=== PATIENT | male | born 1935 | race Two or more races ===

== ENCOUNTER 2020-09-12 08:47 | Outpatient (REF) | payer MEDICARE, SELFPAY | END 2020-09-12 08:48 | disposition home or self-care (01) | LOC: HO.RESP 08:47 | PROVIDERS: Visit Provider Internal Medicine | DX: Z13.89 Encounter for screening for other disorder (principal) ==

== ENCOUNTER 2020-09-27 07:53 | Emergency (ER) | payer MEDICARE, SELFPAY ==
[2020-09-27 09:07] VITALS: BP 173/88; PULSE 56; RESP 16; TEMP 36.7; O2SAT 98; BMI 24.5
--- NOTE | 2020-09-27 09:33 | ED_ITS ---
HPI - Extremity Injury (Lower) General Chief Complaint: Extremity Injury, Lower Stated Complaint: toe nail pain Time Seen by Provider: 09/27/20 09:18 Source: patient Mode of arrival: ambulatory History of Present Illness HPI Narrative: 84-year-old male with past medical history of hypertension presenting to ED complaining of left great toenail pain/over growth and partial avulsion x3 days. Reports was putting on pants and toenail nearly came off. Denies direct injury/crush injury or fall. Also reports overgrown toenail to 3rd toe. Denies fever, chills, numbness/tingling MD complaint: foot injury Onset (ago): day(s) Related Data Allergies Allergy/AdvReac Type Severity Reaction Status Date / Time No Known Allergies Allergy Unverified 07/20/20 19:09 [No Known Allergies*] Review of Systems Review of Systems: Constitutional: No Weight loss, No Fever, No Chills Musculoskeletal: No joint pain, No Myalgias, No Joint Swelling Skin: No Skin Lesions, No rash, +toenail issue Neuro: No Weakness, No Numbness, No Paresthesias PMFSH Past Medical History Source: old records reviewed Medical History (Updated 09/27/20 @ 09:32 by ZEHRA Dupont) HTN (hypertension) Social History Social History Advance Directives: No Advance Directives Information Provided: No Physical Exam Vital Signs: Vital Signs: Last Vital Signs Temp 98.0 F 09/27/20 09:07 Pulse 56 09/27/20 09:07 Resp 16 09/27/20 09:07 BP 173/88 H 09/27/20 09:07 Pulse Ox 98 09/27/20 09:07 Body Mass Index 24.5 Const: General: cooperative and healthy appearing Orientation/consciousness: patient oriented x3 Limitations: no limitations HENMT: Head: Yes normal to inspection Ears: hearing grossly normal bilaterally General nose exam: Normal external nose present Face and sinus: Yes normal facial exam Eyes: General: appearance normal, both eyes and all related structures EOM: EOMs intact bilaterally Neck: Neck: Yes normal visual inspection Cardio: Peripheral pulses: dorsalis pedis present Skin: Other: Left great toenail overgrown/partially avulsed, still intact to medial nail bed. No active bleeding, no fluctuance/induration, or active infection Other toenails overgrown Rashes: no rashes Wounds: no wounds Neuro: General: patient oriented x3 Gait exam (Neuro): Normal gait present Extrem: General: Yes normal to inspection MDM - Extremity Injury (Lower) MDM Narrative Medical decision making narrative: No active signs of infection. Toenails still intact. Discussed with patient importance of keeping toenail intact until sees pre owned sales manager as is protecting underlying nail bed. He verbalized understanding and will call pre owned sales manager today Discharge Plan Discharge Clinical Impression: Overgrown toenails Patient Disposition: Home, Self-Care Instructions: Partial Nail Avulsion for Ingrown Nail (DC) Additional Instructions: Call the pre owned sales manager today to see when he can get the earliest appointment. Do not play with her toenail, keep intact as it is protecting the underlying skin. If area begins to look infected, is red, there is pus drainage, bleeding, or you have fever return to the ED. YOU NEED TO SEE THE SENIOR MEDIA PLANNER Llame al pod?logo hoy para ginger cu?ndo puede obtener la troy m?s temprana. No juegues con la u?a del pie, mantenla intacta ya que protege la piel subyacente. Si el ?keven comienza a verse infectada, est? enrojecida, hay drenaje de pus, sangrado o tiene fiebre, regrese al servicio de urgencias. NECESITA GINGER AL ESPECIALISTA EN PIES Referrals: Maverick Staley [Physician] - 1 day Interventions: ED Discharge Assessment Last Done: 09/27/20 09:43 Discharge Date/Time: 09/27/20 09:44
== END 2020-09-27 09:44 | disposition home or self-care (01) ==
PROVIDERS: Emergency Provider Internal Medicine
DX: M79.675 Pain in left toe(s) (principal); I10 Essential (primary) hypertension; Z79.899 Other long term (current) drug therapy
CPT/HCPCS: 99282; 99283

== ENCOUNTER → 2020-10-10 13:08 | Outpatient (BNVA) | payer MEDICARE, SELFPAY | PROVIDERS: Visit Provider Nurse Practitioner | DX: Z13.89 Encounter for screening for other disorder (principal) | CPT/HCPCS: Q3014 ==

== ENCOUNTER 2020-11-14 13:57 | Outpatient (REF) | payer MEDICARE, SELFPAY ==
--- NOTE | 2020-11-15 13:12 | MHC.AU.P13 ---
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 Current Hearing Instrument Information: Previously had Ella SP BTEs, but they have been lost for a while. Additional Information: Mr. Rivas was seen at [facility] on 10/18/2020, at which time testing indicated that he would benefit from binaural amplification. Mr. Rivas previously received hearing aids from our clinic in 2016. He has since lost these hearing aids and is in need of a new pair. His degree of hearing loss impacts his ability to communicate. Binaural amplification is recommended to facilitate improved communication. He would benefit from rechargeable hearing aids due to memory and cognitive concerns. His son-in-law accompanied him today and will be helping him care for the hearing aids. Hearing Instrument Selection: Right Ear: Director Loss Prevention: Phonak Model: Bolero M50-VA Battery Size: Rechargeable Color: P5-Champagne Type of Mold: Theresa shell mold Left Ear: Director Loss Prevention: Phonak Model: Bolero M50-VA Battery Size: Rechargeable Color: P5-Champagne Type of Mold: Theresa shell mold Plan: Plan of Care for Hearing Instrument Fitting: Patient wishes to purchase hearing aids as prescribed Action Taken/Action Needed: Earmold Impressions Taken Comments: Checking with insurance to see if he is eligible for new aids. If not, will submit online PA. Earmolds were ordered today. Diagnosis Code(s): Primary Diagnosis: H90.3 Bilateral Sensorineural Hearing Loss Signature: Provider: Junito Gan, [facility]
== END 2020-11-14 13:58 | disposition home or self-care (01) ==
LOC: HO.HAP 13:57
PROVIDERS: Visit Provider Otolaryngology
DX: Z46.1 Encounter for fitting and adjustment of hearing aid (principal); H90.3 Sensorineural hearing loss, bilateral
CPT/HCPCS: 92591; V5275

== ENCOUNTER → 2020-12-14 08:37 | Outpatient (BNVA) | payer OTHER, SELFPAY | PROVIDERS: PCP Family Medicine; Visit Provider Nurse Practitioner | CPT/HCPCS: Q3014 ==

== ENCOUNTER 2020-12-21 14:45 | Outpatient (REF) | payer MEDICARE, SELFPAY | END 2020-12-21 14:46 | disposition home or self-care (01) | LOC: HO.HAP 14:45 | PROVIDERS: Visit Provider Otolaryngology | DX: Z46.1 Encounter for fitting and adjustment of hearing aid (principal); H90.3 Sensorineural hearing loss, bilateral | CPT/HCPCS: V5011; V5020; V5160; V5261; V5264 ==

== ENCOUNTER 2021-01-05 14:21 | Outpatient (REF) | payer OTHER, SELFPAY | END 2021-01-05 14:22 | disposition home or self-care (01) | LOC: HO.HAP 14:21 | PROVIDERS: Visit Provider Family Medicine | DX: Z13.89 Encounter for screening for other disorder (principal) ==

== ENCOUNTER 2021-01-23 12:57 | Outpatient (REF) | payer OTHER, SELFPAY | END 2021-01-23 12:58 | disposition home or self-care (01) | LOC: HO.HAP 12:57 | PROVIDERS: Visit Provider Family Medicine | DX: Z13.89 Encounter for screening for other disorder (principal) ==

== ENCOUNTER → 2021-02-02 09:15 | Outpatient (BNVA) | payer OTHER, SELFPAY | PROVIDERS: PCP Family Medicine; Visit Provider Nurse Practitioner | DX: R63.4 Abnormal weight loss (principal); K21.9 Gastro-esophageal reflux disease without esophagitis; K59.04 Chronic idiopathic constipation; R30.0 Dysuria; Z79.899 Other long term (current) drug therapy | CPT/HCPCS: Q3014 ==

== ENCOUNTER 2022-02-18 14:02 | Emergency (ER) | payer OTHER, SELFPAY ==
--- NOTE | ~2022-02-18 | XR_ITS ---
EXAMINATION: XR CHEST CLINICAL INFORMATION: Chest pain COMPARISON: None TECHNIQUE: Frontal view of the chest was obtained. FINDINGS: The lungs are well-expanded and clear acute pneumonic process. There is platelike atelectasis left CP angle. Heart size and pulmonary vascularity is normal. No gross bony abnormality seen. XR/XR chest 1V IMPRESSION: Platelike atelectasis left CP angle.
--- NOTE | 2022-02-18 14:09 | ECG_ITS ---
Test Reason : CHEST PAIN Blood Pressure : / mmHG Vent. Rate : 099 BPM Atrial Rate : 000 BPM P-R Int : 000 ms QRS Dur : 082 ms QT Int : 372 ms P-R-T Axes : 000 057 065 degrees QTc Int : 477 ms Atrial fibrillation Abnormal ECG When compared with ECG of 22-MAY-2020 09:50, Atrial fibrillation has replaced Normal sinus rhythm with Premature ventricular complexes T wave inversion no longer evident in Lateral leads Referred By: Generic ED Physician Electronically Signed By:JULIAN GRIFFIN MD
[2022-02-18 14:19] VITALS: BP 130/74; PULSE 83; RESP 18; TEMP 36.4; O2SAT 97; BMI 23.5
[2022-02-18 14:42] VITALS: BP 116/79; PULSE 82; RESP 16; TEMP 36.6; O2SAT 97
--- NOTE | 2022-02-18 15:37 | ED_ITS ---
HPI - Chest Pain General Chief Complaint: Chest Pain Stated Complaint: HBP/chest pain Time Seen by Provider: 02/18/22 15:34 Source: patient, family (Spouse) and field service coordinator Mode of arrival: ambulatory Limitations: no limitations History of Present Illness HPI narrative: 86 years old male came in for evaluation of chest pain and elevated blood pressure. Left-sided chest discomfort radiating to the left arm/shoulder started since yesterday, patient been having nausea and vomiting time 1 yesterday. described it as mild discomfort to the left side of the chest 01/10, intermittent last for 15-30 minutes each episode then disappear, now patient have no chest pain or discomfort, also noted that his blood pressure was elevated 176/76. Patient declined shortness of breath, no fever, no chills. Related Data Home Medications Medication Instructions Recorded Confirmed docusate sodium 100 mg capsule 100 mg PO DAILY 10/10/20 12/14/20 (Colace) methylcellulose (laxative) 500 mg 500 mg PO BID 10/10/20 12/14/20 tablet (Citrucel) aspirin 81 mg tablet,delayed 81 mg PO QAM 02/02/21 release atorvastatin 40 mg tablet 40 mg PO BEDTIME 02/02/21 cetirizine 10 mg tablet 10 mg PO QAM PRN 02/02/21 furosemide 40 mg tablet 40 mg PO QAM 02/02/21 guaifenesin 100 mg/5 mL oral liquid mg PO Q4H PRN 02/02/21 hydralazine 10 mg tablet 10 mg PO 02/02/21 hydralazine 25 mg tablet 25 mg PO 02/02/21 metoprolol succinate 50 mg 50 mg PO QAM 02/02/21 tablet,extended release 24 hr pantoprazole 40 mg tablet,delayed 40 mg PO DAILY 02/02/21 release sennosides 8.6 mg tablet 17.2 mg PO BEDTIME PRN 02/02/21 valsartan 320 1 tab PO QAM 02/02/21 mg-hydrochlorothiazide 25 mg tablet Previous Rx's Medication Instructions Recorded bisacodyl 5 mg tablet,delayed 10 mg PO BEDTIME 30 Days #60 tab 12/14/20 release (Dulcolax (bisacodyl)) nitrofurantoin macrocrystal 100 mg 100 mg PO BID #7 cap 12/14/20 capsule omeprazole 40 mg capsule,delayed 40 mg PO DAILY #90 cap 04/25/21 release Allergies Allergy/AdvReac Type Severity Reaction Status Date / Time No Known Allergies Allergy Verified 02/02/21 09:16 [No Known Allergies*] Review of Systems Review of Systems: All other systems are reviewed and are negative Constitutional: Reports as per HPI and Reports no additional constitutional complaints Eyes: Reports as per HPI and Reports no additional eye complaints Reports system reviewed and no additional complaints, except as documented Cardiovascular: Reports as per HPI and Reports no additional cardiovascular complaints Respiratory: Reports as per HPI and Reports no additional respiratory complaints Gastrointestinal: Reports as per HPI and Reports no additional gastrointestinal complaints Genitourinary: Reports no additional female genitourinary complaints Musculoskeletal: Reports no additional musculoskeletal complaints Skin/Breast: Reports system reviewed and no additional complaints, except as docu Psychiatric: Reports no additional psychiatric complaints Endocrine: Reports no additional endocrine complaints Hematologic/Lymphatic: Reports no additional hematologic/lymphatic complaints Allergic/Immunologic: Reports no additional allergic/immunologic complaints Reports system reviewed and no additional complaints, except as documented and Reports Abnormal speech present [facility] Past Medical History Medical History (Updated 02/18/22 @ 16:02 by Rosa Connell MD) HTN (hypertension) Surgical History Hx of colonoscopy Family History Family History Father Stroke Mother No problems noted. Social History Social History Household Members: Spouse Housing: Apartment Alcohol intake: former Year quit: 2017 Advance Directives: No Advance Directives Information Provided: No Physical Exam Vital Signs: Vital Signs: Last Vital Signs Temp 97.8 F 02/18/22 14:42 Pulse 82 02/18/22 14:42 Resp 16 02/18/22 14:42 BP 116/79 02/18/22 14:42 Pulse Ox 97 02/18/22 14:42 BMI result Body Mass Index 23.5 Course Course Course Narrative: Assessment and plan. 86-year-old came in for chest pain since yesterday, EKG showing atrial fibrillation confirmed that the patient had history of atrial fibrillation old EKGs showed no history of atrial fibrillation. As per patient scheduled for stress test on February 22, case signed out to Dr. Bernal for re- evaluation and dispo accordingly. Discharge Plan Discharge Clinical Impression: Chest pain, Atrial fibrillation Prescriptions: No Action omeprazole 40 mg capsule,delayed release(DR/EC) 40 mg PO DAILY Qty: 90 0RF docusate sodium [Colace] 100 mg capsule 100 mg PO DAILY 0RF Citrucel 500 mg tablet 500 mg PO BID 0RF bisacodyl [Dulcolax (bisacodyl)] 5 mg tablet,delayed release (DR/EC) 10 mg PO BEDTIME 30 Days Qty: 60 3RF nitrofurantoin macrocrystal 100 mg capsule 100 mg PO BID Qty: 7 0RF Rx Instructions: must administer with a meal/food
[2022-02-18 15:59] LABS: MANUAL DIFF FLAG NO
[2022-02-18 16:01] LABS: Basophils Percent Auto 0.5 % (0-2); Eosinophils Absolute Auto 0.2 X10*3/uL (0.0-0.4); Hematocrit 40.5 % (42.0-52.0); Imm Gran Abs Auto 0.04 X10*3/uL (0.00-0.03); Imm Gran Pct Auto 0.5 % (0.0-0.4); Lymphocytes Absolute Auto 1.5 X10*3/uL (1.2-4.9); Lymphocytes Percent Auto 20.1 % (20-40); Mean Corpuscular HGB Conc 34.6 g/dl (31.0-36.0); Mean Corpuscular Hemoglobin 31.3 pg (27.0-33.0); Mean Corpuscular Volume 90.4 fL (80.0-98.0); Mean Platelet Volume 10.9 fL (9.4-12.4); Monocytes Absolute Auto 0.6 X10*3/uL (0.1-1.2); Monocytes Percent Auto 8.3 % (2-11); Neutrophils Absolute Auto 5.2 x10*3/uL (2.0-8.3); Neutrophils Percent Auto 67.6 % (45-73); Platelet Count 158 X10*3/uL (160-400); Red Blood Count 4.48 X10*6/uL (4.60-5.80); Red Cell Distribution Width 13.5 % (11.0-16.0); White Blood Count 7.7 X10*3/uL (4.8-10.8)
[2022-02-18 16:22] LABS: Alanine Aminotransferase 14 U/L (0-40); Albumin Level 3.8 g/dL (3.5-5.0); Alkaline Phosphatase 85 U/L (39-117); Anion Gap 10 (12-20); Aspartate Amino Transferase 19 U/L (5-37); Bilirubin Direct 0.4 mg/dL (0.0-0.5); Bilirubin Total 0.9 mg/dL (0.0-1.0); Blood Urea Nitrogen 15 mg/dL (9-16); Calcium 9.4 mg/dL (8.4-10.2); Carbon Dioxide 34 mmol/L (22-29); Chloride 100 mmol/L (96-108); Creatinine Clr Calc Pharmacy 54.1; Estimated Glomerular Filt Rate 59; Glucose Random 83 mg/dL (60-115); Lipase 21 U/L (8-78); Potassium 3.5 mmol/L (3.3-5.1); Sodium 140 mmol/L (135-145); Total Protein 6.9 g/dL (6.5-8.0)
[2022-02-18 16:25] LABS: B Type Natriuretic Peptide 142 pg/mL (<100); Troponin-I High Sensitivity 5.1 ng/L (<3.5-35.0)
[2022-02-18 17:43] VITALS: BP 134/83; PULSE 75; RESP 16; TEMP 36.9; O2SAT 96
[2022-02-18 18:29] LABS: Troponin-I High Sensitivity 5.5 ng/L (<3.5-35.0)
== END 2022-02-18 19:44 | disposition home or self-care (01) ==
PROVIDERS: Internal Medicine; Emergency Provider Emergency Medicine; PCP Internal Medicine
DX: I48.91 Unspecified atrial fibrillation (principal); R07.89 Other chest pain; R11.2 Nausea with vomiting, unspecified; R06.02 Shortness of breath; Z79.899 Other long term (current) drug therapy; Z79.01 Long term (current) use of anticoagulants
CPT/HCPCS: 36415; 71045; 80048; 80076; 83690; 83880; 84484; 85025; 93005; 99283; 99285

== ENCOUNTER → 2022-02-22 15:33 | Outpatient (BNVA) | payer OTHER, SELFPAY | PROVIDERS: PCP Internal Medicine; Referring Provider Internal Medicine; Visit Provider Nurse Practitioner | DX: K59.04 Chronic idiopathic constipation (principal); K21.9 Gastro-esophageal reflux disease without esophagitis | CPT/HCPCS: 99212 ==

== ENCOUNTER → 2022-04-05 15:04 | Outpatient (BNVA) | payer OTHER, SELFPAY | PROVIDERS: PCP Internal Medicine | DX: R35.0 Frequency of micturition (principal) | CPT/HCPCS: 51798; 99202 ==

== ENCOUNTER → 2022-06-07 14:10 | Outpatient (BNVA) | payer OTHER, SELFPAY | PROVIDERS: PCP Internal Medicine; Visit Provider Urology | DX: R35.0 Frequency of micturition (principal); R30.0 Dysuria | CPT/HCPCS: 51798; 99212 ==

== ENCOUNTER 2022-06-18 20:44 | Observation (INO) | payer OTHER, SELFPAY ==
--- NOTE | 2022-06-18 | ECG_ITS ---
Test Reason : CHEST PAIN Blood Pressure : / mmHG Vent. Rate : 079 BPM Atrial Rate : 000 BPM P-R Int : 000 ms QRS Dur : 088 ms QT Int : 390 ms P-R-T Axes : 000 062 102 degrees QTc Int : 447 ms Atrial fibrillation Nonspecific ST and T wave abnormality Abnormal ECG When compared with ECG of 18-FEB-2022 14:04, Nonspecific T wave abnormality now evident in Inferior leads Nonspecific T wave abnormality now evident in Anterior leads Referred By: Slava Johnson Electronically Signed By:PEGGY SHERMAN
--- NOTE | ~2022-06-18 | XR_ITS ---
EXAMINATION: XR CHEST CLINICAL INFORMATION: Chest pain COMPARISON: 02/18/2022 TECHNIQUE: Frontal view of the chest was obtained. FINDINGS: Cardiac leads overlie the chest. Lung volumes are low. Hazy opacities at both lung bases. No pleural effusion or pneumothorax. The cardiomediastinal silhouette is unchanged, with a tortuous aorta. No acute osseous abnormality. XR/XR chest 1V IMPRESSION: Low lung volumes with bibasilar opacities favoring atelectasis.
[2022-06-18 21:01] VITALS: BP 102/62; BP 103/60; PULSE 100; PULSE 88; RESP 16; TEMP 36.9; O2SAT 96; O2SAT 97; BMI 22.9
--- NOTE | 2022-06-18 21:01 | ED_ITS ---
HPI - General Adult General Chief complaint: Chest Pain Stated complaint: chest pain Time Seen by Provider: 06/18/22 20:59 Source: patient Limitations: no limitations and language barrier (Hospital fashion photographer used) History of Present Illness HPI narrative: This is an 86-year-old male who reports a history of a ?myocardial lesion?, also has known GERD, hypertension, who has had a new discomfort which feels like gas and has left breast area since this afternoon. He describes symptoms as mild now. He did take an aspirin at home. He notes that his blood pressure seemed low at home, says it was ?89 . He denies any shortness of breath, sweats, cough, fever, nausea, vomiting, extremity swelling. He cannot say whether he has had any history of cardiac arrhythmia in the past. He cannot say if he is on any anticoagulants. Related Data Home Medications Medication Instructions Recorded Confirmed methylcellulose (laxative) 500 mg 500 mg PO BID 10/10/20 12/14/20 tablet (Citrucel) aspirin 81 mg tablet,delayed 81 mg PO QAM 02/02/21 release atorvastatin 40 mg tablet 40 mg PO BEDTIME 02/02/21 cetirizine 10 mg tablet 10 mg PO QAM PRN allergies 02/02/21 furosemide 40 mg tablet 40 mg PO QAM 02/02/21 guaifenesin 100 mg/5 mL oral liquid mg PO Q4H PRN 02/02/21 hydralazine 10 mg tablet 10 mg PO 02/02/21 hydralazine 25 mg tablet 25 mg PO 02/02/21 metoprolol succinate 50 mg 50 mg PO QAM 02/02/21 tablet,extended release 24 hr valsartan 320 1 tab PO QAM 02/02/21 mg-hydrochlorothiazide 25 mg tablet clopidogrel 75 mg tablet 75 mg PO BEDTIME 04/05/22 famotidine 20 mg tablet 20 mg PO DAILY 04/05/22 hydralazine 50 mg tablet 50 mg PO 04/05/22 sertraline 25 mg tablet 25 mg PO DAILY 04/05/22 acetaminophen 500 mg tablet 1,000 mg PO Q4-6H PRN 06/07/22 ketotifen fumarate 0.025 % (0.035 0 drp ophthalmic (eye) 06/07/22 %) eye drops mirtazapine 30 mg tablet 30 mg PO BEDTIME 06/07/22 Previous Rx's Medication Instructions Recorded bisacodyl 5 mg tablet,delayed 10 mg PO BEDTIME 30 days #60 tabs 02/22/22 release (Dulcolax (bisacodyl)) docusate sodium 100 mg capsule 100 mg PO .Daily with food #30 caps 02/22/22 (Colace) pantoprazole 40 mg tablet,delayed 40 mg PO DAILY #30 tabs 02/22/22 release tamsulosin 0.4 mg capsule (Flomax) 0.4 mg PO BEDTIME #30 caps 04/05/22 Allergies Allergy/AdvReac Type Severity Reaction Status Date / Time No Known Allergies Allergy Verified 06/07/22 07:38 [No Known Allergies*] Review of Systems Review of Systems: Yes all other systems are reviewed and are negative Constitutional: Constitutional: Reports as per HPI and Denies fever(s) Eyes: Eyes: Reports as per HPI and Reports no additional eye complaints ENT: Reports system reviewed and no additional complaints, except as documented, Reports as per HPI, Denies nasal congestion, Denies nasal discharge and Denies sore throat Cardiovascular: Cardiovascular: Reports as per HPI, Reports chest pain (Left breast area, gaslike) and Denies dyspnea Respiratory: Respiratory: Reports as per HPI, Denies cough and Denies dyspnea Gastrointestinal: Gastrointestinal: Reports as per HPI, Denies abdominal pain, Denies diarrhea and Denies vomiting Genitourinary: Genitourinary: Reports as per HPI, Denies hematuria, Denies dysuria and Denies urinary frequency Musculoskeletal: Musculoskeletal: Reports no additional musculoskeletal complaints and Denies numbness Integumentary/Breasts: Skin/Breast: Reports as per HPI and Denies rash Neurologic: Reports as per HPI, Denies focal weakness and Denies numbness Psychiatric: Psychiatric: Reports no additional psychiatric complaints and Reports as per HPI Endocrine: Endocrine: Reports no additional endocrine complaints and Reports as per HPI Hematologic/Lymphatic: Hematologic/Lymphatic: Reports no additional hematologic/lymphatic complaints, Reports as per HPI and Reports other (No peripheral edema) [facility] Past Medical History Medical History Abscess Burning with urination Gastroesophageal reflux disease with esophagitis HTN (hypertension) Urinary frequency Surgical History History of surgery Hx of colonoscopy Family History Family History Father Stroke Mother No problems noted. Social History Social History Household Members: Spouse Housing: Apartment Alcohol intake: former Year quit: 2017 Advance Directives: No Advance Directives Information Provided: No Physical Exam ED Vital Signs: Vital Signs - 24 hr 06/18/22 21:01 Temperature 98.4 F Pulse Rate 88 Respiratory Rate 16 Blood Pressure 102/62 Pulse Oximetry 96 Oxygen Delivery Method Room Air BMI result Body Mass Index 22.9 Const General: no acute distress Orientation/consciousness: patient oriented x3 HENMT Head: Yes normal to inspection General nose exam: Normal external nose present Mouth: moist mucous membranes Throat: Yes posterior oropharynx normal, Yes tonsils normal and Yes uvula midline Eyes Eyelids: Yes eyelids normal Conjunctivae: conjunctivae normal Pupils: Equal, round and reactive pupils present Neck Neck: Yes supple Resp Effort & Inspection: normal respiratory effort Auscultation: clear to auscultation bilaterally Cardio Rate: regular rate Rhythm: abnormal rhythm irregularly irregular Heart sounds: S1 normal heart sound present, S2 normal heart sound present, no gallops, no murmurs and no rubs GI Inspection: No distended Palpation (GI): Soft to palpation and nontender Auscultation: normal bowel sounds Skin General skin exam: other (Warm and dry) Neuro General: patient oriented x3 and CN's II-XI intact bilaterally Cranial nerves: Yes Equal, round and reactive pupils present Extrem General: Yes no pedal edema Psych Affect: normal affect Attitude: cooperative Medical Decision Making [facility] Narrative Medical decision making narrative: Patient with left-sided chest discomfort with associated belching. Pain seems localized. Patient does have EKG changes compared to prior, with ST depression laterally. Troponins negative. Patient does have hypokalemia with potassium 2.8 and was given potassium p.o. in the ED. his creatinine is also significantly worse at 2.10, with an elevated BUN of 36. Patient reported a low blood pressur e at home, maybe mildly dehydrated. Patient was treated with normal saline IV bolus. Was also given Maalox and lidocaine 1st chest pain, had been given aspirin pre-hospital. Patient is to be admitted to the hospitalist Service, Dr. Johnson accepting Lab Data Lab results reviewed: Yes I reviewed the patient's lab results. Result diagrams: 06/18/22 21:27 06/18/22 21:27 Labs: Lab Results 06/18/22 06/18/22 06/18/22 Range/Units 21:27 21:27 21:27 WBC 8.2 (4.8-10.8) X10*3/uL RBC 4.12 L (4.60-5.80) X10*6/uL Hgb 12.6 L (14.0-18.0) g/dl Hct 36.7 L (42.0-52.0) % MCV 89.1 (80.0-98.0) fL MCH 30.6 (27.0-33.0) pg MCHC 34.3 (31.0-36.0) g/dl RDW 14.6 (11.0-16.0) % Plt Count 166 (160-400) X10*3/uL MPV 11.9 (9.4-12.4) fL Immature Gran % (Auto) 0.5 H (0.0-0.4) % Neut % (Auto) 68.1 (45-73) % Lymph % (Auto) 21.3 (20-40) % Dundy % (Auto) 7.5 (2-11) % Eos % (Auto) 2.1 (0-4) % Baso % (Auto) 0.5 (0-2) % Lymph # (Auto) 1.8 (1.2-4.9) X10*3/uL Dundy # (Auto) 0.6 (0.1-1.2) X10*3/uL Eos # (Auto) 0.2 (0.0-0.4) X10*3/uL Baso # (Auto) 0.0 (0.0-0.2) X10*3/uL Abs Immat Gran (auto) 0.04 H (0.00-0.03) X10*3/uL Absolute Neuts (auto) 5.6 (2.0-8.3) x10*3/uL Absolute Nucleated RBC 0.000 (0.0-0.012) X10*3/uL Nucleated RBC % (auto) 0.0 (0.0-0.2) /100WBC APTT 27.1 (26.0-36.4) SEC Sodium 141 (135-145) mmol/L Potassium 2.8 L (3.3-5.1) mmol/L Chloride 101 (96-108) mmol/L Carbon Dioxide 27 (22-29) mmol/L Anion Gap 16 (12-20) BUN 36 H D (9-16) mg/dL Creatinine 2.10 H (0.5-1.4) mg/dL Estim Creat Clear Calc 32.4 Estimated GFR 30 Random Glucose 144 H D (60-115) mg/dL Calcium 9.1 (8.4-10.2) mg/dL Total Bilirubin 0.7 (0.0-1.0) mg/dL AST 14 (5-37) U/L ALT 8 (0-40) U/L Alkaline Phosphatase 97 (39-117) U/L Troponin I High Sens (<3.5-35.0) ng/L Total Protein 7.2 (6.5-8.0) g/dL Albumin 4.2 (3.5-5.0) g/dL 06/18/22 Range/Units 21:27 WBC (4.8-10.8) X10*3/uL RBC (4.60-5.80) X10*6/uL Hgb (14.0-18.0) g/dl Hct (42.0-52.0) % MCV (80.0-98.0) fL MCH (27.0-33.0) pg MCHC (31.0-36.0) g/dl RDW (11.0-16.0) % Plt Count (160-400) X10*3/uL MPV (9.4-12.4) fL Immature Gran % (Auto) (0.0-0.4) % Neut % (Auto) (45-73) % Lymph % (Auto) (20-40) % Dundy % (Auto) (2-11) % Eos % (Auto) (0-4) % Baso % (Auto) (0-2) % Lymph # (Auto) (1.2-4.9) X10*3/uL Dundy # (Auto) (0.1-1.2) X10*3/uL Eos # (Auto) (0.0-0.4) X10*3/uL Baso # (Auto) (0.0-0.2) X10*3/uL Abs Immat Gran (auto) (0.00-0.03) X10*3/uL Absolute Neuts (auto) (2.0-8.3) x10*3/uL Absolute Nucleated RBC (0.0-0.012) X10*3/uL Nucleated RBC % (auto) (0.0-0.2) /100WBC APTT (26.0-36.4) SEC Sodium (135-145) mmol/L Potassium (3.3-5.1) mmol/L Chloride (96-108) mmol/L Carbon Dioxide (22-29) mmol/L Anion Gap (12-20) BUN (9-16) mg/dL Creatinine (0.5-1.4) mg/dL Estim Creat Clear Calc Estimated GFR Random Glucose (60-115) mg/dL Calcium (8.4-10.2) mg/dL Total Bilirubin (0.0-1.0) mg/dL AST (5-37) U/L ALT (0-40) U/L Alkaline Phosphatase (39-117) U/L Troponin I High Sens 9.6 D (<3.5-35.0) ng/L Total Protein (6.5-8.0) g/dL Albumin (3.5-5.0) g/dL Imaging Data Chest x-ray: Radiologist's impression: IMPRESSION: Low lung volumes with bibasilar opacities favoring atelectasis. ECG Data Attestation: I personally reviewed and interpreted this ECG as follows: Interpretation: Atrial fibrillation with a ventricular response of 79. ST changes especially in lateral leads.. Normal QRS axis. EKG unchanged from 1 dated 02/18/2022 except for the presence of the lateral lead ST changes Discharge Plan Discharge Clinical Impression: Chest pain, Acute hypokalemia, Acute kidney injury Patient Disposition: Admitted as Observation
[2022-06-18 21:35] LABS: Basophils Percent Auto 0.5 % (0-2); Eosinophils Absolute Auto 0.2 X10*3/uL (0.0-0.4); Eosinophils Percent Auto 2.1 % (0-4); Hematocrit 36.7 % (42.0-52.0); Hemoglobin 12.6 g/dl (14.0-18.0); Imm Gran Abs Auto 0.04 X10*3/uL (0.00-0.03); Imm Gran Pct Auto 0.5 % (0.0-0.4); Lymphocytes Absolute Auto 1.8 X10*3/uL (1.2-4.9); Lymphocytes Percent Auto 21.3 % (20-40); MANUAL DIFF FLAG NO; Mean Corpuscular HGB Conc 34.3 g/dl (31.0-36.0); Mean Corpuscular Hemoglobin 30.6 pg (27.0-33.0); Mean Corpuscular Volume 89.1 fL (80.0-98.0); Mean Platelet Volume 11.9 fL (9.4-12.4); Monocytes Absolute Auto 0.6 X10*3/uL (0.1-1.2); Monocytes Percent Auto 7.5 % (2-11); Neutrophils Absolute Auto 5.6 x10*3/uL (2.0-8.3); Neutrophils Percent Auto 68.1 % (45-73); Platelet Count 166 X10*3/uL (160-400); Red Blood Count 4.12 X10*6/uL (4.60-5.80); Red Cell Distribution Width 14.6 % (11.0-16.0); White Blood Count 8.2 X10*3/uL (4.8-10.8)
[2022-06-18 21:45] LABS: Partial Thromboplastin Time 27.1 SEC (26.0-36.4)
[2022-06-18] MEDS: Magnesium Hydrox/Alum Hydrox 30 ML ORAL.SUSP PO (21:46)
[2022-06-18] MEDS: Lidocaine HCl Viscous 2 % 15 ML SOLUTION 10 ML MUCOUS MEM (21:46)
[2022-06-18 21:54] LABS: Alanine Aminotransferase 8 U/L (0-40); Albumin Level 4.2 g/dL (3.5-5.0); Alkaline Phosphatase 97 U/L (39-117); Anion Gap 16 (12-20); Aspartate Amino Transferase 14 U/L (5-37); Bilirubin Total 0.7 mg/dL (0.0-1.0); Blood Urea Nitrogen 36 mg/dL (9-16); Calcium 9.1 mg/dL (8.4-10.2); Carbon Dioxide 27 mmol/L (22-29); Chloride 101 mmol/L (96-108); Creatinine Clr Calc Pharmacy 32.4; Estimated Glomerular Filt Rate 30; Glucose Random 144 mg/dL (60-115); Potassium 2.8 mmol/L (3.3-5.1); Sodium 141 mmol/L (135-145); Total Protein 7.2 g/dL (6.5-8.0)
[2022-06-18 21:57] LABS: Troponin-I High Sensitivity 9.6 ng/L (<3.5-35.0)
[2022-06-18] MEDS: Potassium Bicarbonate/Cit AC 25 MEQ TABLET.EFF PO (22:11)
[2022-06-18] MEDS: 0.9 % Sodium Chloride 500 ML 999 ML IV (22:12)
--- NOTE | 2022-06-18 22:28 | P.HPHOSP_ITS ---
History of Present Illness Date of Service: 06/18/22 Chief Complaint: chest pain 86-year-old male with a past medical history of hypertension, hyperlipidemia, CAD, question CHF, depression, BPH, constipation presented to the hospital today with a chief complaint of chest pain. Patient reports that he developed chest discomfort located in the center of the chest, nonradiating, no associated lightheadedness or dizziness, nausea vomiting or diaphoresis. Resolved at the time of my interview. Mentions that he has been eating and drinking okay. Denies any fever chills cough. Denies any GI symptoms. Review of all other systems is negative except mentioned above ER course: Per ER team patient's chest pain resolved, EKG nonischemic, troponin negative. On labs noted to have low potassium. Given supplementation. Admitted to the hospital for further management. [facility] Medical History Abscess Burning with urination Gastroesophageal reflux disease with esophagitis HTN (hypertension) Urinary frequency Family History Father Stroke Mother No problems noted. Surgical History History of surgery Hx of colonoscopy Social History Household Members: Spouse Housing: Apartment Alcohol intake: former Year quit: 2017 Advance Directives: No Advance Directives Information Provided: No Meds Allergies Allergy/AdvReac Type Severity Reaction Status Date / Time No Known Allergies Allergy Verified 06/07/22 07:38 [No Known Allergies*] Active Medications: Current Medications Acetaminophen (Acetaminophen 325 Mg Tablet) 650 mg PO Q6H PRN PRN Reason: Pain, Mild (Pain Scale 1-3) Heparin Sodium (Porcine) (Heparin Sodium,Porcine 5,000 Unit/Ml Vial) 5,000 unit SUBCUT Q8H ELA Hydromorphone HCl (Hydromorphone Hcl 0.5 Mg/0.5 Ml Syringe) 0.5 mg IVPUSH Q4H PRN; Protocol PRN Reason: Pain, Severe (Pain Scale 7-10) Sodium Chloride (Ns) 500 mls @ 999 mls/hr IV .Q31M ELA Stop: 06/18/22 22:30 Last Admin: 06/18/22 22:12 Dose: 999 mls/hr Melatonin (Melatonin 3 Mg Tablet) 6 mg PO BEDTIME PRN PRN Reason: Insomnia Nitroglycerin (Nitroglycerin 0.4 Mg Tab.Subl) 0.4 mg SUBLINGUAL Q5MX3 PRN PRN Reason: Chest Pain Pharmacy Consult (Consult Rx Perform Med Rec) 1 each MISCELLANE ONCE PRN PRN Reason: Consult order Potassium Chloride (Potassium Chloride Packet 20 Meq Packet) 40 meq PO ONCE ONE Stop: 06/18/22 22:28 Senna (Sennosides 8.6 Mg Tablet) 17.2 mg PO BEDTIME PRN PRN Reason: Constipation Sodium Chloride (0.9 % Sodium Chloride Flush 3 Ml Syringe) 3 ml IVFLUSH [facility] Medications Medication Instructions Recorded Confirmed Last Taken Type acetaminophen 500 mg tablet 2 tab PO Q4-6H PRN Pain 06/19/22 06/19/22 Unknown History aspirin 81 mg tablet,delayed 1 tab PO QAM 06/19/22 06/19/22 06/18/22 History release atorvastatin 40 mg tablet 1 tab PO BEDTIME 06/19/22 06/19/22 06/18/22 History bisacodyl 5 mg tablet,delayed 1 tab PO BID 06/19/22 06/19/22 06/18/22 History release (Laxative (bisacodyl)) cetirizine 10 mg tablet 1 tab PO QAM PRN allergies 06/19/22 06/19/22 Unknown History clopidogrel 75 mg tablet 1 tab PO BEDTIME 06/19/22 06/19/22 06/18/22 History docusate sodium 100 mg capsule 1 cap PO DAILY 06/19/22 06/19/22 06/18/22 History famotidine 20 mg tablet 1 tab PO BEDTIME 06/19/22 06/19/22 06/18/22 History fluticasone propionate 50 2 spray intranasal DAILY 06/19/22 06/19/22 Unknown History mcg/actuation nasal spray,suspension furosemide 40 mg tablet 1 tab PO QAM 06/19/22 06/19/22 06/18/22 History hydralazine 50 mg tablet 1 tab PO BID 06/19/22 06/19/22 06/18/22 History ketotifen fumarate 0.025 % (0.035 1 drp ophthalmic (eye) BID PRN 06/19/22 06/19/22 Unknown History %) eye drops allergies metoprolol succinate 50 mg 1.5 tab PO QAM 06/19/22 06/19/22 06/18/22 History tablet,extended release 24 hr mirtazapine 30 mg tablet 1 tab PO BEDTIME 06/19/22 06/19/22 06/18/22 History pantoprazole 40 mg tablet,delayed 1 tab PO QAM 06/19/22 06/19/22 06/18/22 History release sertraline 25 mg tablet 1 tab PO QAM 06/19/22 06/19/22 06/18/22 History tamsulosin 0.4 mg capsule 1 cap PO DAILY 06/19/22 06/19/22 06/18/22 History valsartan 320 1 tab PO QAM 06/19/22 06/19/22 06/18/22 History mg-hydrochlorothiazide 25 mg tablet Physical Exam Vital Signs and Narrative: Vital Signs: Last Vital Signs Temp 98.4 F 06/18/22 21:01 Pulse 88 06/18/22 21:01 Resp 16 06/18/22 21:01 BP 102/62 06/18/22 21:01 Pulse Ox 96 06/18/22 21:01 O2 Del Method 06/18/22 21:01 BMI result Body Mass Index 22.9 Gen: Appears be in no acute distress HEENT: NCAT, Moist mucosa. Pulmonary: Vesicular breath sounds, fair air entry CVS: Normal S1-S2 Abdomen: BS+, Soft, Nontender Extremities: Warm well perfused Neuro: Alert and awake. Results Labs CBC and Chem 7: 06/18/22 21:27 06/18/22 21:27 Labs: Laboratory Results - last 24 hr 06/18/22 06/18/22 06/18/22 21:27 21:27 21:27 MCV 89.1 MCH 30.6 MCHC 34.3 RDW 14.6 Plt Count 166 MPV 11.9 Immature Gran % (Auto) 0.5 H Neut % (Auto) 68.1 Lymph % (Auto) 21.3 [place] % (Auto) 7.5 Eos % (Auto) 2.1 Baso % (Auto) 0.5 Lymph # (Auto) 1.8 [place] # (Auto) 0.6 Eos # (Auto) 0.2 Baso # (Auto) 0.0 Abs Immat Gran (auto) 0.04 H Absolute Neuts (auto) 5.6 Absolute Nucleated RBC 0.000 Nucleated RBC % (auto) 0.0 APTT 27.1 Anion Gap 16 Estim Creat Clear Calc 32.4 Estimated GFR 30 Random Glucose 144 H D Calcium 9.1 Total Bilirubin 0.7 AST 14 ALT 8 Alkaline Phosphatase 97 Total Protein 7.2 Albumin 4.2 Imaging Radiologist's Impressions: Impressions Chest X-Ray 06/18/22 21:25 IMPRESSION: Low lung volumes with bibasilar opacities favoring atelectasis. Assessment and Plan (1) Chest pain: Status: Acute (2) Acute hypokalemia: Status: Acute Plan 86-year-old male with a past medical history of hypertension, hyperlipidemia, CAD, question CHF, depression, BPH, constipation presented to the hospital today with a chief complaint of chest pain. Chest pain: Resolved. EKG nonischemic. Troponin negative. Monitor on telemetry. Cardiology consult. Hypokalemia: No EKG changes. Patient denies poor oral intake. Likely in setting of diuretic use. Repleted. Will continue to monitor Chronic medical conditions: History of HTN/HLD/CAD: Continue home aspirin, statin, Plavix, metoprolol, valsartan, hydralazine History of ?CHF: Stable. Continue home Lasix. History of depression: Continue home sertraline History of BPH: Continue home Flomax DVT prophylaxis: Subcu heparin Code status: Full code Quality Stroke Does the patient have a stroke diagnosis?: No VTE Prior VTE?: No VTE Risk Level:: Medical - moderate - high VTE Device Contraindication: Treatment Not Indicated VTE Drug Contraindication: N/A - Med Ordered
[2022-06-18] MEDS: Heparin Sodium,Porcine 5,000 UNIT/ML VIAL 5000 UNIT SUBCUT (22:47)
[2022-06-18] MEDS: Potassium Chloride Packet 20 MEQ PACKET 40 MEQ PO (22:47)
[2022-06-18 23:23] LABS: COVID-19 Test Negative (Negative)
[2022-06-18 23:54] LABS: Troponin-I High Sensitivity 11.7 ng/L (<3.5-35.0)
[2022-06-18 23:55] VITALS: BP 105/56; PULSE 68; RESP 18; O2SAT 95
[2022-06-19] VITALS (8 sets, daily range): BP systolic 95–115; BP diastolic 58–72; PULSE 65–80; RESP 15–18; TEMP 36.4–37; O2SAT 94–98
[2022-06-19] MEDS: 0.9 % Sodium Chloride Flush 3 ML SYRINGE IVFLUSH ×3 (01:42→15:45)
[2022-06-19 04:35] LABS: MANUAL DIFF FLAG NO
[2022-06-19 04:36] LABS: Basophils Absolute Auto 0.1 X10*3/uL (0.0-0.2); Basophils Percent Auto 0.7 % (0-2); Eosinophils Absolute Auto 0.2 X10*3/uL (0.0-0.4); Eosinophils Percent Auto 2.8 % (0-4); Hematocrit 32.1 % (42.0-52.0); Hemoglobin 11.4 g/dl (14.0-18.0); Imm Gran Abs Auto 0.03 X10*3/uL (0.00-0.03); Imm Gran Pct Auto 0.4 % (0.0-0.4); Lymphocytes Absolute Auto 1.6 X10*3/uL (1.2-4.9); Lymphocytes Percent Auto 23.3 % (20-40); Mean Corpuscular HGB Conc 35.5 g/dl (31.0-36.0); Mean Corpuscular Hemoglobin 31.7 pg (27.0-33.0); Mean Corpuscular Volume 89.2 fL (80.0-98.0); Monocytes Absolute Auto 0.5 X10*3/uL (0.1-1.2); Monocytes Percent Auto 7.5 % (2-11); Neutrophils Absolute Auto 4.5 x10*3/uL (2.0-8.3); Neutrophils Percent Auto 65.3 % (45-73); Platelet Count 141 X10*3/uL (160-400); Red Cell Distribution Width 14.5 % (11.0-16.0); White Blood Count 6.9 X10*3/uL (4.8-10.8)
[2022-06-19 04:55] LABS: Anion Gap 13 (12-20); Blood Urea Nitrogen 35 mg/dL (9-16); Calcium 8.6 mg/dL (8.4-10.2); Carbon Dioxide 26 mmol/L (22-29); Chloride 104 mmol/L (96-108); Creatinine Clr Calc Pharmacy 37.6; Estimated Glomerular Filt Rate 36; Glucose Random 85 mg/dL (60-115); Potassium 3.3 mmol/L (3.3-5.1); Sodium 140 mmol/L (135-145)
--- NOTE | 2022-06-19 06:07 | PC.NURSE ---
Pt has been calm/cooperative/able to make needs known throughout the shift. [place]ian speaking and hard of hearing, but pleasant. Awaiting admission bed assignment.
[2022-06-19] MEDS: Heparin Sodium,Porcine 5,000 UNIT/ML VIAL 5000 UNIT SUBCUT ×3 (06:17→22:48)
--- NOTE | 2022-06-19 07:26 | PHA.MEDREC ---
Pharmacy Consult ? Medication Reconciliation Pharmacy has completed the medication reconciliation. Reviewed med rec done by nursing (Evelia).
[2022-06-19] MEDS: hydroCHLOROthiazide 25 MG TABLET PO (08:33)
[2022-06-19] MEDS: bisacodyL 5 MG TABLET.DR PO ×2 (08:33→21:18)
[2022-06-19] MEDS: Sertraline HCL 25 MG TABLET PO (08:33)
[2022-06-19] MEDS: Valsartan 320 MG TABLET PO (08:33)
[2022-06-19] MEDS: Tamsulosin HCL 0.4 MG CAPSULE PO (08:33)
[2022-06-19] MEDS: Metoprolol Succinate ER 25 MG TAB.ER.24H 75 MG PO (08:33)
[2022-06-19] MEDS: Aspirin Enteric Coated 81 MG TABLET.DR PO (08:34)
[2022-06-19] MEDS: Docusate Sodium 100 MG CAPSULE PO (08:34)
[2022-06-19] MEDS: hydrALAZINE HCl 50 MG TABLET PO ×2 (08:34→21:18)
[2022-06-19] MEDS: Potassium Chloride Packet 20 MEQ PACKET 40 MEQ PO (09:36)
--- NOTE | 2022-06-19 09:51 | MHC.CM.PN ---
UBALDO addressed with patient and family, yellow copy to patient at bedside, white copy to file in chart. Patient is [place] Speaking and requires and certified alcohol and drug counselor. He is [place] Patient and family report, he lives with his spouse. Is independent at home and community uses cane or walker as needed. Has FOOD PROCESSING SCIENTIST services through [facility]-son and dil provide him care. [facility] sees patient every 6 months to access his needs. Bing diaz'chula x4 (MRNA), PCP: Nasim Mccray, HCP-copy requested, Family will transport. D/C Plan: Home resume FOOD PROCESSING SCIENTIST services
--- NOTE | 2022-06-19 10:46 | P.CONCA_ITS ---
History of Present Illness History of Present Illness Date of Service: 06/19/22 Requesting physician: Willam Medina Chief complaint: Chest pain, PAF Narrative: 86-year-old gentleman presenting for chest discomfort and palpitations. He was noted to be in atrial fibrillation. He has reverted back to sinus rhythm on his own. He is very hard of hearing any even with park interpreter was very difficult to interact with him. He said he had some chest discomfort on the left side of his chest. He could not describe it. He said he has to palpitations. Currently telemetry is showing sinus rhythm. Troponins have been negative. EKG did not show any dynamic changes. [facility] Past Medical History Medical History Abscess Burning with urination Gastroesophageal reflux disease with esophagitis HTN (hypertension) Urinary frequency Family History Family History Father Stroke Mother No problems noted. Surgical History Surgical History History of surgery Hx of colonoscopy Social History Social History Household Members: Spouse Housing: Apartment Alcohol intake: former Year quit: 2017 Advance Directives: No Advance Directives Information Provided: No service: No Current occupational status: disabled Meds Allergies Allergy/AdvReac Type Severity Reaction Status Date / Time No Known Allergies Allergy Verified 06/07/22 07:38 [No Known Allergies*] Active Medications: Current Medications Acetaminophen (Acetaminophen 325 Mg Tablet) 650 mg PO Q6H PRN PRN Reason: Pain, Mild (Pain Scale 1-3) Aspirin (Aspirin Enteric Coated 81 Mg Tablet.) 81 mg PO DAILY [facility] Last Admin: 06/19/22 08:34 Dose: 81 mg Atorvastatin Calcium (Atorvastatin Calcium 40 Mg Tablet) 40 mg PO BEDTIME [facility] Bisacodyl (Bisacodyl 5 Mg Tablet.) 5 mg PO BID [facility] Last Admin: 06/19/22 08:33 Dose: 5 mg Clopidogrel Bisulfate (Clopidogrel Bisulfate 75 Mg Tablet) 75 mg PO BEDTIME [facility] Docusate Sodium (Docusate Sodium 100 Mg Capsule) 100 mg PO DAILY [facility] Last Admin: 06/19/22 08:34 Dose: 100 mg Famotidine (Famotidine 20 Mg Tablet) 20 mg PO BEDTIME [facility] Fluticasone Propionate (Fluticasone Propionate Nasal 16 Gm [place]) 2 spray NOSTRIL-B DAILY [facility] Last Admin: 06/19/22 08:35 Dose: Not Given Heparin Sodium (Porcine) (Heparin Sodium,Porcine 5,000 Unit/Ml Vial) 5,000 unit SUBCUT Q8H [facility] Last Admin: 06/19/22 06:17 Dose: 5,000 unit Hydralazine HCl (Hydralazine Hcl 50 Mg Tablet) 50 mg PO BID [facility]; Protocol Last Admin: 06/19/22 08:34 Dose: 50 mg Hydrochlorothiazide (Hydrochlorothiazide 25 Mg Tablet) 25 mg PO DAILY [facility] Last Admin: 06/19/22 08:33 Dose: 25 mg Hydromorphone HCl (Hydromorphone Hcl 0.5 Mg/0.5 Ml Syringe) 0.5 mg IVPUSH Q4H PRN; Protocol PRN Reason: Pain, Severe (Pain Scale 7-10) Ketotifen Fumarate (Ketotifen Fumarate 0.025% Oph 5 Ml Drpbtl) 1 drop EYE-BOTH BID PRN PRN Reason: allergies Loratadine (Loratadine 10 Mg Tablet) 10 mg PO DAILY PRN PRN Reason: allergies Melatonin (Melatonin 3 Mg Tablet) 6 mg PO BEDTIME PRN PRN Reason: Insomnia Metoprolol Succinate (Metoprolol Succinate Er 25 Mg Tab.Er.24h) 75 mg PO DAILY [facility]; Protocol Last Admin: 06/19/22 08:33 Dose: 75 mg Mirtazapine (Mirtazapine 30 Mg Tablet) 30 mg PO BEDTIME [facility] Nitroglycerin (Nitroglycerin 0.4 Mg Tab.Subl) 0.4 mg SUBLINGUAL Q5MX3 PRN PRN Reason: Chest Pain Omeprazole (Omeprazole 20 Mg Capsule.Dr) 20 mg PO DAILY@0630 [facility] Senna (Sennosides 8.6 Mg Tablet) 17.2 mg PO BEDTIME PRN PRN Reason: Constipation Sertraline HCl (Sertraline Hcl 25 Mg Tablet) 25 mg PO DAILY [facility] Last Admin: 06/19/22 08:33 Dose: 25 mg Sodium Chloride (0.9 % Sodium Chloride Flush 3 Ml Syringe) 3 ml IVFLUSH QSHIFT [facility] Last Admin: 06/19/22 07:38 Dose: 3 ml Tamsulosin HCl (Tamsulosin Hcl 0.4 Mg Capsule) 0.4 mg PO DAILY [facility] Last Admin: 06/19/22 08:33 Dose: 0.4 mg Valsartan (Valsartan 320 Mg Tablet) 320 mg PO DAILY [facility] Last Admin: 06/19/22 08:33 Dose: 320 mg Home Medications Medication Instructions Recorded Confirmed Last Taken Type acetaminophen 500 mg tablet 2 tab PO Q6H PRN Pain 06/19/22 06/19/22 Unknown History aspirin 81 mg tablet,delayed 1 tab PO DAILY 06/19/22 06/19/22 06/18/22 History release atorvastatin 40 mg tablet 1 tab PO BEDTIME 06/19/22 06/19/22 06/18/22 History bisacodyl 5 mg tablet,delayed 1 tab PO BID 06/19/22 06/19/22 06/18/22 History release (Laxative (bisacodyl)) cetirizine 10 mg tablet 1 tab PO DAILY PRN allergies 06/19/22 06/19/22 Unknown History clopidogrel 75 mg tablet 1 tab PO BEDTIME 06/19/22 06/19/22 06/18/22 History docusate sodium 100 mg capsule 1 cap PO DAILY 06/19/22 06/19/22 06/18/22 History famotidine 20 mg tablet 1 tab PO BEDTIME 06/19/22 06/19/22 06/18/22 History fluticasone propionate 50 2 spray intranasal DAILY 06/19/22 06/19/22 Unknown History mcg/actuation nasal spray,suspension furosemide 40 mg tablet 1 tab PO DAILY 06/19/22 06/19/22 06/18/22 History hydralazine 50 mg tablet 1 tab PO BID 06/19/22 06/19/22 06/18/22 History ketotifen fumarate 0.025 % (0.035 1 drp ophthalmic (eye) BID PRN 06/19/22 06/19/22 Unknown History %) eye drops allergies metoprolol succinate 50 mg 1.5 tab PO DAILY 06/19/22 06/19/22 06/18/22 History tablet,extended release 24 hr mirtazapine 30 mg tablet 1 tab PO BEDTIME 06/19/22 06/19/22 06/18/22 History pantoprazole 40 mg tablet,delayed 1 tab PO DAILY@0630 06/19/22 06/19/22 06/18/22 History release sertraline 25 mg tablet 1 tab PO DAILY 06/19/22 06/19/22 06/18/22 History tamsulosin 0.4 mg capsule 1 cap PO DAILY 06/19/22 06/19/22 06/18/22 History valsartan 320 1 tab PO DAILY 06/19/22 06/19/22 06/18/22 History mg-hydrochlorothiazide 25 mg tablet Physical Exam Vital Signs: Vital Signs: Last Vital Signs Temp 98.6 F 06/19/22 07:38 Pulse 66 06/19/22 08:31 Resp 18 06/19/22 07:38 BP 111/61 06/19/22 08:31 Pulse Ox 94 06/19/22 07:38 O2 Del Method 06/19/22 08:31 BMI result Body Mass Index 22.9 GENERAL APPEARANCE: in no acute distress, pleasant. NECK: no carotid bruit, no jugular venous distention. SKIN: no suspicious lesions, warm and dry. HEART: no murmurs, regular rate and rhythm. LUNGS: clear to auscultation bilaterally. ABDOMEN: soft, nontender. EXTREMITIES: no edema. PERIPHERAL PULSES: equal. NEUROLOGIC: No gross deficits, AAO X 3. Very hard of hearing. Objective Labs and Meds Result diagrams: 06/19/22 04:22 06/19/22 04:22 Lab results: Laboratory Results - last 24 hr 06/18/22 06/18/22 06/18/22 21:27 21:27 21:27 WBC 8.2 RBC 4.12 L Hgb 12.6 L Hct 36.7 L MCV 89.1 MCH 30.6 MCHC 34.3 RDW 14.6 Plt Count 166 MPV 11.9 Immature Gran % (Auto) 0.5 H Neut % (Auto) 68.1 Lymph % (Auto) 21.3 [place] % (Auto) 7.5 Eos % (Auto) 2.1 Baso % (Auto) 0.5 Lymph # (Auto) 1.8 [place] # (Auto) 0.6 Eos # (Auto) 0.2 Baso # (Auto) 0.0 Abs Immat Gran (auto) 0.04 H Absolute Neuts (auto) 5.6 Absolute Nucleated RBC 0.000 Nucleated RBC % (auto) 0.0 APTT 27.1 Sodium 141 Potassium 2.8 L Chloride 101 Carbon Dioxide 27 Anion Gap 16 BUN 36 H D Creatinine 2.10 H Estim Creat Clear Calc 32.4 Estimated GFR 30 Random Glucose 144 H D Calcium 9.1 Total Bilirubin 0.7 AST 14 ALT 8 Alkaline Phosphatase 97 Troponin I High Sens Total Protein 7.2 Albumin 4.2 COVID-19 ([facility]) COVID-19 Clin Com 06/18/22 06/18/22 06/18/22 21:27 23:03 23:32 WBC RBC Hgb Hct MCV MCH MCHC RDW Plt Count MPV Immature Gran % (Auto) Neut % (Auto) Lymph % (Auto) [place] % (Auto) Eos % (Auto) Baso % (Auto) Lymph # (Auto) [place] # (Auto) Eos # (Auto) Baso # (Auto) Abs Immat Gran (auto) Absolute Neuts (auto) Absolute Nucleated RBC Nucleated RBC % (auto) APTT Sodium Potassium Chloride Carbon Dioxide Anion Gap BUN Creatinine Estim Creat Clear Calc Estimated GFR Random Glucose Calcium Total Bilirubin AST ALT Alkaline Phosphatase Troponin I High Sens 9.6 D 11.7 Total Protein Albumin COVID-19 ([facility]) Negative COVID-19 Clin Com See Note 06/19/22 06/19/22 04:22 04:22 WBC 6.9 RBC 3.60 L Hgb 11.4 L Hct 32.1 L MCV 89.2 MCH 31.7 MCHC 35.5 RDW 14.5 Plt Count 141 L MPV 12.0 Immature Gran % (Auto) 0.4 Neut % (Auto) 65.3 Lymph % (Auto) 23.3 [place] % (Auto) 7.5 Eos % (Auto) 2.8 Baso % (Auto) 0.7 Lymph # (Auto) 1.6 [place] # (Auto) 0.5 Eos # (Auto) 0.2 Baso # (Auto) 0.1 Abs Immat Gran (auto) 0.03 Absolute Neuts (auto) 4.5 Absolute Nucleated RBC 0.000 Nucleated RBC % (auto) 0.0 APTT Sodium 140 Potassium 3.3 Chloride 104 Carbon Dioxide 26 Anion Gap 13 BUN 35 H Creatinine 1.81 H Estim Creat Clear Calc 37.6 Estimated GFR 36 Random Glucose 85 D Calcium 8.6 Total Bilirubin AST ALT Alkaline Phosphatase Troponin I High Sens Total Protein Albumin COVID-19 ([facility]) COVID-19 Clin Com Imaging Radiologist's impression: Impressions Chest X-Ray 06/18/22 21:25 IMPRESSION: Low lung volumes with bibasilar opacities favoring atelectasis. Assessment and Plan (1) Chest pain: Status: Acute (2) PAF (paroxysmal atrial fibrillation): Status: Acute Plan 86-year-old gentleman presenting for chest discomfort and palpitations. History is very limited due to his hearing issues and despite using park interpreter the history was quite nonproductive. He had some left-sided chest discomfort but his description seemed more like that he had palpitations. He was in atrial fibrillation on admission. He has reverted back to sinus rhythm at this stage. Given risk factors for stroke he will need anticoagulation. He is already on aspirin and Plavix (unclear why he is on DAPT). Triple therapy would put him on a significant risk for bleeding. I think his aspirin should be stopped and he should be started on Eliquis. He has been ruled out. No dynamic EKG changes. Currently do not think he needs any further inpatient workup. We can consider outpatient ischemic evaluation. Thank you for allowing me to participate in the care of your patient. Please feel free to contact me if you have any questions. Procedures Date of Service Date of Service: 06/19/22
--- NOTE | 2022-06-19 15:05 | HO.PM.IMPN ---
Subjective Subjective Date of Service: 06/19/22 Interval History: all information gleaned via color paste mixer no further chest pain since admission Review of Systems denies chest pain Denies shortness of Denies nausea vomiting diarrhea Physical Exam Vital Signs: Vital Signs: Last Vital Signs Temp 97.5 F 06/19/22 10:56 Pulse 65 06/19/22 12:42 Resp 18 06/19/22 12:42 BP 115/72 06/19/22 12:42 Pulse Ox 97 06/19/22 12:42 O2 Del Method 06/19/22 12:42 BMI result Body Mass Index 22.9 Const: Other: no acute distress Resp: Other: clear to auscultation bilaterally no rales Cardio: Other: no S4; positive S1-S2; no S3 murmurs rubs gallops GI: Other: soft nontender nondistended normoactive bowel sounds Extrem: Other: no edema bilaterally Objective Data Active Medications Acetaminophen (Acetaminophen 325 Mg Tablet) 650 mg PO Q6H PRN PRN Reason: Pain, Mild (Pain Scale 1-3) Aspirin (Aspirin Enteric Coated 81 Mg Tablet.) 81 mg PO DAILY [facility] Last Admin: 06/19/22 08:34 Dose: 81 mg Documented By: LEIF Atorvastatin Calcium (Atorvastatin Calcium 40 Mg Tablet) 40 mg PO BEDTIME [facility] Bisacodyl (Bisacodyl 5 Mg Tablet.) 5 mg PO BID [facility] Last Admin: 06/19/22 08:33 Dose: 5 mg Documented By: LEIF Clopidogrel Bisulfate (Clopidogrel Bisulfate 75 Mg Tablet) 75 mg PO BEDTIME [facility] Docusate Sodium (Docusate Sodium 100 Mg Capsule) 100 mg PO DAILY [facility] Last Admin: 06/19/22 08:34 Dose: 100 mg Documented By: LEIF Famotidine (Famotidine 20 Mg Tablet) 20 mg PO BEDTIME [facility] Fluticasone Propionate (Fluticasone Propionate Nasal 16 Gm Aristes) 2 spray NOSTRIL-B DAILY [facility] Last Admin: 06/19/22 08:35 Dose: Not Given Documented By: LEIF Non-Admin Reason: Med Not Available Heparin Sodium (Porcine) (Heparin Sodium,Porcine 5,000 Unit/Ml Vial) 5,000 unit SUBCUT Q8H [facility] Last Admin: 06/19/22 06:17 Dose: 5,000 unit Documented By: HO.ABLIAI Hydralazine HCl (Hydralazine Hcl 50 Mg Tablet) 50 mg PO BID [facility]; Protocol Last Admin: 06/19/22 08:34 Dose: 50 mg Documented By: LEIF Hydrochlorothiazide (Hydrochlorothiazide 25 Mg Tablet) 25 mg PO DAILY [facility] Last Admin: 06/19/22 08:33 Dose: 25 mg Documented By: LEIF Hydromorphone HCl (Hydromorphone Hcl 0.5 Mg/0.5 Ml Syringe) 0.5 mg IVPUSH Q4H PRN; Protocol PRN Reason: Pain, Severe (Pain Scale 7-10) Ketotifen Fumarate (Ketotifen Fumarate 0.025% Oph 5 Ml Drpbtl) 1 drop EYE-BOTH BID PRN PRN Reason: allergies Loratadine (Loratadine 10 Mg Tablet) 10 mg PO DAILY PRN PRN Reason: allergies Melatonin (Melatonin 3 Mg Tablet) 6 mg PO BEDTIME PRN PRN Reason: Insomnia Metoprolol Succinate (Metoprolol Succinate Er 25 Mg Tab.Er.24h) 75 mg PO DAILY [facility]; Protocol Last Admin: 06/19/22 08:33 Dose: 75 mg Documented By: LEIF Mirtazapine (Mirtazapine 30 Mg Tablet) 30 mg PO BEDTIME [facility] Nitroglycerin (Nitroglycerin 0.4 Mg Tab.Subl) 0.4 mg SUBLINGUAL Q5MX3 PRN PRN Reason: Chest Pain Omeprazole (Omeprazole 20 Mg Capsule.Dr) 20 mg PO DAILY@0630 [facility] Senna (Sennosides 8.6 Mg Tablet) 17.2 mg PO BEDTIME PRN PRN Reason: Constipation Sertraline HCl (Sertraline Hcl 25 Mg Tablet) 25 mg PO DAILY [facility] Last Admin: 06/19/22 08:33 Dose: 25 mg Documented By: LEIF Sodium Chloride (0.9 % Sodium Chloride Flush 3 Ml Syringe) 3 ml IVFLUSH QSHIFT [facility] Last Admin: 06/19/22 07:38 Dose: 3 ml Documented By: LEIF Tamsulosin HCl (Tamsulosin Hcl 0.4 Mg Capsule) 0.4 mg PO DAILY [facility] Last Admin: 06/19/22 08:33 Dose: 0.4 mg Documented By: LEIF Valsartan (Valsartan 320 Mg Tablet) 320 mg PO DAILY [facility] Last Admin: 06/19/22 08:33 Dose: 320 mg Documented By: LEIF Labs CBC & Chem 7: 06/19/22 04:22 06/19/22 04:22 Labs: Laboratory Results - last 24 hr 06/18/22 06/18/22 06/18/22 21:27 21:27 21:27 MCV 89.1 MCH 30.6 MCHC 34.3 RDW 14.6 Plt Count 166 MPV 11.9 Immature Gran % (Auto) 0.5 H Neut % (Auto) 68.1 Lymph % (Auto) 21.3 [place] % (Auto) 7.5 Eos % (Auto) 2.1 Baso % (Auto) 0.5 Lymph # (Auto) 1.8 [place] # (Auto) 0.6 Eos # (Auto) 0.2 Baso # (Auto) 0.0 Abs Immat Gran (auto) 0.04 H Absolute Neuts (auto) 5.6 Absolute Nucleated RBC 0.000 Nucleated RBC % (auto) 0.0 APTT 27.1 Anion Gap 16 Estim Creat Clear Calc 32.4 Estimated GFR 30 Random Glucose 144 H D Calcium 9.1 Total Bilirubin 0.7 AST 14 ALT 8 Alkaline Phosphatase 97 Total Protein 7.2 Albumin 4.2 COVID-19 ([facility]) COVID-19 Clin Com 06/18/22 06/19/22 06/19/22 23:03 04:22 04:22 MCV 89.2 MCH 31.7 MCHC 35.5 RDW 14.5 Plt Count 141 L MPV 12.0 Immature Gran % (Auto) 0.4 Neut % (Auto) 65.3 Lymph % (Auto) 23.3 [place] % (Auto) 7.5 Eos % (Auto) 2.8 Baso % (Auto) 0.7 Lymph # (Auto) 1.6 [place] # (Auto) 0.5 Eos # (Auto) 0.2 Baso # (Auto) 0.1 Abs Immat Gran (auto) 0.03 Absolute Neuts (auto) 4.5 Absolute Nucleated RBC 0.000 Nucleated RBC % (auto) 0.0 APTT Anion Gap 13 Estim Creat Clear Calc 37.6 Estimated GFR 36 Random Glucose 85 D Calcium 8.6 Total Bilirubin AST ALT Alkaline Phosphatase Total Protein Albumin COVID-19 ([facility]) Negative COVID-19 Clin Com See Note Assessment and Plan (1) Chest pain: Status: Acute (2) PAF (paroxysmal atrial fibrillation): Status: Acute (3) Acute kidney injury: Status: Acute Plan 86-year-old male with a past medical history of hypertension, hyperlipidemia, CAD, question CHF, depression, BPH, constipation presented to the hospital today with a chief complaint of chest pain. 1.Chest pain( atypical) -EKG nonischemic. Troponin negative. - as per Cardiology will DC aspirin in favor of Eliquis and continue Plavix 2.Hypokalemia - repleted - follow-up labs in a.m. 3. OMAR ( chronic CKD) likely secondary to diuretic use and poor oral intake - hold diuretics - volume repletion overnight -follow renals/divalents in am DVT prophylaxis: Subcu heparin Code status: Full code will require ongoing hospitalization for volume repletion and follow-up of Renal/divalents Quality Stroke Does the patient have a stroke diagnosis?: No VTE Prior VTE?: No VTE Risk Level:: Medical - moderate - high VTE Device Contraindication: Treatment Not Indicated VTE Drug Contraindication: N/A - Med Ordered
--- NOTE | 2022-06-19 19:15 | PC.NURSE ---
Assumed care of patient at this time.
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
[2022-06-19] MEDS: Clopidogrel Bisulfate 75 MG TABLET PO (21:18)
[2022-06-19] MEDS: Atorvastatin Calcium 40 MG TABLET PO (21:18)
[2022-06-19] MEDS: Famotidine 20 MG TABLET PO (21:18)
[2022-06-19] MEDS: Mirtazapine 30 MG TABLET PO (21:45)
[2022-06-20] VITALS: BP 109/56; PULSE 70; RESP 16; TEMP 36.6; O2SAT 98
[2022-06-20 01:50] VITALS: BMI 23.0
[2022-06-20 04:00] VITALS: BP 103/53; PULSE 74; RESP 20; TEMP 36.8; O2SAT 96
[2022-06-20] MEDS: Omeprazole 20 MG CAPSULE.DR PO (06:01)
[2022-06-20] MEDS: Heparin Sodium,Porcine 5,000 UNIT/ML VIAL 5000 UNIT SUBCUT (06:01)
[2022-06-20 06:20] LABS: MANUAL DIFF FLAG NO
[2022-06-20 06:23] LABS: Basophils Absolute Auto 0.1 X10*3/uL (0.0-0.2); Basophils Percent Auto 0.7 % (0-2); Eosinophils Absolute Auto 0.3 X10*3/uL (0.0-0.4); Eosinophils Percent Auto 3.6 % (0-4); Hematocrit 34.7 % (42.0-52.0); Hemoglobin 12.1 g/dl (14.0-18.0); Imm Gran Abs Auto 0.02 X10*3/uL (0.00-0.03); Imm Gran Pct Auto 0.3 % (0.0-0.4); Lymphocytes Absolute Auto 1.8 X10*3/uL (1.2-4.9); Lymphocytes Percent Auto 25.5 % (20-40); Mean Corpuscular HGB Conc 34.9 g/dl (31.0-36.0); Mean Corpuscular Hemoglobin 31.8 pg (27.0-33.0); Mean Corpuscular Volume 91.1 fL (80.0-98.0); Mean Platelet Volume 12.3 fL (9.4-12.4); Monocytes Absolute Auto 0.6 X10*3/uL (0.1-1.2); Monocytes Percent Auto 7.9 % (2-11); Neutrophils Absolute Auto 4.3 x10*3/uL (2.0-8.3); Platelet Count 150 X10*3/uL (160-400); Red Blood Count 3.81 X10*6/uL (4.60-5.80); Red Cell Distribution Width 14.7 % (11.0-16.0); White Blood Count 6.9 X10*3/uL (4.8-10.8)
[2022-06-20 06:47] LABS: Alanine Aminotransferase 9 U/L (0-40); Albumin Level 3.6 g/dL (3.5-5.0); Alkaline Phosphatase 79 U/L (39-117); Anion Gap 13 (12-20); Aspartate Amino Transferase 13 U/L (5-37); Bilirubin Total 0.5 mg/dL (0.0-1.0); Blood Urea Nitrogen 32 mg/dL (9-16); Calcium 8.6 mg/dL (8.4-10.2); Carbon Dioxide 27 mmol/L (22-29); Chloride 107 mmol/L (96-108); Estimated Glomerular Filt Rate 39; Glucose Fasting 93 mg/dL (60-99); Potassium 3.5 mmol/L (3.3-5.1); Sodium 143 mmol/L (135-145); Total Protein 6.2 g/dL (6.5-8.0)
[2022-06-20 08:00] VITALS: BP 116/71; PULSE 94; RESP 20; TEMP 37; O2SAT 94
[2022-06-20] MEDS: hydroCHLOROthiazide 25 MG TABLET PO (10:14)
[2022-06-20] MEDS: Sertraline HCL 25 MG TABLET PO (10:14)
[2022-06-20] MEDS: Docusate Sodium 100 MG CAPSULE PO (10:14)
[2022-06-20] MEDS: Aspirin Enteric Coated 81 MG TABLET.DR PO (10:14)
[2022-06-20] MEDS: 0.9 % Sodium Chloride Flush 3 ML SYRINGE IVFLUSH ×2 (10:14→18:10)
[2022-06-20] MEDS: hydrALAZINE HCl 50 MG TABLET PO (10:15)
[2022-06-20] MEDS: Tamsulosin HCL 0.4 MG CAPSULE PO (10:15)
[2022-06-20] MEDS: Metoprolol Succinate ER 25 MG TAB.ER.24H 75 MG PO (10:15)
[2022-06-20] MEDS: bisacodyL 5 MG TABLET.DR PO (10:15)
[2022-06-20] MEDS: Valsartan 320 MG TABLET PO (10:15)
[2022-06-20 11:27] VITALS: BP 103/58; PULSE 82; RESP 20; TEMP 37.1; O2SAT 95
[2022-06-20] MEDS: Apixaban 2.5 MG TABLET PO (13:47)
--- NOTE | 2022-06-20 15:26 | P.DS_ITS ---
DS: Providers Provider Date of Service: 06/20/22 Date of admission: 06/18/22 22:23 Date of discharge: 06/20/22 Primary care physician: Unknown Physician Consults: 06/18/22 22:27 Consult to Cardiology Routine Consulting Provider: Rohit Osman Reason for consultation: chest pain DS: Diagnosis Discharge Diagnosis (1) Chest pain: Status: Acute (2) PAF (paroxysmal atrial fibrillation): Status: Acute (3) Acute kidney injury: Status: Acute DS: Summary Hospital Course Hospital Course: 86-year-old male with a past medical history of hypertension, hyperlipidemia, CAD, question CHF, depression, BPH, constipation presented to the hospital today with a chief complaint of chest pain.? Patient reports that he developed chest discomfort located in the center of the chest, nonradiating, no associated lightheadedness or dizziness, nausea vomiting or diaphoresis.? Resolved at the time of my interview.? Mentions that he has been eating and drinking okay.? Denies any fever chills cough.? Denies any GI symptoms.? Review of all other systems is negative except mentioned above ER course: Per ER team patient's chest pain resolved, EKG nonischemic, troponin negative.? On labs noted to have low potassium.? Given supplementation. 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 Seen by Cardiology who recommended it DC aspirin continue Plavix and add Eliquis. [place] no other inpatient workup was warranted at this time. Can follow-up as outpatient Time Spent with Patient Time attestation: Total time spent providing and/or coordinating discharge services: Discharge coordination time: Greater than 30 minutes Quality: Safe Use of Opioids Does Pt have an Active Cancer Diagnosis on the Problem List?: No Quality: Stroke Does the patient have a stroke diagnosis?: No Physical Exam Vital Signs: Vital Signs: Last Vital Signs Temp 98.8 F 06/20/22 11:27 Pulse 82 06/20/22 11:27 Resp 20 06/20/22 11:27 BP 103/58 L 06/20/22 11:27 Pulse Ox 95 06/20/22 11:27 O2 Del Method 06/20/22 11:27 BMI result Body Mass Index 23.0 Const: Other: no acute distress Resp: Other: clear to auscultation bilaterally no rales Cardio: Other: no S4; positive S1-S2; no S3 murmurs rubs gallops GI: Other: soft nontender nondistended normoactive bowel sounds Extrem: Other: no edema bilaterally DS: Data Data Completed and Pending Labs on day of discharge: Laboratory Results - last 24 hr 06/20/22 06/20/22 05:54 05:54 WBC 6.9 RBC 3.81 L Hgb 12.1 L Hct 34.7 L MCV 91.1 MCH 31.8 MCHC 34.9 RDW 14.7 Plt Count 150 L MPV 12.3 Immature Gran % (Auto) 0.3 Neut % (Auto) 62.0 Lymph % (Auto) 25.5 [place] % (Auto) 7.9 Eos % (Auto) 3.6 Baso % (Auto) 0.7 Lymph # (Auto) 1.8 [place] # (Auto) 0.6 Eos # (Auto) 0.3 Baso # (Auto) 0.1 Abs Immat Gran (auto) 0.02 Absolute Neuts (auto) 4.3 Absolute Nucleated RBC 0.000 Nucleated RBC % (auto) 0.0 Sodium 143 Potassium 3.5 Chloride 107 Carbon Dioxide 27 Anion Gap 13 BUN 32 H Creatinine 1.67 H Estim Creat Clear Calc 41.0 Estimated GFR 39 Fasting Glucose 93 Calcium 8.6 Total Bilirubin 0.5 AST 13 ALT 9 Alkaline Phosphatase 79 Total Protein 6.2 L Albumin 3.6 Discharge Plan Discharge Patient Disposition: Home, Self-Care Discharge Diagnosis: atypical chest pain Referrals: Physician,Unknown J [Primary Care Provider] - 1 Week Discharge Medications: New Eliquis 2.5 mg Tablet 2.5 mg PO BID Qty: 60 0RF Continued furosemide 40 mg tablet 1 tab PO DAILY atorvastatin 40 mg tablet 1 tab PO BEDTIME cetirizine 10 mg tablet 1 tab PO DAILY PRN (Reason: allergies) metoprolol succinate 50 mg tablet extended release 24 hr 1.5 tab PO DAILY ketotifen fumarate 0.025 % (0.035 %) drops 1 drp ophthalmic (eye) BID PRN (Reason: allergies) clopidogrel 75 mg tablet 1 tab PO BEDTIME aspirin 81 mg tablet,delayed release (DR/EC) 1 tab PO DAILY acetaminophen 500 mg tablet 2 tab PO Q6H PRN (Reason: Pain) famotidine 20 mg tablet 1 tab PO BEDTIME tamsulosin 0.4 mg capsule 1 cap PO DAILY pantoprazole 40 mg tablet,delayed release (DR/EC) 1 tab PO DAILY@0630 mirtazapine 30 mg tablet 1 tab PO BEDTIME docusate sodium 100 mg capsule 1 cap PO DAILY sertraline 25 mg tablet 1 tab PO DAILY bisacodyl [Laxative (bisacodyl)] 5 mg tablet,delayed release (DR/EC) 1 tab PO BID hydralazine 50 mg tablet 1 tab PO BID fluticasone propionate 50 mcg/actuation spray,suspension 2 spray intranasal DAILY valsartan-hydrochlorothiazide 320-25 mg tablet 1 tab PO DAILY Discharge Orders: Discharge Order (Routine); Ordered 06/20/22 Ordered By: Willam Medina Diet: Advance to usual diet Activity on Discharge: As tolerated Stand Alone Forms: Patient Portal Discharge page Care Plan Goals: stop aspirin. Start Eliquis twice daily Health Concerns: resume all pre-hospital medications Plan of Treatment: follow-up with your PCP in 2 weeks Assessment: see discharge summary
[2022-06-20 15:30] VITALS: BP 118/74; PULSE 74; RESP 17; TEMP 36.6; O2SAT 97
== END 2022-06-20 19:40 | disposition home or self-care (01) ==
LOC: HO.ED 21:36 → HO.EDOVER 22:32 → HO.IMC 06-19 22:39
PROVIDERS: Admitting Provider Hospitalist; Emergency Provider Emergency Medicine; PCP Internal Medicine; Visit Provider Hospitalist
DX: R07.89 Other chest pain (principal); I48.0 Paroxysmal atrial fibrillation; N17.9 Acute kidney failure, unspecified; E87.6 Hypokalemia; E86.0 Dehydration; I10 Essential (primary) hypertension; E78.5 Hyperlipidemia, unspecified; K21.9 Gastro-esophageal reflux disease without esophagitis; Z79.82 Long term (current) use of aspirin; Z79.02 Long term (current) use of antithrombotics/antiplatelets; Z79.899 Other long term (current) drug therapy; Z87.891 Personal history of nicotine dependence; Z20.822 Contact with and (suspected) exposure to COVID-19
CPT/HCPCS: 36415; 71045; 80048; 80053; 84484; 85025; 85730; 87635; 93005; 96360; 96372; 99219; 99285

== ENCOUNTER 2022-12-13 10:31 | Inpatient (IN) | payer OTHER, SELFPAY ==
[2022-12-13] VITALS (27 sets, daily range): BP systolic 64–175; BP diastolic 42–101; PULSE 55–99; RESP 13–18; TEMP 32.2–36.9; O2SAT 93–100; BMI 25.8; BMI 26.2
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
--- NOTE | ~2022-12-13 | US_ITS ---
EXAMINATION: US VENOUS ULTRASOUND WITH DOPPLER LOWER EXTREMITY, RIGHT CLINICAL INFORMATION: Right lower extremity pain and swelling. Assess for occult DVT. COMPARISON: None TECHNIQUE: Ultrasound of the deep veins is performed from the hip to the calf with compression sonography and color and pulse Doppler assessment. Spectral analysis with color-flow imaging is performed. FINDINGS: There is normal venous compression and respiratory variation and augmented flow. The visualized common femoral vein, superficial femoral vein, profunda femoral vein, popliteal vein, and the trifurcation region shows no evidence of deep venous thrombosis. No popliteal fossa cyst demonstrated. US/US venous duplex LE RT IMPRESSION: No DVT demonstrated in the right lower extremity.
--- NOTE | ~2022-12-13 | CT_ITS ---
EXAMINATION: CT CHEST WITHOUT CONTRAST CLINICAL INFORMATION: Ventilatory dependency COMPARISON: Previous chest x-rays most recent 12/13/2021 TECHNIQUE: Multidetector volumetric CT imaging of the chest was done. Axial MIP volume rendering provided. Sagittal and coronal reformatted images were obtained. This CT examination was performed using dose optimization techniques as appropriate, variously including the following: *Automated exposure control *Adjustment of mA and/or kV according to patient size (this includes techniques or standardized protocols for targeted exams where dose is matched to indication/reason for exam; i.e. extremities or head) *Use of iterative reconstruction technique DLP: 267 mGy-cm FINDINGS: LUNGS: Bilateral lower lobe atelectasis/consolidation. Small calcified pulmonary nodules in the bilateral lower lobes, right greater than left probably representing calcified granulomas. Endotracheal tube with tip 2.7 cm above the alessandro. MEDIASTINUM: Enlarged pulmonary arteries. The main pulmonary artery measures 4 cm. Dilated ascending thoracic aorta measuring up to 4.7 to 4.8 cm. Upper normal-size aortic arch and descending thoracic aorta. Upper normal heart size. No pericardial effusion. Small calcified left mediastinal lymph nodes. No enlarged hilar or mediastinal lymph nodes. CORONARY ARTERY CALCIFICATION: None visualized on this study. PLEURA: There is no pleural effusion. No pleural mass or thickening. AXILLA: No lymphadenopathy. UPPER ABDOMEN: Nasogastric tube in the stomach. Right renal cyst. Calcification in the spleen OSSEOUS STRUCTURES: Degenerative changes of the spine. CT/CT chest wo IV con IMPRESSION: Bilateral lower lobe atelectasis/consolidation. Enlarged pulmonary arteries questionable for pulmonary artery hypertension.. Dilated ascending thoracic aorta measuring up to 4.7 x 4.8 cm. Evidence of old granulomatous disease. Fleischner guidelines were followed.
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
[2022-12-13 11:29] LABS: Carbon Monoxide POC 3.3 %
[2022-12-13 11:30] LABS: Basophils Absolute Auto 0.1 X10*3/uL (0.0-0.2); Basophils Percent Auto 0.6 % (0-2); Eosinophils Absolute Auto 0.1 X10*3/uL (0.0-0.4); Eosinophils Percent Auto 1.4 % (0-4); Hematocrit 35.2 % (42.0-52.0); Hemoglobin 12.4 g/dl (14.0-18.0); Imm Gran Abs Auto 0.05 X10*3/uL (0.00-0.03); Imm Gran Pct Auto 0.6 % (0.0-0.4); Lymphocytes Absolute Auto 1.2 X10*3/uL (1.2-4.9); Lymphocytes Percent Auto 14.2 % (20-40); MANUAL DIFF FLAG NO; Mean Corpuscular HGB Conc 35.2 g/dl (31.0-36.0); Mean Corpuscular Hemoglobin 31.3 pg (27.0-33.0); Mean Corpuscular Volume 88.9 fL (80.0-98.0); Mean Platelet Volume 11.9 fL (9.4-12.4); Monocytes Absolute Auto 0.6 X10*3/uL (0.1-1.2); Monocytes Percent Auto 7.5 % (2-11); Neutrophils Absolute Auto 6.5 x10*3/uL (2.0-8.3); Neutrophils Percent Auto 75.7 % (45-73); Platelet Count 171 X10*3/uL (160-400); Red Blood Count 3.96 X10*6/uL (4.60-5.80); Red Cell Distribution Width 14.4 % (11.0-16.0); White Blood Count 8.5 X10*3/uL (4.8-10.8)
[2022-12-13 11:32] LABS: Carbon Monoxide Refer to POC result
[2022-12-13 11:47] LABS: Alanine Aminotransferase 10 U/L (0-40); Albumin Level 4.2 g/dL (3.5-5.0); Alkaline Phosphatase 77 U/L (39-117); Anion Gap 16 (12-20); Aspartate Amino Transferase 16 U/L (5-37); Bilirubin Total 1.1 mg/dL (0.0-1.0); Blood Urea Nitrogen 24 mg/dL (9-16); Calcium 9.3 mg/dL (8.4-10.2); Carbon Dioxide 26 mmol/L (22-29); Chloride 102 mmol/L (96-108); Creatinine Clr Calc Pharmacy 33.4; Estimated Glomerular Filt Rate 38; Glucose Random 106 mg/dL (60-115); Potassium 2.8 mmol/L (3.3-5.1); Sodium 141 mmol/L (135-145); Total Protein 6.9 g/dL (6.5-8.0)
[2022-12-13 11:56] LABS: Troponin-I High Sensitivity 7.8 ng/L (<3.5-35.0)
[2022-12-13 11:58] LABS: Lactic Acid 2.4 mmol/L (0.5-2.0)
[2022-12-13] MEDS: propofoL 1,000 MG/100 ML VIAL 25.23 MG IVCONT ×2 (12:04→14:44)
[2022-12-13] MEDS: Etomidate 20 MG/10 ML VIAL IVPUSH (12:06)
[2022-12-13] MEDS: Rocuronium Bromide 50 MG/5 ML VIAL 100 MG IVPUSH (12:07)
[2022-12-13] MEDS: Albuterol Sulfate (0.083%) 2.5 MG/3 ML VIAL.NEB INHALE (12:10)
[2022-12-13] MEDS: Albuterol/Iprat 2.5/0.5MG 3 ML AMPUL.NEB INHALE (12:10)
--- NOTE | 2022-12-13 12:16 | PC.NURSE ---
dR THOMPSON, TANIA BLISTER PACKING MACHINE TENDER, IKE RT AND KATHY RN IN ROOM TO INTUBATE PT. 1146 IL NS HUNG AND INFUSING THOUGH 18 IN LAC BY GRAVITY. PTS VITALS, 113/74, HR 80, 96% 17 RR 1147 20MG ETOMIDATE GIVEN 18 LAC 1148 100 MG ROCURONIUM GIVEN 18G LAC 1149 7.5 ETT ATTEMPTED 1150 VITALS 141/86 HR 109 1157 + COLOR CHANGE, AUCULATION OF PLACEMENT, 25 AT THE LIP VENT SETTINGS rr16, vt510, ATY124% AND 5PEEP PENDING CXR FOR ETT PLACEMENT AND OG TUBE PLACEMENT. PROPOFOL STARTED AT 50MCG/KG/MIN - TITRATED DOWN TO 40 MCG/KG/MIN
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
--- NOTE | 2022-12-13 12:50 | PC.NURSE ---
pt son (Alvaro) ([phone] UPDATED FAMILY ABOUT PT STATUS
[2022-12-13 13:06] LABS: Appearance Urine Clear; Color Urine Yellow; Glucose Urine UA Negative (Negative); Leukocyte Esterase Urine Small (1+) (Negative); Nitrite Urine Negative (Negative); UMIC TRIGGER UACC YES; Urine Blood Negative (Negative); Urine Ketones Negative (Negative); Urine Protein Negative (Neg-Trace)
[2022-12-13 13:11] LABS: Bacteria Urine 4+ (None Seen); Hyaline Casts Urine 0-2 /LPF (0-2); RBC Urine 0-2 /HPF (0-2); Squamous Epithelial Cell Urine 0-2 /HPF (0-2); UACC Culture Trigger YES
[2022-12-13 13:19] LABS: COVID-19 Test Negative (Negative); IDNOW Serial# BCCEAD1C
[2022-12-13 13:23] LABS: Reflex Lactate? Lactic Acid Added
[2022-12-13] MEDS: methylPREDNISolone Sod Succ 40 MG/ML VIAL IVPUSH (13:45)
[2022-12-13] MEDS: Potassium Chloride/H20 10 MEQ/100 ML PIGGYBACK 100 MEQ IV ×6 (13:46→20:11)
--- NOTE | 2022-12-13 13:59 | PHA.MEDREC ---
med rec complete, no issues. spoke to patients daughter Pharmacy Consult ? Medication Reconciliation Pharmacy has completed the medication reconciliation.
[2022-12-13] MEDS: fentaNYL citrate/NS 1,000 MCG/100 ML PLAST..BAG 2.5 MCG IVCONT (14:09)
[2022-12-13 14:13] LABS: ~Lactic Acid-LAB USE ONLY 2.4 mmol/L (0.5-2.0)
[2022-12-13] MEDS: Chlorhexidine Gluc Oral Rinse 15 ML MOUTHWASH BUCCAL ×2 (15:07→20:12)
[2022-12-13] MEDS: Midazolam HCl/PF 2 MG/2 ML VIAL IVPUSH (15:07)
[2022-12-13] MEDS: Lactated Ringers 1,000 ML 999 ML IV (15:43)
[2022-12-13 15:47] LABS: Reflex Lactate? 2 Y
[2022-12-13] MEDS: Phenylephrine HCL 20 MG in 0.9 % Sodium Chloride 250 ML 32.24 MG IVCONT ×2 (15:54→22:58)
[2022-12-13 16:52] LABS: ~Lactic Acid-LAB USE ONLY 3.1 mmol/L (0.5-2.0)
[2022-12-13] MEDS: propofoL 1,000 MG/100 ML VIAL 15.14 MG IVCONT (17:39)
[2022-12-13] MEDS: Apixaban 2.5 MG TABLET PO (20:12)
[2022-12-13] MEDS: fentaNYL citrate/NS 1,000 MCG/100 ML PLAST..BAG 10 MCG IVCONT (21:51)
[2022-12-14] VITALS (34 sets, daily range): BP systolic 100–150; BP diastolic 57–79; PULSE 50–62; RESP 10–16; TEMP 35–37.3; O2SAT 96–99; BMI 26.1
[2022-12-14] MEDS: propofoL 1,000 MG/100 ML VIAL 15.14 MG IVCONT ×4 (00:34→17:51)
[2022-12-14 05:30] LABS: VBG Base Excess 3.6 mmol/L; VBG HCO3 24 mmol/L (22-26); VBG pCO2 27 mmHg; VBG pH 7.55 (7.32-7.43); VBG pO2 65 mmHg
[2022-12-14 05:39] LABS: MANUAL DIFF FLAG NO
[2022-12-14 05:43] LABS: Basophils Percent Auto 0.2 % (0-2); Hematocrit 33.9 % (42.0-52.0); Hemoglobin 11.9 g/dl (14.0-18.0); Imm Gran Abs Auto 0.06 X10*3/uL (0.00-0.03); Imm Gran Pct Auto 0.5 % (0.0-0.4); Lymphocytes Absolute Auto 0.8 X10*3/uL (1.2-4.9); Lymphocytes Percent Auto 6.8 % (20-40); Mean Corpuscular HGB Conc 35.1 g/dl (31.0-36.0); Mean Corpuscular Hemoglobin 30.9 pg (27.0-33.0); Mean Corpuscular Volume 88.1 fL (80.0-98.0); Mean Platelet Volume 12.2 fL (9.4-12.4); Monocytes Absolute Auto 0.7 X10*3/uL (0.1-1.2); Monocytes Percent Auto 5.8 % (2-11); Neutrophils Absolute Auto 10.7 x10*3/uL (2.0-8.3); Neutrophils Percent Auto 86.7 % (45-73); Platelet Count 199 X10*3/uL (160-400); Red Blood Count 3.85 X10*6/uL (4.60-5.80); Red Cell Distribution Width 14.6 % (11.0-16.0); White Blood Count 12.3 X10*3/uL (4.8-10.8)
[2022-12-14] MEDS: Phenylephrine HCL 20 MG in 0.9 % Sodium Chloride 250 ML 32.24 MG IVCONT ×3 (05:53→21:07)
[2022-12-14 06:07] LABS: Albumin Level 3.8 g/dL (3.5-5.0); Anion Gap 17 (12-20); Blood Urea Nitrogen 29 mg/dL (9-16); Calcium 8.9 mg/dL (8.4-10.2); Carbon Dioxide 21 mmol/L (22-29); Chloride 104 mmol/L (96-108); Creatinine Clr Calc Pharmacy 30.2; Estimated Glomerular Filt Rate 34; Glucose Random 133 mg/dL (60-115); Magnesium 1.9 mg/dL (1.6-2.6); Phosphorus 3.4 mg/dL (2.7-4.5); Potassium 3.2 mmol/L (3.3-5.1); Sodium 139 mmol/L (135-145)
[2022-12-14 06:18] LABS: Venous Blood Gas Refer to POC result
[2022-12-14] MEDS: fentaNYL citrate/NS 1,000 MCG/100 ML PLAST..BAG 10 MCG IVCONT ×2 (06:27→16:05)
[2022-12-14] MEDS: Chlorhexidine Gluc Oral Rinse 15 ML MOUTHWASH BUCCAL ×3 (07:44→21:20)
[2022-12-14] MEDS: Apixaban 2.5 MG TABLET PO ×2 (07:44→21:20)
[2022-12-14] MEDS: Potassium Chloride/H20 10 MEQ/100 ML PIGGYBACK 100 MEQ IV ×4 (08:48→12:17)
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
[2022-12-14] MEDS: Ampicillin Sodium/Sulbactam Na 3 GM in 0.9 % Sodium Chloride 100 ML IV ×3 (10:08→21:23)
[2022-12-14] MEDS: methylPREDNISolone Sod Succ 40 MG/ML VIAL IVPUSH (12:14)
[2022-12-15] VITALS (39 sets, daily range): BP systolic 79–165; BP diastolic 52–80; PULSE 50–63; RESP 15–23; TEMP 35–37.3; O2SAT 95–98; BMI 27.2
[2022-12-15] MEDS: propofoL 1,000 MG/100 ML VIAL 15.14 MG IVCONT ×5 (00:12→23:04)
[2022-12-15] MEDS: Ampicillin Sodium/Sulbactam Na 3 GM in 0.9 % Sodium Chloride 100 ML IV (03:59)
[2022-12-15] MEDS: fentaNYL citrate/NS 1,000 MCG/100 ML PLAST..BAG 7.5 MCG IVCONT ×2 (03:59→17:42)
[2022-12-15] MEDS: Phenylephrine HCL 20 MG in 0.9 % Sodium Chloride 250 ML 32.24 MG IVCONT ×3 (04:08→18:22)
[2022-12-15 05:25] LABS: VBG Base Excess 2.5 mmol/L; VBG HCO3 24 mmol/L (22-26); VBG pCO2 29 mmHg; VBG pH 7.53 (7.32-7.43); VBG pO2 83 mmHg
[2022-12-15 05:47] LABS: MANUAL DIFF FLAG NO
[2022-12-15 05:49] LABS: Basophils Percent Auto 0.1 % (0-2); Hematocrit 34.3 % (42.0-52.0); Hemoglobin 11.7 g/dl (14.0-18.0); Imm Gran Abs Auto 0.16 X10*3/uL (0.00-0.03); Imm Gran Pct Auto 1.1 % (0.0-0.4); Lymphocytes Absolute Auto 1.1 X10*3/uL (1.2-4.9); Mean Corpuscular HGB Conc 34.1 g/dl (31.0-36.0); Mean Corpuscular Hemoglobin 31.2 pg (27.0-33.0); Mean Corpuscular Volume 91.5 fL (80.0-98.0); Mean Platelet Volume 12.8 fL (9.4-12.4); Monocytes Absolute Auto 0.8 X10*3/uL (0.1-1.2); Monocytes Percent Auto 5.3 % (2-11); Neutrophils Absolute Auto 13.2 x10*3/uL (2.0-8.3); Neutrophils Percent Auto 86.5 % (45-73); Platelet Count 190 X10*3/uL (160-400); Red Blood Count 3.75 X10*6/uL (4.60-5.80); Red Cell Distribution Width 14.7 % (11.0-16.0); White Blood Count 15.2 X10*3/uL (4.8-10.8)
[2022-12-15 06:18] LABS: Albumin Level 3.6 g/dL (3.5-5.0); Anion Gap 17 (12-20); Blood Urea Nitrogen 30 mg/dL (9-16); Calcium 8.9 mg/dL (8.4-10.2); Carbon Dioxide 22 mmol/L (22-29); Chloride 107 mmol/L (96-108); Creatinine Clr Calc Pharmacy 38.8; Estimated Glomerular Filt Rate 45; Glucose Random 139 mg/dL (60-115); Magnesium 2.1 mg/dL (1.6-2.6); Phosphorus 2.9 mg/dL (2.7-4.5); Potassium 3.5 mmol/L (3.3-5.1); Sodium 142 mmol/L (135-145)
[2022-12-15 06:51] LABS: Venous Blood Gas Refer to POC result
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
[2022-12-15] MEDS: Chlorhexidine Gluc Oral Rinse 15 ML MOUTHWASH BUCCAL ×3 (10:38→21:04)
[2022-12-15] MEDS: cefTRIAXone sodium 1 GM in 0.9 % Sodium Chloride 50 ML IV (10:39)
[2022-12-15] MEDS: methylPREDNISolone Sod Succ 40 MG/ML VIAL IVPUSH (13:08)
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
--- NOTE | 2022-12-15 17:16 | PC.NURSE ---
Pt continues to be sedated and intubated; on AC vent settings at 16/520/5/30%, tolerating and satting in the mid 90s. Pt with new felix red blood secretions in the ETT, suctioned PRN, reduced amount throughout the shift, MD made aware and holding Eliquis per order. Pt continues to be on tele: SB/SR with occasional PACs and frequent PVCs; on Phenylnephrine gtt, unable to wean off at this time. Pt receiving TF at 20cc/hr, tolerating with no residuals. Diaz in place and draining clear yellow urine 30-80cc/hr. Pt bathed and skin care provided PRN. Repositioned every 2 hrs and as needed, prevalon system and wedges utilized. Currently in no acute distress. Safety maintained throughout. Will continue to monitor.
[2022-12-16] VITALS (36 sets, daily range): BP systolic 85–162; BP diastolic 50–77; PULSE 45–64; RESP 12–18; TEMP 35.1–37.1; O2SAT 94–99; BMI 27.3
[2022-12-16] MEDS: fentaNYL citrate/NS 1,000 MCG/100 ML PLAST..BAG 10 MCG IVCONT ×3 (03:08→20:26)
[2022-12-16] MEDS: propofoL 1,000 MG/100 ML VIAL 15.14 MG IVCONT ×3 (03:08→17:15)
[2022-12-16] MEDS: Phenylephrine HCL 20 MG in 0.9 % Sodium Chloride 250 ML 16.12 MG IVCONT (05:18)
[2022-12-16 05:33] LABS: VBG HCO3 25 mmol/L (22-26); VBG pCO2 27 mmHg; VBG pH 7.57 (7.32-7.43); VBG pO2 87 mmHg
[2022-12-16 05:34] LABS: MANUAL DIFF FLAG NO
[2022-12-16 05:36] LABS: Basophils Percent Auto 0.1 % (0-2); Hematocrit 33.5 % (42.0-52.0); Hemoglobin 11.5 g/dl (14.0-18.0); Imm Gran Abs Auto 0.07 X10*3/uL (0.00-0.03); Imm Gran Pct Auto 0.6 % (0.0-0.4); Lymphocytes Absolute Auto 1.4 X10*3/uL (1.2-4.9); Lymphocytes Percent Auto 11.2 % (20-40); Mean Corpuscular HGB Conc 34.3 g/dl (31.0-36.0); Mean Corpuscular Hemoglobin 30.9 pg (27.0-33.0); Mean Corpuscular Volume 90.1 fL (80.0-98.0); Mean Platelet Volume 12.6 fL (9.4-12.4); Monocytes Absolute Auto 0.9 X10*3/uL (0.1-1.2); Neutrophils Absolute Auto 9.9 x10*3/uL (2.0-8.3); Neutrophils Percent Auto 81.1 % (45-73); Platelet Count 172 X10*3/uL (160-400); Red Blood Count 3.72 X10*6/uL (4.60-5.80); Red Cell Distribution Width 14.7 % (11.0-16.0); Venous Blood Gas Refer to POC result; White Blood Count 12.2 X10*3/uL (4.8-10.8)
[2022-12-16 06:04] LABS: Albumin Level 3.3 g/dL (3.5-5.0); Anion Gap 16 (12-20); Blood Urea Nitrogen 30 mg/dL (9-16); Calcium 8.8 mg/dL (8.4-10.2); Carbon Dioxide 21 mmol/L (22-29); Chloride 110 mmol/L (96-108); Creatinine Clr Calc Pharmacy 46.3; Estimated Glomerular Filt Rate 55; Glucose Random 124 mg/dL (60-115); Magnesium 2.2 mg/dL (1.6-2.6); Phosphorus 3.3 mg/dL (2.7-4.5); Potassium 3.5 mmol/L (3.3-5.1); Sodium 143 mmol/L (135-145)
[2022-12-16] MEDS: Albumin Human 25 % 100 ML IV ×2 (07:12→08:32)
[2022-12-16] MEDS: Chlorhexidine Gluc Oral Rinse 15 ML MOUTHWASH BUCCAL ×3 (07:12→20:26)
[2022-12-16] MEDS: Potassium Chloride Packet 20 MEQ PACKET 40 MEQ PO (08:05)
[2022-12-16] MEDS: propofoL 1,000 MG/100 ML VIAL 10.09 MG IVCONT ×2 (09:04→23:08)
[2022-12-16] MEDS: Racepinephrine HCL 0.5 ML VIAL.NEB INHALE (09:40)
--- NOTE | 2022-12-16 09:40 | MHC.CLN ---
PT IS INTUBATED AND SEDATED PT CURRENTLY RECEIVING PROMOTE TRICKLE FEED TOLERATING WELL PER NSG WITH LOW RESIDUALS RECOMMEND PROMOTE AT MAX GOAL RATE 80ML/HR WITH 120ML FREE WATER FLUSHES Q 6 HRS TO PROVIDE 1920KCALS (2186KCALS WITH SEDATION; 25KCALS/KG), 120G PROTEIN (1.3G/KG), 2090ML TOTAL WATER FROM FORMULA AND FLUSHES (23ML/KG) MONITOR TOLERANCE, RESIDUALS AND LYTES SEE ALSO FULL CLINICAL NUTRITION ASSESSMENT
[2022-12-16] MEDS: cefTRIAXone sodium 1 GM in 0.9 % Sodium Chloride 50 ML IV (11:01)
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
[2022-12-16] MEDS: methylPREDNISolone Sod Succ 40 MG/ML VIAL IVPUSH (12:05)
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
[2022-12-17] VITALS (35 sets, daily range): BP systolic 106–162; BP diastolic 54–77; PULSE 44–94; RESP 15–16; TEMP 34.5–37; O2SAT 91–98; BMI 27.2
[2022-12-17] MEDS: propofoL 1,000 MG/100 ML VIAL 15.14 MG IVCONT ×4 (03:19→19:33)
[2022-12-17 05:02] LABS: VBG HCO3 26 mmol/L (22-26); VBG pCO2 27 mmHg; VBG pH 7.58 (7.32-7.43); VBG pO2 61 mmHg
[2022-12-17 05:10] LABS: Venous Blood Gas Refer to POC result
[2022-12-17 05:42] LABS: MANUAL DIFF FLAG NO
[2022-12-17] MEDS: fentaNYL citrate/NS 1,000 MCG/100 ML PLAST..BAG 7.5 MCG IVCONT ×2 (05:45→16:08)
[2022-12-17 05:47] LABS: Basophils Percent Auto 0.1 % (0-2); Hematocrit 32.6 % (42.0-52.0); Hemoglobin 10.9 g/dl (14.0-18.0); Imm Gran Abs Auto 0.07 X10*3/uL (0.00-0.03); Imm Gran Pct Auto 0.8 % (0.0-0.4); Lymphocytes Absolute Auto 1.3 X10*3/uL (1.2-4.9); Lymphocytes Percent Auto 14.4 % (20-40); Mean Corpuscular HGB Conc 33.4 g/dl (31.0-36.0); Mean Corpuscular Hemoglobin 31.1 pg (27.0-33.0); Mean Corpuscular Volume 93.1 fL (80.0-98.0); Mean Platelet Volume 12.6 fL (9.4-12.4); Monocytes Absolute Auto 0.6 X10*3/uL (0.1-1.2); Monocytes Percent Auto 6.5 % (2-11); Neutrophils Percent Auto 78.2 % (45-73); Platelet Count 159 X10*3/uL (160-400); Red Cell Distribution Width 14.7 % (11.0-16.0); White Blood Count 8.9 X10*3/uL (4.8-10.8)
[2022-12-17 06:02] LABS: Albumin Level 3.6 g/dL (3.5-5.0); Anion Gap 15 (12-20); Blood Urea Nitrogen 35 mg/dL (9-16); Carbon Dioxide 21 mmol/L (22-29); Chloride 114 mmol/L (96-108); Creatinine Clr Calc Pharmacy 47.5; Estimated Glomerular Filt Rate 57; Glucose Random 145 mg/dL (60-115); Magnesium 2.3 mg/dL (1.6-2.6); Phosphorus 2.7 mg/dL (2.7-4.5); Potassium 3.8 mmol/L (3.3-5.1); Sodium 146 mmol/L (135-145)
[2022-12-17] MEDS: Dextrose 5 % 500 ML 125 ML IVCONT (06:30)
[2022-12-17] MEDS: Racepinephrine HCL 0.5 ML VIAL.NEB INHALE ×2 (07:55→21:36)
[2022-12-17] MEDS: Chlorhexidine Gluc Oral Rinse 15 ML MOUTHWASH BUCCAL ×3 (08:56→22:12)
[2022-12-17] MEDS: cefTRIAXone sodium 1 GM in 0.9 % Sodium Chloride 50 ML IV (10:37)
--- NOTE | 2022-12-17 12:12 | P.CDIC_ITS ---
CDI Concurrent Query Documentation Clarification: PHYSICIAN'S DOCUMENTATION REQUEST Date of Query: 12/17/22 1212 Patient Name: Alvaro Rivas Admit Date: 12/13/22 Dear Doctor, A review of the medical record indicates additional documentation may be needed. Please review below and update the documentation accordingly. Clinical Indicators: A diagnosis of CHF is documented in provider progress notes but lacks specificity. Is there further specificity that correlates with the findings below: Risk Factors/Clinical Indicators/Treatments Per provider progress notes: - PMH CHF (unspecified) -New diagnosis as of 06/18/22 Per provider progress note on 12/16: Bedside echocardiogram demonstrating normal LV and RV function with no primary valve or pericardial disease. Per RN shift assessments: Patient with bilateral upper extremity edema. Please provide further specificity regarding the most likely type and acuity of CHF you are evaluating, treating, or monitoring. Examples include: Type: * Systolic * Diastolic * Combined Systolic/Diastolic * Other ? please specify * Unable to determine Acuity: * Acute * Chronic * Acute on chronic * Unable to determine Use of terms such as suspected, likely, concern for, or probable (associated with a specific diagnosis that is being evaluated, monitored, or treated as if it exists) are acceptable and can be coded in the inpatient setting, when documented at the time of discharge. Thank you, Rayna Garcia MS, RN, CCRN Extension: [phone] Please use your independent medical judgment in providing your response. THIS QUERY IS PART OF THE PERMANENT MEDICAL RECORD Provider Response: Acute-Chronic Diastolic CHF
[2022-12-17] MEDS: methylPREDNISolone Sod Succ 40 MG/ML VIAL IVPUSH (12:35)
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
[2022-12-18] VITALS (35 sets, daily range): BP systolic 99–145; BP diastolic 49–76; PULSE 45–64; RESP 16–17; TEMP 34.2–37; O2SAT 90–97; BMI 27.6
[2022-12-18] MEDS: propofoL 1,000 MG/100 ML VIAL 15.14 MG IVCONT ×2 (00:46→05:54)
[2022-12-18 04:19] LABS: VBG Base Excess 4.1 mmol/L; VBG HCO3 25 mmol/L (22-26); VBG pCO2 28 mmHg; VBG pH 7.56 (7.32-7.43); VBG pO2 85 mmHg
[2022-12-18 04:23] LABS: MANUAL DIFF FLAG NO
[2022-12-18 04:25] LABS: Basophils Percent Auto 0.1 % (0-2); Eosinophils Percent Auto 0.1 % (0-4); Hematocrit 31.2 % (42.0-52.0); Hemoglobin 10.6 g/dl (14.0-18.0); Imm Gran Abs Auto 0.14 X10*3/uL (0.00-0.03); Imm Gran Pct Auto 1.5 % (0.0-0.4); Lymphocytes Absolute Auto 1.3 X10*3/uL (1.2-4.9); Lymphocytes Percent Auto 13.6 % (20-40); Mean Corpuscular Hemoglobin 30.8 pg (27.0-33.0); Mean Corpuscular Volume 90.7 fL (80.0-98.0); Mean Platelet Volume 11.6 fL (9.4-12.4); Monocytes Absolute Auto 0.6 X10*3/uL (0.1-1.2); Monocytes Percent Auto 5.9 % (2-11); Neutrophils Absolute Auto 7.4 x10*3/uL (2.0-8.3); Neutrophils Percent Auto 78.8 % (45-73); Platelet Count 158 X10*3/uL (160-400); Red Blood Count 3.44 X10*6/uL (4.60-5.80); Red Cell Distribution Width 14.3 % (11.0-16.0); White Blood Count 9.4 X10*3/uL (4.8-10.8)
[2022-12-18 04:41] LABS: Albumin Level 3.3 g/dL (3.5-5.0); Anion Gap 14 (12-20); Blood Urea Nitrogen 31 mg/dL (9-16); Calcium 8.8 mg/dL (8.4-10.2); Carbon Dioxide 23 mmol/L (22-29); Chloride 112 mmol/L (96-108); Creatinine Clr Calc Pharmacy 52.2; Estimated Glomerular Filt Rate > 60; Glucose Random 131 mg/dL (60-115); Magnesium 2.1 mg/dL (1.6-2.6); Phosphorus 3.3 mg/dL (2.7-4.5); Potassium 3.8 mmol/L (3.3-5.1); Sodium 145 mmol/L (135-145)
[2022-12-18] MEDS: fentaNYL citrate/NS 1,000 MCG/100 ML PLAST..BAG 7.5 MCG IVCONT ×2 (04:41→17:17)
[2022-12-18] MEDS: Racepinephrine HCL 0.5 ML VIAL.NEB INHALE ×3 (04:45→23:30)
[2022-12-18 05:19] LABS: Venous Blood Gas Refer to POC result
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
[2022-12-18] MEDS: Chlorhexidine Gluc Oral Rinse 15 ML MOUTHWASH BUCCAL ×3 (07:55→19:25)
[2022-12-18 08:47] LABS: MRSA Nasal PCR NEGATIVE (Negative); SA Nasal PCR POSITIVE (Negative)
--- NOTE | 2022-12-18 09:07 | MHC.CLN ---
F/U PT REMAINS INTUBATED AND SEDATED TOLERATING WELL PER NSG WITH LOW RESIDUALS PT RECEIVING PROMOTE AT MAX GOAL RATE 80ML/HR WITH 240ML FREE WATER FLUSHES Q 4 HRS TO PROVIDE 1920KCALS (2320KCALS WITH SEDATION; 26KCALS/KG), 120G PROTEIN (1.3G/KG), 3050ML TOTAL WATER FROM FORMULA AND FLUSHES (34ML/KG) MONITOR TOLERANCE, RESIDUALS AND LYTES
[2022-12-18] MEDS: propofoL 1,000 MG/100 ML VIAL 20.18 MG IVCONT ×4 (10:41→23:22)
[2022-12-18] MEDS: cefTRIAXone sodium 1 GM in 0.9 % Sodium Chloride 50 ML IV (11:58)
[2022-12-18] MEDS: methylPREDNISolone Sod Succ 40 MG/ML VIAL IVPUSH (11:58)
[2022-12-18 12:19] LABS: Glucose, Whole Blood 132 mg/dL (60-115)
[2022-12-19] VITALS (26 sets, daily range): BP systolic 96–184; BP diastolic 52–95; PULSE 49–106; RESP 9–24; TEMP 34.6–37.2; O2SAT 90–97; BMI 28.2
[2022-12-19] MEDS: propofoL 1,000 MG/100 ML VIAL 15.14 MG IVCONT ×2 (02:04→06:24)
[2022-12-19] MEDS: fentaNYL citrate/NS 1,000 MCG/100 ML PLAST..BAG 7.5 MCG IVCONT ×2 (04:37→06:29)
[2022-12-19 05:19] LABS: MANUAL DIFF FLAG NO
[2022-12-19 05:21] LABS: Basophils Percent Auto 0.2 % (0-2); Eosinophils Absolute Auto 0.1 X10*3/uL (0.0-0.4); Eosinophils Percent Auto 0.4 % (0-4); Hematocrit 31.9 % (42.0-52.0); Hemoglobin 10.9 g/dl (14.0-18.0); Imm Gran Abs Auto 0.29 X10*3/uL (0.00-0.03); Imm Gran Pct Auto 2.4 % (0.0-0.4); Lymphocytes Absolute Auto 1.2 X10*3/uL (1.2-4.9); Mean Corpuscular HGB Conc 34.2 g/dl (31.0-36.0); Mean Corpuscular Hemoglobin 31.7 pg (27.0-33.0); Mean Corpuscular Volume 92.7 fL (80.0-98.0); Mean Platelet Volume 12.2 fL (9.4-12.4); Monocytes Absolute Auto 0.9 X10*3/uL (0.1-1.2); Monocytes Percent Auto 7.5 % (2-11); NRBC Pct Auto 0.2 /100WBC (0.0-0.2); Neutrophils Absolute Auto 9.8 x10*3/uL (2.0-8.3); Neutrophils Percent Auto 79.5 % (45-73); Platelet Count 162 X10*3/uL (160-400); Red Blood Count 3.44 X10*6/uL (4.60-5.80); Red Cell Distribution Width 14.2 % (11.0-16.0); White Blood Count 12.3 X10*3/uL (4.8-10.8)
[2022-12-19] MEDS: Racepinephrine HCL 0.5 ML VIAL.NEB INHALE (05:21)
[2022-12-19 05:44] LABS: B Type Natriuretic Peptide 80 pg/mL (<100)
[2022-12-19 05:47] LABS: Albumin Level 3.3 g/dL (3.5-5.0); Magnesium 2.2 mg/dL (1.6-2.6); Phosphorus 3.8 mg/dL (2.7-4.5)
[2022-12-19 05:52] LABS: Anion Gap 13 (12-20)
[2022-12-19 05:54] LABS: Blood Urea Nitrogen 29 mg/dL (9-16); Calcium 8.6 mg/dL (8.4-10.2); Carbon Dioxide 22 mmol/L (22-29); Chloride 108 mmol/L (96-108); Creatinine Clr Calc Pharmacy 67.2; Estimated Glomerular Filt Rate > 60; Glucose Random 135 mg/dL (60-115); Potassium 3.9 mmol/L (3.3-5.1); Sodium 139 mmol/L (135-145)
[2022-12-19] MEDS: Lactulose 20 GM/30 ML SOLUTION PO (06:20)
[2022-12-19 06:32] LABS: VBG Base Excess 5.5 mmol/L; VBG HCO3 29 mmol/L (22-26); VBG pCO2 41 mmHg; VBG pH 7.46 (7.32-7.43); VBG pO2 50 mmHg
[2022-12-19] MEDS: Chlorhexidine Gluc Oral Rinse 15 ML MOUTHWASH BUCCAL (08:58)
[2022-12-19] MEDS: cefTRIAXone sodium 1 GM in 0.9 % Sodium Chloride 50 ML IV (10:44)
--- NOTE | 2022-12-19 10:54 | MHC.CM.PN ---
Pt continues in ICU on ventilatory support: making small gains per MD. Pt is initially from home w/family support but will likely require a higher intensity of post acute care. Broad SNF referrals placed should he require STR: pt will need a PT eval once extubated and a copy of his HCP. STR not discussed w/family at this time - will defer until clinically stable.
[2022-12-19 10:56] LABS: Venous Blood Gas Refer to POC result
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
[2022-12-19] MEDS: methylPREDNISolone Sod Succ 40 MG/ML VIAL IVPUSH (13:54)
[2022-12-19] MEDS: Clopidogrel Bisulfate 75 MG TABLET PO (15:55)
[2022-12-19] MEDS: Metoprolol Tartrate 25 MG TABLET PO (15:55)
--- NOTE | 2022-12-19 17:24 | PC.NURSE ---
Pt initiated on sedation vacation at 0720 per Md's order; vent settings changed to PS with good effect; pt starting to follow commands and neurologically appropriate; extubated at 1115 and weaned to N/C on 3L and satting appropriately. Pt able to clear throat, no stridors noted, pt coughing with thick white sputum, suctioned PRN. Pt passed the bedside swallow screen, Md aware and on clears diet ordered. Pt's family updated with pt's progression. Pt cook islander speaking, dba developer utilized prn. Pt otherwise in no acute distress. VSS. N/C unstable with pt's ear anatomy, changed to oxymask on 3L, satting appropriately. Plan to downgrade to IMC, pt made aware and family updated, all questions answered. Pt repositioned every 2 hrs and PRN, prevalon system utilized. Safety maintained throughout. Report was given to receiving BEATRIZ Mandujano who will continue with the plan of care. Pt left the unit at approximately 1630.
[2022-12-19] MEDS: Apixaban 2.5 MG TABLET PO (20:13)
--- NOTE | 2022-12-19 23:17 | PC.NURSE ---
blood pressure 184/95, hr 85 reported to MD Dodson, will continue to monitor
[2022-12-19] MEDS: Benzonatate 100 MG CAPSULE 200 MG PO (23:21)
--- NOTE | 2022-12-20 | ECG_ITS ---
Test Reason : cp Blood Pressure : / mmHG Vent. Rate : 114 BPM Atrial Rate : 000 BPM P-R Int : 000 ms QRS Dur : 086 ms QT Int : 320 ms P-R-T Axes : 000 070 103 degrees QTc Int : 441 ms Atrial fibrillation with rapid ventricular response with premature ventricular or aberrantly conducted complexes Nonspecific ST and T wave abnormality Abnormal ECG When compared with ECG of 13-DEC-2022 11:20, Atrial fibrillation has replaced Sinus rhythm Vent. rate has increased BY 51 BPM Referred By: Alton Knight Electronically Signed By:SAMUEL COREY
[2022-12-20 01:00] VITALS: BP 135/84; PULSE 109
[2022-12-20] MEDS: Acetaminophen 325 MG TABLET 650 MG PO ×3 (03:49→23:38)
[2022-12-20 07:40] VITALS: BP 172/88; PULSE 80; RESP 19; TEMP 37.1; O2SAT 96
[2022-12-20] MEDS: Metoprolol Tartrate 25 MG TABLET PO (07:43)
[2022-12-20] MEDS: Apixaban 2.5 MG TABLET PO ×2 (07:43→22:02)
[2022-12-20] MEDS: Clopidogrel Bisulfate 75 MG TABLET PO (07:43)
--- NOTE | 2022-12-20 10:18 | MHC.CM.PN ---
Per ROUNDS discussion, Patient's diet will be advanced and a PT eval is needed and Patient is not yet medically cleared for dc. CM will follow after PT eval for best disposition.
[2022-12-20] MEDS: Benzonatate 100 MG CAPSULE 200 MG PO (10:36)
[2022-12-20] MEDS: cefTRIAXone sodium 1 GM in 0.9 % Sodium Chloride 50 ML IV (10:41)
--- NOTE | 2022-12-20 11:42 | MHC.CLN ---
F/U PT EXTUBATED 12/19 TRANSFERRED TO MEDICAL FLOOR PT IS ON C/L DIET WILL ADD ENSURE CLEAR TID TO INCREASE KCALS FOLLOWING WITH TEAM
[2022-12-20 12:00] VITALS: BP 145/81; PULSE 75; RESP 19; TEMP 36.9; O2SAT 97
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
--- NOTE | 2022-12-20 13:24 | MHC.CM.PN ---
PT is recommending STR; CM will follow.
[2022-12-20 13:29] VITALS: BP 145/81; PULSE 75; O2SAT 97
[2022-12-20 15:54] VITALS: BP 140/80; PULSE 78; RESP 18; TEMP 36.7; O2SAT 97
[2022-12-20 19:32] VITALS: BP 159/92; RESP 18; TEMP 37.2; O2SAT 97
[2022-12-20] MEDS: Metoprolol Tartrate 50 MG TABLET PO (22:02)
[2022-12-21] VITALS (8 sets, daily range): BP systolic 109–170; BP diastolic 62–101; PULSE 50–113; RESP 14–18; TEMP 36.3–37.3; O2SAT 92–97
[2022-12-21] MEDS: OLANZapine 10 MG TABLET PO (00:59)
[2022-12-21] MEDS: Melatonin 3 MG TABLET 6 MG PO (01:00)
[2022-12-21] MEDS: Metoprolol Tartrate 5 MG/5 ML VIAL IVPUSH (04:25)
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
[2022-12-21] MEDS: Metoprolol Tartrate 50 MG TABLET PO ×2 (08:23→19:37)
[2022-12-21] MEDS: Clopidogrel Bisulfate 75 MG TABLET PO (08:23)
[2022-12-21] MEDS: Apixaban 2.5 MG TABLET PO ×2 (08:23→19:37)
[2022-12-21] MEDS: cefTRIAXone sodium 1 GM in 0.9 % Sodium Chloride 50 ML IV (11:00)
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
[2022-12-21] MEDS: Acetaminophen 325 MG TABLET 650 MG PO (16:46)
[2022-12-21] MEDS: Atorvastatin Calcium 40 MG TABLET PO (19:36)
[2022-12-22 03:00] VITALS: PULSE 100; RESP 18; TEMP 36.8; O2SAT 95
[2022-12-22 07:57] VITALS: BP 135/91; PULSE 95; RESP 18; TEMP 36.9; O2SAT 95
[2022-12-22] MEDS: Clopidogrel Bisulfate 75 MG TABLET PO (09:10)
[2022-12-22] MEDS: Apixaban 2.5 MG TABLET PO ×2 (09:10→21:10)
[2022-12-22] MEDS: Metoprolol Tartrate 50 MG TABLET PO ×2 (09:11→21:10)
[2022-12-22] MEDS: cefTRIAXone sodium 1 GM in 0.9 % Sodium Chloride 50 ML IV (11:05)
[2022-12-22 11:27] VITALS: BP 115/83; PULSE 84; RESP 17; TEMP 36.7; O2SAT 97
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
[2022-12-22 16:00] VITALS: BP 127/78; PULSE 76; RESP 18; TEMP 36.4; O2SAT 95
--- NOTE | 2022-12-22 16:19 | PC.NURSE ---
SPINDRAW OPERATOR reported that pt has not had output all day but pt hasn't been eating or drinking. pt was bladder scanned at 15:27, bladder scan showed 853ml. MD notified, MD order to straight cath. upon insertion output of 200ml. pt tolerated ok. bladder scanned after straight cath, 0mls.
[2022-12-22] MEDS: Acetaminophen 325 MG TABLET 650 MG PO (16:25)
[2022-12-22 20:00] VITALS: BP 149/82; PULSE 98; RESP 18; TEMP 36.7; O2SAT 94
[2022-12-22] MEDS: Atorvastatin Calcium 40 MG TABLET PO (21:10)
[2022-12-22] MEDS: Melatonin 3 MG TABLET 6 MG PO (21:10)
[2022-12-23] VITALS: BP 154/80; PULSE 86; TEMP 37.2; O2SAT 94
--- NOTE | 2022-12-23 01:47 | PC.NURSE ---
p; 0015; patient has not voided in last 6 hours, bladder scanned for 437 mls. i; Dr. Dodson notified. Order for straight cath. e; 0045; Patient reported he now has urge to urinate, urinal given to patient, voided 350 mls. PVR 25 mls. Since patient able to void, no need to straight cath.
[2022-12-23 04:00] VITALS: BP 152/98; PULSE 99; RESP 18; TEMP 36.4; O2SAT 94
[2022-12-23 07:13] LABS: Hematocrit 36.9 % (42.0-52.0); Hemoglobin 12.4 g/dl (14.0-18.0); Mean Corpuscular HGB Conc 33.6 g/dl (31.0-36.0); Mean Corpuscular Volume 92.3 fL (80.0-98.0); Mean Platelet Volume 11.9 fL (9.4-12.4); Platelet Count 179 X10*3/uL (160-400); Red Cell Distribution Width 14.6 % (11.0-16.0); White Blood Count 13.5 X10*3/uL (4.8-10.8)
[2022-12-23 07:46] VITALS: BP 150/82; PULSE 98; RESP 18; TEMP 36.7; O2SAT 94
[2022-12-23] MEDS: Clopidogrel Bisulfate 75 MG TABLET PO (08:32)
[2022-12-23] MEDS: Apixaban 2.5 MG TABLET PO ×2 (08:32→20:46)
[2022-12-23] MEDS: Metoprolol Succinate ER 100 MG TAB.ER.24H PO (08:32)
[2022-12-23] MEDS: Acetaminophen 325 MG TABLET 650 MG PO (08:40)
--- NOTE | 2022-12-23 10:29 | ECG_ITS ---
Test Reason : chest pain Blood Pressure : / mmHG Vent. Rate : 098 BPM Atrial Rate : 000 BPM P-R Int : 000 ms QRS Dur : 076 ms QT Int : 378 ms P-R-T Axes : 000 055 044 degrees QTc Int : 482 ms Atrial fibrillation with premature ventricular or aberrantly conducted complexes T wave abnormality, consider anterior ischemia Prolonged QT Abnormal ECG When compared with ECG of 20-DEC-2022 01:43, ST no longer depressed in Inferior leads ST no longer depressed in Anterior leads T wave inversion now evident in Anterior leads Referred By: Alton Knight Electronically Signed By:SAMUEL COREY
[2022-12-23 11:39] VITALS: BP 145/88; PULSE 97; RESP 17; TEMP 36.9; O2SAT 98
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
[2022-12-23 15:09] VITALS: BP 162/101; PULSE 83; RESP 17; TEMP 37.3; O2SAT 94
--- NOTE | 2022-12-23 15:50 | MHC.SL.SWA ---
Speech Pathologist Impression: Oral phase dysphagia Risk of Aspiration Due to: Hx of Recent Extubation Dysphasia Diet Status: No change at this time Liquid Consistency and Strategies for Safe Swallow: Liquid Intake Recommendation: Thin Liquid Intake Strategies: Small Sips No Straws Solid Food Consistency: Dietary Recommendations: Grnd/Mech Altered (NDD2) Additional Modifications to Solid Foods: Pt w/ mild oral phase dysphagia secondary to edentulous state. For ease of mastication, recommend continue with GROUND/MECH ALTERED (NDD2) diet and THIN liquids, pills WHOLE in LIQUID. Notified MD, RN, RD via [employer] Message. NAVIGATION OFFICER to f/u 1x time to ensure tolerance. Oral Medication Intake: Whole with Liquid Please contact the pharmacy regarding appropriate crushable or liquid drug formulations that are available whenever modified delivery is recommended. Compensatory Strategies and Precautions to be Taken for Safe Swallow: Sitting Upright (90 deg) No Straw Small Bites and Sips Alternate Liquids/Solids Rate of Ingestion Change Avoid Specific Foods Supervision While Eating and Drinking for Safe Swallow: Total Supervision (1:1) Foods to Avoid: Hard, difficult to chew solids; sticky textures Swallowing Recommended Treatments: Compens. Strategy Educat. Recommendation for Speech: Inpatient Speech Therapy Comment: 1 f/u Division Engineer Clinican/Clinical Fellow: No Supervisory Statement: I have reviewed and agree with the student/clinical fellow's documentation: N/A Speech Language Pathologist: Shannon Dunn M.A., CCC-NAVIGATION OFFICER
[2022-12-23 19:01] VITALS: BP 131/87; PULSE 96; RESP 17; TEMP 36.8; O2SAT 93
[2022-12-23] MEDS: Famotidine 20 MG TABLET PO (20:46)
[2022-12-23] MEDS: hydrALAZINE HCl 50 MG TABLET PO (20:46)
[2022-12-23] MEDS: Atorvastatin Calcium 40 MG TABLET PO (20:46)
[2022-12-23] MEDS: Melatonin 3 MG TABLET 6 MG PO (20:47)
[2022-12-23] MEDS: oxyCODONE HCl Immed Release 5 MG TABLET 2.5 MG PO (22:12)
[2022-12-24] VITALS (7 sets, daily range): BP systolic 106–142; BP diastolic 57–90; PULSE 78–122; RESP 20; TEMP 36.1–37.1; O2SAT 92–95
--- NOTE | 2022-12-24 01:26 | PC.NURSE ---
Patient with difficulty voiding, at 2030 bladder scan shows 400 mls, patient assisted to sit at edge of bed, urinal provided, patient voided 350 mls dark yellow urine at 2130. PVR of 15 mls. Continue to monitor.
[2022-12-24 08:09] LABS: Glucose, Whole Blood 97 mg/dL (60-115)
[2022-12-24] MEDS: Clopidogrel Bisulfate 75 MG TABLET PO (09:34)
[2022-12-24] MEDS: Apixaban 2.5 MG TABLET PO ×2 (09:34→21:18)
[2022-12-24] MEDS: Acetaminophen 325 MG TABLET 650 MG PO ×2 (09:34→21:18)
[2022-12-24] MEDS: Metoprolol Succinate ER 100 MG TAB.ER.24H PO (09:34)
[2022-12-24] MEDS: hydrALAZINE HCl 50 MG TABLET PO ×2 (09:34→21:18)
[2022-12-24] MEDS: Throat Lozenge, Medicated LOZENGE 1 LOZENGE MUCOUS MEM (09:40)
--- NOTE | 2022-12-24 10:16 | MHC.SL.SWA ---
Speech Pathologist Impression: Risk of Aspiration Due to: Hx of Recent Extubation Dysphasia Diet Status: Pt w/ mild oral phase dysphagia secondary to edentulous state. Recommend pt to select soft, easy to chew food items. Recommend continue on Ground/Mechanical Altered (NDD2) with Thin Liquids. Will D/C Speech at this time, please re-contact if any additional concerns arise during hospital stay. Liquid Consistency and Strategies for Safe Swallow: Liquid Intake Recommendation: Thin Liquid Intake Strategies: Small Sips Solid Food Consistency: Dietary Recommendations: Grnd/Mech Altered (NDD2) Additional Modifications to Solid Foods: Pt w/ mild oral phase dysphagia secondary to edentulous state. For ease of mastication, recommend continue with GROUND/MECH ALTERED (NDD2) diet and THIN liquids, pills WHOLE in LIQUID. Oral Medication Intake: Whole with Liquid Please contact the pharmacy regarding appropriate crushable or liquid drug formulations that are available whenever modified delivery is recommended. Compensatory Strategies and Precautions to be Taken for Safe Swallow: Sitting Upright (90 deg) Liquids from Cup Small Bites and Sips Alternate Liquids/Solids Supervision While Eating and Drinking for Safe Swallow: Intermittent Supervision Foods to Avoid: Hard, difficult to chew solids; sticky textures Swallowing Recommended Treatments: Compens. Strategy Educat. Recommendation for Speech: Inpatient Speech Therapy Comment: Patient seen this a.m. at conclusion of breakfast for toleration of diet. Patient was awake and alert, lying in bed with present in room. Patient reported in Armenian that he was feeling better, and his throat was not hurting. Patient and reported that he had eaten most of his breakfast and drank all of his nutritional shake, all of which was evident on breakfast tray. Patient and reported no difficulty with eating and drinking. was advocating regarding patient's leg pain and difficulty with walking. At conclusion of session, MD came in to room with projection engineer/CLARIFIER OPERATOR, reported to MD Pt/family c/o. Patient is currently on baseline diet (per family members) and is tolerating well with no difficulties. Recommend continue on Ground/Mechanical Altered (NDD2) with Thin Liquids. Will D/C Speech at this time, please re-contact if any additional concerns arise during hospital stay. Frequency/Duration: Date Range for Service Req: Timeline to reassess: Portrait Photographer Clinican/Clinical Fellow: No Supervisory Statement: I have reviewed and agree with the student/clinical fellow's documentation: N/A Speech Language Pathologist: Pat Osorio M.A., CCC-MOTION PICTURE DIRECTOR
--- NOTE | 2022-12-24 11:44 | P.CDIC_ITS ---
CDI Concurrent Query Documentation Clarification: PHYSICIAN'S DOCUMENTATION REQUEST Date of Query: 12/24/22 1144 Patient Name: Alvaro Rivas Admit Date: 12/13/22 Dear Doctor, A review of the medical record indicates additional documentation may be needed. Please review below and update the documentation accordingly. Clinical Indicators: A diagnosis of CHF is documented in provider progress notes but lacks specificity. Is there further specificity that correlates with the findings below: Risk Factors/Clinical Indicators/Treatments Per provider progress notes: - PMH CHF (unspecified) -New diagnosis as of 06/18/22 Per provider progress note on 12/16: Bedside echocardiogram demonstrating normal LV and RV function with no primary valve or pericardial disease. Per RN shift assessments: Patient with bilateral upper extremity edema. Medications: Furosemide 40mg PO daily Please provide further specificity regarding the most likely type and acuity of CHF you are evaluating, treating, or monitoring. Examples include: ? Type: * Systolic * Diastolic * Combined Systolic/Diastolic * Other?? please specify * Unable to determine Acuity: * Acute * Chronic * Acute on chronic * Unable to determine ? Use of terms such as suspected, likely, concern for, or probable (associated with a specific diagnosis that is being evaluated, monitored, or treated as if it exists) are acceptable and can be coded in the inpatient setting, when documented at the time of discharge. Thank you, Rayna Garcia MS, RN, CCRN Extension: [phone] Please use your independent medical judgment in providing your response. THIS QUERY IS PART OF THE PERMANENT MEDICAL RECORD Provider Response: Other Other Diagnosis: see note
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
[2022-12-24] MEDS: Ibuprofen 400 MG TABLET PO (15:01)
[2022-12-24] MEDS: predniSONE 20 MG TABLET PO (16:52)
[2022-12-24] MEDS: Famotidine 20 MG TABLET PO (21:18)
[2022-12-24] MEDS: Atorvastatin Calcium 40 MG TABLET PO (21:18)
[2022-12-25 02:38] VITALS: BP 126/69; PULSE 87; RESP 20; TEMP 36.7; O2SAT 95
[2022-12-25 07:18] VITALS: BP 141/77; PULSE 84; RESP 17; TEMP 36.4; O2SAT 94
[2022-12-25] MEDS: Acetaminophen 325 MG TABLET 650 MG PO ×2 (07:19→14:50)
[2022-12-25] MEDS: Apixaban 2.5 MG TABLET PO (07:19)
[2022-12-25] MEDS: Metoprolol Succinate ER 100 MG TAB.ER.24H PO (07:19)
[2022-12-25] MEDS: Clopidogrel Bisulfate 75 MG TABLET PO (07:19)
[2022-12-25] MEDS: hydrALAZINE HCl 50 MG TABLET PO (07:19)
[2022-12-25] MEDS: Throat Lozenge, Medicated LOZENGE 1 LOZENGE MUCOUS MEM (07:20)
[2022-12-25 07:53] VITALS: BP 141/77; PULSE 84; O2SAT 94
[2022-12-25 11:01] VITALS: BP 112/68; PULSE 97; RESP 17; TEMP 36.7; O2SAT 94
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
--- NOTE | 2022-12-25 14:35 | MHC.CM.PN ---
DP: PT HAS BEEN MEDICALLY CLEARED FOR DC TO STR AT [facility]. AUTH OBTAINED BY CENTER. RN AWARE. MD AWARE. FAMILY AWARE. BLS TRANSPORT BOOKED FOR 5 PM VIA [place].
[2022-12-25 14:54] LABS: COVID-19 Test Negative (Negative); IDNOW Serial# BCCEAD1C
[2022-12-25 15:48] VITALS: BP 101/75; PULSE 71; RESP 20; TEMP 37.3; O2SAT 90
== END 2022-12-25 17:15 | disposition skilled nursing facility (03) | DRG 207 ==
LOC: HO.ED 11:02 → HO.EDOVER 12:16 → HO.ICU 12:37 → HO.IMC 12-19 15:53
PROVIDERS: Internal Medicine Cardiovascular Disease; Nurse Practitioner Family; Admitting Provider Internal Medicine Pulmonary Disease; Emergency Provider Student in an Organized Health Care Education/Training Program; PCP Internal Medicine; Visit Provider Hospitalist
DX: T27.3XXA Burn of respiratory tract, part unspecified, initial encounter (principal); N39.0 Urinary tract infection, site not specified; Z16.11 Resistance to penicillins; J98.11 Atelectasis; T59.811A Toxic effect of smoke, accidental (unintentional), initial encounter; X08.8XXA Exposure to other specified smoke, fire and flames, initial encounter; I25.10 Atherosclerotic heart disease of native coronary artery without angina pectoris; N40.0 Benign prostatic hyperplasia without lower urinary tract symptoms; K21.9 Gastro-esophageal reflux disease without esophagitis; I95.9 Hypotension, unspecified; I48.0 Paroxysmal atrial fibrillation; I11.0 Hypertensive heart disease with heart failure; E78.5 Hyperlipidemia, unspecified; I50.9 Heart failure, unspecified; B96.20 Unspecified Escherichia coli [E. coli] as the cause of diseases classified elsewhere; M70.51 Other bursitis of knee, right knee; K59.09 Other constipation; Z20.822 Contact with and (suspected) exposure to COVID-19; Z87.891 Personal history of nicotine dependence; Z79.01 Long term (current) use of anticoagulants; Z79.02 Long term (current) use of antithrombotics/antiplatelets; Z79.51 Long term (current) use of inhaled steroids; Z79.899 Other long term (current) drug therapy
CPT/HCPCS: 36415; 71045; 71250; 80048; 80053; 81001; 82040; 82375; 82803; 82947; 83605; 83735; 83880; 84100; 84484; 85025; 85027; 87070; 87086; 87088; 87186; 87205; 87635; 87640; 87641; 92507; 92610; 93005; 93971; 94002; 94003; 94640; 94799; 97110; 97116; 97163; 99285; C1758; J0295; J0696; J2250; J2370; J2920; J3010; J3370; P9047

== ENCOUNTER 2023-06-10 14:19 | Outpatient (REF) | payer OTHER, SELFPAY ==
[2023-06-10 17:53] LABS: MANUAL DIFF FLAG NO
[2023-06-10 18:00] LABS: Basophils Absolute Auto 0.1 X10*3/uL (0.0-0.2); Basophils Percent Auto 0.6 % (0-2); Eosinophils Absolute Auto 0.2 X10*3/uL (0.0-0.4); Eosinophils Percent Auto 2.3 % (0-4); Hemoglobin 13.3 g/dl (14.0-18.0); Imm Gran Abs Auto 0.05 X10*3/uL (0.00-0.03); Imm Gran Pct Auto 0.6 % (0.0-0.4); Lymphocytes Absolute Auto 1.8 X10*3/uL (1.2-4.9); Lymphocytes Percent Auto 21.5 % (20-40); Mean Corpuscular HGB Conc 33.3 g/dl (31.0-36.0); Mean Corpuscular Hemoglobin 30.2 pg (27.0-33.0); Mean Corpuscular Volume 90.7 fL (80.0-98.0); Mean Platelet Volume 12.6 fL (9.4-12.4); Monocytes Absolute Auto 0.6 X10*3/uL (0.1-1.2); Monocytes Percent Auto 7.5 % (2-11); Neutrophils Absolute Auto 5.8 x10*3/uL (2.0-8.3); Neutrophils Percent Auto 67.5 % (45-73); Platelet Count 188 X10*3/uL (160-400); Red Blood Count 4.41 X10*6/uL (4.60-5.80); Red Cell Distribution Width 14.7 % (11.0-16.0); White Blood Count 8.5 X10*3/uL (4.8-10.8)
[2023-06-10 18:57] LABS: Prostate Specific Antigen 0.22 ng/mL (<0.05-4.0)
[2023-06-10 19:12] LABS: Alanine Aminotransferase 9 U/L (0-40); Albumin Level 4.5 g/dL (3.5-5.0); Alkaline Phosphatase 79 U/L (39-117); Anion Gap 15 (12-20); Aspartate Amino Transferase 15 U/L (5-37); Bilirubin Total 0.8 mg/dL (0.0-1.0); Blood Urea Nitrogen 29 mg/dL (9-16); Calcium 10.1 mg/dL (8.4-10.2); Carbon Dioxide 29 mmol/L (22-29); Chloride 102 mmol/L (96-108); Cholesterol 98 mg/dL; Estimated Glomerular Filt Rate 38; Glucose Fasting 57 mg/dL (60-99); HDL Cholesterol 28 mg/dL; Iron 100 mcg/dL (45-160); LDL Cholesterol Calculated 56 mg/dl; Percent Iron Saturation 44 % (15-50); Potassium 2.8 mmol/L (3.3-5.1); Sodium 143 mmol/L (135-145); Total Iron Binding Capacity 228 mcg/dL (228-428); Triglycerides 72 mg/dL; Unsaturated Iron Binding 128 ug/dL
== END 2023-06-10 14:20 | disposition home or self-care (01) ==
LOC: HO.CHCLDS 14:19
PROVIDERS: Visit Provider Internal Medicine
DX: Z12.5 Encounter for screening for malignant neoplasm of prostate (principal); I10 Essential (primary) hypertension; D64.9 Anemia, unspecified
CPT/HCPCS: 36415; 80053; 80061; 83540; 84153; 84443; 85025

== ENCOUNTER 2023-07-03 09:02 | Emergency (ER) | payer OTHER, SELFPAY ==
--- NOTE | ~2023-07-03 | XR_ITS ---
EXAMINATION: XR CHEST CLINICAL INFORMATION: Acute chest pain. COMPARISON: 12/16/[address] scan and 12/13/2022 chest radiograph. TECHNIQUE: Frontal view of the chest was obtained. FINDINGS: Support devices: Interval removal of endotracheal and nasogastric tube. Mild bibasilar linear markings are seen, right greater than left. The upper lung benton are clear. The heart and mediastinal structures are unremarkable. XR/XR chest 1V IMPRESSION: Mild bibasilar linear atelectasis versus scarring, right greater than left without significant change. No acute cardiopulmonary process.
--- NOTE | 2023-07-03 09:05 | ECG_ITS ---
Test Reason : chest pressure Blood Pressure : / mmHG Vent. Rate : 104 BPM Atrial Rate : 000 BPM P-R Int : 000 ms QRS Dur : 076 ms QT Int : 370 ms P-R-T Axes : 000 066 077 degrees QTc Int : 486 ms Atrial fibrillation with rapid ventricular response with premature ventricular or aberrantly conducted complexes Abnormal ECG When compared with ECG of 23-DEC-2022 10:51, T wave inversion no longer evident in Anterior leads Referred By: Generic ED Physician Electronically Signed By:PEGGY SHERMAN
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
[2023-07-03 09:16] VITALS: BP 124/79; BP 152/70; PULSE 100; PULSE 80; RESP 18; TEMP 36.8; O2SAT 96; O2SAT 98; BMI 25.5
--- NOTE | 2023-07-03 09:31 | PC.NURSE ---
Arrived via EMS from home. 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 Pt c/o SOB/chest pressure, worsens w/ exertion. at bedside. LCA. Placed on bedisde monitor.
[2023-07-03 09:48] LABS: MANUAL DIFF FLAG NO
[2023-07-03 09:51] LABS: Basophils Percent Auto 0.4 % (0-2); Eosinophils Absolute Auto 0.1 X10*3/uL (0.0-0.4); Eosinophils Percent Auto 1.5 % (0-4); Hematocrit 33.1 % (42.0-52.0); Hemoglobin 11.3 g/dl (14.0-18.0); Imm Gran Abs Auto 0.02 X10*3/uL (0.00-0.03); Imm Gran Pct Auto 0.3 % (0.0-0.4); Lymphocytes Absolute Auto 0.8 X10*3/uL (1.2-4.9); Lymphocytes Percent Auto 10.1 % (20-40); Mean Corpuscular HGB Conc 34.1 g/dl (31.0-36.0); Mean Corpuscular Hemoglobin 30.3 pg (27.0-33.0); Mean Corpuscular Volume 88.7 fL (80.0-98.0); Mean Platelet Volume 11.9 fL (9.4-12.4); Monocytes Absolute Auto 0.5 X10*3/uL (0.1-1.2); Monocytes Percent Auto 6.4 % (2-11); Neutrophils Absolute Auto 6.5 x10*3/uL (2.0-8.3); Neutrophils Percent Auto 81.3 % (45-73); Platelet Count 132 X10*3/uL (160-400); Red Blood Count 3.73 X10*6/uL (4.60-5.80); Red Cell Distribution Width 15.4 % (11.0-16.0); White Blood Count 7.9 X10*3/uL (4.8-10.8)
[2023-07-03 09:54] LABS: Appearance Urine Clear; Color Urine Straw; Glucose Urine UA Negative (Negative); Leukocyte Esterase Urine Negative (Negative); Nitrite Urine Negative (Negative); PH 7.5 (5.0-9.0); Specific Gravity - Urine <= 1.005 (1.005-1.025); Urine Blood Negative (Negative); Urine Ketones Negative (Negative); Urine Protein Negative (Neg-Trace)
[2023-07-03 09:57] LABS: INTERNATIONAL NORM RATIO 1.3 (0.9-1.1); Prothrombin Time 16.2 SEC (11.1-13.3)
[2023-07-03 09:59] LABS: Partial Thromboplastin Time 33.7 SEC (26.0-36.4)
[2023-07-03 10:00] LABS: Anion Gap 10 (12-20); Blood Urea Nitrogen 16 mg/dL (9-16); Calcium 9.6 mg/dL (8.4-10.2); Carbon Dioxide 26 mmol/L (22-29); Chloride 109 mmol/L (96-108); Creatinine Clr Calc Pharmacy 47.2; Estimated Glomerular Filt Rate 59; Glucose Random 99 mg/dL (60-115); Potassium 3.4 mmol/L (3.3-5.1); Sodium 142 mmol/L (135-145)
[2023-07-03 10:09] LABS: Troponin-I High Sensitivity 3.7 ng/L (<3.5-35.0)
[2023-07-03 10:10] LABS: B Type Natriuretic Peptide 975 pg/mL (<100)
[2023-07-03 12:01] LABS: Troponin-I High Sensitivity 5.1 ng/L (<3.5-35.0)
[2023-07-03 12:19] VITALS: BP 127/82; PULSE 60; RESP 16; O2SAT 96
--- NOTE | 2023-07-03 12:45 | ECG_ITS ---
Test Reason : change in rhythm Blood Pressure : / mmHG Vent. Rate : 069 BPM Atrial Rate : 000 BPM P-R Int : 000 ms QRS Dur : 078 ms QT Int : 456 ms P-R-T Axes : 000 081 080 degrees QTc Int : 488 ms Normal sinus rhythm with PAC's Prolonged QT Abnormal ECG When compared with ECG of 03-JUL-2023 09:21, Atrial fibrillation is no longer Present Vent. rate has decreased BY 35 BPM Referred By: Mickey Irizarry Electronically Signed By:PEGGY SHERMAN
--- NOTE | 2023-07-03 14:47 | PC.NURSE ---
Cleared for discharge. Discharge instructions reviewed w/ pt w/ hospital edge beader. Denies pain.
== END 2023-07-03 14:48 | disposition home or self-care (01) ==
PROVIDERS: Emergency Provider Emergency Medicine; PCP Internal Medicine
DX: R07.89 Other chest pain (principal); I48.92 Unspecified atrial flutter; R00.0 Tachycardia, unspecified; R06.02 Shortness of breath; I10 Essential (primary) hypertension; I48.0 Paroxysmal atrial fibrillation; Z87.891 Personal history of nicotine dependence; Z79.899 Other long term (current) drug therapy; Z79.01 Long term (current) use of anticoagulants
CPT/HCPCS: 36415; 71045; 80048; 81003; 83880; 84484; 85025; 85610; 85730; 93005; 99284

== ENCOUNTER 2023-07-08 10:49 | Outpatient (REF) | payer OTHER, SELFPAY ==
[2023-07-08 15:36] LABS: B Type Natriuretic Peptide 62 pg/mL (<100)
[2023-07-08 16:00] LABS: Anion Gap 11 (12-20); Blood Urea Nitrogen 17 mg/dL (9-16); Calcium 9.7 mg/dL (8.4-10.2); Carbon Dioxide 28 mmol/L (22-29); Chloride 105 mmol/L (96-108); Estimated Glomerular Filt Rate 45; Glucose Fasting 86 mg/dL (60-99); Potassium 2.8 mmol/L (3.3-5.1); Sodium 141 mmol/L (135-145)
== END 2023-07-08 10:50 | disposition home or self-care (01) ==
LOC: HO.CHCLDS 10:49
PROVIDERS: Visit Provider Internal Medicine Cardiovascular Disease
DX: R60.0 Localized edema (principal)
CPT/HCPCS: 36415; 80048; 83880

== ENCOUNTER 2024-01-08 09:10 | Outpatient (REF) | payer OTHER, SELFPAY ==
[2024-01-08 15:02] LABS: Alanine Aminotransferase 11 U/L (0-40); Albumin Level 3.9 g/dL (3.5-5.0); Alkaline Phosphatase 115 U/L (39-117); Anion Gap 15 (12-20); Aspartate Amino Transferase 18 U/L (5-37); Bilirubin Total 0.7 mg/dL (0.0-1.0); Blood Urea Nitrogen 17 mg/dL (9-16); Carbon Dioxide 29 mmol/L (22-29); Chloride 100 mmol/L (96-108); Cholesterol 96 mg/dL (<200); Estimated Glomerular Filt Rate 58; Glucose Random 60 mg/dL (60-115); HDL Cholesterol 30 mg/dL (>40); LDL Cholesterol Calculated 52 mg/dL (<100); Potassium 2.6 mmol/L (3.3-5.1); Sodium 141 mmol/L (135-145); Total Protein 6.7 g/dL (6.5-8.0); Triglycerides 72 mg/dL (<150)
== END 2024-01-08 09:11 | disposition home or self-care (01) ==
LOC: HO.CHCLDS 09:10
PROVIDERS: Visit Provider Internal Medicine
DX: I10 Essential (primary) hypertension (principal)
CPT/HCPCS: 36415; 80053; 80061

== ENCOUNTER 2024-01-30 12:39 | Outpatient (REF) | payer OTHER, SELFPAY | END 2024-01-30 12:40 | disposition home or self-care (01) | LOC: HO.CHCLDS 12:39 | PROVIDERS: Visit Provider Internal Medicine | DX: E87.6 Hypokalemia (principal) | CPT/HCPCS: 36415; 84132 ==

== ENCOUNTER 2024-02-25 11:13 | Outpatient (REF) | payer OTHER, SELFPAY ==
[2024-02-25 16:57] LABS: Potassium 2.7 mmol/L (3.3-5.1)
[2024-02-25 17:21] LABS: Anion Gap 9 (12-20); Blood Urea Nitrogen 17 mg/dL (9-16); Calcium 9.3 mg/dL (8.4-10.2); Carbon Dioxide 32 mmol/L (22-29); Chloride 103 mmol/L (96-108); Estimated Glomerular Filt Rate 56; Glucose Random 117 mg/dL (60-115); Potassium 2.7 mmol/L (3.3-5.1); Sodium 141 mmol/L (135-145)
== END 2024-02-25 11:14 | disposition home or self-care (01) ==
LOC: HO.CHCLDS 11:13
PROVIDERS: Referring Provider Internal Medicine Cardiovascular Disease; Visit Provider Emergency Medicine
DX: R60.0 Localized edema (principal)
CPT/HCPCS: 36415; 80048; 84132

== ENCOUNTER 2024-03-05 09:06 | Outpatient (REF) | payer OTHER, SELFPAY ==
--- NOTE | ~2024-03-05 | XR_ITS ---
EXAMINATION: XR CHEST CLINICAL INFORMATION: Cough COMPARISON: Previous chest x-ray June 2023 TECHNIQUE: 2 views of the chest were obtained. FINDINGS: The cardiac silhouette does not appear enlarged. The thoracic aorta is slightly tortuous and ectatic similar to prior exam. Hilar and mediastinal contours are otherwise unremarkable. The lungs are well-inflated. There is linear scarring or subsegmental atelectasis at the lung bases. Small calcified nodule at the right lung base, stable. Lungs are otherwise clear. No pleural effusion or pneumothorax. Bony structures are unremarkable. XR/XR chest 2V IMPRESSION: Scarring or atelectasis at the lung bases.
== END 2024-03-05 09:07 | disposition home or self-care (01) ==
LOC: HO.HHCX 09:06
PROVIDERS: Visit Provider Internal Medicine
DX: Z13.89 Encounter for screening for other disorder (principal)
CPT/HCPCS: 71046

== ENCOUNTER 2024-03-05 09:35 | Outpatient (REF) | payer OTHER, SELFPAY ==
[2024-03-05 12:19] LABS: Potassium 3.4 mmol/L (3.3-5.1)
== END 2024-03-05 09:36 | disposition home or self-care (01) ==
LOC: HO.HHCL 09:35
PROVIDERS: Visit Provider Internal Medicine
DX: E87.6 Hypokalemia (principal)
CPT/HCPCS: 36415; 71046; 84132

== ENCOUNTER 2024-03-10 15:39 | Outpatient (REF) | payer OTHER, SELFPAY ==
[2024-03-10 18:39] LABS: Influenza A PCR NEGATIVE (Negative); Influenza B PCR NEGATIVE (Negative); Resp Syncy Virus RNA Qual PCR NEGATIVE (Negative); SARS COV2 PCR INHOUSE NEGATIVE (Negative)
== END 2024-03-10 15:40 | disposition home or self-care (01) ==
LOC: HO.CHCLNP 15:39
PROVIDERS: Visit Provider Internal Medicine
DX: R05.2 Subacute cough (principal)
CPT/HCPCS: 0241U

== ENCOUNTER 2024-03-19 08:18 | Inpatient (IN) | payer OTHER, SELFPAY ==
[2024-03-19] VITALS (10 sets, daily range): BP systolic 122–170; BP diastolic 67–138; PULSE 57–126; RESP 13–62; TEMP 35–36.7; O2SAT 90–96; BMI 23.1
--- NOTE | 2024-03-19 | ECG_ITS ---
Test Reason : chest pain Blood Pressure : / mmHG Vent. Rate : 105 BPM Atrial Rate : 208 BPM P-R Int : 000 ms QRS Dur : 082 ms QT Int : 360 ms P-R-T Axes : 000 084 073 degrees QTc Int : 475 ms Atrial flutter with variable A-V block Abnormal ECG When compared with ECG of 19-MAR-2024 08:51, Atrial flutter has replaced Sinus rhythm Vent. rate has increased BY 46 BPM QRS duration has decreased ST now depressed in Lateral leads T wave amplitude has increased in Anterior leads Referred By: Salma Dela Cruz Electronically Signed By:JULIAN GRIFFIN MD
--- NOTE | ~2024-03-19 | XR_ITS ---
EXAMINATION: XR CHEST CLINICAL INFORMATION: Chest pain COMPARISON: Chest x-ray March 05, 2024 TECHNIQUE: Frontal portable view of the chest was obtained. 10:43 PM FINDINGS: Moderate pulmonary vascular congestion with increased lung markings likely due to interstitial edema. No focal consolidation. No significant pleural effusion. Cardiac and mediastinal contours are normal. XR/XR chest 1V IMPRESSION: Moderate pulmonary vascular congestion.
--- NOTE | ~2024-03-19 | CT_ITS ---
EXAMINATION: CT HEAD WITHOUT CONTRAST CLINICAL INFORMATION: Dizziness and weakness, on our questions COMPARISON: Prior CT of 01/03/2020 TECHNIQUE: Contiguous axial imaging was performed from the skull base to vertex without intravenous administration of contrast. This CT examination was performed using dose optimization techniques as appropriate, variously including the following: *Automated exposure control *Adjustment of mA and/or kV according to patient size (this includes techniques or standardized protocols for targeted exams where dose is matched to indication/reason for exam; i.e. extremities or head) *Use of iterative reconstruction technique DLP: 761.50 mGy-cm FINDINGS: CT examination of the brain shows age-related involutional changes with prominence of the ventricles and sulci. Periventricular white matter hypodensities are evident, likely on the basis of chronic microvascular ischemic disease. Old left cerebellar infarct is again evident. No acute hemorrhage, mass effect or shift is evident. In the posterior fossa, the brainstem, cerebellum and fourth ventricle are unremarkable. The orbits and bony calvarium are intact. Both globes are aphakic. Considerable mucosal thickening is evident within the left maxillary sinus. Otherwise, the visualized paranasal sinuses and mastoid air cells are well pneumatized and clear. CT/CT head/brain wo IV con IMPRESSION: 1. Age-related involutional changes and microvascular disease. 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 2. No acute hemorrhage, mass effect, shift or acute intracranial pathology. 3. Left maxillary sinusitis.
--- NOTE | ~2024-03-19 | CT_ITS ---
EXAMINATION: CT ABDOMEN AND PELVIS WITH CONTRAST CLINICAL INFORMATION: Abdominal pain and vomiting. COMPARISON: None available. TECHNIQUE: Multidetector volumetric images were obtained from the superior aspect of the liver through the pubic symphysis following administration 85 mL of Omnipaque 350 intravenous contrast. Sagittal and coronal reformatted images were obtained on the technologist's workstation. Oral contrast: No This CT examination was performed using dose optimization techniques as appropriate, variously including the following: *Automated exposure control *Adjustment of mA and/or kV according to patient size (this includes techniques or standardized protocols for targeted exams where dose is matched to indication/reason for exam; i.e. extremities or head) *Use of iterative reconstruction technique DLP: 798.45 mGy-cm FINDINGS: LUNG BASES: Limited lower thoracic images show bibasilar atelectasis. Peribronchial thickening, mild cylindrical bronchiectasis and cardiomegaly, including biventricular dilatation. There is delayed opacification of the liver and hepatic veins, suggesting elevated right heart pressures. LIVER, GALLBLADDER, AND BILIARY TREE: The liver is normal in size, shape, and attenuation. No focal hepatic lesion or biliary ductal dilatation is present. The gallbladder is unremarkable with no evidence of radiopaque gallstones, gallbladder wall thickening, or obvious pericholecystic inflammatory changes. PANCREAS: Unremarkable. SPLEEN: Unremarkable. ADRENAL GLANDS: Unremarkable. KIDNEYS AND URETERS: There are multiple bilateral low density renal lesions. Some are too small to characterize. Others reflect cysts. No specific imaging follow-up is recommended. BLADDER: Considerably distended. GASTROINTESTINAL TRACT: Although incompletely distended, the stomach appears circumferentially thickened within the body and along the greater curvature, with the wall measuring up to 26 mm. The small and large bowel are unremarkable. The appendix is unremarkable. ABDOMINAL WALL: No significant hernia is appreciated. LYMPH NODES: Normal. VASCULAR: Unremarkable. PELVIC VISCERA: Unremarkable. OSSEOUS STRUCTURES: Age-related degenerative changes throughout the lumbar spine. Bone marrow appears heterogeneous throughout the lumbar vertebrae. CT/CT abdomen pelvis w IV con IMPRESSION: 1. Cardiomegaly and bibasilar atelectasis and bronchiectasis. 2. Biventricular enlargement with delayed opacification of the liver and hepatic veins indicative of right heart insufficiency. 3. Circumferential thickened gastric body and greater curvature. Although perhaps due to in underdistention, given the patient's symptoms, gastric neoplasm or gastritis should be considered. 4. Distended urinary bladder. 5. Inhomogeneous appearance the lumbar and lower thoracic vertebrae. Although perhaps on the basis of osteoporosis, other marrow infiltrative processes would be difficult to exclude. Suggest correlation with medical history. Fleischner guidelines were followed.
--- NOTE | 2024-03-19 08:29 | ECG_ITS ---
Test Reason : AMS Blood Pressure : / mmHG Vent. Rate : 059 BPM Atrial Rate : 059 BPM P-R Int : 220 ms QRS Dur : 110 ms QT Int : 512 ms P-R-T Axes : 085 081 078 degrees QTc Int : 506 ms Sinus bradycardia with marked sinus arrhythmia with 1st degree A-V block Prolonged QT Abnormal ECG When compared with ECG of 03-JUL-2023 12:47, Previous ECG has undetermined rhythm, needs review QRS duration has increased Referred By: Tuyet Weaver Electronically Signed By:JULIAN GRIFFIN MD
--- NOTE | 2024-03-19 08:39 | ED.DIZZY ---
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 EMS states they also could not get a history. MD elicited complaint: dizziness Onset (ago): unknown Timing: unsure Severity: moderate History of similar symptoms: No Exacerbating factors: movement/ambulation Relieving factors: remaining still Associated symptoms: nausea and vomiting Related Data Home Medications ?Medication ?Instructions ?Recorded ?Confirmed acetaminophen 500 mg tablet 2 tab PO Q6H PRN Pain 06/19/22 12/13/22 atorvastatin 40 mg tablet 1 tab PO BEDTIME 06/19/22 12/13/22 bisacodyl 5 mg tablet,delayed 1 tab PO BID PRN Constipation 06/19/22 12/13/22 release (Laxative (bisacodyl)) cetirizine 10 mg tablet 1 tab PO DAILY PRN allergies 06/19/22 12/13/22 clopidogrel 75 mg tablet 1 tab PO BEDTIME 06/19/22 12/13/22 docusate sodium 100 mg capsule 1 cap PO DAILY PRN Constipation 06/19/22 12/13/22 famotidine 20 mg tablet 1 tab PO BEDTIME 06/19/22 12/13/22 fluticasone propionate 50 2 spray intranasal DAILY PRN 06/19/22 12/13/22 mcg/actuation nasal allergies spray,suspension hydralazine 50 mg tablet 1 tab PO BID 06/19/22 12/13/22 ketotifen fumarate 0.025 % (0.035 1 drp ophthalmic (eye) BID PRN 06/19/22 12/13/22 %) eye drops allergies pantoprazole 40 mg tablet,delayed 1 tab PO DAILY@0630 06/19/22 12/13/22 release metoprolol succinate 100 mg 100 mg PO DAILY 12/13/22 12/13/22 tablet,extended release 24 hr Previous Rx's ?Medication ?Instructions ?Recorded apixaban 2.5 mg tablet (Eliquis) 2.5 mg PO BID #60 tabs 06/20/22 acetaminophen 500 mg tablet 500 mg PO TID #20 tabs 12/25/22 (Tylenol Extra Strength) melatonin 3 mg tablet 6 mg (2 x 3 mg) PO BEDTIME PRN 12/25/22 Insomnia #10 tabs prednisone 10 mg tablet 10 mg PO DAILY #4 tabs 12/25/22 Allergies Allergy/AdvReac Type Severity Reaction Status Date / Time No Known Allergies Allergy Verified 03/19/24 08:33 [No Known Allergies*] Review of Systems Review of Systems: Constitutional : No Fever, No Chills, No Fatigue ENT/Mouth : No sore throat, No Rhinorrhea Eyes: No Eye Pain, No Swelling, No Redness Cardiovascular : No Chest Pain, No SOB, No Dyspnea on Exertion Respiratory : No Cough, No Sputum Gastrointestinal : pos Nausea, pos Vomiting, No Diarrhea, No abdominal Pain Genitourinary : No Dysuria, No Urinary Frequency, No Hematuria, Musculoskeletal : No joint pain, No Myalgias, No Joint Swelling Skin : No Skin Lesions, No rash Neuro : No Weakness, No Numbness, No Dizziness, no Headache Psych : No Anxiety/Panic, No Depression All other systems reviewed and are negative [facility] Past Medical History Attestation statement: The following information was validated with the patient. Source: old records reviewed Medical History CAD (coronary artery disease) PAF (paroxysmal atrial fibrillation) Gastroesophageal reflux disease with esophagitis Burning with urination Abscess Urinary frequency Colon cancer screening Weight loss, abnormal GERD (gastroesophageal reflux disease) Chronic idiopathic constipation HTN (hypertension) Surgical History History of surgery Hx of colonoscopy Family History Family History Father Stroke Mother No problems noted. Social History Social History Household Members: Significant Other and Family Housing: Apartment Do you presently have visiting nurse or other home services: No Alcohol intake: never Patient Tobacco Use Status: Former Tobacco user Quit Date: 2017 Tobacco use type: Cigarette Smoked in Last 30 Days: No Second Hand Smoke Exposure: No Use of substances other than those prescribed or required for medical reasons: No Advance Directives: Yes Advance Directives Information Provided: No Advance Directives on File: No Do you have a plan to hurt others: No Plan service: No Current occupational status: disabled Physical Exam Vital Signs: Vital Signs: Last Vital Signs Temp 95 F L 03/19/24 08:27 Pulse 63 03/19/24 11:37 Resp 15 03/19/24 11:37 BP 122/67 03/19/24 11:37 Pulse Ox 94 03/19/24 11:37 O2 Del Method Room Air 03/19/24 11:37 BMI result Body Mass Index 23.1 Appearance: Alert. Oriented X person and place No acute distress. Eyes: Pupils equal, round and reactive to light. ENT: Pharynx normal. Neck: Normal inspection. Neck supple. CVS: Normal heart rate and rhythm. Pulses normal. Respiratory: No respiratory distress. Breath sounds normal. Abdomen: Soft and nontender. Skin: Skin warm and dry. Normal skin color. Normal skin turgor. Extremities: No lower extremity edema. No calf ttp Neuro: Oriented X 2. No motor deficit. No sensory deficit. dizziness with any movement Course Course Course Narrative: here notes he went to bed at 9pm then woke her up at 430 and c/o dizziness and nausea he did not tell her much else other then repeated nausea and dizziness. last known well 9pm. Reevaluation(s) Reevaluation #1: lactic acidosis likely due to dehydration and vomiting not infection or severe sepsis 1109am cannot tolerate oral K at this time IV is still infusing Medications Administered Generic Name Dose Route Start Last Admin Trade Name Freq PRN Reason Stop Dose Admin Potassium Chloride 10 meq in 100 mls @ 100 mls/hr 03/19/24 10:45 03/19/24 11:34 Potassium Chloride/H20 IV 03/19/24 14:44 100 mls/hr Q1H ELA Administration Discontinued Medications Generic Name Dose Route Start Last Admin Trade Name Freq PRN Reason Stop Dose Admin Magnesium Sulfate 2 gm in 50 mls @ 25 mls/hr 03/19/24 08:57 03/19/24 09:13 Magnesium Sulfate/H2o IV 03/19/24 10:56 25 mls/hr ONCE ONE Administration Sodium Chloride 500 mls @ 500 mls/hr 03/19/24 10:34 03/19/24 11:33 Ns IV 03/19/24 11:33 500 mls/hr .Q1H ONE Administration Iohexol 100 ml 03/19/24 11:46 03/19/24 11:47 Iohexol 350 Mg/Ml 100 Ml Infus..Btl IV 03/19/24 11:47 85 ml ONCE ONE Administration Lorazepam 0.5 mg 03/19/24 10:14 03/19/24 11:33 Lorazepam 2 Mg/Ml Vial IVPUSH 03/19/24 10:15 0.5 mg STAT STA Administration Ondansetron HCl 4 mg 03/19/24 08:29 03/19/24 09:13 Ondansetron Hcl 4 Mg/2 Ml Vial IVPUSH 03/19/24 08:30 4 mg ONCE ONE Administration Medical Decision Making Medical Decision Making [facility] Narrative: 88 yo male with PMH of CHF, AFib on Eliquis, CAD, hypertension, BPH, GERD here with n/v and dizziness of unknown time he is a terrible historian at this time he is moving all extremities but will not really answer questions I am ordering labs, nausea medications, EKG, CT head for ICH, abdomen pelvis for acute pathology. Wide differential given he cannot provide a good historian. Differential Diagnosis Differential Diagnoses: The differential diagnosis associated with the presentation includes dehydration, dizziness, BPPV, viral syndrome, Admission/Observation Consideration of admission/observation: Escalation of care including admission/observation considered symptomatic, hypokalemia needs further workup and MRI Consult Healthcare Provider Management of the patient was discussed with: Hospitalist (will admit) Lab Data [facility] Lab Attestation statement: I reviewed the patient's lab results. 03/19/24 10:38 03/19/24 09:43 Labs: Lab Results 03/19/24 03/19/24 Range/Units 09:43 10:38 WBC 8.1 (4.8-10.8) X10*3/uL RBC 4.27 L (4.60-5.80) X10*6/uL Hgb 12.8 L (14.0-18.0) g/dl Hct 38.4 L (42.0-52.0) % MCV 89.9 (80.0-98.0) fL MCH 30.0 (27.0-33.0) pg MCHC 33.3 (31.0-36.0) g/dl RDW 15.5 (11.0-16.0) % Plt Count 138 L (160-400) X10*3/uL MPV 11.7 (9.4-12.4) fL Immature Gran % (Auto) 0.2 (0.0-0.4) % Neut % (Auto) 86.8 H (45-73) % Lymph % (Auto) 6.8 L (20-40) % Stokes % (Auto) 5.6 (2-11) % Eos % (Auto) 0.4 (0-4) % Baso % (Auto) 0.2 (0-2) % Lymph # (Auto) 0.6 L (1.2-4.9) X10*3/uL Stokes # (Auto) 0.5 (0.1-1.2) X10*3/uL Eos # (Auto) 0.0 (0.0-0.4) X10*3/uL Baso # (Auto) 0.0 (0.0-0.2) X10*3/uL Abs Immat Gran (auto) 0.02 (0.00-0.03) X10*3/uL Absolute Neuts (auto) 7.0 (2.0-8.3) x10*3/uL Absolute Nucleated RBC 0.000 (0.0-0.012) X10*3/uL Nucleated RBC % (auto) 0.0 (0.0-0.2) /100WBC Sodium 141 (135-145) mmol/L Potassium 2.6 L* D (3.3-5.1) mmol/L Chloride 104 (96-108) mmol/L Carbon Dioxide 25 (22-29) mmol/L Anion Gap 15 (12-20) BUN 13 (9-16) mg/dL Creatinine 1.23 (0.5-1.4) mg/dL Estim Creat Clear Calc 49.7 Estimated GFR 56 Random Glucose 188 H (60-115) mg/dL Lactic Acid 2.4 H* (0.5-2.0) mmol/L Calcium 8.5 D (8.4-10.2) mg/dL Magnesium 1.8 (1.6-2.6) mg/dL Total Bilirubin 0.5 (0.0-1.0) mg/dL Direct Bilirubin 0.3 (0.0-0.5) mg/dL AST 16 (5-37) U/L ALT 15 (0-40) U/L Alkaline Phosphatase 108 (39-117) U/L Troponin I High Sens 4.3 (<3.5-35.0) ng/L B-Natriuretic Peptide 146 H (<100) pg/mL Total Protein 6.3 L (6.5-8.0) g/dL Albumin 3.8 (3.5-5.0) g/dL Lipase 22 (8-78) U/L Influenza Type A (PCR) NEGATIVE (Negative) Influenza Type B (PCR) NEGATIVE (Negative) RSV RNA Qual (PCR) NEGATIVE (Negative) SARS-CoV-2 RNA (RT-PCR) NEGATIVE (Negative) Independent Interpretation I performed an independent interpretation of an: EKG and CT Scan Interpretation: Rate:59 Rhythm: sinus bradycardia 1st degree AVB [place]: normal Normal P waves. 1st degree AVB Normal QRS complex. ST T wave : no [place], flat t waves I and aVL qTC: 506 prior studies: no acute ischemia The study has been interpreted contemporaneously by me. . Radiology Impression Discussion of test interpretation with radiology: I have reviewed the radiologist's reading. Independent Historian Clinical information obtained from an independent historian. History obtained from or confirmed by: EMS External Record Review External record reviewed: Inpatient record Critical Care Time Critical Care Time Critical Care Time: Yes Total Critical Care Time: 45 Attestation: repeat nausea medications, IV K repletion, admission I attest to this time spent taking care of the patient Discharge Plan Discharge Clinical Impression: Acute hypokalemia, Dizziness, Acidosis, lactic Nausea & vomiting Qualifiers: Vomiting type: unspecified Qualified Code(s): R11.2 - Nausea with vomiting, unspecified Patient Disposition: Admitted As Inpatient Print Language: [place]
[2024-03-19] MEDS: Magnesium Sulfate/H2O 2 GM/50 ML PIGGYBACK IV (09:13)
[2024-03-19] MEDS: ondansetron HCL 4 MG/2 ML VIAL IVPUSH (09:13)
[2024-03-19 10:29] LABS: B Type Natriuretic Peptide 146 pg/mL (<100)
[2024-03-19 10:33] LABS: Influenza A PCR NEGATIVE (Negative); Influenza B PCR NEGATIVE (Negative); Lactic Acid 2.4 mmol/L (0.5-2.0); Resp Syncy Virus RNA Qual PCR NEGATIVE (Negative); SARS COV2 PCR INHOUSE NEGATIVE (Negative); Troponin-I High Sensitivity 4.3 ng/L (<3.5-35.0)
[2024-03-19 10:34] LABS: Alanine Aminotransferase 15 U/L (0-40); Albumin Level 3.8 g/dL (3.5-5.0); Alkaline Phosphatase 108 U/L (39-117); Anion Gap 15 (12-20); Aspartate Amino Transferase 16 U/L (5-37); Bilirubin Direct 0.3 mg/dL (0.0-0.5); Bilirubin Total 0.5 mg/dL (0.0-1.0); Blood Urea Nitrogen 13 mg/dL (9-16); Calcium 8.5 mg/dL (8.4-10.2); Carbon Dioxide 25 mmol/L (22-29); Chloride 104 mmol/L (96-108); Creatinine Clr Calc Pharmacy 49.7; Estimated Glomerular Filt Rate 56; Glucose Random 188 mg/dL (60-115); Lipase 22 U/L (8-78); Magnesium 1.8 mg/dL (1.6-2.6); Potassium 2.6 mmol/L (3.3-5.1); Sodium 141 mmol/L (135-145); Total Protein 6.3 g/dL (6.5-8.0)
[2024-03-19 10:42] LABS: MANUAL DIFF FLAG NO
[2024-03-19 10:55] LABS: Basophils Percent Auto 0.2 % (0-2); Eosinophils Percent Auto 0.4 % (0-4); Hematocrit 38.4 % (42.0-52.0); Hemoglobin 12.8 g/dl (14.0-18.0); Imm Gran Abs Auto 0.02 X10*3/uL (0.00-0.03); Imm Gran Pct Auto 0.2 % (0.0-0.4); Lymphocytes Absolute Auto 0.6 X10*3/uL (1.2-4.9); Lymphocytes Percent Auto 6.8 % (20-40); Mean Corpuscular HGB Conc 33.3 g/dl (31.0-36.0); Mean Corpuscular Volume 89.9 fL (80.0-98.0); Mean Platelet Volume 11.7 fL (9.4-12.4); Monocytes Absolute Auto 0.5 X10*3/uL (0.1-1.2); Monocytes Percent Auto 5.6 % (2-11); Neutrophils Percent Auto 86.8 % (45-73); Platelet Count 138 X10*3/uL (160-400); Red Blood Count 4.27 X10*6/uL (4.60-5.80); Red Cell Distribution Width 15.5 % (11.0-16.0); White Blood Count 8.1 X10*3/uL (4.8-10.8)
[2024-03-19] MEDS: LORazepam 2 MG/ML VIAL 0.5 MG IVPUSH (11:33)
[2024-03-19] MEDS: 0.9 % Sodium Chloride 500 ML IV (11:33)
[2024-03-19] MEDS: Potassium Chloride/H20 10 MEQ/100 ML PIGGYBACK 100 MEQ IV ×3 (11:34→14:02)
[2024-03-19] MEDS: iohexoL 350 MG/ML 100 ML INFUS..BTL IV (11:47)
[2024-03-19 11:55] LABS: Reflex Lactate? Lactic Acid Added
--- NOTE | 2024-03-19 12:55 | PM.IMHP ---
History of Present Illness Date of Service: 03/19/24 <ZEHRA Hennessy - Last Filed: 03/19/24 17:06> Attending physician on admission: Audie Grant <ZEHRA Hennessy - Last Filed: 03/19/24 17:06> Chief Complaint: Dizziness, N/V <ZEHRA Hennessy - Last Filed: 03/19/24 17:06> Pt is an 88-year-old Citizen Of The [place]-speaking male with a PMH significant for?paroxysmal AFib on Eliquis, CAD, HTN, diastolic HF, BPH, and GERD who presents to the ED for evaluation of lightheadedness/dizziness nausea, vomiting since earlier this morning. [employer] services utilized. Patient reports he woke up this morning at 03:30 sweating profusely. Stood up to go the bathroom and felt lightheaded and dizzy, and then began experiencing nausea with vomiting. Patient's took blood pressure which was 162/90. In the ambulance patient apparently had additional episodes of vomiting, but non witnessed while in the ED. patient denies any abdominal pain or diarrhea. No recent travel or antibiotic use. Has had sick contacts with granddaughter at home with similar symptoms of nausea, vomiting, diarrhea. Patient denies having experienced similar episodes in the past. Chronic cough and shortness of breath around baseline. Reports has not been eating or drinking much the past few months, and has had unintended weight loss. History of heavy smoking though quit 30+ years ago. Denies chest pain/pressure, palpitations. In the ED pt's vital signs stable largely WNL. Labs were significant for potassium 2.6, lactic acid 2.4, and BNP 146. No leukocytosis. Stable H&H. Renal and hepatic function baseline. CT?of head found no acute hemorrhage, mass effect, shift, or acute intracranial pathology. 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 CT of abdomen and pelvis showed circumferential thickening of gastric body and greater curvature concerning for possible gastric neoplasm or gastritis. Also showed inhomogeneous appearance of lumbar and lower thoracic vertebrae, possibly osteoporosis or other marrow infiltrative process; cardiomegaly and bibasilar atelectasis and bronchiectasis; and biventricular enlargement with delayed opacification of the liver and hepatic veins, indicative of right heart insufficiency. EKG demonstrated sinus bradycardia with sinus arrhythmia and first-degree AV block and prolonged QTc of 506. Pt was treated with ondansetron, magnesium sulfate, lorazepam, IVF, Protonix, and potassium 40 meq IV. Pt will be admitted to the hospital for treatment further evaluation of hypokalemia in the setting of intractable nausea and vomiting. <ZEHRA Hennessy - Last Filed: 03/19/24 17:06> Review of Systems Review of Systems: Nausea, vomiting Lightheadedness, dizziness Diaphoresis Anorexia, recent unintended weight loss Chronic shortness of breath and cough at baseline Denies chest pain/pressure, palpitations No abdominal pain or diarrhea Denies LLE <ZEHRA Hennessy - Last Filed: 03/19/24 17:06> [facility] Medical History: Medical History CAD (coronary artery disease) PAF (paroxysmal atrial fibrillation) Gastroesophageal reflux disease with esophagitis Burning with urination Abscess Urinary frequency Colon cancer screening Weight loss, abnormal GERD (gastroesophageal reflux disease) Chronic idiopathic constipation HTN (hypertension) <ZEHRA Hennessy - Last Filed: 03/19/24 17:06> Family History: Family History Father Stroke Mother No problems noted. <ZEHRA Hennessy - Last Filed: 03/19/24 17:06> Surgical History: Surgical History History of surgery Hx of colonoscopy <ZEHRA Hennessy - Last Filed: 03/19/24 17:06> Social History: Social History Household Members: Significant Other and Family Housing: Apartment Do you presently have visiting nurse or other home services: No Alcohol intake: never Patient Tobacco Use Status: Former Tobacco user Quit Date: 2017 Tobacco use type: Cigarette Smoked in Last 30 Days: No Second Hand Smoke Exposure: No Use of substances other than those prescribed or required for medical reasons: No Advance Directives: Yes Advance Directives Information Provided: No Advance Directives on File: No Do you have a plan to hurt others: No Plan Nutrition Risks: No Nutritional Risk service: No Current occupational status: disabled <ZEHRA Hennessy - Last Filed: 03/19/24 17:06> Meds Allergies/Adverse reactions: Allergies Allergy/AdvReac Type Severity Reaction Status Date / Time No Known Allergies Allergy Verified 03/19/24 08:33 [No Known Allergies*] <ZEHRA Hennessy - Last Filed: 03/19/24 17:06> Active Medications: Current Medications Potassium Chloride (Potassium Chloride/H20) 10 meq in 100 mls @ 100 mls/hr IV Q1H ELA Stop: 03/19/24 14:44 Last Admin: 03/19/24 12:44 Dose: 100 mls/hr <ZEHRA Hennessy - Last Filed: 03/19/24 17:06> Home medications: Home Medications ?Medication ?Instructions ?Recorded ?Confirmed ?Last Taken ?Type atorvastatin 40 mg tablet 1 tab PO BEDTIME 06/19/22 03/19/24 06/18/22 History cetirizine 10 mg tablet 1 tab PO QAM PRN allergies 06/19/22 03/19/24 Unknown History clopidogrel 75 mg tablet 1 tab PO BEDTIME 06/19/22 03/19/24 06/18/22 History docusate sodium 100 mg capsule 1 cap PO DAILY PRN Constipation 06/19/22 03/19/24 06/18/22 History famotidine 20 mg tablet 1 tab PO BEDTIME 06/19/22 03/19/24 06/18/22 History hydralazine 50 mg tablet 1 tab PO BID 06/19/22 03/19/24 12/13/22 History pantoprazole 40 mg tablet,delayed 1 tab PO DAILY@0630 06/19/22 03/19/24 12/13/22 History release metoprolol succinate 100 mg 100 mg PO QAM 12/13/22 03/19/24 Unknown History tablet,extended release 24 hr furosemide 20 mg tablet 20 mg PO QAM 03/19/24 03/19/24 Unknown History guaifenesin 100 mg/5 mL oral 200 mg PO Q4H PRN cough 03/19/24 03/19/24 Unknown History liquid (Alberta-Tussin) ibuprofen 600 mg tablet 600 mg PO Q8H PRN mild pain 03/19/24 03/19/24 Unknown History melatonin 3 mg tablet 6 mg PO BEDTIME PRN Sleep 03/19/24 03/19/24 Unknown History mirtazapine 30 mg tablet 30 mg PO BEDTIME 03/19/24 03/19/24 Unknown History potassium chloride 20 mEq oral 20 meq PO DAILY 03/19/24 03/19/24 Unknown History packet (Klor-Con) valsartan 320 mg tablet 320 mg PO DAILY 03/19/24 03/19/24 Unknown History <ZEHRA Hennessy - Last Filed: 03/19/24 17:06> Physical Exam Vital Signs and Narrative: Vital Signs: Last Vital Signs Temp 95 F L 03/19/24 08:27 Pulse 64 03/19/24 12:43 Resp 13 03/19/24 12:43 BP 145/91 H 03/19/24 12:43 Pulse Ox 96 03/19/24 12:43 O2 Del Method Room Air 03/19/24 12:43 BMI result Body Mass Index 23.1 <ZEHRA Hennessy - Last Filed: 03/19/24 17:06> Constitutional: Alert, in no acute distress. Mental Status: Oriented to person, place, and time. Eyes: Pupils are equal, round, and reactive to light. Ear, Nose, and Throat: Oropharynx clear, mucous membranes moist. Ears and nose without deformities. Trachea midline. Respiratory: Clear to auscultation bilaterally. No wheezing, rales, or rhonchi. Cardiovascular: S1, S2 regular. No murmurs, rubs, or gallops. Gastrointestinal: Abdomen soft, non-tender, non-distended. Normal bowel sounds. Neurologic: Cranial nerves II-XII are grossly intact bilaterally. No focal neurological deficits. Moves all extremities spontaneously. Skin: Warm, dry. Extremities: No edema. Psychiatric: Normal mood and affect. <ZEHRA Hennessy - Last Filed: 03/19/24 17:06> Results Labs CBC and Chem 7: 03/19/24 10:38 03/19/24 09:43 <ZEHRA Hennessy - Last Filed: 03/19/24 17:06> Labs: Laboratory Results - last 24 hr 03/19/24 03/19/24 09:43 10:38 MCV 89.9 MCH 30.0 MCHC 33.3 RDW 15.5 Plt Count 138 L MPV 11.7 Immature Gran % (Auto) 0.2 Neut % (Auto) 86.8 H Lymph % (Auto) 6.8 L [place] % (Auto) 5.6 Eos % (Auto) 0.4 Baso % (Auto) 0.2 Lymph # (Auto) 0.6 L [place] # (Auto) 0.5 Eos # (Auto) 0.0 Baso # (Auto) 0.0 Abs Immat Gran (auto) 0.02 Absolute Neuts (auto) 7.0 Absolute Nucleated RBC 0.000 Nucleated RBC % (auto) 0.0 Anion Gap 15 Estim Creat Clear Calc 49.7 Estimated GFR 56 Random Glucose 188 H Lactic Acid 2.4 H* Calcium 8.5 D Magnesium 1.8 Total Bilirubin 0.5 Direct Bilirubin 0.3 AST 16 ALT 15 Alkaline Phosphatase 108 Troponin I High Sens 4.3 B-Natriuretic Peptide 146 H Total Protein 6.3 L Albumin 3.8 Lipase 22 Influenza Type A (PCR) NEGATIVE Influenza Type B (PCR) NEGATIVE RSV RNA Qual (PCR) NEGATIVE SARS-CoV-2 RNA (RT-PCR) NEGATIVE <ZEHRA Hennessy - Last Filed: 03/19/24 17:06> Imaging Radiologist's Impressions: Impressions Abdomen/Pelvis CT 03/19/24 11:44 IMPRESSION: 1. Cardiomegaly and bibasilar atelectasis and bronchiectasis. 2. Biventricular enlargement with delayed opacification of the liver and hepatic veins indicative of right heart insufficiency. 3. Circumferential thickened gastric body and greater curvature. Although perhaps due to in underdistention, given the patient's symptoms, gastric neoplasm or gastritis should be considered. 4. Distended urinary bladder. 5. Inhomogeneous appearance the lumbar and lower thoracic vertebrae. Although perhaps on the basis of osteoporosis, other marrow infiltrative processes would be difficult to exclude. Suggest correlation with medical history. Fleischner guidelines were followed. Head CT 03/19/24 11:44 IMPRESSION: 1. Age-related involutional changes and microvascular disease. 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 2. No acute hemorrhage, mass effect, shift or acute intracranial pathology. 3. Left maxillary sinusitis. <ZEHRA Hennessy Last Filed: 03/19/24 17:06> Assessment and Plan (1) Acute hypokalemia: Status: Acute <ZEHRA Hennessy Last Filed: 03/19/24 17:06> Pt is an 88-year-old Citizen Of [place]-speaking male with a PMH significant for?paroxysmal AFib on Eliquis, CAD, HTN, diastolic HF, BPH, and GERD who presents to the ED for evaluation of lightheadedness/dizziness nausea, vomiting since earlier this morning. Pt will be admitted to the hospital for treatment and further evaluation of hypokalemia in the setting of intractable nausea and vomiting. 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 Continue home potassium chloride Follow BNP Monitor on telemetry Lactic acidosis, resolved Initial lactic acid 2.4 with repeat 1.9 after IVF Secondary to dehydration, not sepsis Prolonged QTc EKG showing QTC of 506 Likely secondary to hypokalemia Treat as above Repeat EKG in the morning Paroxysmal AFib Continue metoprolol, Eliquis CAD/HLD Continue Plavix, statin HFpEF Not in acute exacerbation Continue home furosemide GERD Continue PPI Full Code Attending:? DVT Prophylaxis: Lovenox Pt will require a hospitalization of at least two nights for treatment of?acute hypokalemia in the setting of intractable nausea and vomiting. Given that patient is unable to tolerate p.o. and given severity electrolyte abnormalities, patient will require hospitalization for administration of IV fluids, IV antiemetics, electrolyte supplementation, and close monitoring of labs. <ZEHRA Hennessy - Last Filed: 03/19/24 17:06> Pt is an 88-year-old Citizen [place]-speaking male with a PMH significant for?paroxysmal AFib on Eliquis, CAD, HTN, diastolic HF, BPH, and GERD who presents to the ED for evaluation of lightheadedness/dizziness nausea, vomiting since earlier this morning. Pt will be admitted to the hospital for treatment and further evaluation of hypokalemia in the setting of intractable nausea and vomiting. Intractable nausea and vomiting unclear etiology Patient with dizziness, diaphoresis, N/V since this morning Denies abdominal pain CT showing circumferential thickened gastric body and greater curvature, concerning for possible gastric neoplasm vs gastritis ct head -ch changes. 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 Continue home potassium chloride Follow bmp Monitor on telemetry acute Lactic acidosis, resolved with ivf. Secondary to dehydration, not sepsis Prolonged QTc EKG showing QTC of 506 Likely secondary to hypokalemia Treat as above Repeat EKG in the morning Paroxysmal AFib Continue metoprolol, Eliquis CAD/HLD Continue Plavix, statin HFpEF Not in acute exacerbation Continue home furosemide GERD Continue PPI Full Code Attending:? DVT Prophylaxis: Lovenox Pt will require a hospitalization of at least two nights for treatment of?acute hypokalemia in the setting of intractable nausea and vomiting. Given that patient is unable to tolerate p.o. and given severity electrolyte abnormalities, patient will require hospitalization for administration of IV fluids, IV antiemetics, electrolyte supplementation, and close monitoring of labs. <Audie Grant MD - Last Filed: 03/19/24 19:29> Quality Stroke Does the patient have a stroke diagnosis?: No <ZEHRA Hennessy - Last Filed: 03/19/24 17:06> VTE Prior VTE?: No <ZEHRA Hennessy - Last Filed: 03/19/24 17:06> VTE Risk Level:: Medical - moderate - high <ZEHRA Hennessy - Last Filed: 03/19/24 17:06> VTE Device Contraindication: Treatment Not Indicated <ZEHRA Hennessy - Last Filed: 03/19/24 17:06> VTE Drug Contraindication: N/A - Med Ordered <ZEHRA Hennessy - Last Filed: 03/19/24 17:06>
[2024-03-19 13:21] LABS: ~Lactic Acid-LAB USE ONLY 1.9 mmol/L (0.5-2.0)
[2024-03-19 13:41] LABS: Appearance Urine Clear; Color Urine Yellow; Glucose Urine UA Negative (Negative); Leukocyte Esterase Urine Negative (Negative); Nitrite Urine Negative (Negative); PH 6.5 (5.0-9.0); Specific Gravity - Urine 1.025 (1.005-1.025); Urine Blood Negative (Negative); Urine Ketones Negative (Negative); Urine Protein Negative (Neg-Trace)
[2024-03-19] MEDS: Pantoprazole Sodium 40 MG/10 ML VIAL IVPUSH (14:02)
--- NOTE | 2024-03-19 14:07 | PC.NURSE ---
this nurse obtained report from kandy, took over care at 1330, pt sleeping/wakes to verbal stimulus, currently denying pain, media monitor intact sinus cj with pvcs on monitor, vss, IV K being infused per order, at bedside, call aceves within reach, will continue to monitor
--- NOTE | 2024-03-19 14:11 | PC.NURSE ---
daughters number Juliette Rivas [phone]
--- NOTE | 2024-03-19 14:17 | PC.NURSE ---
pt now complaining his arm hurts from the IV K, Rubina Yusuf has been notified of this and we are looking into other options at this time, pt was attempting to pull the IV out, this nurse stopped the infusion and let the provider know.
[2024-03-19] MEDS: Potassium Chloride ER 20 MEQ TAB.ER.PRT 40 MEQ PO ×2 (14:40→19:04)
[2024-03-19] MEDS: Lactated Ringers 1,000 ML 70 ML IVCONT (14:40)
--- NOTE | 2024-03-19 14:59 | PHA.MEDREC ---
Pharmacy Consult ? Medication Reconciliation Pharmacy has completed the medication reconciliation. Received med list from [facility]. Patients brought in list as well. Confirmed other medications such as potassium and OTC with daughter and .
--- NOTE | 2024-03-19 15:52 | PM.GICN ---
History of Present Illness Data of Consult Service Date: 03/19/24 Requesting physician: Rubina Yusuf Primary Care Provider: Unknown Physician HPI Reason for consult: Pt with intractable N/V, CT with ?gastric neoplasm vs gastritis 88-year-old [place]-speaking male with paroxysmal AFib on Eliquis, CAD, HTN, diastolic HF, BPH, and GERD seen at [facility] on 03/19/24 for evaluation of lightheadedness/dizziness nausea, vomiting. Patient reports he woke up at 03:30 am today with profuse sweating. He felt lightheaded and dizzy when he stood up to go the bathroom and noted nausea with vomiting. Patient's took blood pressure which was 162/90. Pt was brought to [facility] in an ambulance. He noted additional episodes of vomiting enroute to the ER and none witnessed while in the ED. Patient denied any abdominal pain or diarrhea, chest pain/pressure, palpitations.. No recent travel or antibiotic use. Has had sick contacts with granddaughter at home with similar symptoms of nausea, vomiting, diarrhea. Patient denies having experienced similar episodes in the past. Pt has a chronic cough and shortness of breath around baseline. Reports has not been eating or drinking much the past few months, and has had unintended weight loss. History of heavy smoking though quit 30+ years ago. In the ED pt's vital signs stable largely WNL. Labs showed potassium 2.6, lactic acid 2.4, and BNP 146. No leukocytosis. Stable H&H. Renal and hepatic function baseline. CT?of head found no acute hemorrhage, mass effect, shift, or acute intracranial pathology. 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 . EKG demonstrated sinus bradycardia with sinus arrhythmia and first-degree AV block and prolonged QTc of 506. Pt was treated with ondansetron, magnesium sulfate, lorazepam, IVF, Protonix, and potassium 40 meq IV. and admitted for further evaluation of hypokalemia in the setting of intractable nausea and vomiting. ABD CT SCAN SHOWED: 1. Cardiomegaly and bibasilar atelectasis and bronchiectasis. 2. Biventricular enlargement with delayed opacification of the liver and hepatic veins indicative of right heart insufficiency. 3. Circumferential thickened gastric body and greater curvature. Although perhaps due to in underdistention, given the patient's symptoms, gastric neoplasm or gastritis should be considered. 4. Distended urinary bladder. 5. Inhomogeneous appearance the lumbar and lower thoracic vertebrae. Although perhaps on the basis of osteoporosis, other marrow infiltrative processes would be difficult to exclude. Suggest correlation with medical history. Review of Systems Review of Systems: Nausea, vomiting Lightheadedness, dizziness Diaphoresis Anorexia, recent unintended weight loss Chronic shortness of breath and cough at baseline Denies chest pain/pressure, palpitations No abdominal pain or diarrhea Denies [facility] Past Medical History Medical History CAD (coronary artery disease) PAF (paroxysmal atrial fibrillation) Gastroesophageal reflux disease with esophagitis Burning with urination Abscess Urinary frequency Colon cancer screening Weight loss, abnormal GERD (gastroesophageal reflux disease) Chronic idiopathic constipation HTN (hypertension) Family History Family History Father Stroke Mother No problems noted. Surgical History Surgical History History of surgery Hx of colonoscopy Social History Social History Household Members: Significant Other and Family Housing: Apartment Do you presently have visiting nurse or other home services: No Alcohol intake: never Patient Tobacco Use Status: Former Tobacco user Quit Date: 2017 Tobacco use type: Cigarette Smoked in Last 30 Days: No Second Hand Smoke Exposure: No Use of substances other than those prescribed or required for medical reasons: No Advance Directives: Yes Advance Directives Information Provided: No Advance Directives on File: No Do you have a plan to hurt others: No Plan Nutrition Risks: No Nutritional Risk service: No Current occupational status: disabled Meds Allergies Allergy/AdvReac Type Severity Reaction Status Date / Time No Known Allergies Allergy Verified 03/19/24 08:33 [No Known Allergies*] Active Medications: Current Medications Acetaminophen (Acetaminophen 325 Mg Tablet) 650 mg PO Q6H PRN PRN Reason: Mild pain, fever, or headache Benzonatate (Benzonatate 100 Mg Capsule) 100 mg PO TID PRN PRN Reason: Cough Docusate Sodium (Docusate Sodium 100 Mg Capsule) 100 mg PO DAILY PRN PRN Reason: Constipation Lactated Ringer's (Lr) 1,000 mls @ 70 mls/hr IVCONT .[id number] [facility] Last Admin: 03/19/24 14:40 Dose: 70 mls/hr Melatonin (Melatonin 3 Mg Tablet) 6 mg PO BEDTIME PRN PRN Reason: Insomnia Ondansetron HCl (Ondansetron Hcl 4 Mg/2 Ml Vial) 4 mg IVPUSH Q8H PRN PRN Reason: Nausea and Vomiting Sodium Chloride (0.9 % Sodium Chloride Flush 3 Ml Syringe) 3 ml IVFLUSH QSHIFT [facility] Home Medications ?Medication ?Instructions ?Recorded ?Confirmed ?Last Taken ?Type atorvastatin 40 mg tablet 1 tab PO BEDTIME 06/19/22 03/19/24 06/18/22 History cetirizine 10 mg tablet 1 tab PO QAM PRN allergies 06/19/22 03/19/24 Unknown History clopidogrel 75 mg tablet 1 tab PO BEDTIME 06/19/22 03/19/24 06/18/22 History docusate sodium 100 mg capsule 1 cap PO DAILY PRN Constipation 06/19/22 03/19/24 06/18/22 History famotidine 20 mg tablet 1 tab PO BEDTIME 06/19/22 03/19/24 06/18/22 History hydralazine 50 mg tablet 1 tab PO BID 06/19/22 03/19/24 12/13/22 History pantoprazole 40 mg tablet,delayed 1 tab PO DAILY@0630 06/19/22 03/19/24 12/13/22 History release metoprolol succinate 100 mg 100 mg PO QAM 12/13/22 03/19/24 Unknown History tablet,extended release 24 hr furosemide 20 mg tablet 20 mg PO QAM 03/19/24 03/19/24 Unknown History guaifenesin 100 mg/5 mL oral 200 mg PO Q4H PRN cough 03/19/24 03/19/24 Unknown History liquid (Alberta-Tussin) ibuprofen 600 mg tablet 600 mg PO Q8H PRN mild pain 03/19/24 03/19/24 Unknown History melatonin 3 mg tablet 6 mg PO BEDTIME PRN Sleep 03/19/24 03/19/24 Unknown History mirtazapine 30 mg tablet 30 mg PO BEDTIME 03/19/24 03/19/24 Unknown History potassium chloride 20 mEq oral 20 meq PO DAILY 03/19/24 03/19/24 Unknown History packet (Klor-Con) valsartan 320 mg tablet 320 mg PO DAILY 03/19/24 03/19/24 Unknown History Physical Exam Vital Signs: Vital Signs: Last Vital Signs Temp 96.3 F L 03/19/24 15:12 Pulse 65 03/19/24 15:12 Resp 16 03/19/24 15:12 BP 145/88 H 03/19/24 15:12 Pulse Ox 92 03/19/24 15:12 O2 Del Method Room Air 03/19/24 15:12 BMI result Body Mass Index 23.1 Appearance: Alert. Oriented X person and place No acute distress. Eyes: Pupils equal, round and reactive to light. ENT: Pharynx normal. Neck: Normal inspection. Neck supple. CVS: Normal heart rate and rhythm. Pulses normal. Respiratory: No respiratory distress. Breath sounds normal. Abdomen: Soft and nontender. Skin: Skin warm and dry. Normal skin color. Normal skin turgor. Extremities: No lower extremity edema. No calf ttp Neuro: Oriented X 2. No motor deficit. No sensory deficit. dizziness with any movement Results Labs 03/19/24 10:38 03/19/24 09:43 Labs: Short CBC 03/19/24 Range/Units 10:38 WBC 8.1 (4.8-10.8) X10*3/uL Hgb 12.8 L (14.0-18.0) g/dl Hct 38.4 L (42.0-52.0) % Plt Count 138 L (160-400) X10*3/uL BMP 03/19/24 09:43 Sodium 141 Potassium 2.6 L* D Chloride 104 Carbon Dioxide 25 BUN 13 Creatinine 1.23 Calcium 8.5 D Liver Function 03/19/24 Range/Units 09:43 Total Bilirubin 0.5 (0.0-1.0) mg/dL Direct Bilirubin 0.3 (0.0-0.5) mg/dL AST 16 (5-37) U/L ALT 15 (0-40) U/L Alkaline Phosphatase 108 (39-117) U/L Albumin 3.8 (3.5-5.0) g/dL Urine 03/19/24 Range/Units 13:33 Urine Color Yellow Urine Appearance Clear Urine pH 6.5 (5.0-9.0) Ur Specific [place] 1.025 (1.005-1.025) Urine Protein Negative (Neg-Trace) mg/dL Urine Glucose (UA) Negative (Negative) mg/dL Assessment and Plan (1) Nausea & vomiting: Qualifiers: Vomiting type: unspecified Qualified Code(s): R11.2 - Nausea with vomiting, unspecified Status: Acute (2) Abnormal CT of the abdomen: Status: Acute Plan 88-year-old [place]ian-speaking male with paroxysmal AFib on Eliquis, CAD, HTN, diastolic HF, BPH, and GERD admitted [place] [facility] [place] evaluation of lightheadedness/dizziness nausea, vomiting. Pt was treated with ondansetron, magnesium sulfate, lorazepam, IVF, Protonix, and potassium 40 meq IV. and admitted for further evaluation of hypokalemia in the setting of intractable nausea and vomiting. Abdominal CT scan showed circumferential thickened gastric body and greater curvature.? due to underdistention, versus gastric neoplasm or gastritis RECOMMENDATIONS:. 1. Agree with IVF, IV PPI and antiemetics and hold Eliquis. 2. Pt needs further evaluation with EGD after he has been off Eliquis x [address] Colón to follow pt over the weekend. EGD scheduled on 03/22/[address] Colón Procedures Date of Service Date of Service: 03/19/24
[2024-03-19 20:09] LABS: Anion Gap 14 (12-20); Blood Urea Nitrogen 11 mg/dL (9-16); Calcium 8.7 mg/dL (8.4-10.2); Carbon Dioxide 24 mmol/L (22-29); Chloride 104 mmol/L (96-108); Creatinine Clr Calc Pharmacy 63.1; Estimated Glomerular Filt Rate > 60; Glucose Random 103 mg/dL (60-115); Potassium 4.1 mmol/L (3.3-5.1); Sodium 138 mmol/L (135-145)
[2024-03-19 20:36] LABS: Procalcitonin 0.02 ng/mL
[2024-03-19] MEDS: Clopidogrel Bisulfate 75 MG TABLET PO (21:33)
[2024-03-19] MEDS: Famotidine 20 MG TABLET PO (21:34)
[2024-03-19] MEDS: Atorvastatin Calcium 40 MG TABLET PO (21:34)
[2024-03-19] MEDS: Apixaban 2.5 MG TABLET PO (21:34)
[2024-03-19] MEDS: hydrALAZINE HCl 50 MG TABLET PO (21:34)
--- NOTE | 2024-03-19 22:39 | PC.NURSE ---
Pt reports CP , messaged hospitalist and EKG ordered
[2024-03-19] MEDS: Nitroglycerin 0.4 MG TAB.SUBL SUBLINGUAL ×2 (22:50→23:47)
[2024-03-19] MEDS: Metoprolol Tartrate 5 MG/5 ML VIAL 2.5 MG IVPUSH (23:22)
--- NOTE | 2024-03-19 23:43 | PC.NURSE ---
pt still c/o chest pain, BP elevated. MD aware. 2nd dose of nitro administered
--- NOTE | 2024-03-19 23:52 | PC.NURSE ---
per MD, fluids stopped. CXR indicated pulmonary edema
[2024-03-20] VITALS (13 sets, daily range): BP systolic 113–181; BP diastolic 72–119; PULSE 67–116; RESP 16–20; TEMP 36.2–36.9; O2SAT 90–96
[2024-03-20] MEDS: Furosemide 40 MG/4 ML VIAL IVPUSH ×2 (00:16→09:47)
--- NOTE | 2024-03-20 00:21 | PC.NURSE ---
pt boosted into a sitting position to promote better breathing, reduce cough and assist with urinating in urinal. lasix given.
[2024-03-20] MEDS: 0.9 % Sodium Chloride Flush 3 ML SYRINGE IVFLUSH ×4 (00:26→21:00)
[2024-03-20] MEDS: Nitroglycerin 2 % Oint 1 GM Packet 1 INCH TRANSDERMA (00:27)
[2024-03-20] MEDS: Morphine Sulfate 4 MG/ML CARTRIDGE IVPUSH (00:27)
--- NOTE | 2024-03-20 00:53 | PC.NURSE ---
pt medicated per JAN. pt now resting comfortably with eyes closed, breathing even and unlabored.no longer coughing. MD aware of low O2 and BP decreasing
--- NOTE | 2024-03-20 02:06 | PC.NURSE ---
pt reporting his pain is better. but it demanding water. pt told many times by nurses, ED Techs, paper rewinder and MD that he can not have water at this time.
[2024-03-20] MEDS: dilTIAZem HCL 125 MG in 0.9 % Sodium Chloride 100 ML 10 MG IVCONT (04:20)
--- NOTE | 2024-03-20 04:24 | PC.NURSE ---
diltiazem drip started per . HR 116
--- NOTE | 2024-03-20 04:34 | PM.EVENT ---
Event Note Date of Service: 03/20/24 Event Note: 03/19/2024 - 8:17 PM - Contacted by nursing to notify patient was complaining of chest pain and elevated BP. STAT interventions: -Nitro 0.4 mg SL q5 min X3 (2 doses given). -ECG - rapid atrial flutter --> metoprolol 2.5 mg IV given w/o significant improvement. -Troponin - negative. -CXR - pulmonary edema --> IVFs stopped. Lasix 40 mg IV daily and nitro ointment 1 in. 11:50 PM - I evaluated patient. He was tachycardic and hypertensive (169/138). He was very anxious and asking me to call his family because he was very sick. He told me he has worsening shortness of breath, cough and chest congestion (he told me this is the reason he was brought to the hospital). He denied chest pain but had tightness . Morphine 4 mg IV given to help with chest tightness, pulmonary edema and anxiety. 03/20/2024 12:50 AM - BP dropped to 143/91 and requirng 4L/min supplemental O2. 3:15 AM - I reevaluated patient. He told me he feels great now and was very grateful to the staff. He was very thirsty and gave him some water. 3:45 AM - Patient is sleeping, however, HR is 120 bpm (a-flutter). Diltiazem IV infusion started. 5:09 AM - HR in the 80s. BP 120/79. Diltiazem infusion on hold now. Time Spent With Patient Time: Total time managing care of this patient today ____ minutes.
--- NOTE | 2024-03-20 05:01 | PC.NURSE ---
assist with repositioning pt in bed
--- NOTE | 2024-03-20 05:11 | PC.NURSE ---
HR holding in 80s, BP 120/79. diltiazem on hold per
[2024-03-20] MEDS: Metoprolol Succinate ER 100 MG TAB.ER.24H PO ×2 (06:57→09:48)
[2024-03-20] MEDS: Omeprazole 20 MG CAPSULE.DR PO (06:57)
--- NOTE | 2024-03-20 07:01 | PM.EVENT ---
Event Note Date of Service: 03/20/24 Event Note: Got the consult for ongoing intermittent hypokalemia. Detailed consult to follow .Magnesium OK. No acidosis to suggest renal tubular acidosis. Serum K corrected this AM. Ordered Urine K & serum aldosterone. Needs outpatient follow up with [facility] after hospital D/C. Nikolay Oropeza MD
[2024-03-20 08:02] LABS: B Type Natriuretic Peptide 864 pg/mL (<100)
[2024-03-20 08:11] LABS: Anion Gap 13 (12-20); Blood Urea Nitrogen 12 mg/dL (9-16); Calcium 8.9 mg/dL (8.4-10.2); Carbon Dioxide 29 mmol/L (22-29); Chloride 102 mmol/L (96-108); Creatinine Clr Calc Pharmacy 52.7; Estimated Glomerular Filt Rate 60; Glucose Random 114 mg/dL (60-115); Potassium 3.9 mmol/L (3.3-5.1); Sodium 140 mmol/L (135-145)
[2024-03-20 08:45] LABS: Anion Gap 15 (12-20); Blood Urea Nitrogen 12 mg/dL (9-16); Calcium 9.3 mg/dL (8.4-10.2); Carbon Dioxide 30 mmol/L (22-29); Chloride 100 mmol/L (96-108); Creatinine Clr Calc Pharmacy 51.8; Estimated Glomerular Filt Rate 59; Glucose Random 109 mg/dL (60-115); Potassium 3.6 mmol/L (3.3-5.1); Sodium 141 mmol/L (135-145)
[2024-03-20] MEDS: Pantoprazole Sodium 40 MG/10 ML VIAL IVPUSH ×2 (09:47→17:24)
[2024-03-20] MEDS: Valsartan 320 MG TABLET PO (09:47)
[2024-03-20] MEDS: hydrALAZINE HCl 50 MG TABLET PO ×2 (09:48→21:00)
[2024-03-20] MEDS: Potassium Chloride Packet 20 MEQ PACKET PO (09:48)
--- NOTE | 2024-03-20 10:02 | MHC.CM.PN ---
IMM 03/20. 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 He receives RESPIRATORY CARE TECHNICIAN services from his [id number] 6-7 hours daily and uses a cane. [id number]/RESPIRATORY CARE TECHNICIAN to transport home at discharge. Pts son is HCP, copy requested. PCP: Dr. Nasim Dela Cruz
[2024-03-20] MEDS: Potassium Chloride ER 20 MEQ TAB.ER.PRT PO (12:32)
--- NOTE | 2024-03-20 14:16 | P.PNIM_ITS ---
Subjective Subjective Date of Service: 03/20/24 Interval History: possible chf htn Review of Systems overnight events noted sob seems improved,afluter -hr imrpoving after diltiazem drip. denies chest pain started on clears Physical Exam 2 Vital Signs: Vital Signs: Last Vital Signs Temp 97.1 F 03/20/24 10:57 Pulse 67 03/20/24 10:57 Resp 20 03/20/24 10:57 BP 129/77 03/20/24 10:57 Pulse Ox 95 03/20/24 10:57 O2 Del Method Nasal Cannula 03/20/24 10:57 O2 Flow Rate 3 03/20/24 10:57 BMI result Body Mass Index 23.1 Appearance: Alert.? Oriented X3.? cvs: rrr, [id number] , no murmur res: clear to auscultation ,no rhonchii or wheezing abd: no rebound or guarding ,nt, bs present. ext pulses present , no cyanosis ,Gait well balanced well coordinated. neuro: axo3 , nonfocal. Objective Data Active Medications Acetaminophen (Acetaminophen 325 Mg Tablet) 650 mg PO Q6H PRN PRN Reason: Mild pain, fever, or headache Atorvastatin Calcium (Atorvastatin Calcium 40 Mg Tablet) 40 mg PO BEDTIME [facility] Last Admin: 03/19/24 21:34 Dose: 40 mg Documented By: DYLAN Benzonatate (Benzonatate 100 Mg Capsule) 100 mg PO TID PRN PRN Reason: Cough Clopidogrel Bisulfate (Clopidogrel Bisulfate 75 Mg Tablet) 75 mg PO BEDTIME [facility] Last Admin: 03/19/24 21:33 Dose: 75 mg Documented By: DYLAN Docusate Sodium (Docusate Sodium 100 Mg Capsule) 100 mg PO DAILY PRN PRN Reason: Constipation Famotidine (Famotidine 20 Mg Tablet) 20 mg PO BEDTIME [facility] Last Admin: 03/19/24 21:34 Dose: 20 mg Documented By: DYLAN Furosemide (Furosemide 40 Mg/4 Ml Vial) 40 mg IVPUSH DAILY [facility]; Protocol Last Admin: 03/20/24 09:47 Dose: 40 mg Documented By: KEKE Guaifenesin (Guaifenesin 100 Mg/5 Ml Liquid) 10 ml PO Q4H PRN PRN Reason: cough Hydralazine HCl (Hydralazine Hcl 50 Mg Tablet) 50 mg PO BID [facility]; Protocol Last Admin: 03/20/24 09:48 Dose: 50 mg Documented By: KEKE Loratadine (Loratadine 10 Mg Tablet) 10 mg PO DAILY PRN PRN Reason: allergies Melatonin (Melatonin 3 Mg Tablet) 6 mg PO BEDTIME PRN PRN Reason: Insomnia Metoprolol Succinate (Metoprolol Succinate Er 100 Mg Tab.Er.24h) 100 mg PO DAILY [facility]; Protocol Last Admin: 03/20/24 09:48 Dose: 100 mg Documented By: KEKE Mirtazapine (Mirtazapine 30 Mg Tablet) 30 mg PO BEDTIME [facility] Last Admin: 03/19/24 21:34 Dose: Not Given Documented By: DYLAN Non-Admin Reason: Med Not Available Nitroglycerin (Nitroglycerin 0.4 Mg Tab.Subl) 0.4 mg SUBLINGUAL Q5MX3 PRN PRN Reason: Chest Pain Last Admin: 03/19/24 23:47 Dose: 0.4 mg Documented By: SILVIA Ondansetron HCl (Ondansetron Hcl 4 Mg/2 Ml Vial) 4 mg IVPUSH Q8H PRN PRN Reason: Nausea and Vomiting Pantoprazole Sodium (Pantoprazole Sodium 40 Mg/10 Ml Vial) 40 mg IVPUSH BID@0630,1630 [facility] Last Admin: 03/20/24 09:47 Dose: 40 mg Documented By: KEKE Potassium Chloride (Potassium Chloride Packet 20 Meq Packet) 20 meq PO DAILY [facility] Last Admin: 03/20/24 09:48 Dose: 20 meq Documented By: KEKE Sodium Chloride (0.9 % Sodium Chloride Flush 3 Ml Syringe) 3 ml IVFLUSH QSHIFT [facility] Last Admin: 03/20/24 09:47 Dose: 3 ml Documented By: KEKE Valsartan (Valsartan 320 Mg Tablet) 320 mg PO DAILY [facility]; Protocol Last Admin: 03/20/24 09:47 Dose: 320 mg Documented By: KEKE Labs 03/19/24 10:38 03/20/24 08:11 Labs: Laboratory Results - last 24 hr 03/19/24 03/19/24 03/19/24 09:43 19:45 23:26 Hold Purple Top SEE NOTE Anion Gap 14 Estim Creat Clear Calc 63.1 Estimated GFR > 60 Random Glucose 103 Calcium 8.7 Magnesium Troponin I High Sens 7.0 D B-Natriuretic Peptide Procalcitonin 0.02 03/20/24 03/20/24 06:58 08:11 Hold Purple Top Anion Gap 13 15 Estim Creat Clear Calc 52.7 51.8 Estimated GFR 60 59 Random Glucose 114 109 Calcium 8.9 9.3 Magnesium 2.0 Troponin I High Sens B-Natriuretic Peptide 864 H Procalcitonin Microbiology Microbiology Results: Microbiology 03/19/24 09:43 Blood Culture - Preliminary Blood - Venous No growth after 24 hours. 03/19/24 09:43 Blood Culture - Preliminary Blood - Venous No growth after 24 hours. Assessment and Plan (1) Abnormal CT of the abdomen: Status: Acute (2) Nausea & vomiting: Status: Acute (3) Dizziness: Status: Acute (4) Acute hypokalemia: Status: Acute Assessment and Plan: 88-year-old Icelandic-speaking male with a PMH significant for?paroxysmal AFib on Eliquis, CAD, HTN, diastolic HF, BPH, and GERD who presents to the ED for evaluation of lightheadedness/dizziness nausea, vomiting since earlier this morning. Pt will be admitted to the hospital for treatment and further evaluation of hypokalemia in the setting of intractable nausea and vomiting. overnight possible chf- etiology unclear (echo pending)/afib episode : elevated bnp,mild leg edema received iv lasix ,seems improving Received diltiazem drip heart rate is improved, diltiazem drip stopped Continue metoprolol Intractable nausea and vomiting unclear etiology dizziness, diaphoresis, N/V improving,denies abdominal pain CT showing circumferential thickened gastric body and greater curvature, concerning for possible gastric neoplasm vs gastritis ct head -ch changes. plan:start clear ,off IVF, antiemetics,ppi GI consult for evaluation of CT findings: d/w Gi-hold eliquis ,egd will be on 03/22. 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 seems improved significantly Follow bmp Monitor on telemetry acute Lactic acidosis, resolved with ivf. Secondary to dehydration, not sepsis Prolonged QTc-possible sec to hypokalemia tele showing QT 458 ms on tele improving Paroxysmal AFib Continue metoprolol, Eliquis CAD/HLD Continue Plavix, statin HFpEF Not in acute exacerbation Continue home furosemide GERD Continue PPI Full Code DVT Prophylaxis: scd Pt will require a hospitalization of at least two nights for treatment of?acute hypokalemia in the setting of intractable nausea and vomiting. Given that patient is unable to tolerate p.o. and given severity electrolyte abnormalities, patient will require hospitalization for administration of IV fluids, IV antiemetics, electrolyte supplementation, and close monitoring of labs. Quality Stroke Does the patient have a stroke diagnosis?: No VTE Prior VTE?: No VTE Risk Level:: Medical - moderate - high VTE Device Contraindication: Treatment Not Indicated VTE Drug Contraindication: N/A - Med Ordered
[2024-03-20] MEDS: Acetaminophen 325 MG TABLET 650 MG PO (17:24)
[2024-03-20] MEDS: Mirtazapine 30 MG TABLET PO (21:00)
[2024-03-20] MEDS: Atorvastatin Calcium 40 MG TABLET PO (21:00)
[2024-03-20] MEDS: Famotidine 20 MG TABLET PO (21:00)
[2024-03-21] VITALS (9 sets, daily range): BP systolic 104–137; BP diastolic 62–82; PULSE 62–78; RESP 16–18; TEMP 36–37; O2SAT 92–97
[2024-03-21] MEDS: Pantoprazole Sodium 40 MG/10 ML VIAL IVPUSH ×2 (05:57→16:40)
[2024-03-21 08:29] LABS: Anion Gap 15 (12-20); Blood Urea Nitrogen 18 mg/dL (9-16); Calcium 9.1 mg/dL (8.4-10.2); Carbon Dioxide 30 mmol/L (22-29); Chloride 98 mmol/L (96-108); Creatinine Clr Calc Pharmacy 55.1; Estimated Glomerular Filt Rate > 60; Glucose Random 89 mg/dL (60-115); Sodium 140 mmol/L (135-145)
[2024-03-21 08:51] LABS: Adenovirus PCR Not Detected (Not Detect.); Bordetella parapertussis PCR Not Detected (Not Detect.); Bordetella pertussis PCR Not Detected (Not Detect.); Chlamydia pneumoniae PCR Not Detected (Not Detect.); Coronavirus 229E PCR Not Detected (Not Detect.); Coronavirus HKU1 PCR Not Detected (Not Detect.); Coronavirus NL63 PCR Not Detected (Not Detect.); Coronavirus OC43 PCR Not Detected (Not Detect.); Human metapneumovirus PCR Detected (Not Detect.); Influenza A PCR Not Detected (Not Detect.); Influenza B PCR Not Detected (Not Detect.); Mycoplasma pneumoniae PCR Not Detected (Not Detect.); Parainfluenza 1 PCR Not Detected (Not Detect.); Parainfluenza 2 PCR Not Detected (Not Detect.); Parainfluenza 3 PCR Not Detected (Not Detect.); Parainfluenza 4 PCR Not Detected (Not Detect.); RSV PCR Not Detected (Not Detect.); Rhino/Enterovirus PCR Not Detected (Not Detect.)
[2024-03-21 09:20] LABS: SARS-CoV-2 PCR Not Detected (Not Detect.)
[2024-03-21] MEDS: Valsartan 320 MG TABLET PO (09:51)
[2024-03-21] MEDS: Metoprolol Succinate ER 100 MG TAB.ER.24H PO (09:52)
[2024-03-21] MEDS: hydrALAZINE HCl 50 MG TABLET PO (09:52)
[2024-03-21] MEDS: Acetaminophen 325 MG TABLET 650 MG PO (09:52)
[2024-03-21] MEDS: Furosemide 40 MG/4 ML VIAL IVPUSH (09:53)
[2024-03-21] MEDS: 0.9 % Sodium Chloride Flush 3 ML SYRINGE IVFLUSH ×3 (09:53→20:31)
[2024-03-21] MEDS: Potassium Chloride Packet 20 MEQ PACKET PO (09:54)
[2024-03-21] MEDS: Potassium Chloride ER 20 MEQ TAB.ER.PRT 40 MEQ PO (10:00)
[2024-03-21 11:06] LABS: Potassium Urine Random 52.5 mmol/L
--- NOTE | 2024-03-21 12:04 | HO.PM.IMPN ---
Subjective Subjective Date of Service: 03/21/24 Interval History: acute on ch diastolic chf excerebation electrolytic abnormalities gastric inflamation Review of Systems sob seems improving denies abd pain or anusea,vomiting, no fever Review of Systems: Yes all other systems are reviewed and are negative Physical Exam Vital Signs: Vital Signs: Last Vital Signs Temp 97.3 F 03/21/24 10:49 Pulse 75 03/21/24 10:49 Resp 18 03/21/24 10:49 BP 104/62 03/21/24 10:49 Pulse Ox 95 03/21/24 10:49 O2 Del Method Room Air 03/21/24 10:49 O2 Flow Rate 3 03/21/24 04:00 BMI result Body Mass Index 23.1 Appearance: Alert.? Oriented X3.? cvs: rrr, [id number] , no murmur res: clear to auscultation ,no rhonchii or wheezing abd: no rebound or guarding ,nt, bs present. ext pulses present , no cyanosis ,Gait well balanced well coordinated. neuro: axo3 , nonfocal. Objective Data Active Medications Acetaminophen (Acetaminophen 325 Mg Tablet) 650 mg PO Q6H PRN PRN Reason: Mild pain, fever, or headache Last Admin: 03/21/24 09:52 Dose: 650 mg Documented By: JERRICA Atorvastatin Calcium (Atorvastatin Calcium 40 Mg Tablet) 40 mg PO BEDTIME [facility] Last Admin: 03/20/24 21:00 Dose: 40 mg Documented By: DAVI Benzonatate (Benzonatate 100 Mg Capsule) 100 mg PO TID PRN PRN Reason: Cough Docusate Sodium (Docusate Sodium 100 Mg Capsule) 100 mg PO DAILY PRN PRN Reason: Constipation Famotidine (Famotidine 20 Mg Tablet) 20 mg PO BEDTIME [facility] Last Admin: 03/20/24 21:00 Dose: 20 mg Documented By: DAVI Furosemide (Furosemide 40 Mg/4 Ml Vial) 40 mg IVPUSH DAILY [facility]; Protocol Last Admin: 03/21/24 09:53 Dose: 40 mg Documented By: JERRICA Guaifenesin (Guaifenesin 100 Mg/5 Ml Liquid) 10 ml PO Q4H PRN PRN Reason: cough Hydralazine HCl (Hydralazine Hcl 50 Mg Tablet) 50 mg PO BID [facility]; Protocol Last Admin: 03/21/24 09:52 Dose: 50 mg Documented By: JERRICA Loratadine (Loratadine 10 Mg Tablet) 10 mg PO DAILY PRN PRN Reason: allergies Melatonin (Melatonin 3 Mg Tablet) 6 mg PO BEDTIME PRN PRN Reason: Insomnia Metoprolol Succinate (Metoprolol Succinate Er 100 Mg Tab.Er.24h) 100 mg PO DAILY [facility]; Protocol Last Admin: 03/21/24 09:52 Dose: 100 mg Documented By: JERRICA Mirtazapine (Mirtazapine 30 Mg Tablet) 30 mg PO BEDTIME [facility] Last Admin: 03/20/24 21:00 Dose: 30 mg Documented By: DAVI Nitroglycerin (Nitroglycerin 0.4 Mg Tab.Subl) 0.4 mg SUBLINGUAL Q5MX3 PRN PRN Reason: Chest Pain Last Admin: 03/19/24 23:47 Dose: 0.4 mg Documented By: SILVIA Ondansetron HCl (Ondansetron Hcl 4 Mg/2 Ml Vial) 4 mg IVPUSH Q8H PRN PRN Reason: Nausea and Vomiting Pantoprazole Sodium (Pantoprazole Sodium 40 Mg/10 Ml Vial) 40 mg IVPUSH BID@0630,1630 [facility] Last Admin: 03/21/24 05:57 Dose: 40 mg Documented By: DAVI Potassium Chloride (Potassium Chloride Packet 20 Meq Packet) 20 meq PO DAILY [facility] Last Admin: 03/21/24 09:54 Dose: 20 meq Documented By: JERRICA Sodium Chloride (0.9 % Sodium Chloride Flush 3 Ml Syringe) 3 ml IVFLUSH QSHIFT [facility] Last Admin: 03/21/24 09:53 Dose: 3 ml Documented By: JERRICA Valsartan (Valsartan 320 Mg Tablet) 320 mg PO DAILY [facility]; Protocol Last Admin: 03/21/24 09:51 Dose: 320 mg Documented By: JERRICA Labs 03/19/24 10:38 03/21/24 07:20 Labs: Laboratory Results - last 24 hr 03/20/24 03/21/24 03/21/24 14:06 07:20 10:38 Hold Purple Top SEE NOTE Anion Gap 15 Estim Creat Clear Calc 55.1 Estimated GFR > 60 Random Glucose 89 Calcium 9.1 Ur Random Potassium 52.5 Respiratory Panel Shultz See Note Adenovirus (Rapid PCR) Not Detected B.pert (TEM-PCR) Not Detected B.parapertussis DNA PCR Not Detected C. pneumoniae DNA (PCR) Not Detected Coronavirus OC43 (PCR) Not Detected Coronavirus HKU1 (PCR) Not Detected Coronavirus 229E (PCR) Not Detected Coronavirus NL63 (PCR) Not Detected Human Metapneumovir PCR Detected A Influenza A (RT-PCR) Not Detected Influenza B (RT-PCR) Not Detected M. pneumoniae (PCR) Not Detected Parainfluenza 1 (PCR) Not Detected Parainfluenza 2 (PCR) Not Detected Parainfluenza 3 (PCR) Not Detected Parainfluenza 4 (PCR) Not Detected RSV (PCR) Not Detected Entero/Rhino (PCR) Not Detected SARS-CoV-2 RNA (RT-PCR) Not Detected Microbiology Microbiology Results: Microbiology 03/19/24 09:43 Blood Culture - Preliminary Blood - Venous No growth after 48 hours. 03/19/24 09:43 Blood Culture - Preliminary Blood - Venous No growth after 48 hours. Assessment and Plan (1) Abnormal CT of the abdomen: Status: Acute (2) Nausea & vomiting: Status: Acute (3) Dizziness: Status: Acute (4) Acute hypokalemia: Status: Acute Assessment and Plan: 88-year-old Greek-speaking male with a PMH significant for?paroxysmal AFib on Eliquis, CAD, HTN, diastolic HF, BPH, and GERD who presents to the ED for evaluation of lightheadedness/dizziness nausea, vomiting since earlier this morning. Pt will be admitted to the hospital for treatment and further evaluation of hypokalemia in the setting of intractable nausea and vomiting. overnight possible chf- etiology unclear (echo pending)/afib episode : elevated bnp,mild leg edema received iv lasix ,off diltiazem drip,Continue metoprolol and lasix. Intractable nausea and vomiting unclear etiology dizziness, diaphoresis, N/V improving,denies abdominal pain. CT showing circumferential thickened gastric body and greater curvature, concerning for possible gastric neoplasm vs gastritis. ct head -ch changes. plan: continue clears, npo past midnight for egd in am,antiemetics,ppi GI consult for evaluation of CT findings: d/w Gi-hold eliquis/plavix ,egd will be on 03/22. 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 Follow bmp ,Monitor on telemetry acute Lactic acidosis, resolved with ivf. Secondary to dehydration, not sepsis Prolonged QTc-possible sec to hypokalemia will replete potassium, moniter on tele. Paroxysmal AFib-Continue metoprolol, Eliquis CAD/HLD-Continue Plavix, statin HFpEF-Not in acute exacerbation Continue home furosemide GERD Continue PPI Full Code DVT Prophylaxis: scd ongoing hospitalization need for treatment of?acute hypokalemia in the setting of intractable nausea and vomiting. Given that patient is unable to tolerate p.o. and given severity electrolyte abnormalities, patient will require hospitalization for administration of IV fluids, IV antiemetics, electrolyte supplementation, and close monitoring of labs. Quality Stroke Does the patient have a stroke diagnosis?: No VTE Prior VTE?: No VTE Risk Level:: Medical - moderate - high VTE Device Contraindication: Treatment Not Indicated VTE Drug Contraindication: N/A - Med Ordered
--- NOTE | 2024-03-21 13:00 | MHC.CM.PN ---
Copy of HCP received from son, now on file.
--- NOTE | 2024-03-21 13:49 | MHC.SHP ---
Pre-Procedural Eval Section A - 24 Hr Update-Section A only Date of Service: 03/22/24 The patient is an INPATIENT: Yes The patient has been examined within 24 hours of the surgical procedure. The History & Physical has been completed within 30 days and I have reviewed it.: Yes Section B - Complete if H&P > 30 days Chief Complaint: Hypokalemia Intractable Nausea and Vomiting Allergies: Allergies Allergy/AdvReac Type Severity Reaction Status Date / Time No Known Allergies Allergy Verified 03/19/24 08:33 [No Known Allergies*] Plan I have reviewed the history and physical and performed a pertinent physical examination on my patient. No changes have occurred unless specified. Time Spent With Patient Time: Total time managing care of this patient today ____ minutes.
[2024-03-21] MEDS: Atorvastatin Calcium 40 MG TABLET PO (20:30)
[2024-03-21] MEDS: Mirtazapine 30 MG TABLET PO (20:30)
[2024-03-21] MEDS: Famotidine 20 MG TABLET PO (20:30)
[2024-03-22] VITALS (16 sets, daily range): BP systolic 119–147; BP diastolic 62–92; PULSE 67–93; RESP 16–20; TEMP 36.2–37.1; O2SAT 91–97
[2024-03-22 06:49] LABS: Hematocrit 44.8 % (42.0-52.0); Hemoglobin 15.6 g/dl (14.0-18.0)
--- NOTE | 2024-03-22 07:00 | CA_ITS ---
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 There is moderately increased left ventricular wall thickness. The left ventricular systolic function is low normal. The visually estimated ejection fraction is between 50-55%. - E/E prime ratio is between 8 and 15 consistent with indeterminate filling pressures. - There is borderline right ventricular systolic function. - The left atrium is moderately dilated. - There is mild aortic valve regurgitation. 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 Findings Left Ventricle Normal left ventricular cavity size. There is moderately increased left ventricular wall thickness. The left ventricular systolic function is low normal. The visually estimated ejection fraction is between 50-55%. Abnormal diastolic function is noted. Spectral Doppler is indicative of a pseudonormal filling pattern. E/E prime ratio is between 8 and 15 consistent with indeterminate filling pressures. Right Ventricle Normal right ventricular cavity size. There is borderline right ventricular systolic function. Atria The left atrium is moderately dilated. The right atrium is normal in size. Aortic Valve There is a normal trileaflet aortic valve. There is mild calcification of the aortic valve. There is no aortic valve stenosis. There is mild aortic valve regurgitation. Mitral Valve The mitral valve appears normal. There is trace mitral valve regurgitation. There is no mitral valve stenosis. Pulmonic Valve The pulmonic valve is likely normal. Tricuspid Valve Normal tricuspid valve structure. There is mild tricuspid valve regurgitation. Normal right atrial pressure. There is no evidence of pulmonary hypertension. Great Vessels There is mild dilatation of the ascending aorta measuring 4.30 cm. Venous The inferior vena cava is normal in size and collapses greater than 50% with inspiration. Pericardium/Pleural There is no evidence of pericardial effusion. Prior Study Comparison Changes noted compared to prior study. EF 50-55%, Borderline RV function. Measurements 2D Linear Measurements IVSd: 1.41 0.6-0.9/0.6-1.0 cm LVIDd: 4.15 3.9-5.3/4.2-5.9 cm LVIDd Index: 2.00 2.4-3.2/2.2-3.1 cm/m2 LVIDs: 2.75 2.0-3.6 cm LVPWd: 1.51 0.7-1.1 cm Ao Root: 3.80 2.1-3.5 cm LA Diam: 3.30 2.7-3.8/3.0-4.0 cm LAIDs Index: 1.59 1.5-2.3 cm/m2 LV Mass: 293.20 67-162/88-224 g LV Mass Index: 140.96 43-95/49-115 g/m2 LVOT Diam: 2.00 3.0+(-)1.3 cm 2D Systolic Function EF 4C: 56.30 >55% EF 2C: 51.50 >55% EF BiP: 53.90 >55% Mitral Valve MV Pk E: 0.82 MV PK A: 0.39 MV Decel Time: 150.00 E/A: 2.10 E'Lateral: 8.16 E'Medial: 5.66 E/E' Med: 14.50 E/E' Lat: 10.10 PHT: 44.00 MVA PHT: 5.00 Decel [place]: 5.49 Aortic Valve AoV Pk Denny: 1.25 AoV Mn Denny: 0.88 AoV VTI: 0.22 AoV Pk Grad: 6.00 Aov Mn Grad: 4.00 LIA Cont.VTI: 1.82 LVOT LVOT Pk Denny: 0.74 LVOT Mn Denny: 0.51 LVOT VTI: 0.13 LVOT Pk Grad: 2.00 LVOT Mn Grad: 1.00 LVOT Diam: 2.00 LVOT Area: 3.14 Diastolic Function MV Pk E: 0.82 MV Pk A: 0.39 E/A: 2.10 E'Medial: 5.66 E/E' Med: 14.50 E' Laterial: 8.16 E/E' Lat: 10.10 Right Ventricle TAPSE (mm): 17.00 TVS' Denny: 9.00 Tricuspid Valve TR Pk Denny: 2.26 TR Pk Grad: 20.00 RA Press: 3.00 RVSP: 23.00 Great Vessels Aorta Ao Root-2D: 3.80 2.0-3.7 cm Ao Asc: 4.30 2.1-3.4 cm Pulmonary Valve PV Pk Denny: 0.60 Peak PV Grad: 1.00 Updated in Other Vendor System with Status of Final Rohit Osman MD electronically signed on 03/22/2024 2:54:20 PM with status of Final
[2024-03-22 07:03] LABS: Anion Gap 18 (12-20); Blood Urea Nitrogen 23 mg/dL (9-16); Calcium 9.5 mg/dL (8.4-10.2); Carbon Dioxide 26 mmol/L (22-29); Chloride 101 mmol/L (96-108); Creatinine Clr Calc Pharmacy 47.8; Estimated Glomerular Filt Rate 53; Glucose Random 90 mg/dL (60-115); Potassium 3.3 mmol/L (3.3-5.1); Sodium 142 mmol/L (135-145)
[2024-03-22 07:16] LABS: Anion Gap 16 (12-20); Blood Urea Nitrogen 23 mg/dL (9-16); Calcium 9.5 mg/dL (8.4-10.2); Carbon Dioxide 27 mmol/L (22-29); Chloride 101 mmol/L (96-108); Estimated Glomerular Filt Rate 57; Glucose Random 90 mg/dL (60-115); Potassium 3.2 mmol/L (3.3-5.1); Sodium 141 mmol/L (135-145)
[2024-03-22] MEDS: Albuterol/Iprat 2.5/0.5MG 3 ML AMPUL.NEB INHALE ×3 (07:48→20:28)
[2024-03-22 08:26] LABS: Glucose, Whole Blood 87 mg/dL (60-115)
[2024-03-22] MEDS: 0.9 % Sodium Chloride Flush 3 ML SYRINGE IVFLUSH ×2 (08:26→16:55)
[2024-03-22] MEDS: Pantoprazole Sodium 40 MG/10 ML VIAL IVPUSH (08:26)
[2024-03-22] MEDS: Potassium Chloride Packet 20 MEQ PACKET PO (08:27)
[2024-03-22] MEDS: Furosemide 20 MG TABLET PO (08:27)
[2024-03-22] MEDS: Metoprolol Succinate ER 100 MG TAB.ER.24H PO (08:27)
[2024-03-22] MEDS: Dextrose 5 % and 0.9 % NaCl 1,000 ML 60 ML IVCONT (09:19)
--- NOTE | 2024-03-22 11:06 | MHC.CM.PN ---
Pt is not yet ready for DC. He is having a procedure today. DC plan is home, resume services. CM to follow for DC needs.
--- NOTE | 2024-03-22 12:02 | PM.CNCAR ---
History of Present Illness History of Present Illness Date of Service: 03/22/24 Requesting physician: Audie Grant Chief complaint: Hypokalemia Intractable Nausea and Vomiting Narrative: 88-year-old gentleman who presented with intractable vomiting nausea and hypokalemia. Electrolytes have improved but while getting volume resuscitation he had episode of heart failure. We have been asked to assess his perioperative risk before endoscopy. He had a CT scan of abdomen which is showing circumferential thickened gastric body and greater curvature and concern for gastritis versus cancer has been raised. The patient is extremely hard of hearing and history is quite limited. We used bindery assistant and wrote down the questions which she answered. He is denying chest pain or shortness of breath. His main complaint is that he is bringing up a lot of phlegm and has been coughing. He is positive for human metapneumovirus. He also has low blood pressures after resuming his home medications which could be due to hypovolemia. [facility] Past Medical History Medical History CAD (coronary artery disease) PAF (paroxysmal atrial fibrillation) Gastroesophageal reflux disease with esophagitis Burning with urination Abscess Urinary frequency Colon cancer screening Weight loss, abnormal GERD (gastroesophageal reflux disease) Chronic idiopathic constipation HTN (hypertension) Family History Family History Father Stroke Mother No problems noted. Surgical History Surgical History History of surgery Hx of colonoscopy Social History Social History Household Members: Spouse and Children Housing: House Do you presently have visiting nurse or other home services: No Alcohol intake: never Patient Tobacco Use Status: Former Tobacco user Quit Date: 2017 Tobacco use type: Cigarette Second Hand Smoke Exposure: No Advance Directives Date on File: 03/20/24 service: No Current occupational status: disabled Meds Allergies Allergy/AdvReac Type Severity Reaction Status Date / Time No Known Allergies Allergy Verified 03/19/24 08:33 [No Known Allergies*] Active Medications: Current Medications Acetaminophen (Acetaminophen 325 Mg Tablet) 650 mg PO Q6H PRN PRN Reason: Mild pain, fever, or headache Last Admin: 03/21/24 09:52 Dose: 650 mg Albuterol/Ipratropium (Albuterol/Iprat 2.5/0.5mg 3 Ml Ampul.Neb) 3 ml INHALE RQ4H WHILE AWAKE [facility] Last Admin: 03/22/24 11:10 Dose: 3 ml Atorvastatin Calcium (Atorvastatin Calcium 40 Mg Tablet) 40 mg PO BEDTIME [facility] Last Admin: 03/21/24 20:30 Dose: 40 mg Benzonatate (Benzonatate 100 Mg Capsule) 100 mg PO TID PRN PRN Reason: Cough Docusate Sodium (Docusate Sodium 100 Mg Capsule) 100 mg PO DAILY PRN PRN Reason: Constipation Famotidine (Famotidine 20 Mg Tablet) 20 mg PO BEDTIME [facility] Last Admin: 03/21/24 20:30 Dose: 20 mg Furosemide (Furosemide 20 Mg Tablet) 20 mg PO DAILY [facility]; Protocol Last Admin: 03/22/24 08:27 Dose: 20 mg Guaifenesin (Guaifenesin 100 Mg/5 Ml Liquid) 10 ml PO Q4H PRN PRN Reason: cough Dextrose/Sodium Chloride (D5ns) 1,000 mls @ 60 mls/hr IVCONT .[id number] [facility] Last Admin: 03/22/24 09:19 Dose: 60 mls/hr Doxycycline Hyclate 100 mg/ (Sodium Chloride) 250 mls @ 166.67 mls/hr IV Q12H [facility] Loratadine (Loratadine 10 Mg Tablet) 10 mg PO DAILY PRN PRN Reason: allergies Melatonin (Melatonin 3 Mg Tablet) 6 mg PO BEDTIME PRN PRN Reason: Insomnia Metoprolol Succinate (Metoprolol Succinate Er 100 Mg Tab.Er.24h) 100 mg PO DAILY [facility]; Protocol Last Admin: 03/22/24 08:27 Dose: 100 mg Mirtazapine (Mirtazapine 30 Mg Tablet) 30 mg PO BEDTIME [facility] Last Admin: 03/21/24 20:30 Dose: 30 mg Nitroglycerin (Nitroglycerin 0.4 Mg Tab.Subl) 0.4 mg SUBLINGUAL Q5MX3 PRN PRN Reason: Chest Pain Last Admin: 03/19/24 23:47 Dose: 0.4 mg Ondansetron HCl (Ondansetron Hcl 4 Mg/2 Ml Vial) 4 mg IVPUSH Q8H PRN PRN Reason: Nausea and Vomiting Pantoprazole Sodium (Pantoprazole Sodium 40 Mg/10 Ml Vial) 40 mg IVPUSH BID@0630,1630 [facility] Last Admin: 03/22/24 08:26 Dose: 40 mg Potassium Chloride (Potassium Chloride Packet 20 Meq Packet) 20 meq PO DAILY [facility] Last Admin: 03/22/24 08:27 Dose: 20 meq Sodium Chloride (0.9 % Sodium Chloride Flush 3 Ml Syringe) 3 ml IVFLUSH QSHIFT [facility] Last Admin: 03/22/24 08:26 Dose: 3 ml Valsartan (Valsartan 320 Mg Tablet) 320 mg PO DAILY [facility]; Protocol Last Admin: 03/21/24 09:51 Dose: 320 mg Home Medications ?Medication ?Instructions ?Recorded ?Confirmed ?Last Taken ?Type atorvastatin 40 mg tablet 1 tab PO BEDTIME 06/19/22 03/19/24 06/18/22 History cetirizine 10 mg tablet 1 tab PO QAM PRN allergies 06/19/22 03/19/24 Unknown History clopidogrel 75 mg tablet 1 tab PO BEDTIME 06/19/22 03/19/24 06/18/22 History docusate sodium 100 mg capsule 1 cap PO DAILY PRN Constipation 06/19/22 03/19/24 06/18/22 History famotidine 20 mg tablet 1 tab PO BEDTIME 06/19/22 03/19/24 06/18/22 History hydralazine 50 mg tablet 1 tab PO BID 06/19/22 03/19/24 12/13/22 History pantoprazole 40 mg tablet,delayed 1 tab PO DAILY@0630 06/19/22 03/19/24 12/13/22 History release metoprolol succinate 100 mg 100 mg PO QAM 12/13/22 03/19/24 Unknown History tablet,extended release 24 hr furosemide 20 mg tablet 20 mg PO QAM 03/19/24 03/19/24 Unknown History guaifenesin 100 mg/5 mL oral 200 mg PO Q4H PRN cough 03/19/24 03/19/24 Unknown History liquid (Alberta-Tussin) ibuprofen 600 mg tablet 600 mg PO Q8H PRN mild pain 03/19/24 03/19/24 Unknown History melatonin 3 mg tablet 6 mg PO BEDTIME PRN Sleep 03/19/24 03/19/24 Unknown History mirtazapine 30 mg tablet 30 mg PO BEDTIME 03/19/24 03/19/24 Unknown History potassium chloride 20 mEq oral 20 meq PO DAILY 03/19/24 03/19/24 Unknown History packet (Klor-Con) valsartan 320 mg tablet 320 mg PO DAILY 03/19/24 03/19/24 Unknown History Physical Exam Vital Signs: Vital Signs: Last Vital Signs Temp 98.4 F 03/22/24 07:48 Pulse 75 03/22/24 11:11 Resp 16 03/22/24 11:11 BP 140/73 H 03/22/24 08:27 Pulse Ox 95 03/22/24 07:48 O2 Del Method Room Air 03/22/24 07:48 O2 Flow Rate 3 03/21/24 04:00 BMI result Body Mass Index 23.1 GENERAL APPEARANCE: in no acute distress, very hard of hearing. NECK: no carotid bruit, no jugular venous distention. SKIN: no suspicious lesions, warm and dry. HEART: no murmurs, regular rate and rhythm. LUNGS: clear to auscultation anteriorly. ABDOMEN: soft, nontender. EXTREMITIES: no edema. PERIPHERAL PULSES: equal. NEUROLOGIC: Very hard of hearing. Alert and oriented x3. Objective Labs and Meds 03/22/24 06:31 03/22/24 06:31 Lab results: Laboratory Results - last 24 hr 03/22/24 03/22/24 03/22/24 06:31 06:31 06:31 Hgb 15.6 D Hct 44.8 Sodium 141 142 Potassium 3.2 L 3.3 Chloride 101 Carbon Dioxide Anion Gap BUN Creatinine Estim Creat Clear Calc Estimated GFR POC Glucose Random Glucose Calcium 03/22/24 03/22/24 03/22/24 06:31 06:31 06:31 Hgb Hct Sodium Potassium Chloride 101 Carbon Dioxide 27 26 Anion Gap 16 18 BUN 23 H Creatinine Estim Creat Clear Calc Estimated GFR POC Glucose Random Glucose Calcium 03/22/24 03/22/24 03/22/24 06:31 06:31 06:31 Hgb Hct Sodium Potassium Chloride Carbon Dioxide Anion Gap BUN 23 H Creatinine 1.20 1.28 Estim Creat Clear Calc 51.0 47.8 Estimated GFR 57 POC Glucose Random Glucose Calcium 03/22/24 03/22/24 03/22/24 06:31 06:31 06:31 Hgb Hct Sodium Potassium Chloride Carbon Dioxide Anion Gap BUN Creatinine Estim Creat Clear Calc Estimated GFR 53 POC Glucose Random Glucose 90 90 Calcium 9.5 9.5 03/22/24 08:22 Hgb Hct Sodium Potassium Chloride Carbon Dioxide Anion Gap BUN Creatinine Estim Creat Clear Calc Estimated GFR POC Glucose 87 Random Glucose Calcium Assessment and Plan (1) Preop cardiovascular exam: Status: Acute (2) Abnormal CT of the abdomen: Status: Acute Plan 88 year gentleman who has gastric body and greater curvature thickening with concern for malignancy versus gastritis. He is very hard of hearing and history is quite limited. He is denying any symptoms currently other than cough and phlegm which is due to human metapneumovirus. Blood pressure is stable currently. Would continue metoprolol only for now. In the perioperative period Beta-corinna discontinuation in patients is detrimental if they are chronically on beta-corinna. Hold rest of the medications for now. He is intermediate risk for perioperative complications. Thank you for allowing me to participate in the care of your patient. Please feel free to contact me if you have any questions. Procedures Date of Service Date of Service: 03/22/24
[2024-03-22 12:03] LABS: Glucose, Whole Blood 90 mg/dL (60-115)
--- NOTE | 2024-03-22 12:13 | P.CONNP_ITS ---
History of Present Illness Reason for Consult Consult date: 03/22/24 Chief Complaint Chief complaint: Hypokalemia Intractable Nausea and Vomiting History of Present Illness Narrative: 88-year-old Maori-speaking male with CKD at baseline among other multiple medical issues presented to ER for evaluation of lightheadedness/dizziness nausea, vomiting. He felt lightheaded and dizzy at home , and then began experiencing nausea with vomiting. Patient's took blood pressure which was 162/90. In the ambulance patient apparently had additional episodes of vomiting, but non witnessed while in the ED. patient denies any abdominal pain or diarrhea. No recent travel or antibiotic use. Has had sick contacts with granddaughter at home with similar symptoms of nausea, vomiting, diarrhea. Patient denies having experienced similar episodes in the past. Chronic cough and shortness of breath around baseline. Reports has not been eating or drinking much the past few months, and has had unintended weight loss. History of heavy smoking though quit 30+ years ago. Denies chest pain/pressure, palpitations.In the ED pt's vital signs stable largely WNL. Labs were significant for potassium 2.6, lactic acid 2.4, and BNP 146. No leukocytosis. Stable H&H. Renal and hepatic function baseline. CT?of head found no acute hemorrhage, mass effect, shift, or acute intracranial pathology. 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 CT of abdomen and pelvis showed circumferential thickening of gastric body and greater curvature concerning for possible gastric neoplasm or gastritis. Pt was admitted to the hospital for treatment further evaluation of hypokalemia in the setting of intractable nausea and vomiting. Nephrology has been consulted to assist in his clinical care during his current hospital stay Review of Systems Review of Systems Yes all other systems are reviewed and are negative [facility] Past Medical History Medical History CAD (coronary artery disease) PAF (paroxysmal atrial fibrillation) Gastroesophageal reflux disease with esophagitis Burning with urination Abscess Urinary frequency Colon cancer screening Weight loss, abnormal GERD (gastroesophageal reflux disease) Chronic idiopathic constipation HTN (hypertension) Family History Family History Father Stroke Mother No problems noted. Surgical History Surgical History History of surgery Hx of colonoscopy Social History Social History Household Members: Spouse and Children Housing: House Do you presently have visiting nurse or other home services: No Alcohol intake: never Patient Tobacco Use Status: Former Tobacco user Quit Date: 2017 Tobacco use type: Cigarette Second Hand Smoke Exposure: No Advance Directives Date on File: 03/20/24 service: No Current occupational status: disabled Meds Allergies Allergy/AdvReac Type Severity Reaction Status Date / Time No Known Allergies Allergy Verified 03/19/24 08:33 [No Known Allergies*] Active Medications: Current Medications Acetaminophen (Acetaminophen 325 Mg Tablet) 650 mg PO Q6H PRN PRN Reason: Mild pain, fever, or headache Last Admin: 03/21/24 09:52 Dose: 650 mg Albuterol/Ipratropium (Albuterol/Iprat 2.5/0.5mg 3 Ml Ampul.Neb) 3 ml INHALE RQ4H WHILE AWAKE [facility] Last Admin: 03/22/24 11:10 Dose: 3 ml Atorvastatin Calcium (Atorvastatin Calcium 40 Mg Tablet) 40 mg PO BEDTIME [facility] Last Admin: 03/21/24 20:30 Dose: 40 mg Benzonatate (Benzonatate 100 Mg Capsule) 100 mg PO TID PRN PRN Reason: Cough Docusate Sodium (Docusate Sodium 100 Mg Capsule) 100 mg PO DAILY PRN PRN Reason: Constipation Famotidine (Famotidine 20 Mg Tablet) 20 mg PO BEDTIME [facility] Last Admin: 03/21/24 20:30 Dose: 20 mg Furosemide (Furosemide 20 Mg Tablet) 20 mg PO DAILY [facility]; Protocol Last Admin: 03/22/24 08:27 Dose: 20 mg Guaifenesin (Guaifenesin 100 Mg/5 Ml Liquid) 10 ml PO Q4H PRN PRN Reason: cough Dextrose/Sodium Chloride (D5ns) 1,000 mls @ 60 mls/hr IVCONT .[id number] [facility] Last Admin: 03/22/24 09:19 Dose: 60 mls/hr Doxycycline Hyclate 100 mg/ (Sodium Chloride) 250 mls @ 166.67 mls/hr IV Q12H [facility] Loratadine (Loratadine 10 Mg Tablet) 10 mg PO DAILY PRN PRN Reason: allergies Melatonin (Melatonin 3 Mg Tablet) 6 mg PO BEDTIME PRN PRN Reason: Insomnia Metoprolol Succinate (Metoprolol Succinate Er 100 Mg Tab.Er.24h) 100 mg PO DAILY [facility]; Protocol Last Admin: 03/22/24 08:27 Dose: 100 mg Mirtazapine (Mirtazapine 30 Mg Tablet) 30 mg PO BEDTIME [facility] Last Admin: 03/21/24 20:30 Dose: 30 mg Nitroglycerin (Nitroglycerin 0.4 Mg Tab.Subl) 0.4 mg SUBLINGUAL Q5MX3 PRN PRN Reason: Chest Pain Last Admin: 03/19/24 23:47 Dose: 0.4 mg Ondansetron HCl (Ondansetron Hcl 4 Mg/2 Ml Vial) 4 mg IVPUSH Q8H PRN PRN Reason: Nausea and Vomiting Pantoprazole Sodium (Pantoprazole Sodium 40 Mg/10 Ml Vial) 40 mg IVPUSH BID@0630,1630 [facility] Last Admin: 03/22/24 08:26 Dose: 40 mg Potassium Chloride (Potassium Chloride Packet 20 Meq Packet) 20 meq PO DAILY [facility] Last Admin: 03/22/24 08:27 Dose: 20 meq Sodium Chloride (0.9 % Sodium Chloride Flush 3 Ml Syringe) 3 ml IVFLUSH QSHIFT [facility] Last Admin: 03/22/24 08:26 Dose: 3 ml Valsartan (Valsartan 320 Mg Tablet) 320 mg PO DAILY [facility]; Protocol Last Admin: 03/21/24 09:51 Dose: 320 mg Home Medications ?Medication ?Instructions ?Recorded ?Confirmed ?Last Taken ?Type atorvastatin 40 mg tablet 1 tab PO BEDTIME 06/19/22 03/19/24 06/18/22 History cetirizine 10 mg tablet 1 tab PO QAM PRN allergies 06/19/22 03/19/24 Unknown History clopidogrel 75 mg tablet 1 tab PO BEDTIME 06/19/22 03/19/24 06/18/22 History docusate sodium 100 mg capsule 1 cap PO DAILY PRN Constipation 06/19/22 03/19/24 06/18/22 History famotidine 20 mg tablet 1 tab PO BEDTIME 06/19/22 03/19/24 06/18/22 History hydralazine 50 mg tablet 1 tab PO BID 06/19/22 03/19/24 12/13/22 History pantoprazole 40 mg tablet,delayed 1 tab PO DAILY@0630 06/19/22 03/19/24 12/13/22 History release metoprolol succinate 100 mg 100 mg PO QAM 12/13/22 03/19/24 Unknown History tablet,extended release 24 hr furosemide 20 mg tablet 20 mg PO QAM 03/19/24 03/19/24 Unknown History guaifenesin 100 mg/5 mL oral 200 mg PO Q4H PRN cough 03/19/24 03/19/24 Unknown History liquid (Alberta-Tussin) ibuprofen 600 mg tablet 600 mg PO Q8H PRN mild pain 03/19/24 03/19/24 Unknown History melatonin 3 mg tablet 6 mg PO BEDTIME PRN Sleep 03/19/24 03/19/24 Unknown History mirtazapine 30 mg tablet 30 mg PO BEDTIME 03/19/24 03/19/24 Unknown History potassium chloride 20 mEq oral 20 meq PO DAILY 03/19/24 03/19/24 Unknown History packet (Klor-Con) valsartan 320 mg tablet 320 mg PO DAILY 03/19/24 03/19/24 Unknown History Physical Exam Vital Signs: Last Vital Signs Temp 98.0 F 03/22/24 12:03 Pulse 74 03/22/24 12:09 Resp 18 03/22/24 12:03 BP 136/87 03/22/24 12:09 Pulse Ox 97 03/22/24 12:09 O2 Del Method Room Air 03/22/24 12:09 O2 Flow Rate 3 03/21/24 04:00 BMI result Body Mass Index 23.1 Const General: no acute distress Eyes EOM: EOMs intact bilaterally Neck Neck: Yes supple Resp Auscultation: diminished lung sounds Cardio Jugular venous distension: no JVD GI Palpation (GI): Soft to palpation General: Yes no CVA tenderness Back/Spine/Pelvis Back: no CVA tenderness Neuro General: moves all extremities Results Lab Results 03/22/24 06:31 03/22/24 06:31 Lab results: Chemistry 03/19/24 03/20/24 03/20/24 19:45 06:58 08:11 Sodium 138 140 141 Potassium 4.1 D 3.9 3.6 Carbon Dioxide 24 29 30 H BUN 11 12 12 Creatinine 0.97 1.16 1.18 Calcium 8.7 8.9 9.3 03/21/24 03/22/24 03/22/24 07:20 06:31 06:31 Sodium 140 141 142 Potassium 3.0 L 3.2 L Carbon Dioxide 30 H BUN 18 H Creatinine 1.11 Calcium 9.1 03/22/24 03/22/24 03/22/24 06:31 06:31 06:31 Sodium Potassium 3.3 Carbon Dioxide 27 26 BUN 23 H 23 H Creatinine 1.20 Calcium 03/22/24 03/22/24 06:31 06:31 Sodium Potassium Carbon Dioxide BUN Creatinine 1.28 Calcium 9.5 9.5 Hematology 03/22/24 06:31 Hgb 15.6 D Urinalysis 03/19/24 13:33 Urine Color Yellow Urine Appearance Clear Urine pH 6.5 Ur Specific [place] 1.025 Urine Protein Negative Urine Glucose (UA) Negative Urine Ketones Negative Urine Blood Negative Urine Nitrite Negative Ur Leukocyte Esterase Negative Assessment and Plan (1) Acute hypokalemia: Status: Acute (2) CKD stage 3a, GFR 45-59 ml/min: Status: Acute Plan Renal functions close to baseline Hypokalemia due to GI issues- improving Due EGD; No ACEI/ARB/NSAID's C/W rest of current management for now Needs follow up with [facility] after D/C Procedures Date of Service Date of Service: 03/22/24
[2024-03-22] MEDS: Doxycycline Hyclate 100 MG in 0.9 % Sodium Chloride 250 ML 166.67 MG IV (12:14)
--- NOTE | 2024-03-22 14:22 | HO.ANESPROP2 ---
HPI - Anesthesia Eval Consult details Narrative: for EGD [facility] Active Problems Active Problems: All Active Problems CKD stage 3a, GFR 45-59 ml/min (Acute) Preop cardiovascular exam (Acute) Abnormal CT of the abdomen (Acute) Acidosis, lactic (Acute) Nausea & vomiting (Acute) Dizziness (Acute) Acute hypokalemia (Acute) Past Medical History Medical History CAD (coronary artery disease) PAF (paroxysmal atrial fibrillation) Gastroesophageal reflux disease with esophagitis Burning with urination Abscess Urinary frequency Colon cancer screening Weight loss, abnormal GERD (gastroesophageal reflux disease) Chronic idiopathic constipation HTN (hypertension) Family History Family History Father Stroke Mother No problems noted. Family history of problems with anesthesia: No Surgical History Surgical History History of surgery Hx of colonoscopy History of Problems with Anesthesia: No Social History Social History Household Members: Spouse and Children Housing: House Do you presently have visiting nurse or other home services: No Alcohol intake: never Patient Tobacco Use Status: Former Tobacco user Quit Date: 2017 Tobacco use type: Cigarette Second Hand Smoke Exposure: No Advance Directives Date on File: 03/20/24 service: No Current occupational status: disabled Meds Allergies Allergy/AdvReac Type Severity Reaction Status Date / Time No Known Allergies Allergy Verified 03/19/24 08:33 [No Known Allergies*] Active Medications: Current Medications Acetaminophen (Acetaminophen 325 Mg Tablet) 650 mg PO Q6H PRN PRN Reason: Mild pain, fever, or headache Last Admin: 03/21/24 09:52 Dose: 650 mg Albuterol/Ipratropium (Albuterol/Iprat 2.5/0.5mg 3 Ml Ampul.Neb) 3 ml INHALE RQ4H WHILE AWAKE ELA Last Admin: 03/22/24 11:10 Dose: 3 ml Atorvastatin Calcium (Atorvastatin Calcium 40 Mg Tablet) 40 mg PO BEDTIME ELA Last Admin: 03/21/24 20:30 Dose: 40 mg Benzonatate (Benzonatate 100 Mg Capsule) 100 mg PO TID PRN PRN Reason: Cough Docusate Sodium (Docusate Sodium 100 Mg Capsule) 100 mg PO DAILY PRN PRN Reason: Constipation Famotidine (Famotidine 20 Mg Tablet) 20 mg PO BEDTIME [facility] Last Admin: 03/21/24 20:30 Dose: 20 mg Furosemide (Furosemide 20 Mg Tablet) 20 mg PO DAILY [facility]; Protocol Last Admin: 03/22/24 08:27 Dose: 20 mg Guaifenesin (Guaifenesin 100 Mg/5 Ml Liquid) 10 ml PO Q4H PRN PRN Reason: cough Dextrose/Sodium Chloride (D5ns) 1,000 mls @ 60 mls/hr IVCONT .[id number] [facility] Last Infusion: 03/22/24 11:30 Dose: 0 mls/hr Doxycycline Hyclate 100 mg/ (Sodium Chloride) 250 mls @ 166.67 mls/hr IV Q12H [facility] Last Infusion: 03/22/24 13:44 Dose: Infused Loratadine (Loratadine 10 Mg Tablet) 10 mg PO DAILY PRN PRN Reason: allergies Melatonin (Melatonin 3 Mg Tablet) 6 mg PO BEDTIME PRN PRN Reason: Insomnia Metoprolol Succinate (Metoprolol Succinate Er 100 Mg Tab.Er.24h) 100 mg PO DAILY [facility]; Protocol Last Admin: 03/22/24 08:27 Dose: 100 mg Mirtazapine (Mirtazapine 30 Mg Tablet) 30 mg PO BEDTIME [facility] Last Admin: 03/21/24 20:30 Dose: 30 mg Nitroglycerin (Nitroglycerin 0.4 Mg Tab.Subl) 0.4 mg SUBLINGUAL Q5MX3 PRN PRN Reason: Chest Pain Last Admin: 03/19/24 23:47 Dose: 0.4 mg Ondansetron HCl (Ondansetron Hcl 4 Mg/2 Ml Vial) 4 mg IVPUSH Q8H PRN PRN Reason: Nausea and Vomiting Pantoprazole Sodium (Pantoprazole Sodium 40 Mg/10 Ml Vial) 40 mg IVPUSH BID@0630,1630 [facility] Last Admin: 03/22/24 08:26 Dose: 40 mg Potassium Chloride (Potassium Chloride Packet 20 Meq Packet) 20 meq PO DAILY [facility] Last Admin: 03/22/24 08:27 Dose: 20 meq Sodium Chloride (0.9 % Sodium Chloride Flush 3 Ml Syringe) 3 ml IVFLUSH QSHIFT [facility] Last Admin: 03/22/24 08:26 Dose: 3 ml Valsartan (Valsartan 320 Mg Tablet) 320 mg PO DAILY [facility]; Protocol Last Admin: 03/21/24 09:51 Dose: 320 mg Home Medications ?Medication ?Instructions ?Recorded ?Confirmed ?Last Taken ?Type atorvastatin 40 mg tablet 1 tab PO BEDTIME 06/19/22 03/19/24 06/18/22 History cetirizine 10 mg tablet 1 tab PO QAM PRN allergies 06/19/22 03/19/24 Unknown History clopidogrel 75 mg tablet 1 tab PO BEDTIME 06/19/22 03/19/24 06/18/22 History docusate sodium 100 mg capsule 1 cap PO DAILY PRN Constipation 06/19/22 03/19/24 06/18/22 History famotidine 20 mg tablet 1 tab PO BEDTIME 06/19/22 03/19/24 06/18/22 History hydralazine 50 mg tablet 1 tab PO BID 06/19/22 03/19/24 12/13/22 History pantoprazole 40 mg tablet,delayed 1 tab PO DAILY@0630 06/19/22 03/19/24 12/13/22 History release metoprolol succinate 100 mg 100 mg PO QAM 12/13/22 03/19/24 Unknown History tablet,extended release 24 hr furosemide 20 mg tablet 20 mg PO QAM 03/19/24 03/19/24 Unknown History guaifenesin 100 mg/5 mL oral 200 mg PO Q4H PRN cough 03/19/24 03/19/24 Unknown History liquid ([place]-Tussin) ibuprofen 600 mg tablet 600 mg PO Q8H PRN mild pain 03/19/24 03/19/24 Unknown History melatonin 3 mg tablet 6 mg PO BEDTIME PRN Sleep 03/19/24 03/19/24 Unknown History mirtazapine 30 mg tablet 30 mg PO BEDTIME 03/19/24 03/19/24 Unknown History potassium chloride 20 mEq oral 20 meq PO DAILY 03/19/24 03/19/24 Unknown History packet (Klor-Con) valsartan 320 mg tablet 320 mg PO DAILY 03/19/24 03/19/24 Unknown History Exam Height,Weight and Vital Signs: Height 6 ft 2 in Weight 81.647 kg Last Vital Signs Temp 98.0 F 03/22/24 12:03 Pulse 74 05/20/24 12:09 Resp 18 03/22/24 12:03 BP 136/87 03/22/24 12:09 Pulse Ox 97 03/22/24 12:09 O2 Del Method Room Air 03/22/24 12:09 O2 Flow Rate 3 03/21/24 04:00 Pertinent Lab Results Pertinent Lab Results: Laboratory Tests 03/19/24 03/19/24 03/19/24 09:43 10:38 13:05 WBC 8.1 RBC 4.27 L Hgb 12.8 L Hct 38.4 L MCV 89.9 MCH 30.0 MCHC 33.3 RDW 15.5 Plt Count 138 L MPV 11.7 Immature Gran % (Auto) 0.2 Neut % (Auto) 86.8 H Lymph % (Auto) 6.8 L [place] % (Auto) 5.6 Eos % (Auto) 0.4 Baso % (Auto) 0.2 Lymph # (Auto) 0.6 L [place] # (Auto) 0.5 Eos # (Auto) 0.0 Baso # (Auto) 0.0 Abs Immat Gran (auto) 0.02 Absolute Neuts (auto) 7.0 Absolute Nucleated RBC 0.000 Nucleated RBC % (auto) 0.0 Hold Purple Top Sodium 141 Potassium 2.6 L* D Chloride 104 Carbon Dioxide 25 Anion Gap 15 BUN 13 Creatinine 1.23 Estim Creat Clear Calc 49.7 Estimated GFR 56 POC Glucose Random Glucose 188 H Lactic Acid 2.4 H* Lactic Acid F/U @ 2Hr 1.9 Calcium 8.5 D Magnesium 1.8 Total Bilirubin 0.5 Direct Bilirubin 0.3 AST 16 ALT 15 Alkaline Phosphatase 108 Troponin I High Sens 4.3 B-Natriuretic Peptide 146 H Total Protein 6.3 L Albumin 3.8 Lipase 22 Procalcitonin 0.02 Urine Color Urine Appearance Urine pH Ur Specific [place] Urine Protein Urine Glucose (UA) Urine Ketones Urine Blood Urine Nitrite Ur Leukocyte Esterase Ur Random Potassium Respiratory Panel [place] Adenovirus (Rapid PCR) B.pert (TEM-PCR) B.parapertussis DNA PCR C. pneumoniae DNA (PCR) Coronavirus OC43 (PCR) Coronavirus HKU1 (PCR) Coronavirus 229E (PCR) Coronavirus NL63 (PCR) Human Metapneumovir PCR Influenza A (RT-PCR) Influenza Type A (PCR) NEGATIVE Influenza B (RT-PCR) Influenza Type B (PCR) NEGATIVE M. pneumoniae (PCR) Parainfluenza 1 (PCR) Parainfluenza 2 (PCR) Parainfluenza 3 (PCR) Parainfluenza 4 (PCR) RSV (PCR) RSV RNA Qual (PCR) NEGATIVE Entero/Rhino (PCR) SARS-CoV-2 RNA (RT-PCR) NEGATIVE 03/19/24 03/19/24 03/19/24 13:33 19:45 23:26 WBC RBC Hgb Hct MCV MCH MCHC RDW Plt Count MPV Immature Gran % (Auto) Neut % (Auto) Lymph % (Auto) [place] % (Auto) Eos % (Auto) Baso % (Auto) Lymph # (Auto) [place] # (Auto) Eos # (Auto) Baso # (Auto) Abs Immat Gran (auto) Absolute Neuts (auto) Absolute Nucleated RBC Nucleated RBC % (auto) Hold Purple Top SEE NOTE Sodium 138 Potassium 4.1 D Chloride 104 Carbon Dioxide 24 Anion Gap 14 BUN 11 Creatinine 0.97 Estim Creat Clear Calc 63.1 Estimated GFR > 60 POC Glucose Random Glucose 103 Lactic Acid Lactic Acid F/U @ 2Hr Calcium 8.7 Magnesium Total Bilirubin Direct Bilirubin AST ALT Alkaline Phosphatase Troponin I High Sens 7.0 D B-Natriuretic Peptide Total Protein Albumin Lipase Procalcitonin Urine Color Yellow Urine Appearance Clear Urine pH 6.5 Ur Specific [place] 1.025 Urine Protein Negative Urine Glucose (UA) Negative Urine Ketones Negative Urine Blood Negative Urine Nitrite Negative Ur Leukocyte Esterase Negative Ur Random Potassium Respiratory Panel [place] Adenovirus (Rapid PCR) B.pert (TEM-PCR) B.parapertussis DNA PCR C. pneumoniae DNA (PCR) Coronavirus OC43 (PCR) Coronavirus HKU1 (PCR) Coronavirus 229E (PCR) Coronavirus NL63 (PCR) Human Metapneumovir PCR Influenza A (RT-PCR) Influenza Type A (PCR) Influenza B (RT-PCR) Influenza Type B (PCR) M. pneumoniae (PCR) Parainfluenza 1 (PCR) Parainfluenza 2 (PCR) Parainfluenza 3 (PCR) Parainfluenza 4 (PCR) RSV (PCR) RSV RNA Qual (PCR) Entero/Rhino (PCR) SARS-CoV-2 RNA (RT-PCR) 03/20/24 03/20/24 03/20/24 06:58 08:11 14:06 WBC RBC Hgb Hct MCV MCH MCHC RDW Plt Count MPV Immature Gran % (Auto) Neut % (Auto) Lymph % (Auto) [place] % (Auto) Eos % (Auto) Baso % (Auto) Lymph # (Auto) [place] # (Auto) Eos # (Auto) Baso # (Auto) Abs Immat Gran (auto) Absolute Neuts (auto) Absolute Nucleated RBC Nucleated RBC % (auto) Hold Purple Top Sodium 140 141 Potassium 3.9 3.6 Chloride 102 100 Carbon Dioxide 29 30 H Anion Gap 13 15 BUN 12 12 Creatinine 1.16 1.18 Estim Creat Clear Calc 52.7 51.8 Estimated GFR 60 59 POC Glucose Random Glucose 114 109 Lactic Acid Lactic Acid F/U @ 2Hr Calcium 8.9 9.3 Magnesium 2.0 Total Bilirubin Direct Bilirubin AST ALT Alkaline Phosphatase Troponin I High Sens B-Natriuretic Peptide 864 H Total Protein Albumin Lipase Procalcitonin Urine Color Urine Appearance Urine pH Ur Specific [place] Urine Protein Urine Glucose (UA) Urine Ketones Urine Blood Urine Nitrite Ur Leukocyte Esterase Ur Random Potassium Respiratory Panel [place] See Note Adenovirus (Rapid PCR) Not Detected B.pert (TEM-PCR) Not Detected B.parapertussis DNA PCR Not Detected C. pneumoniae DNA (PCR) Not Detected Coronavirus OC43 (PCR) Not Detected Coronavirus HKU1 (PCR) Not Detected Coronavirus 229E (PCR) Not Detected Coronavirus NL63 (PCR) Not Detected Human Metapneumovir PCR Detected A Influenza A (RT-PCR) Not Detected Influenza Type A (PCR) Influenza B (RT-PCR) Not Detected Influenza Type B (PCR) M. pneumoniae (PCR) Not Detected Parainfluenza 1 (PCR) Not Detected Parainfluenza 2 (PCR) Not Detected Parainfluenza 3 (PCR) Not Detected Parainfluenza 4 (PCR) Not Detected RSV (PCR) Not Detected RSV RNA Qual (PCR) Entero/Rhino (PCR) Not Detected SARS-CoV-2 RNA (RT-PCR) Not Detected 03/21/24 03/21/24 03/22/24 07:20 10:38 06:31 WBC RBC Hgb 15.6 D Hct 44.8 MCV MCH MCHC RDW Plt Count MPV Immature Gran % (Auto) Neut % (Auto) Lymph % (Auto) [place] % (Auto) Eos % (Auto) Baso % (Auto) Lymph # (Auto) [place] # (Auto) Eos # (Auto) Baso # (Auto) Abs Immat Gran (auto) Absolute Neuts (auto) Absolute Nucleated RBC Nucleated RBC % (auto) Hold Purple Top SEE NOTE Sodium 140 141 Potassium 3.0 L Chloride 98 Carbon Dioxide 30 H Anion Gap 15 BUN 18 H Creatinine 1.11 Estim Creat Clear Calc 55.1 Estimated GFR > 60 POC Glucose Random Glucose 89 Lactic Acid Lactic Acid F/U @ 2Hr Calcium 9.1 Magnesium Total Bilirubin Direct Bilirubin AST ALT Alkaline Phosphatase Troponin I High Sens B-Natriuretic Peptide Total Protein Albumin Lipase Procalcitonin Urine Color Urine Appearance Urine pH Ur Specific [place] Urine Protein Urine Glucose (UA) Urine Ketones Urine Blood Urine Nitrite Ur Leukocyte Esterase Ur Random Potassium 52.5 Respiratory Panel [place] Adenovirus (Rapid PCR) B.pert (TEM-PCR) B.parapertussis DNA PCR C. pneumoniae DNA (PCR) Coronavirus OC43 (PCR) Coronavirus HKU1 (PCR) Coronavirus 229E (PCR) Coronavirus NL63 (PCR) Human Metapneumovir PCR Influenza A (RT-PCR) Influenza Type A (PCR) Influenza B (RT-PCR) Influenza Type B (PCR) M. pneumoniae (PCR) Parainfluenza 1 (PCR) Parainfluenza 2 (PCR) Parainfluenza 3 (PCR) Parainfluenza 4 (PCR) RSV (PCR) RSV RNA Qual (PCR) Entero/Rhino (PCR) SARS-CoV-2 RNA (RT-PCR) 03/22/24 03/22/24 03/22/24 06:31 06:31 06:31 WBC RBC Hgb Hct MCV MCH MCHC RDW Plt Count MPV Immature Gran % (Auto) Neut % (Auto) Lymph % (Auto) [place] % (Auto) Eos % (Auto) Baso % (Auto) Lymph # (Auto) [place] # (Auto) Eos # (Auto) Baso # (Auto) Abs Immat Gran (auto) Absolute Neuts (auto) Absolute Nucleated RBC Nucleated RBC % (auto) Hold Purple Top Sodium 142 Potassium 3.2 L 3.3 Chloride 101 101 Carbon Dioxide 27 Anion Gap BUN Creatinine Estim Creat Clear Calc Estimated GFR POC Glucose Random Glucose Lactic Acid Lactic Acid F/U @ 2Hr Calcium Magnesium Total Bilirubin Direct Bilirubin AST ALT Alkaline Phosphatase Troponin I High Sens B-Natriuretic Peptide Total Protein Albumin Lipase Procalcitonin Urine Color Urine Appearance Urine pH Ur Specific [place] Urine Protein Urine Glucose (UA) Urine Ketones Urine Blood Urine Nitrite Ur Leukocyte Esterase Ur Random Potassium Respiratory Panel [place] Adenovirus (Rapid PCR) B.pert (TEM-PCR) B.parapertussis DNA PCR C. pneumoniae DNA (PCR) Coronavirus OC43 (PCR) Coronavirus HKU1 (PCR) Coronavirus 229E (PCR) Coronavirus NL63 (PCR) Human Metapneumovir PCR Influenza A (RT-PCR) Influenza Type A (PCR) Influenza B (RT-PCR) Influenza Type B (PCR) M. pneumoniae (PCR) Parainfluenza 1 (PCR) Parainfluenza 2 (PCR) Parainfluenza 3 (PCR) Parainfluenza 4 (PCR) RSV (PCR) RSV RNA Qual (PCR) Entero/Rhino (PCR) SARS-CoV-2 RNA (RT-PCR) 03/22/24 03/22/24 03/22/24 06:31 06:31 06:31 WBC RBC Hgb Hct MCV MCH MCHC RDW Plt Count MPV Immature Gran % (Auto) Neut % (Auto) Lymph % (Auto) [place] % (Auto) Eos % (Auto) Baso % (Auto) Lymph # (Auto) [place] # (Auto) Eos # (Auto) Baso # (Auto) Abs Immat Gran (auto) Absolute Neuts (auto) Absolute Nucleated RBC Nucleated RBC % (auto) Hold Purple Top Sodium Potassium Chloride Carbon Dioxide 26 Anion Gap 16 18 BUN 23 H 23 H Creatinine 1.20 Estim Creat Clear Calc Estimated GFR POC Glucose Random Glucose Lactic Acid Lactic Acid F/U @ 2Hr Calcium Magnesium Total Bilirubin Direct Bilirubin AST ALT Alkaline Phosphatase Troponin I High Sens B-Natriuretic Peptide Total Protein Albumin Lipase Procalcitonin Urine Color Urine Appearance Urine pH Ur Specific [place] Urine Protein Urine Glucose (UA) Urine Ketones Urine Blood Urine Nitrite Ur Leukocyte Esterase Ur Random Potassium Respiratory Panel [place] Adenovirus (Rapid PCR) B.pert (TEM-PCR) B.parapertussis DNA PCR C. pneumoniae DNA (PCR) Coronavirus OC43 (PCR) Coronavirus HKU1 (PCR) Coronavirus 229E (PCR) Coronavirus NL63 (PCR) Human Metapneumovir PCR Influenza A (RT-PCR) Influenza Type A (PCR) Influenza B (RT-PCR) Influenza Type B (PCR) M. pneumoniae (PCR) Parainfluenza 1 (PCR) Parainfluenza 2 (PCR) Parainfluenza 3 (PCR) Parainfluenza 4 (PCR) RSV (PCR) RSV RNA Qual (PCR) Entero/Rhino (PCR) SARS-CoV-2 RNA (RT-PCR) 03/22/24 03/22/24 03/22/24 06:31 06:31 06:31 WBC RBC Hgb Hct MCV MCH MCHC RDW Plt Count MPV Immature Gran % (Auto) Neut % (Auto) Lymph % (Auto) [place] % (Auto) Eos % (Auto) Baso % (Auto) Lymph # (Auto) [place] # (Auto) Eos # (Auto) Baso # (Auto) Abs Immat Gran (auto) Absolute Neuts (auto) Absolute Nucleated RBC Nucleated RBC % (auto) Hold Purple Top Sodium Potassium Chloride Carbon Dioxide Anion Gap BUN Creatinine 1.28 Estim Creat Clear Calc 51.0 47.8 Estimated GFR 57 53 POC Glucose Random Glucose 90 Lactic Acid Lactic Acid F/U @ 2Hr Calcium Magnesium Total Bilirubin Direct Bilirubin AST ALT Alkaline Phosphatase Troponin I High Sens B-Natriuretic Peptide Total Protein Albumin Lipase Procalcitonin Urine Color Urine Appearance Urine pH Ur Specific [place] Urine Protein Urine Glucose (UA) Urine Ketones Urine Blood Urine Nitrite Ur Leukocyte Esterase Ur Random Potassium Respiratory Panel [place] Adenovirus (Rapid PCR) B.pert (TEM-PCR) B.parapertussis DNA PCR C. pneumoniae DNA (PCR) Coronavirus OC43 (PCR) Coronavirus HKU1 (PCR) Coronavirus 229E (PCR) Coronavirus NL63 (PCR) Human Metapneumovir PCR Influenza A (RT-PCR) Influenza Type A (PCR) Influenza B (RT-PCR) Influenza Type B (PCR) M. pneumoniae (PCR) Parainfluenza 1 (PCR) Parainfluenza 2 (PCR) Parainfluenza 3 (PCR) Parainfluenza 4 (PCR) RSV (PCR) RSV RNA Qual (PCR) Entero/Rhino (PCR) SARS-CoV-2 RNA (RT-PCR) 03/22/24 03/22/24 03/22/24 06:31 06:31 08:22 WBC RBC Hgb Hct MCV MCH MCHC RDW Plt Count MPV Immature Gran % (Auto) Neut % (Auto) Lymph % (Auto) [place] % (Auto) Eos % (Auto) Baso % (Auto) Lymph # (Auto) [place] # (Auto) Eos # (Auto) Baso # (Auto) Abs Immat Gran (auto) Absolute Neuts (auto) Absolute Nucleated RBC Nucleated RBC % (auto) Hold Purple Top Sodium Potassium Chloride Carbon Dioxide Anion Gap BUN Creatinine Estim Creat Clear Calc Estimated GFR POC Glucose 87 Random Glucose 90 Lactic Acid Lactic Acid F/U @ 2Hr Calcium 9.5 9.5 Magnesium Total Bilirubin Direct Bilirubin AST ALT Alkaline Phosphatase Troponin I High Sens B-Natriuretic Peptide Total Protein Albumin Lipase Procalcitonin Urine Color Urine Appearance Urine pH Ur Specific [place] Urine Protein Urine Glucose (UA) Urine Ketones Urine Blood Urine Nitrite Ur Leukocyte Esterase Ur Random Potassium Respiratory Panel [place] Adenovirus (Rapid PCR) B.pert (TEM-PCR) B.parapertussis DNA PCR C. pneumoniae DNA (PCR) Coronavirus OC43 (PCR) Coronavirus HKU1 (PCR) Coronavirus 229E (PCR) Coronavirus NL63 (PCR) Human Metapneumovir PCR Influenza A (RT-PCR) Influenza Type A (PCR) Influenza B (RT-PCR) Influenza Type B (PCR) M. pneumoniae (PCR) Parainfluenza 1 (PCR) Parainfluenza 2 (PCR) Parainfluenza 3 (PCR) Parainfluenza 4 (PCR) RSV (PCR) RSV RNA Qual (PCR) Entero/Rhino (PCR) SARS-CoV-2 RNA (RT-PCR) 03/22/24 11:54 WBC RBC Hgb Hct MCV MCH MCHC RDW Plt Count MPV Immature Gran % (Auto) Neut % (Auto) Lymph % (Auto) [place] % (Auto) Eos % (Auto) Baso % (Auto) Lymph # (Auto) [place] # (Auto) Eos # (Auto) Baso # (Auto) Abs Immat Gran (auto) Absolute Neuts (auto) Absolute Nucleated RBC Nucleated RBC % (auto) Hold Purple Top Sodium Potassium Chloride Carbon Dioxide Anion Gap BUN Creatinine Estim Creat Clear Calc Estimated GFR POC Glucose 90 Random Glucose Lactic Acid Lactic Acid F/U @ 2Hr Calcium Magnesium Total Bilirubin Direct Bilirubin AST ALT Alkaline Phosphatase Troponin I High Sens B-Natriuretic Peptide Total Protein Albumin Lipase Procalcitonin Urine Color Urine Appearance Urine pH Ur Specific [place] Urine Protein Urine Glucose (UA) Urine Ketones Urine Blood Urine Nitrite Ur Leukocyte Esterase Ur Random Potassium Respiratory Panel [place] Adenovirus (Rapid PCR) B.pert (TEM-PCR) B.parapertussis DNA PCR C. pneumoniae DNA (PCR) Coronavirus OC43 (PCR) Coronavirus HKU1 (PCR) Coronavirus 229E (PCR) Coronavirus NL63 (PCR) Human Metapneumovir PCR Influenza A (RT-PCR) Influenza Type A (PCR) Influenza B (RT-PCR) Influenza Type B (PCR) M. pneumoniae (PCR) Parainfluenza 1 (PCR) Parainfluenza 2 (PCR) Parainfluenza 3 (PCR) Parainfluenza 4 (PCR) RSV (PCR) RSV RNA Qual (PCR) Entero/Rhino (PCR) SARS-CoV-2 RNA (RT-PCR) Airway Mallampati Class: II TM Dist: >3cm Neck ROM: Full Denture: Upper and Lower Heart: ok. see above. cleared by Dr. Osman. Lungs: ok. SpO2 95% on room air. Assessment and Plan Assessment Anesthesia Assessment: Anesthesia Plan Discussed and Chart Reviewed Final Anesthetic Review Family History of Problems with Anesthesia: No History of Problems with Anesthesia: No NPO: Yes ASA Class: IV Final Preanesthetic Review: No Changes in Pt Med Stat, Meds/Allgs Chart Reviewed, Consent Obtained/Reviewed and Anes Risks/Benef Reviewed Patient Risk: High Procedure Risk: Intermediate Anesthetic Plan Anesthetic Plan: Agree w/ Assess. and Plan and TIVA Disposition: Standard PACU
--- NOTE | 2024-03-22 14:59 | HO.PM.IMPN ---
Subjective Subjective Date of Service: 03/22/24 Interval History: acute on ch diastolic chf excerebation Review of Systems dizziness improving denies any nausea or vomiting Review of Systems: Yes all other systems are reviewed and are negative Physical Exam Vital Signs: Vital Signs: Last Vital Signs Temp 98.0 F 03/22/24 12:03 Pulse 74 03/22/24 12:09 Resp 18 03/22/24 12:03 BP 136/87 03/22/24 12:09 Pulse Ox 97 03/22/24 12:09 O2 Del Method Room Air 03/22/24 12:09 O2 Flow Rate 3 03/21/24 04:00 BMI result Body Mass Index 23.1 Appearance: Alert.? Oriented X3.? cvs: rrr, [id number] . res: clear to auscultation ,no rhonchii or wheezing abd: no rebound or guarding ,nt, bs present. ext pulses present , no cyanosis . neuro: axo3 , nonfocal. Objective Data Active Medications Acetaminophen (Acetaminophen 325 Mg Tablet) 650 mg PO Q6H PRN PRN Reason: Mild pain, fever, or headache Last Admin: 03/21/24 09:52 Dose: 650 mg Documented By: JERRICA Albuterol/Ipratropium (Albuterol/Iprat 2.5/0.5mg 3 Ml Ampul.Neb) 3 ml INHALE RQ4H WHILE AWAKE [facility] Last Admin: 03/22/24 11:10 Dose: 3 ml Documented By: ADAMS Atorvastatin Calcium (Atorvastatin Calcium 40 Mg Tablet) 40 mg PO BEDTIME [facility] Last Admin: 03/21/24 20:30 Dose: 40 mg Documented By: ZULEMA Benzonatate (Benzonatate 100 Mg Capsule) 100 mg PO TID PRN PRN Reason: Cough Docusate Sodium (Docusate Sodium 100 Mg Capsule) 100 mg PO DAILY PRN PRN Reason: Constipation Famotidine (Famotidine 20 Mg Tablet) 20 mg PO BEDTIME [facility] Last Admin: 03/21/24 20:30 Dose: 20 mg Documented By: ZULEMA Furosemide (Furosemide 20 Mg Tablet) 20 mg PO DAILY [facility]; Protocol Last Admin: 03/22/24 08:27 Dose: 20 mg Documented By: KYA Guaifenesin (Guaifenesin 100 Mg/5 Ml Liquid) 10 ml PO Q4H PRN PRN Reason: cough Dextrose/Sodium Chloride (D5ns) 1,000 mls @ 60 mls/hr IVCONT .[id number] [facility] Last Infusion: 03/22/24 11:30 Dose: 0 mls/hr Documented By: KYA Doxycycline Hyclate 100 mg/ (Sodium Chloride) 250 mls @ 166.67 mls/hr IV Q12H [facility] Last Infusion: 03/22/24 13:44 Dose: Infused Documented By: KYA Loratadine (Loratadine 10 Mg Tablet) 10 mg PO DAILY PRN PRN Reason: allergies Melatonin (Melatonin 3 Mg Tablet) 6 mg PO BEDTIME PRN PRN Reason: Insomnia Metoprolol Succinate (Metoprolol Succinate Er 100 Mg Tab.Er.24h) 100 mg PO DAILY [facility]; Protocol Last Admin: 03/22/24 08:27 Dose: 100 mg Documented By: KYA Mirtazapine (Mirtazapine 30 Mg Tablet) 30 mg PO BEDTIME [facility] Last Admin: 03/21/24 20:30 Dose: 30 mg Documented By: ZULEMA Nitroglycerin (Nitroglycerin 0.4 Mg Tab.Subl) 0.4 mg SUBLINGUAL Q5MX3 PRN PRN Reason: Chest Pain Last Admin: 03/19/24 23:47 Dose: 0.4 mg Documented By: SILVIA Ondansetron HCl (Ondansetron Hcl 4 Mg/2 Ml Vial) 4 mg IVPUSH Q8H PRN PRN Reason: Nausea and Vomiting Pantoprazole Sodium (Pantoprazole Sodium 40 Mg/10 Ml Vial) 40 mg IVPUSH BID@0630,1630 [facility] Last Admin: 03/22/24 08:26 Dose: 40 mg Documented By: KYA Potassium Chloride (Potassium Chloride Packet 20 Meq Packet) 20 meq PO DAILY [facility] Last Admin: 03/22/24 08:27 Dose: 20 meq Documented By: KYA Sodium Chloride (0.9 % Sodium Chloride Flush 3 Ml Syringe) 3 ml IVFLUSH QSHIFT [facility] Last Admin: 03/22/24 08:26 Dose: 3 ml Documented By: KYA Valsartan (Valsartan 320 Mg Tablet) 320 mg PO DAILY [facility]; Protocol Last Admin: 03/21/24 09:51 Dose: 320 mg Documented By: JERRICA Labs 03/22/24 06:31 03/22/24 06:31 Labs: Laboratory Results - last 24 hr 03/22/24 03/22/24 03/22/24 06:31 06:31 06:31 Anion Gap 16 18 Estim Creat Clear Calc 51.0 47.8 Estimated GFR 57 POC Glucose Random Glucose Calcium 03/22/24 03/22/24 03/22/24 06:31 06:31 06:31 Anion Gap Estim Creat Clear Calc Estimated GFR 53 POC Glucose Random Glucose 90 90 Calcium 9.5 9.5 03/22/24 03/22/24 08:22 11:54 Anion Gap Estim Creat Clear Calc Estimated GFR POC Glucose 87 90 Random Glucose Calcium Microbiology Microbiology Results: Microbiology 03/19/24 09:43 Blood Culture - Preliminary Blood - Venous No growth after 48 hours. 03/19/24 09:43 Blood Culture - Preliminary Blood - Venous No growth after 48 hours. Assessment and Plan (1) Abnormal CT of the abdomen: Status: Acute (2) Nausea & vomiting: Status: Acute (3) Dizziness: Status: Acute (4) Acute hypokalemia: Status: Acute Assessment and Plan: 88-year-old [place]ian-speaking male with a PMH significant for?paroxysmal AFib on Eliquis, CAD, HTN, diastolic HF, BPH, and GERD who presents to the ED for evaluation of lightheadedness/dizziness nausea, vomiting since earlier this morning. Pt will be admitted to the hospital for treatment and further evaluation of hypokalemia in the setting of intractable nausea and vomiting. possible chf(HFpEF exceerbation) /afib episode : elevated bnp,mild leg edema received iv lasix ,off diltiazem drip. echo pending Continue metoprolol and lasix. Intractable nausea and vomiting unclear etiology(possible viral vs related to below abd ct). res panel-positive for human metapneumovirus diaphoresis, N/V improved dizziness also improved significantly with holding bp meds . CT showing circumferential thickened gastric body and greater curvature, concerning for possible gastric neoplasm vs gastritis. ct head -ch changes. plan: continue clears, npo past midnight for egd ,antiemetics,ppi,gentle hydration until egd done. GI consult for evaluation of CT findings: d/w Gi-hold eliquis/plavix ,egd will be on today. Acute on chronic hypokalemia improved with repletion. acute Lactic acidosis, resolved with ivf. Secondary to dehydration, not sepsis Prolonged QTc-possible sec to hypokalemia will replete potassium, moniter on tele. Paroxysmal AFib-Continue metoprolol, Eliquis CAD/HLD-Continue Plavix, statin -Not in acute exacerbation Continue home furosemide GERD Continue PPI Full Code DVT Prophylaxis: scd ongoing hospitalization need for treatment of?acute hypokalemia in the setting of intractable nausea and vomiting. unable to tolerate p.o. and given severity electrolyte abnormalities, iv lasix,IV antiemetics, electrolyte supplementation, and close monitoring of labs,also workup for abnormal ct abd . Quality Stroke Does the patient have a stroke diagnosis?: No VTE Prior VTE?: No VTE Risk Level:: Medical - moderate - high VTE Device Contraindication: Treatment Not Indicated VTE Drug Contraindication: N/A - Med Ordered
--- NOTE | 2024-03-22 15:47 | P.BOP_ITS ---
Brief Operative Note Date of Service: 03/22/24 Pre-op diagnosis: Abnormal CT of stomach Post-op diagnosis: other (Mild gastritis. Hiatal hernia) Procedure: EGD Surgeon: Solo Colón MD Anesthesia: MAC Was an Journeyman [employer]ier used for this Procedure?: No Estimated blood loss (mL): 0 Pathology: none sent Condition: stable Disposition: floor (No PACU as he was on Droplet Precautions )
--- NOTE | 2024-03-22 15:48 | PM.EVENT ---
Event Note Date of Service: 03/22/24 Event Note: GI-EGD-Full note dictated Findings: 1. Small hiatal hernia 2. Minimal gastritis. Biopsies not taken as he is going back on blood thinners. 3. No cancer nor ulcer disease. Rec: Advance diet and change back to his po PPI. Restart blood thinners as per the Hospitalist Service. Thanks Time Spent With Patient Time: Total time managing care of this patient today ____ minutes.
--- NOTE | 2024-03-22 16:37 | OP_ITS ---
DATE OF SERVICE: 03/22/2024 SURGEON: Solo Colón MD INDICATIONS: The patient presents for evaluation of previous vomiting and abnormal CT scan of stomach. Full consent has been obtained from him with the assistance of a certified medical assistant, including risks of bleeding and perforation. PREOPERATIVE DIAGNOSIS: POSTOPERATIVE DIAGNOSIS: PROCEDURE PERFORMED: Esophagogastroduodenoscopy. ESTIMATED BLOOD LOSS: COMPLICATIONS: ANESTHESIA: Monitored anesthesia care. ASSISTANTS: SPECIMENS: PREOPERATIVE DIAGNOSES: Vomiting and abnormal CT scan of stomach. POSTOPERATIVE DIAGNOSES: Vomiting, abnormal CT scan of stomach, minimal gastritis, and small hiatal hernia. DESCRIPTION OF PROCEDURE: The patient was placed in the left lateral decubitus position. The Olympus video gastroscope was passed in the posterior oropharynx and upper esophagus under direct vision. The scope was passed slowly into the distal esophagus. The gastroesophageal junction appeared normal at 36 cm. There was no sign of any esophagitis nor any mass. The scope entered the stomach. There was a small hiatal hernia. The scope was advanced to pylorus and the duodenum was cannulated to the descending portion. The duodenum including the bulb appeared normal without mass or ulceration. The scope was withdrawn back to the stomach. The gastric antrum and body had some mild areas of erythema, but no erosions or ulceration. There was good peristalsis. The scope was retroflexed visualizing the proximal stomach carefully, which appeared normal, without any sign of mass or ulceration. Scope was straightened. Biopsies were not obtained as he has to go back on his blood thinners. The scope was withdrawn back to the esophagus. The esophageal mucosa appeared normal. The scope was withdrawn from the patient. He tolerated the procedure well and was returned to the recovery area in stable condition. IMPRESSION: 1. Small hiatal hernia. 2. Minimal gastritis. 3. No evidence of malignancy nor ulcer disease. PLAN: The patient will have his diet advanced. He will be switched from his IV PPI to his p.o. omeprazole. His H2 corinna will be stopped as well. His diet will be advanced and I think he can resume his blood thinners as needed since he did not have any biopsies today. As long as he is tolerating his diet, then I do not think any further workup is needed from a GI standpoint. MD MERCY Tyler/AYE / [phone]
[2024-03-22 16:46] LABS: Glucose, Whole Blood 90 mg/dL (60-115)
[2024-03-22] MEDS: Atorvastatin Calcium 40 MG TABLET PO (21:40)
[2024-03-22] MEDS: Mirtazapine 30 MG TABLET PO (21:40)
[2024-03-22] MEDS: Doxycycline Hyclate 100 MG in 0.9 % Sodium Chloride 250 ML IV (23:23)
[2024-03-23] VITALS (10 sets, daily range): BP systolic 117–160; BP diastolic 72–90; PULSE 63–89; RESP 18–20; TEMP 36.3–36.7; O2SAT 93–100
[2024-03-23] MEDS: 0.9 % Sodium Chloride Flush 3 ML SYRINGE IVFLUSH ×3 (02:13→23:55)
[2024-03-23] MEDS: Omeprazole 20 MG CAPSULE.DR PO (05:55)
[2024-03-23] MEDS: Albuterol/Iprat 2.5/0.5MG 3 ML AMPUL.NEB INHALE ×3 (08:15→19:38)
--- NOTE | 2024-03-23 10:08 | P.PNNP_ITS ---
Subjective Subjective Date of Service: 03/23/24 Interval history: Events noted Physical Exam 2 Vital Signs: Vital Signs: Last Vital Signs Temp 97.4 F 03/23/24 07:31 Pulse 89 03/23/24 08:17 Resp 18 03/23/24 08:17 BP 160/83 H 03/23/24 07:31 Pulse Ox 94 03/23/24 07:31 O2 Del Method Room Air 03/23/24 07:31 O2 Flow Rate 3 03/21/24 04:00 BMI result Body Mass Index 23.1 Const: General: ill appearing Eyes: EOM: EOMs intact bilaterally Neck: Neck: Yes supple Resp: Auscultation: clear to auscultation bilaterally Cardio: Jugular venous distension: no JVD Palpation: no palpable S3 H eart sounds: no rubs GI: Palpation (GI): Soft to palpation Auscultation: normal bowel sounds : General: Yes no CVA tenderness Back/Spine/Pelvis: Back: no CVA tenderness Neuro: General: moves all extremities Motor exam (neuro): no asterixis Objective Data Labs 03/22/24 06:31 03/22/24 06:31 Labs: Laboratory Results - last 24 hr 03/22/24 03/22/24 11:54 16:42 POC Glucose 90 90 Microbiology Microbiology Results: Microbiology 03/19/24 09:43 Blood - Venous Blood Culture - Preliminary No growth after 48 hours. 03/19/24 09:43 Blood - Venous Blood Culture - Preliminary No growth after 48 hours. Procedures Date of Service Date of Service: 03/23/24 Assessment & Plan Assessment and plan (1) Acute hypokalemia: Status: Acute (2) CKD stage 3a, GFR 45-59 ml/min: Status: Acute Plan Renal functions close to baseline Creatinine at 1.28 Hypokalemia due to alkalosis secondary to vomiting and loss of protons. Potassium to improve as alkalosis improves. Needs antiemetics. Replace potassium as needed Watch renal function for now. Given the history of CHF agree with low-dose diuretics. Currently on furosemide 20 mg. Would consider switching to spironolactone C/W rest of current management for now Needs follow up with [facility] after D/C Time Spent With Patient Time: Total time managing care of this patient today ____ minutes. Progress Note: Quality Stroke Does the patient have a stroke diagnosis?: No
[2024-03-23] MEDS: Valsartan 320 MG TABLET PO (10:57)
[2024-03-23] MEDS: Metoprolol Succinate ER 100 MG TAB.ER.24H PO (10:57)
[2024-03-23] MEDS: Furosemide 20 MG TABLET PO (10:58)
[2024-03-23] MEDS: Potassium Chloride Packet 20 MEQ PACKET PO (10:58)
[2024-03-23] MEDS: Doxycycline Hyclate 100 MG in 0.9 % Sodium Chloride 250 ML IV ×2 (11:01→23:55)
--- NOTE | 2024-03-23 13:44 | HO.PM.IMPN ---
Subjective Subjective Date of Service: 03/23/24 Interval History: appetiteimproved, no further vomitting Physical Exam Vital Signs: Vital Signs: Last Vital Signs Temp 98.1 F 03/23/24 11:08 Pulse 75 03/23/24 11:08 Resp 18 03/23/24 11:08 BP 157/88 H 03/23/24 11:08 Pulse Ox 94 03/23/24 11:08 O2 Del Method Room Air 03/23/24 11:08 O2 Flow Rate 3 03/21/24 04:00 BMI result Body Mass Index 23.1 General: AO X 3, no acute distress, hard of hearing Resp: CTA bilateral, no accessory muscles used CVS: S1,S2,RRR GI: soft, non tender, non distended Neuro: motor grossly intact, alert Psych: appropriate affect, appropriate insight Objective Data Active Medications Acetaminophen (Acetaminophen 325 Mg Tablet) 650 mg PO Q6H PRN PRN Reason: Mild pain, fever, or headache Last Admin: 03/21/24 09:52 Dose: 650 mg Documented By: JERRICA Albuterol/Ipratropium (Albuterol/Iprat 2.5/0.5mg 3 Ml Ampul.Neb) 3 ml INHALE RQ4H WHILE AWAKE [facility] Last Admin: 03/23/24 11:45 Dose: Not Given Documented By: NGHIA Non-Admin Reason: Patient Asleep Atorvastatin Calcium (Atorvastatin Calcium 40 Mg Tablet) 40 mg PO BEDTIME [facility] Last Admin: 03/22/24 21:40 Dose: 40 mg Documented By: COLASSusan Benzonatate (Benzonatate 100 Mg Capsule) 100 mg PO TID PRN PRN Reason: Cough Docusate Sodium (Docusate Sodium 100 Mg Capsule) 100 mg PO DAILY PRN PRN Reason: Constipation Furosemide (Furosemide 20 Mg Tablet) 20 mg PO DAILY [facility]; Protocol Last Admin: 03/23/24 10:58 Dose: 20 mg Documented By: LINDA Guaifenesin (Guaifenesin 100 Mg/5 Ml Liquid) 10 ml PO Q4H PRN PRN Reason: cough Doxycycline Hyclate 100 mg/ (Sodium Chloride) 250 mls @ 166.67 mls/hr IV Q12H [facility] Last Infusion: 03/23/24 13:42 Dose: Infused Documented By: LINDA Loratadine (Loratadine 10 Mg Tablet) 10 mg PO DAILY PRN PRN Reason: allergies Melatonin (Melatonin 3 Mg Tablet) 6 mg PO BEDTIME PRN PRN Reason: Insomnia Metoprolol Succinate (Metoprolol Succinate Er 100 Mg Tab.Er.24h) 100 mg PO DAILY [facility]; Protocol Last Admin: 03/23/24 10:57 Dose: 100 mg Documented By: LINDA Mirtazapine (Mirtazapine 30 Mg Tablet) 30 mg PO BEDTIME [facility] Last Admin: 03/22/24 21:40 Dose: 30 mg Documented By: SAM Nitroglycerin (Nitroglycerin 0.4 Mg Tab.Subl) 0.4 mg SUBLINGUAL Q5MX3 PRN PRN Reason: Chest Pain Last Admin: 03/19/24 23:47 Dose: 0.4 mg Documented By: SILVIA Omeprazole (Omeprazole 20 Mg Capsule.Dr) 20 mg PO DAILY@0630 [facility] Last Admin: 03/23/24 05:55 Dose: 20 mg Documented By: SAM Ondansetron HCl (Ondansetron Hcl 4 Mg/2 Ml Vial) 4 mg IVPUSH Q8H PRN PRN Reason: Nausea and Vomiting Potassium Chloride (Potassium Chloride Packet 20 Meq Packet) 20 meq PO DAILY [facility] Last Admin: 03/23/24 10:58 Dose: 20 meq Documented By: LINDA Sodium Chloride (0.9 % Sodium Chloride Flush 3 Ml Syringe) 3 ml IVFLUSH QSHIFT [facility] Last Admin: 03/23/24 11:08 Dose: 3 ml Documented By: LINDA Valsartan (Valsartan 320 Mg Tablet) 320 mg PO DAILY [facility]; Protocol Last Admin: 03/23/24 10:57 Dose: 320 mg Documented By: LINDA Labs 03/22/24 06:31 03/22/24 06:31 Labs: Laboratory Results - last 24 hr 03/22/24 16:42 POC Glucose 90 Assessment and Plan (1) Abnormal CT of the abdomen: Status: Acute (2) Nausea & vomiting: Status: Acute (3) Dizziness: Status: Acute (4) Acute hypokalemia: Status: Acute Assessment and Plan: 88M PMH significant for?paroxysmal AFib on Eliquis, CAD, HTN, diastolic HF, BPH, and GERD who presented to the ED for evaluation of lightheadedness/dizziness nausea, vomiting Pt admitted to the hospital for treatment and further evaluation of hypokalemia in the setting of intractable nausea and vomiting. Intractable nausea and vomiting complicated by acute hypokalemia res panel-positive for human metapneumovirus diaphoresis, N/V improved dizziness also improved significantly with holding hydralazine EGD with mild gastritis only, continue omeprazole p.o. ct head unremarkable Monitor for tolerance of p.o., monitor potassium Paroxysmal AFib Continue metoprolol, Eliquis CAD/HLD- Continue Plavix, statin Acute on chronic diastolic CHF Likely in setting of over hydration, uncontrolled hypertension Now back on p.o. Lasix Full Code DVT Prophylaxis: Eliquis reason for continued hospitalization: Monitoring for tolerance of p.o., electrolytes Quality Stroke Does the patient have a stroke diagnosis?: No VTE Prior VTE?: No VTE Risk Level:: Medical - moderate - high VTE Device Contraindication: Treatment Not Indicated VTE Drug Contraindication: N/A - Med Ordered
--- NOTE | 2024-03-23 14:52 | HO.POSTANES ---
Post Anesthesia Evaluation Post Anesthesia Evaluation Date of Service: 03/22/24 Vital Signs: Vital Signs Temp Pulse Resp BP Pulse Ox O2 Del Method 03/23/24 11:08 98.1 F 75 18 157/88 H 94 Room Air 03/23/24 08:17 89 18 03/23/24 07:31 97.4 F 83 18 160/83 H 94 Room Air 03/23/24 04:00 97.7 F 72 18 137/84 96 Room Air Anesthesia: Monitored Mental Status: Awake Pain Control: Satisfactory Nausea/Vomiting: None Hydration: Adequate Anesthesia-Related Issues: No Anes. Related Issues
--- NOTE | 2024-03-23 15:25 | MHC.CM.PN ---
EMR reviewed and per MD rounds, pt is not medically cleared for discharge due to awaiting PO tolerance.
[2024-03-23] MEDS: Atorvastatin Calcium 40 MG TABLET PO (21:53)
[2024-03-23] MEDS: Apixaban 2.5 MG TABLET PO (21:53)
[2024-03-23] MEDS: Mirtazapine 30 MG TABLET PO (21:53)
[2024-03-24] VITALS (7 sets, daily range): BP systolic 146–152; BP diastolic 82–86; PULSE 75–90; RESP 18–20; TEMP 36.1–36.9; O2SAT 95–96
[2024-03-24 06:36] LABS: Hematocrit 41.2 % (42.0-52.0); Hemoglobin 14.3 g/dl (14.0-18.0); Mean Corpuscular HGB Conc 34.7 g/dl (31.0-36.0); Mean Corpuscular Volume 86.4 fL (80.0-98.0); Mean Platelet Volume 11.7 fL (9.4-12.4); Platelet Count 166 X10*3/uL (160-400); Red Blood Count 4.77 X10*6/uL (4.60-5.80); Red Cell Distribution Width 14.4 % (11.0-16.0); White Blood Count 6.9 X10*3/uL (4.8-10.8)
[2024-03-24] MEDS: Omeprazole 20 MG CAPSULE.DR PO (06:38)
[2024-03-24 06:54] LABS: Alanine Aminotransferase 9 U/L (0-40); Albumin Level 3.5 g/dL (3.5-5.0); Alkaline Phosphatase 83 U/L (39-117); Anion Gap 14 (12-20); Aspartate Amino Transferase 15 U/L (5-37); Bilirubin Direct 0.4 mg/dL (0.0-0.5); Blood Urea Nitrogen 22 mg/dL (9-16); Carbon Dioxide 25 mmol/L (22-29); Chloride 105 mmol/L (96-108); Creatinine Clr Calc Pharmacy 58.8; Estimated Glomerular Filt Rate > 60; Glucose Fasting 97 mg/dL (60-99); Magnesium 1.7 mg/dL (1.6-2.6); Sodium 141 mmol/L (135-145); Total Protein 6.1 g/dL (6.5-8.0)
[2024-03-24] MEDS: Albuterol/Iprat 2.5/0.5MG 3 ML AMPUL.NEB INHALE ×2 (07:59→11:35)
[2024-03-24] MEDS: Magnesium Oxide 400 MG TABLET 800 MG PO (10:34)
[2024-03-24] MEDS: Furosemide 20 MG TABLET PO (10:34)
[2024-03-24] MEDS: Valsartan 320 MG TABLET PO (10:35)
[2024-03-24] MEDS: Potassium Chloride ER 20 MEQ TAB.ER.PRT 40 MEQ PO (10:35)
[2024-03-24] MEDS: Metoprolol Succinate ER 100 MG TAB.ER.24H PO (10:35)
[2024-03-24] MEDS: Apixaban 2.5 MG TABLET PO (10:36)
[2024-03-24] MEDS: Doxycycline Hyclate 100 MG in 0.9 % Sodium Chloride 250 ML 166.67 MG IV (10:36)
[2024-03-24] MEDS: 0.9 % Sodium Chloride Flush 3 ML SYRINGE IVFLUSH (10:36)
[2024-03-24] MEDS: Potassium Chloride Packet 20 MEQ PACKET PO (10:36)
--- NOTE | 2024-03-24 10:36 | PM.DS ---
DS: Providers Provider Date of Service: 03/24/24 Date of admission: 03/19/24 13:59 Primary care physician: Nasim Dela Cruz MD Consults: 03/19/24 13:47 Consult to Gastroenterology Routine Consulting Provider: Solo Colón Reason for consultation: Pt with intractable N/V, CT with ?gastric neoplasm vs gastritis 03/19/24 17:09 Consult to Nephrology Routine Consulting Provider: [facility] [place] [facility] Reason for consultation: Acute on chronic hypokalemia Has provider been notified: Yes 03/22/24 10:58 Consult to Cardiology Routine Consulting Provider: [facility] [place] [facility] Reason for consultation: need cardiac cleance for egd Has provider been notified: No DS: Diagnosis Discharge Diagnosis (1) Abnormal CT of the abdomen: Status: Acute (2) Nausea & vomiting: Status: Acute (3) Dizziness: Status: Acute (4) Acute hypokalemia: Status: Acute DS: Summary Hospital Course Hospital Course: from initial hpi: 88-year-old Georgian-speaking male with a PMH significant for paroxysmal AFib on Eliquis, CAD, HTN, diastolic HF, BPH, and GERD who presents to the ED for evaluation of lightheadedness/dizziness nausea, vomiting since earlier this morning. Sports Statistician services utilized. Patient reports he woke up this morning at 03:30 sweating profusely. Stood up to go the bathroom and felt lightheaded and dizzy, and then began experiencing nausea with vomiting. Patient's took blood pressure which was 162/90. In the ambulance patient apparently had additional episodes of vomiting, but non witnessed while in the ED. patient denies any abdominal pain or diarrhea. No recent travel or antibiotic use. Has had sick contacts with granddaughter at home with similar symptoms of nausea, vomiting, diarrhea. Patient denies having experienced similar episodes in the past. Chronic cough and shortness of breath around baseline. Reports has not been eating or drinking much the past few months, and has had unintended weight loss. History of heavy smoking though quit 30+ years ago. Denies chest pain/pressure, palpitations. In the ED pt's vital signs stable largely WNL. Labs were significant for potassium 2.6, lactic acid 2.4, and BNP 146. No leukocytosis. Stable H&H. Renal and hepatic function baseline. CT of head found no acute hemorrhage, mass effect, shift, or acute intracranial pathology. 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 CT of abdomen and pelvis showed circumferential thickening of gastric body and greater curvature concerning for possible gastric neoplasm or gastritis. Also showed inhomogeneous appearance of lumbar and lower thoracic vertebrae, possibly osteoporosis or other marrow infiltrative process; cardiomegaly and bibasilar atelectasis and bronchiectasis; and biventricular enlargement with delayed opacification of the liver and hepatic veins, indicative of right heart insufficiency. EKG demonstrated sinus bradycardia with sinus arrhythmia and first-degree AV block and prolonged QTc of 506. Pt was treated with ondansetron, magnesium sulfate, lorazepam, IVF, Protonix, and potassium 40 meq IV. Pt will be admitted to the hospital for treatment further evaluation of hypokalemia in the setting of intractable nausea and vomiting hospital course: Patient was admitted for intractable nausea and vomiting complicated by acute hypokalemia and human metapneumovirus. Due to abnormal finding on CT underwent EGD which showed mild gastritis only recommendations were to continue with p.o. omeprazole. Patient's dizziness significantly improved with holding hydralazine. CT head was unremarkable. Potassium was replaced and maintenance potassium was increased to 40 mEq daily. Patient was able to tolerate solid diet. He is feeling better will be discharged home. For paroxysmal atrial fibrillation was continued on metoprolol and Eliquis. Coronary artery disease/hyperlipidemia was continued on Plavix and statin. Course was complicated by acute on chronic diastolic CHF likely due to over hydration and uncontrolled hypertension, after short course of IV diuresis this resolved and he was put back on maintenance p.o. Lasix. Time Attestation Discharge Coordination Time (in mins): 33 Quality: Safe Use of Opioids Does Pt have an Active Cancer Diagnosis on the Problem List?: No Quality: Stroke Does the patient have a stroke diagnosis?: No Physical Exam Vital Signs: Vital Signs: Last Vital Signs Temp 98.4 F 03/24/24 08:00 Pulse 90 03/24/24 08:01 Resp 18 03/24/24 08:01 BP 146/86 H 03/24/24 08:00 Pulse Ox 95 03/24/24 08:00 O2 Del Method Room Air 03/24/24 08:00 O2 Flow Rate 3 03/21/24 04:00 BMI result Body Mass Index 23.1 General: AO X 3, no acute distress, hard of hearing Resp: CTA bilateral, no accessory muscles used CVS: S1,S2,RRR GI: soft, non tender, non distended Neuro: motor grossly intact, alert Psych: appropriate affect, appropriate insight DS: Data Data Completed and Pending Completed studies during hospitalization [Text1]: Procedures Insertion of Endotracheal Airway into Trachea, Via Natural or Artificial Opening (12/13/22) Respiratory Ventilation, Greater than 96 Consecutive Hours (12/13/22) Labs on day of discharge: Laboratory Results - last 24 hr 03/24/24 06:05 WBC 6.9 RBC 4.77 Hgb 14.3 Hct 41.2 L MCV 86.4 MCH 30.0 MCHC 34.7 RDW 14.4 Plt Count 166 MPV 11.7 Absolute Nucleated RBC 0.000 Nucleated RBC % (auto) 0.0 Sodium 141 Potassium 3.0 L Chloride 105 Carbon Dioxide 25 Anion Gap 14 BUN 22 H Creatinine 1.04 Estim Creat Clear Calc 58.8 Estimated GFR > 60 Fasting Glucose 97 Calcium 9.0 Magnesium 1.7 Total Bilirubin 1.0 Direct Bilirubin 0.4 AST 15 ALT 9 Alkaline Phosphatase 83 Total Protein 6.1 L Albumin 3.5 Preliminary micro results at discharge 03/19/24 09:43 Blood Culture - Preliminary Blood - Venous No growth after 48 hours. 03/19/24 09:43 Blood Culture - Preliminary Blood - Venous No growth after 48 hours. Discharge Plan Discharge Anticipated Discharge Date/Time: 03/24/24 10:34 Patient Disposition: Home, Self-Care Discharge Diagnosis: hypokalemia Referrals: Nasim Wilkinson MD [Primary Care Provider] - 1 Week Discharge Medications: New omeprazole 20 mg Capsule,Delayed Release(Dr/Ec) 20 mg PO DAILY@0630 Qty: 90 0RF Continued atorvastatin 40 mg tablet 1 tab PO BEDTIME cetirizine 10 mg tablet 1 tab PO QAM PRN (Reason: allergies) clopidogrel 75 mg tablet 1 tab PO BEDTIME famotidine 20 mg tablet 1 tab PO BEDTIME pantoprazole 40 mg tablet,delayed release (DR/EC) 1 tab PO DAILY@0630 docusate sodium 100 mg capsule 1 cap PO DAILY PRN (Reason: Constipation) Eliquis 2.5 mg Tablet 2.5 mg PO BID Qty: 60 0RF metoprolol succinate 100 mg Tablet Extended Release 24 Hr 100 mg PO QAM guaifenesin [Alberta-Tussin] 100 mg/5 mL liquid 200 mg PO Q4H PRN (Reason: cough) mirtazapine 30 mg tablet 30 mg PO BEDTIME valsartan 320 mg tablet 320 mg PO DAILY ibuprofen 600 mg tablet 600 mg PO Q8H PRN (Reason: mild pain) melatonin 3 mg tablet 6 mg PO BEDTIME PRN (Reason: Sleep) furosemide 20 mg tablet 20 mg PO QAM Changed potassium chloride [Klor-Con] 20 mEq packet 40 meq PO DAILY Qty: 180 0RF Discontinued hydralazine 50 mg tablet 1 tab PO BID Rx Instructions: with food Discharge Orders: Discharge Order (Routine); Ordered 03/24/24 Ordered By: Arnaldo Mares Diet: Advance to usual diet Activity on Discharge: As tolerated Stand Alone Forms: Patient Portal Discharge page Print Language: Georgian Care Plan Goals: recovery Health Concerns: low potassium, gastritis Plan of Treatment: start omeprazole, increase potassium supplement to 40meq daily, stop hydralazine Assessment: see above
--- NOTE | 2024-03-24 11:27 | MHC.CM.PN ---
Second IMM given 03/24, addressed with pts son/HCP Alvaro. Pt is medically cleared for discharge home with resumption of previous [employer] services. Pts [id number] will transport him home.
--- NOTE | 2024-03-24 13:19 | P.PNNP_ITS ---
Subjective Subjective Date of Service: 03/24/24 Interval history: appetite improved, no further vomiting. Wants to go home Physical Exam 2 Vital Signs: Vital Signs: Last Vital Signs Temp 96.9 F 03/24/24 12:00 Pulse 75 03/24/24 12:00 Resp 20 03/24/24 12:00 BP 148/86 H 03/24/24 12:00 Pulse Ox 96 03/24/24 12:00 O2 Del Method Room Air 03/24/24 12:00 O2 Flow Rate 3 03/21/24 04:00 BMI result Body Mass Index 23.1 Const: General: no acute distress Neck: Neck: Yes supple Resp: Auscultation: diminished lung sounds Cardio: Rate: regular rate GI: Palpation (GI): Soft to palpation Neuro: General: moves all extremities Objective Data Labs 03/24/24 06:05 03/24/24 06:05 Labs: Laboratory Results - last 24 hr 03/24/24 06:05 WBC 6.9 RBC 4.77 Hgb 14.3 Hct 41.2 L MCV 86.4 MCH 30.0 MCHC 34.7 RDW 14.4 Plt Count 166 MPV 11.7 Absolute Nucleated RBC 0.000 Nucleated RBC % (auto) 0.0 Sodium 141 Potassium 3.0 L Chloride 105 Carbon Dioxide 25 Anion Gap 14 BUN 22 H Creatinine 1.04 Estim Creat Clear Calc 58.8 Estimated GFR > 60 Fasting Glucose 97 Calcium 9.0 Magnesium 1.7 Total Bilirubin 1.0 Direct Bilirubin 0.4 AST 15 ALT 9 Alkaline Phosphatase 83 Total Protein 6.1 L Albumin 3.5 Microbiology Microbiology Results: Microbiology 03/19/24 09:43 Blood - Venous Blood Culture - Final No growth after 5 days. 03/19/24 09:43 Blood - Venous Blood Culture - Final No growth after 5 days. Procedures Date of Service Date of Service: 03/24/24 Assessment & Plan Assessment and plan (1) CKD stage 3a, GFR 45-59 ml/min: Status: Acute Plan Renal functions close to baseline Hypokalemia due to GI issues- on replacement Had EGD; No ACEI/ARB/NSAID's C/W rest of current management for now Needs follow up with [facility] after D/C Progress Note: Quality Stroke Does the patient have a stroke diagnosis?: No
== END 2024-03-24 13:23 | disposition home or self-care (01) | DRG 640 ==
LOC: HO.ED 12:36 → HO.EDOVER 14:05 → HO.IMC 03-20 05:09
PROVIDERS: Internal Medicine; Internal Medicine Nephrology; Admitting Provider Student in an Organized Health Care Education/Training Program; Emergency Provider Emergency Medicine; PCP Internal Medicine; Visit Provider Internal Medicine
PROC: 0DJ08ZZ Inspection of Upper Intestinal Tract, Via Natural or Artificial Opening Endoscopic (ICD-10-PCS; CPT 43235; principal; 2024-03-22 13:50)
DX: E87.6 Hypokalemia (principal); I50.33 Acute on chronic diastolic (congestive) heart failure; I13.0 Hypertensive heart and chronic kidney disease with heart failure and stage 1 through stage 4 chronic kidney disease, or unspecified chronic kidney disease; I48.92 Unspecified atrial flutter; I25.10 Atherosclerotic heart disease of native coronary artery without angina pectoris; E87.21 Acute metabolic acidosis; N40.0 Benign prostatic hyperplasia without lower urinary tract symptoms; K21.9 Gastro-esophageal reflux disease without esophagitis; B97.81 Human metapneumovirus as the cause of diseases classified elsewhere; K29.70 Gastritis, unspecified, without bleeding; K44.9 Diaphragmatic hernia without obstruction or gangrene; E86.0 Dehydration; E78.5 Hyperlipidemia, unspecified; R94.31 Abnormal electrocardiogram [ECG] [EKG]; I48.0 Paroxysmal atrial fibrillation; N18.31 Chronic kidney disease, stage 3a; Z87.891 Personal history of nicotine dependence; Z79.01 Long term (current) use of anticoagulants; Z79.02 Long term (current) use of antithrombotics/antiplatelets; Z79.899 Other long term (current) drug therapy
CPT/HCPCS: 0241U; 36415; 70450; 71045; 74177; 80048; 80076; 81003; 82088; 82947; 83605; 83690; 83735; 83880; 84133; 84145; 84484; 85014; 85018; 85025; 85027; 87040; 87633; 93005; 93306; 94640; 99285; C9113; J1940; J2060; J2270; J2405; J2704; J3475; J3480; J7120; Q9957; Q9967

== ENCOUNTER → 2024-03-19 08:29 | Outpatient (BNV) | payer OTHER, SELFPAY | PROVIDERS: Admitting Provider Student in an Organized Health Care Education/Training Program; Emergency Provider Emergency Medicine; Visit Provider Internal Medicine Cardiovascular Disease | DX: R41.82 Altered mental status, unspecified (principal); R07.9 Chest pain, unspecified | CPT/HCPCS: 93010 ==

== ENCOUNTER 2024-03-19 13:59 | Outpatient (BNV) | payer OTHER, SELFPAY | END 2024-03-22 07:00 | PROVIDERS: Admitting Provider Student in an Organized Health Care Education/Training Program; Emergency Provider Emergency Medicine; Visit Provider Internal Medicine Cardiovascular Disease | DX: I35.1 Nonrheumatic aortic (valve) insufficiency (principal); I35.8 Other nonrheumatic aortic valve disorders | CPT/HCPCS: 93306 ==

== ENCOUNTER → 2024-03-19 13:59 | Outpatient (BNV) | payer OTHER, SELFPAY | PROVIDERS: Admitting Provider Student in an Organized Health Care Education/Training Program; Emergency Provider Emergency Medicine; Visit Provider Internal Medicine Cardiovascular Disease | DX: Z01.810 Encounter for preprocedural cardiovascular examination (principal); R93.5 Abnormal findings on diagnostic imaging of other abdominal regions, including retroperitoneum | CPT/HCPCS: 99223 ==

== ENCOUNTER → 2024-03-19 13:59 | Outpatient (BNV) | payer OTHER, SELFPAY | PROVIDERS: Admitting Provider Student in an Organized Health Care Education/Training Program; Emergency Provider Emergency Medicine; Visit Provider Internal Medicine Nephrology | DX: N18.31 Chronic kidney disease, stage 3a (principal) | CPT/HCPCS: 99222; 99231; 99232; 99499 ==

== ENCOUNTER → 2024-03-19 13:59 | Outpatient (BNV) | payer OTHER, SELFPAY | PROVIDERS: Admitting Provider Student in an Organized Health Care Education/Training Program; Emergency Provider Emergency Medicine; Visit Provider Internal Medicine Gastroenterology | DX: R11.2 Nausea with vomiting, unspecified (principal); R93.5 Abnormal findings on diagnostic imaging of other abdominal regions, including retroperitoneum | CPT/HCPCS: 99222 ==

== ENCOUNTER → 2024-03-19 13:59 | Outpatient (BNV) | payer OTHER, SELFPAY | PROVIDERS: Admitting Provider Student in an Organized Health Care Education/Training Program; Emergency Provider Emergency Medicine; Visit Provider Student in an Organized Health Care Education/Training Program | DX: R93.5 Abnormal findings on diagnostic imaging of other abdominal regions, including retroperitoneum (principal); R11.2 Nausea with vomiting, unspecified; R42 Dizziness and giddiness; E87.6 Hypokalemia | CPT/HCPCS: 99223; 99232; 99239; 99499 ==

== ENCOUNTER 2024-04-26 13:16 | Outpatient (AMB) | payer OTHER, SELFPAY ==
--- NOTE | 2024-04-26 13:31 | A.OFFVIS_ITS ---
Vital Signs 04/26/24 13:32 Height 6 ft 2 in Weight 171 lb BMI 22.0 BP 130/76 Blood Pressure Location Lt brachial Pulse 74 Pulse Source Pulse Oximeter Pulse Oximetry (%) 96 Oxygen Delivery Method Room Air Intake Visit Reasons: chronic cough Intake Note: pt is here as a new patent, not sleeping well, coughing all night, he states some blood, but says it is from hard coughing. Also, it is mostly dry cough but constantly spitting, gets to a point blood coming out.only on right side Airways Operations Specialist Required: Yes Airways Operations Specialist Name: Cristiana Allergies No Known Allergies [No Known Allergies*] Allergy (Verified 04/26/24 13:53) Medication List - Last Reconciled 04/26/24 by Riaz Stevenson MD apixaban (Eliquis) 2.5 mg PO BID atorvastatin 1 tab PO BEDTIME cetirizine 1 tab PO QAM PRN clopidogrel 1 tab PO BEDTIME docusate sodium 1 cap PO DAILY PRN famotidine 1 tab PO BEDTIME furosemide 20 mg PO QAM guaifenesin (Alberta-Tussin) 200 mg PO Q4H PRN ibuprofen 600 mg PO Q8H PRN melatonin 6 mg PO BEDTIME PRN metoprolol succinate ER 100 mg PO QAM mirtazapine 30 mg PO BEDTIME omeprazole 20 mg PO DAILY@0630 pantoprazole 1 tab PO DAILY@0630 potassium chloride (Klor-Con) 40 mEq PO DAILY valsartan 320 mg PO DAILY Do you need a note to return to daycare/school/sports/work: No HPI HPI chronic cough: Details: 88 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 WHO ALSO SPEAKS BAHRAINI PATIENT INTERVIEWED AND EXAMINED WITH THE HELP OF BOX LOADER. IS MAIN PULMONARY COMPLAINT IS COUGH FOR THE LAST 3 PLUS MONTHS. HE DENIES HAVING HAD ANY ACUTE RESPIRATORY INFECTION AT THE ONSET OF THE COUGH, MAY HAVE HAD SOME VIRAL ILLNESS, BUT HE IS NOT SURE. HE DOES HAVE CHRONIC CONGESTIVE HEART FAILURE BUT THERE WAS NO ACUTE EPISODE OF CONGESTIVE HEART FAILURE BEFORE THE ONSET OF HIS COUGH. THE COUGH IS WORSE AT NIGHT TIME, POSITION DOES NOT MAKE A DIFFERENCE. HE WAKES UP WITH COUGH AND SOMETIME HE COUGH SO HARD THAT THE MUCUS COMES BLOOD- TINGED. HE DENIES ANY WHEEZING. HE IS 88 YEARS OLD AND DOING QUITE WELL.. HE DENIES ANY ON DUE SHORTNESS OF BREATH ON WALKING AROUND. 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 HE QUIT SMOKING 40 YEARS AGO. I REVIEWED THE LIST OF HIS MEDICATIONS AND HE IS NOT ON ANY KRYSTLE INHIBITOR, OR COUGH INDUCING MEDS. HE HAS HISTORY OF CHRONIC GERD AND IS BEING TREATED WITH OMEPRAZOLE 20 MG DAILY HE HAS ALSO USED PANTOPRAZOLE IN THE PAST. [facility] Medical History (Updated 04/26/24 @ 16:48 by Riaz Stevenson MD) Cough CAD (coronary artery disease) PAF (paroxysmal atrial fibrillation) Gastroesophageal reflux disease with esophagitis Burning with urination Abscess Urinary frequency Colon cancer screening Weight loss, abnormal GERD (gastroesophageal reflux disease) Chronic idiopathic constipation HTN (hypertension) Surgical History History of surgery Hx of colonoscopy Family History Father Stroke Mother No problems noted. Social History Household Members: Spouse and Children Housing: House Do you presently have visiting nurse or other home services: No Alcohol intake: never Patient Tobacco Use Status: Former Tobacco user Tobacco use type: Cigarette Second Hand Smoke Exposure: No Advance Directives Date on File: 03/20/24 service: No Current occupational status: disabled Review of Systems Const All systems reviewed & are unremarkable except as noted in HPI and below Eyes Reports no additional complaints ENT Reports nasal congestion (off and on ) Card Denies syncope, Reports irregular heart rhythm, Denies leg edema and Reports dyspnea on exertion (MILD ) Resp Reports as per HPI and Reports dyspnea on exertion (MILD ) GI Reports heartburn (GERD SYMPTOMS CONTROLLED WITH MEDS ) Reports no additional complaints Musc Reports no additional complaints Skin/Breast Reports system reviewed and no additional complaints, except as documented Neuro Reports no additional complaints and Denies syncope Psych Reports no additional complaints Aller/Immun Reports no additional complaints Physical Exam Vital Signs: Last Vital Signs Pulse 74 04/26/24 13:32 BP 130/76 04/26/24 13:32 Pulse Ox 96 04/26/24 13:32 Oxygen Delivery Method Room Air 04/26/24 13:32 BMI result Body Mass Index 22.0 Const General: healthy appearing, comfortable, no acute distress, alert and awake Orientation/consciousness: patient oriented x3 HEENT Head: Yes normal to inspection General nose exam: No nasal polyps present, Normal nasal mucous membranes and turbinates present (MILD HYPERTROPHY OF THE NASAL TURBINATES) and No nasal discharge present Face and sinus: Yes sinuses nontender Mouth: oropharynx normal Throat: Yes posterior oropharynx normal Eyes General: appearance normal, both eyes and all related structures Neck Neck: Yes normal visual inspection, Yes trachea midline and Yes no JVD Thyroid: Thyroid normal Chest Chest palpation & inspection: normal inspection of the chest, normal palpation of entire chest wall and no tenderness Resp Other: PERCUSSION NOTE IS RESONANT, BREATH SOUNDS SLIGHTLY DISTANT WITH PROLONGED EXPIRATORY. NO AUDIBLE WHEEZES RHONCHI OR CREPITATIONS. Cardio Palpation: normal PMI Rate: regular rate Rhythm: regular rhythm Heart sounds: no gallops and no murmurs GI Palpation (GI): Soft to palpation, nontender, No hepatosplenomegaly present and no masses Auscultation: normal bowel sounds Back/Spine/Pelvis Thoracic/Lumbar Spine: thoracic and lumbar spine normal to inspection Skin General skin exam: no rashes or lesions noted Neuro General: patient oriented x3 and no focal motor deficits Cranial nerves: Yes CN's II-XII intact bilaterally Extrem General: Yes normal to inspection, Yes no clubbing, cyanosis or edema and Yes no calf tenderness Psych Appearance: grossly normal and well kempt Speech and movement: Normal speech and movement present Results Reviewed Results Reviewed: CHEST X-RAY ON 03/05/2024 , MILD TO MODERATE VASCULAR CONGESTION IN THE LOWER LOBES, A FEW PATCHES OF ATELECTASIS. Assessment & Plan Assessment & Plan (1) Cough: Comment: HE HAS A LINGERING COUGH FOR THE LAST FEW MONTHS, MOST LIKELY POSTINFECTIOUS COUGH. DOES NOT SEEM TO HAVE ANY WHEEZING INDICATING BRONCHO CONSTRICTION . Code(s): R05.9 - Cough, unspecified Category: Medical Plan: PULMONARY FUNCTION TEST TO RULE OUT COUGH VARIANT ASTHMA. GUAIFENESIN-DM 100-10 2 TSP Q.6 HOURS P.R.N. IS PRESCRIBED, FOR THE TIME BEING. Orders: Orders PFT pulmonary function test Today R05.9 - Cough, unspecified Medications: New dextromethorphan-guaifenesin 10-100 mg/5 mL 10 mL PO Q4-6H 30 days PRN 500 mL 1RF cough Coding Level of Care Code New Pt Level 3 (56335) Diagnoses Cough R05.9
[2024-04-26 13:32] VITALS: BP 130/76; PULSE 74; O2SAT 96; BMI 22.0
== END 2024-04-26 13:53 | disposition home or self-care (01) ==
PROVIDERS: PCP Internal Medicine; Visit Provider Internal Medicine
DX: R05.9 Cough, unspecified (principal)
CPT/HCPCS: 99203

== ENCOUNTER → 2024-04-26 13:16 | Outpatient (BNVA) | payer OTHER, SELFPAY | PROVIDERS: PCP Internal Medicine; Visit Provider Internal Medicine | DX: R05.3 Chronic cough (principal) | CPT/HCPCS: 99202 ==

== ENCOUNTER 2024-05-15 11:59 | Emergency (ER) | payer OTHER, SELFPAY ==
--- NOTE | ~2024-05-15 | XR_ITS ---
EXAMINATION: XR CHEST CLINICAL INFORMATION: Shortness of breath COMPARISON: Prior chest May 15, 2024. CT chest December 2022 TECHNIQUE: Frontal view of the chest was obtained. FINDINGS: No significant abnormality is noted involving the heart, lungs, mediastinum, bony thorax or soft tissues. XR/XR chest 1V IMPRESSION: Unremarkable examination.
[2024-05-15 12:05] VITALS: BP 167/95; BP 168/91; PULSE 59; PULSE 60; RESP 17; TEMP 36.5; O2SAT 95; O2SAT 96; BMI 23.4
[2024-05-15 12:14] VITALS: BP 167/95; PULSE 61; RESP 12; TEMP 36.5; O2SAT 96
--- NOTE | 2024-05-15 14:47 | ED.CHESTPAIN ---
HPI - Chest Pain General Chief Complaint: Chest Pain Stated Complaint: HIGH BP 166/89, CP THIS AM/RESOLVED PER EMS Time Seen by Provider: 05/15/24 13:03 History of Present Illness HPI narrative: Patient is an 88-year-old male with a history of atrial fibrillation history of chronic kidney disease. History of having a possible mass in the stomach. Brought in by ambulance complaining of having question chest pain earlier. Feeling somewhat weak. Upon arrival in the ED patient denies having any pain. Complaining of coughing congestion upper respiratory symptoms there has been ongoing. Has been seen by the work order clerk for the same. He denies any shortness of breath. Denies any diaphoresis. He does have a history of atrial fibrillation is on Eliquis. No vomiting. No leg swelling. Related Data Home Medications ?Medication ?Instructions ?Recorded ?Confirmed atorvastatin 40 mg tablet 1 tab PO BEDTIME 06/19/22 04/26/24 cetirizine 10 mg tablet 1 tab PO QAM PRN allergies 06/19/22 04/26/24 clopidogrel 75 mg tablet 1 tab PO BEDTIME 06/19/22 04/26/24 docusate sodium 100 mg capsule 1 cap PO DAILY PRN Constipation 06/19/22 04/26/24 famotidine 20 mg tablet 1 tab PO BEDTIME 06/19/22 04/26/24 pantoprazole 40 mg tablet,delayed 1 tab PO DAILY@0630 06/19/22 04/26/24 release metoprolol succinate 100 mg 100 mg PO QAM 12/13/22 04/26/24 tablet,extended release 24 hr furosemide 20 mg tablet 20 mg PO QAM 03/19/24 04/26/24 guaifenesin 100 mg/5 mL oral 200 mg PO Q4H PRN cough 03/19/24 04/26/24 liquid (Alberta-Tussin) ibuprofen 600 mg tablet 600 mg PO Q8H PRN mild pain 03/19/24 04/26/24 melatonin 3 mg tablet 6 mg PO BEDTIME PRN Sleep 03/19/24 04/26/24 mirtazapine 30 mg tablet 30 mg PO BEDTIME 03/19/24 04/26/24 valsartan 320 mg tablet 320 mg PO DAILY 03/19/24 04/26/24 Previous Rx's ?Medication ?Instructions ?Recorded apixaban 2.5 mg tablet (Eliquis) 2.5 mg PO BID #60 tabs 06/20/22 omeprazole 20 mg capsule,delayed 20 mg PO DAILY@0630 #90 caps 03/24/24 release potassium chloride 20 mEq oral 40 meq PO DAILY #180 ea 03/24/24 packet (Klor-Con) dextromethorphan-guaifenesin 10 10 ml PO Q4-6H PRN cough 30 days 04/26/24 mg-100 mg/5 mL oral liquid #500 mL Allergies Allergy/AdvReac Type Severity Reaction Status Date / Time No Known Allergies Allergy Verified 05/15/24 12:15 [No Known Allergies*] Review of Systems Review of Systems: Positive cough upper respiratory symptoms ongoing for over a month Yes all other systems are reviewed and are negative [facility] Past Medical History Attestation statement: The following information was validated with the patient. Medical History Cough CAD (coronary artery disease) PAF (paroxysmal atrial fibrillation) Gastroesophageal reflux disease with esophagitis Burning with urination Abscess Urinary frequency Colon cancer screening Weight loss, abnormal GERD (gastroesophageal reflux disease) Chronic idiopathic constipation HTN (hypertension) Surgical History History of surgery Hx of colonoscopy Family History Family History Father Stroke Mother No problems noted. Social History Social History Household Members: Spouse and Children Housing: House Do you presently have visiting nurse or other home services: No Alcohol intake: never Patient Tobacco Use Status: Former Tobacco user Tobacco use type: Cigarette Second Hand Smoke Exposure: No Advance Directives: Yes Advance Directives on File: Yes Advance Directives Date on File: 03/20/24 Do you have a plan to hurt others: No Plan service: No Current occupational status: disabled Physical Exam Vital Signs: Vital Signs: Last Vital Signs Temp 97.7 F 05/15/24 12:14 Pulse 53 05/15/24 15:03 Resp 14 05/15/24 15:03 BP 161/84 H 05/15/24 15:03 Pulse Ox 97 05/15/24 15:03 O2 Del Method Room Air 05/15/24 15:03 BMI result Body Mass Index 23.4 Appearance: Alert. Oriented X3. No acute distress. Eyes: Pupils equal, round and reactive to light. ENT: Pharynx normal. Neck: Normal inspection. Neck supple. No lymph nodes noted. No crepitus CVS: Normal heart rate and rhythm. Pulses normal. Normal S1 and S2 Respiratory: No respiratory distress. Breath sounds normal. No Wheezing. No rales Abdomen: Soft and nontender. No rigidity. No distention. good BS x4 Skin: Skin warm and dry. Normal skin color. Normal skin turgor. Extremities: No lower extremity edema. Neurovascular intact to all extremities. No Lacerations. No Rash Neuro: Oriented X 3. No motor deficit. No sensory deficit. Moving all extermities. No slurred speech Medical Decision Making Medical Decision Making [facility] Narrative: My interpretation patient's chest x-ray was grossly negative there has no evidence for pneumonia no pneumothorax. White count is normal. Patient's hemoglobin is 14.5 there is no evidence for anemia. Patient's electrolytes showed elevated INR consistent with patient being on Eliquis. Patient's chemistry showed a normal troponin. BNP elevated but had history of the same. O2 sat is normal. Patient's blood pressure here in the emergency department 167/95. Will discharge patient home. We have given reassurance close follow-up on an outpatient basis. Given patient is on blood thinner unlikely to have PE. Differential Diagnosis Differential Diagnoses: The differential diagnosis associated with the presentation includes Upper respiratory infection, allergy, pneumonia, pneumothorax, ACS Admission/Observation Consideration of admission/observation: Escalation of care including admission/observation considered Consult Healthcare Provider Management of the patient was discussed with: Primary Care Provider Lab Data [facility] Lab Attestation statement: I reviewed the patient's lab results. 05/15/24 14:59 05/15/24 14:59 Labs: Lab Results 05/15/24 Range/Units 14:59 WBC 6.4 (4.8-10.8) X10*3/uL RBC 4.76 (4.60-5.80) X10*6/uL Hgb 14.5 (14.0-18.0) g/dl Hct 41.6 L (42.0-52.0) % MCV 87.4 (80.0-98.0) fL MCH 30.5 (27.0-33.0) pg MCHC 34.9 (31.0-36.0) g/dl RDW 16.4 H (11.0-16.0) % Plt Count 167 (160-400) X10*3/uL MPV 11.6 (9.4-12.4) fL Immature Gran % (Auto) 0.3 (0.0-0.4) % Neut % (Auto) 71.1 (45-73) % Lymph % (Auto) 18.7 L (20-40) % Jefferson % (Auto) 7.8 (2-11) % Eos % (Auto) 1.6 (0-4) % Baso % (Auto) 0.5 (0-2) % Lymph # (Auto) 1.2 (1.2-4.9) X10*3/uL Jefferson # (Auto) 0.5 (0.1-1.2) X10*3/uL Eos # (Auto) 0.1 (0.0-0.4) X10*3/uL Baso # (Auto) 0.0 (0.0-0.2) X10*3/uL Abs Immat Gran (auto) 0.02 (0.00-0.03) X10*3/uL Absolute Neuts (auto) 4.6 (2.0-8.3) x10*3/uL Absolute Nucleated RBC 0.000 (0.0-0.012) X10*3/uL Nucleated RBC % (auto) 0.0 (0.0-0.2) /100WBC PT 16.3 H (11.1-13.3) SEC INR 1.3 H (0.9-1.1) Sodium 142 (135-145) mmol/L Potassium 3.2 L (3.3-5.1) mmol/L Chloride 106 (96-108) mmol/L Carbon Dioxide 27 (22-29) mmol/L Anion Gap 12 (12-20) BUN 11 (9-16) mg/dL Creatinine 0.99 (0.5-1.4) mg/dL Estim Creat Clear Calc 57.0 Estimated GFR > 60 Random Glucose 94 (60-115) mg/dL Calcium 9.7 D (8.4-10.2) mg/dL Troponin I High Sens 5.9 (<3.5-35.0) ng/L B-Natriuretic Peptide 736 H (<100) pg/mL Independent Interpretation I performed an independent interpretation of an: EKG (Sinus heart rate is 60 MT QRS QTC normal no acute ST segment elevation no changes from prior) and Plain X-Ray (Chest x-ray negative for infiltrate) Radiology Impression Discussion of test interpretation with radiology: I have reviewed the radiologist's reading. Discharge Plan Discharge Clinical Impression: Chest pain Patient Disposition: Home, Self-Care Instructions: Chest Pain (ED) Prescriptions: No Action atorvastatin 40 mg tablet 1 tab PO BEDTIME cetirizine 10 mg tablet 1 tab PO QAM PRN (Reason: allergies) clopidogrel 75 mg tablet 1 tab PO BEDTIME famotidine 20 mg tablet 1 tab PO BEDTIME pantoprazole 40 mg tablet,delayed release (DR/EC) 1 tab PO DAILY@0630 docusate sodium 100 mg capsule 1 cap PO DAILY PRN (Reason: Constipation) Eliquis 2.5 mg Tablet 2.5 mg PO BID Qty: 60 0RF metoprolol succinate 100 mg Tablet Extended Release 24 Hr 100 mg PO QAM guaifenesin [Alberta-Tussin] 100 mg/5 mL liquid 200 mg PO Q4H PRN (Reason: cough) mirtazapine 30 mg tablet 30 mg PO BEDTIME valsartan 320 mg tablet 320 mg PO DAILY ibuprofen 600 mg tablet 600 mg PO Q8H PRN (Reason: mild pain) melatonin 3 mg tablet 6 mg PO BEDTIME PRN (Reason: Sleep) furosemide 20 mg tablet 20 mg PO QAM omeprazole 20 mg Capsule,Delayed Release(Dr/Ec) 20 mg PO DAILY@0630 Qty: 90 0RF potassium chloride [Klor-Con] 20 mEq packet 40 meq PO DAILY Qty: 180 0RF dextromethorphan-guaifenesin 10-100 mg/5 mL liquid 10 ml PO Q4-6H PRN (Reason: cough) 30 Days Qty: 500 1RF Referrals: Physician,Unknown J [Primary Care Provider] - 05/17/24 Print Language: German
[2024-05-15 15:03] VITALS: BP 161/84; PULSE 53; RESP 14; O2SAT 97
[2024-05-15 15:04] LABS: MANUAL DIFF FLAG NO
[2024-05-15 15:08] LABS: Basophils Percent Auto 0.5 % (0-2); Eosinophils Absolute Auto 0.1 X10*3/uL (0.0-0.4); Eosinophils Percent Auto 1.6 % (0-4); Hematocrit 41.6 % (42.0-52.0); Hemoglobin 14.5 g/dl (14.0-18.0); Imm Gran Abs Auto 0.02 X10*3/uL (0.00-0.03); Imm Gran Pct Auto 0.3 % (0.0-0.4); Lymphocytes Absolute Auto 1.2 X10*3/uL (1.2-4.9); Lymphocytes Percent Auto 18.7 % (20-40); Mean Corpuscular HGB Conc 34.9 g/dl (31.0-36.0); Mean Corpuscular Hemoglobin 30.5 pg (27.0-33.0); Mean Corpuscular Volume 87.4 fL (80.0-98.0); Mean Platelet Volume 11.6 fL (9.4-12.4); Monocytes Absolute Auto 0.5 X10*3/uL (0.1-1.2); Monocytes Percent Auto 7.8 % (2-11); Neutrophils Absolute Auto 4.6 x10*3/uL (2.0-8.3); Neutrophils Percent Auto 71.1 % (45-73); Platelet Count 167 X10*3/uL (160-400); Red Blood Count 4.76 X10*6/uL (4.60-5.80); Red Cell Distribution Width 16.4 % (11.0-16.0); White Blood Count 6.4 X10*3/uL (4.8-10.8)
[2024-05-15 15:23] LABS: INTERNATIONAL NORM RATIO 1.3 (0.9-1.1); Prothrombin Time 16.3 SEC (11.1-13.3)
[2024-05-15 15:29] LABS: Anion Gap 12 (12-20); Blood Urea Nitrogen 11 mg/dL (9-16); Calcium 9.7 mg/dL (8.4-10.2); Carbon Dioxide 27 mmol/L (22-29); Chloride 106 mmol/L (96-108); Estimated Glomerular Filt Rate > 60; Glucose Random 94 mg/dL (60-115); Potassium 3.2 mmol/L (3.3-5.1); Sodium 142 mmol/L (135-145)
[2024-05-15 15:37] LABS: B Type Natriuretic Peptide 736 pg/mL (<100); Troponin-I High Sensitivity 5.9 ng/L (<3.5-35.0)
--- NOTE | 2024-05-15 15:50 | ECG_ITS ---
Test Reason : chest pain Blood Pressure : / mmHG Vent. Rate : 058 BPM Atrial Rate : 058 BPM P-R Int : 206 ms QRS Dur : 084 ms QT Int : 468 ms P-R-T Axes : 088 072 077 degrees QTc Int : 459 ms Sinus bradycardia with Premature supraventricular complexes Otherwise normal ECG When compared with ECG of 19-MAR-2024 22:38, Sinus rhythm has replaced Atrial flutter Vent. rate has decreased BY 47 BPM Referred By: Bebe Hayes Electronically Signed By:Rohit Osman
[2024-05-15 16:43] VITALS: BP 161/84; PULSE 53; RESP 14; TEMP 36.7; O2SAT 97
== END 2024-05-15 16:42 | disposition home or self-care (01) ==
PROVIDERS: Emergency Provider Emergency Medicine Emergency Medical Services
DX: R07.9 Chest pain, unspecified (principal); I12.9 Hypertensive chronic kidney disease with stage 1 through stage 4 chronic kidney disease, or unspecified chronic kidney disease; N18.9 Chronic kidney disease, unspecified; I48.0 Paroxysmal atrial fibrillation; R05.9 Cough, unspecified; R06.02 Shortness of breath; Z79.01 Long term (current) use of anticoagulants; Z79.02 Long term (current) use of antithrombotics/antiplatelets; Z79.899 Other long term (current) drug therapy
CPT/HCPCS: 36415; 71045; 80048; 83880; 84484; 85025; 85610; 93005; 99283; 99284

== ENCOUNTER → 2024-05-15 15:50 | Outpatient (BNV) | payer OTHER, SELFPAY | PROVIDERS: Emergency Provider Emergency Medicine Emergency Medical Services; Visit Provider Internal Medicine Cardiovascular Disease | DX: R07.9 Chest pain, unspecified (principal) | CPT/HCPCS: 93010 ==

== ENCOUNTER 2024-06-07 09:37 | Outpatient (AMB) | payer OTHER, SELFPAY ==
[2024-06-07 10:20] VITALS: BP 140/74; PULSE 78; O2SAT 97; BMI 24.9
--- NOTE | 2024-06-07 10:20 | A.OFFVIS_ITS ---
Vital Signs 06/07/24 10:20 Height 5 ft 11 in Weight 178 lb 9.191 oz BMI 24.9 BP 140/74 H Blood Pressure Location Lt brachial Position Sitting Pulse 78 Pulse Source Pulse Oximeter Pulse Oximetry (%) 97 Oxygen Delivery Method Room Air Intake Visit Reasons: Cough Intake Note: pt is heref for follow up ands states had a cough with phlegm, and was tx and now is gone. Walking does get fatigue. Training Executive Required: No Training Executive Services: Training Executive Present Training Executive Name: Aidan Allergies No Known Allergies [No Known Allergies*] Allergy (Verified 06/07/24 10:39) Medication List - Last Reconciled 06/07/24 by Riaz Stevenson MD apixaban (Eliquis) 2.5 mg PO BID atorvastatin 1 tab PO BEDTIME cetirizine 1 tab PO QAM PRN clopidogrel 1 tab PO BEDTIME dextromethorphan-guaifenesin 10-100 mg/5 mL 10 mL PO Q4-6H PRN 30 days docusate sodium 1 cap PO DAILY PRN famotidine 1 tab PO BEDTIME furosemide 20 mg PO QAM guaifenesin (Alberta-Tussin) 200 mg PO Q4H PRN ibuprofen 600 mg PO Q8H PRN melatonin 6 mg PO BEDTIME PRN metoprolol succinate ER 100 mg PO QAM mirtazapine 30 mg PO BEDTIME omeprazole 20 mg PO DAILY@0630 pantoprazole 1 tab PO DAILY@0630 potassium chloride (Klor-Con) 40 mEq PO DAILY valsartan 320 mg PO DAILY Do you need a note to return to daycare/school/sports/work: No HPI HPI Cough: Details: This 88 years old very pleasant, Malay-speaking gentleman comes along with his . Since his last visit 2 months ago his cough has almost resolved. He does use the OTC cough medicine once or twice a day. Denies wheezing or shortness of breath on exertion. He is nonsmoker, having quit about 40 years ago. [facility] Medical History Cough CAD (coronary artery disease) PAF (paroxysmal atrial fibrillation) Gastroesophageal reflux disease with esophagitis Burning with urination Abscess Urinary frequency Colon cancer screening Weight loss, abnormal GERD (gastroesophageal reflux disease) Chronic idiopathic constipation HTN (hypertension) Surgical History History of surgery Hx of colonoscopy Family History Father Stroke Mother No problems noted. Social History Household Members: Spouse and Children Housing: House Do you presently have visiting nurse or other home services: No Alcohol intake: never Patient Tobacco Use Status: Former Tobacco user Tobacco use type: Cigarette Second Hand Smoke Exposure: No Advance Directives Date on File: 03/20/24 service: No Current occupational status: disabled Review of Systems Const All systems reviewed & are unremarkable except as noted in HPI and below Eyes Reports no additional complaints ENT Reports nasal congestion (off and on ) Card Denies syncope, Reports irregular heart rhythm, Denies leg edema and Reports dyspnea on exertion (MILD ) Resp Reports as per HPI and Reports dyspnea on exertion (MILD ) GI Reports heartburn (GERD SYMPTOMS CONTROLLED WITH MEDS ) Reports no additional complaints Musc Reports no additional complaints Skin/Breast Reports system reviewed and no additional complaints, except as documented Neuro Reports no additional complaints and Denies syncope Psych Reports no additional complaints Aller/Immun Reports no additional complaints Physical Exam Vital Signs: Last Vital Signs Pulse 78 06/07/24 10:20 BP 140/74 H 06/07/24 10:20 Pulse Ox 97 06/07/24 10:20 Oxygen Delivery Method Room Air 06/07/24 10:20 BMI result Body Mass Index 24.9 Const General: healthy appearing, comfortable, no acute distress, alert and awake Orientation/consciousness: patient oriented x3 HEENT Head: Yes normal to inspection General nose exam: No nasal polyps present, Normal nasal mucous membranes and turbinates present (MILD HYPERTROPHY OF THE NASAL TURBINATES) and No nasal discharge present Face and sinus: Yes sinuses nontender Mouth: oropharynx normal Throat: Yes posterior oropharynx normal Eyes General: appearance normal, both eyes and all related structures Neck Neck: Yes normal visual inspection, Yes trachea midline and Yes no JVD Thyroid: Thyroid normal Chest Chest palpation & inspection: normal inspection of the chest, normal palpation of entire chest wall and no tenderness Resp Other: PERCUSSION NOTE IS RESONANT, BREATH SOUNDS SLIGHTLY DISTANT WITH PROLONGED EXPIRATORY. NO AUDIBLE WHEEZES RHONCHI OR CREPITATIONS. Cardio Palpation: normal PMI Rate: regular rate Rhythm: regular rhythm Heart sounds: no gallops and no murmurs GI Palpation (GI): Soft to palpation, nontender, No hepatosplenomegaly present and no masses Auscultation: normal bowel sounds Back/Spine/Pelvis Thoracic/Lumbar Spine: thoracic and lumbar spine normal to inspection Skin General skin exam: no rashes or lesions noted Neuro General: patient oriented x3 and no focal motor deficits Cranial nerves: Yes CN's II-XII intact bilaterally Extrem General: Yes normal to inspection, Yes no clubbing, cyanosis or edema and Yes no calf tenderness Psych Appearance: grossly normal and well kempt Speech and movement: Normal speech and movement present Office Procedures Spirometry Testing Spirometry Comments: In office spirometry completed with results given to Dr Stevenson. 05368- Spirometry Results Reviewed Results Reviewed: SPIROMETRY SPIROMETRY WAS PERFORMED IN THE OFFICE. DUE TO POOR UNDERSTANDING THERE WAS SOME AIR LEAK WHILE PERFORMING THE EXPIRATORY EFFORT. FVC= 83% FEV1 68%. FEV1/FVC= 59. FEF 25-75 50% THESE NUMBERS ARE CONSISTENT WITH MILD OBSTRUCTIVE AIRWAY DISORDER, HOWEVER NOTED ABOVE HIS EFFORTS WERE NOT OPTIMAL. Assessment & Plan Assessment & Plan (1) Cough: Comment: HE HAD A LINGERING COUGH FOR A FEW MONTHS, MOST LIKELY POSTINFECTIOUS COUGH. DOES NOT SEEM TO HAVE ANY WHEEZING INDICATING BRONCHO CONSTRICTION . HIS COUGH HAS SUBSIDED GREATLY. ACCORDING TO HIS HE HAS ONLY MILD INTERMITTENT COUGH AND USES GUAIFENESIN- DEXTROMETHORPHAN 10-100 10 ML ONCE OR TWICE A DAY Code(s): R05.9 - Cough, unspecified Category: Medical Plan: ADVISED TO KEEP ON USING OTC COUGH MEDICINE NEEDED. THERE IS NO NEED OF USING ANY BRONCHODILATOR INHALERS. I TOLD THE PATIENT AND HIS THAT THEY CAN COME AND SEE ME NEEDED. . CONTINUE USING GUAIFENESIN-DEXTROMETHORPHAN SYRUP 1-2 TSP 4Q 6 HOURS P.R.N.. Coding Level of Care Code Est Pt Level 3 (66619) Diagnoses Cough R05.9 CPT Codes Spirometry - CPT: 70889- Spirometry ([id number])
== END 2024-06-07 10:51 | disposition home or self-care (01) ==
PROVIDERS: PCP Internal Medicine; Visit Provider Internal Medicine
DX: R05.9 Cough, unspecified (principal)
CPT/HCPCS: 94010; 99213

== ENCOUNTER → 2024-06-07 09:37 | Outpatient (BNVA) | payer OTHER, SELFPAY | PROVIDERS: PCP Internal Medicine; Visit Provider Internal Medicine | DX: R05.9 Cough, unspecified (principal); Z87.891 Personal history of nicotine dependence | CPT/HCPCS: 94010; 99212 ==

== ENCOUNTER 2024-06-13 07:18 | Emergency (ER) | payer OTHER, SELFPAY ==
--- NOTE | ~2024-06-13 | XR_ITS ---
EXAMINATION: XR CHEST CLINICAL INFORMATION: Dyspnea. COMPARISON: 05/15/2024 TECHNIQUE: Frontal view of the chest was obtained. FINDINGS: EKG leads overlie the chest. Lungs are hyperexpanded. Linear pleural parenchymal scarring is present at the right lung base. No focal airspace consolidation. Chronic silhouette is enlarged. There is cephalization of the central pulmonary vasculature consistent mild pulmonary venous congestion. No pulmonary edema. Bones are osteopenic. No acute osseous findings. XR/XR chest 1V IMPRESSION: Mild pulmonary venous congestion. Mild cardiomegaly. No pulmonary edema or focal airspace consolidation.
--- NOTE | ~2024-06-13 | CT_ITS ---
EXAMINATION: CT HEAD WITHOUT CONTRAST CLINICAL INFORMATION: Headache on eliquis COMPARISON: CT head from 03/19/2024 TECHNIQUE: Contiguous axial imaging was performed from the skull base to vertex without intravenous administration of contrast. This CT examination was performed using dose optimization techniques as appropriate, variously including the following: *Automated exposure control *Adjustment of mA and/or kV according to patient size (this includes techniques or standardized protocols for targeted exams where dose is matched to indication/reason for exam; i.e. extremities or head) *Use of iterative reconstruction technique DLP: 761 mGy-cm FINDINGS: There is no evidence of acute intracranial hemorrhage or territorial infarction. Chronic white matter small vessel ischemic changes. Cerebral atrophy with commensurate ventricular changes. No abnormal mass effect or midline shift is seen. Plaza to white matter differentiation is well preserved. No extra-axial fluid collections are identified. There is no abnormal attenuation within the brain parenchyma. The osseous structures and soft tissues are normal. Chronic opacification left maxillary sinus. The mastoid air cells and visualized portions of the paranasal sinuses are well aerated. CT/CT head/brain wo IV con IMPRESSION: 1. No acute intracranial pathology. 2. Chronic white matter small vessel ischemic changes. 3. Chronic opacification left maxillary sinus.
[2024-06-13 07:20] VITALS: BP 183/111; PULSE 94; RESP 24; TEMP 36.6; O2SAT 94; BMI 25.1
--- NOTE | 2024-06-13 07:35 | ECG_ITS ---
Test Reason : DYSPNEA Blood Pressure : / mmHG Vent. Rate : 090 BPM Atrial Rate : 270 BPM P-R Int : 000 ms QRS Dur : 076 ms QT Int : 382 ms P-R-T Axes : 221 069 084 degrees QTc Int : 467 ms Atrial flutter with variable A-V block Abnormal ECG When compared with ECG of 15-MAY-2024 15:54, Atrial flutter has replaced Sinus rhythm Vent. rate has increased BY 32 BPM Referred By: Tuyet Weaver Electronically Signed By:JULIAN GRIFFIN MD
--- NOTE | 2024-06-13 07:37 | ED_ITS ---
HPI - SOB/Dyspnea General Chief Complaint: Dyspnea Stated Complaint: Diff breathing Time Seen by Provider: 06/13/24 07:28 Source: patient, family, old records reviewed and parboiler Mode of arrival: ambulatory Limitations: other (very hard of hearing) History of Present Illness ED Provider: CHIRSTIAN HPI Narrative: 88 yo male with PMH of PAF on eliquis, CAD on plavix, HTN, dCFH, BPH, GERD, hearing loss who woke up at 3am telling his he couldn't breathe. He denies cough/fevers. He has been put on hydroxyzine recently for anxiety. He feels he cannot get air into his lungs. She checked his BP at 3am and it was 180/120 so she gave him all of his AM medications - valsartan, metoprolol. He has a headache as well. He denies trauma, n/v, travel, sick contacts. He does feel congested in his R nostril. He has had pain not weakness in his R arm for 1 week. MD elicited complaint: shortness of breath Pertinent past history: congestive heart failure Onset (ago): hour(s) (3am today) Timing: improved Severity: moderate Exacerbating factors: nothing Relieving factors: nothing Known history of: congestive heart failure Associated symptoms: other (nasal congestion) Treatment prior to arrival: none Related Data Home Medications ?Medication ?Instructions ?Recorded ?Confirmed atorvastatin 40 mg tablet 1 tab PO BEDTIME 06/19/22 06/07/24 cetirizine 10 mg tablet 1 tab PO QAM PRN allergies 06/19/22 06/07/24 clopidogrel 75 mg tablet 1 tab PO BEDTIME 06/19/22 06/07/24 docusate sodium 100 mg capsule 1 cap PO DAILY PRN Constipation 06/19/22 06/07/24 famotidine 20 mg tablet 1 tab PO BEDTIME 06/19/22 06/07/24 pantoprazole 40 mg tablet,delayed 1 tab PO DAILY@0630 06/19/22 06/07/24 release metoprolol succinate 100 mg 100 mg PO QAM 12/13/22 06/07/24 tablet,extended release 24 hr furosemide 20 mg tablet 20 mg PO QAM 03/19/24 06/07/24 guaifenesin 100 mg/5 mL oral 200 mg PO Q4H PRN cough 03/19/24 06/07/24 liquid (Alberta-Tussin) ibuprofen 600 mg tablet 600 mg PO Q8H PRN mild pain 03/19/24 06/07/24 melatonin 3 mg tablet 6 mg PO BEDTIME PRN Sleep 03/19/24 06/07/24 mirtazapine 30 mg tablet 30 mg PO BEDTIME 03/19/24 06/07/24 valsartan 320 mg tablet 320 mg PO DAILY 03/19/24 06/07/24 Previous Rx's ?Medication ?Instructions ?Recorded apixaban 2.5 mg tablet (Eliquis) 2.5 mg PO BID #60 tabs 06/20/22 omeprazole 20 mg capsule,delayed 20 mg PO DAILY@0630 #90 caps 03/24/24 release potassium chloride 20 mEq oral 40 meq PO DAILY #180 ea 03/24/24 packet (Klor-Con) dextromethorphan-guaifenesin 10 10 ml PO Q4-6H PRN cough 30 days 04/26/24 mg-100 mg/5 mL oral liquid #500 mL Allergies Allergy/AdvReac Type Severity Reaction Status Date / Time No Known Allergies Allergy Verified 06/13/24 07:25 [No Known Allergies*] Review of Systems 2 Review of Systems: Constitutional : No Fever, No Chills ENT/Mouth : No sore throat, No Rhinorrhea, No Swallowing Difficulty Eyes: No Eye Pain, No Swelling, No Redness Cardiovascular : No Chest Pain, positive SOB, No Orthopnea, no Edema Respiratory : No Cough, No Sputum, No Wheezing, positive dyspnea Gastrointestinal : No Nausea, No Vomiting, No Diarrhea, No abdominal Pain, No Hematochezia, No Melena Genitourinary : No Dysuria, No Urinary Frequency, No Hematuria Musculoskeletal : pos joint pain, No Myalgias Skin : No Skin Lesions, No rash Neuro : No Weakness, No Numbness, No Dizziness, No Headache Psych : No Anxiety/Panic, No Depression All other systems reviewed and are negative [facility] Past Medical History Attestation statement: The following information was validated with the patient. Source: old records reviewed Medical History Cough CAD (coronary artery disease) PAF (paroxysmal atrial fibrillation) Gastroesophageal reflux disease with esophagitis Burning with urination Abscess Urinary frequency Colon cancer screening Weight loss, abnormal GERD (gastroesophageal reflux disease) Chronic idiopathic constipation HTN (hypertension) Surgical History History of surgery Hx of colonoscopy Family History Family History Father Stroke Mother No problems noted. Social History Social History Household Members: Spouse and Children Housing: House Do you presently have visiting nurse or other home services: No Alcohol intake: never Patient Tobacco Use Status: Former Tobacco user Tobacco use type: Cigarette Smoked in Last 30 Days: No Second Hand Smoke Exposure: No Use of substances other than those prescribed or required for medical reasons: No Advance Directives: Yes Advance Directives on File: Yes Advance Directives Date on File: 03/20/24 Do you have a plan to hurt others: No Plan service: No Current occupational status: disabled Physical Exam 2 Vital Signs: Vital Signs: Last Vital Signs Temp 97.8 F 06/13/24 07:20 Pulse 112 H 06/13/24 10:34 Resp 14 06/13/24 10:34 BP 154/104 H 06/13/24 10:34 Pulse Ox 93 06/13/24 10:34 O2 Del Method Room Air 06/13/24 10:34 BMI result Body Mass Index 25.1 Appearance: Alert. Oriented X3. No acute distress. anxious taking long slow deep breaths calmed down after we asked him to do this several times Eyes: Pupils equal, round and reactive to light. ENT: Pharynx normal. no swelling Neck: Normal inspection. Neck supple. CVS: irregular heart rate and rhythm. Pulses normal. Respiratory: No respiratory distress. Breath sounds normal. Abdomen: Soft and non-tender. Skin: Skin warm and dry. Normal skin color. Extremities: No lower extremity edema. Neuro: Oriented X 3. No motor deficit. No sensory deficit. Course Course Course Narrative: IV hydralazine ordered IV lasix has put out 1500 of urine still BP is high still feels dyspneic Reevaluation(s) Reevaluation #1: ambulation trial around the ED feels much better BNP at baseline has diuresed one time dose of BP medications trop flat at 5 hours ambulated around ED and no issues no hypoxia VS improved stable for DC Medications Administered Discontinued Medications Generic Name Dose Route Start Last Admin Trade Name Vale PRN Reason Stop Dose Admin Furosemide 40 mg 06/13/24 08:27 06/13/24 08:37 Furosemide 40 Mg/4 Ml Vial IVPUSH 06/13/24 08:28 40 mg STAT STA Administration Protocol Hydralazine HCl 10 mg 06/13/24 10:10 06/13/24 10:16 Hydralazine Hcl 20 Mg/Ml Vial IVPUSH 06/13/24 10:11 10 mg ONCE ONE Administration Protocol Medical Decision Making Medical Decision Making [facility] Narrative: 88 yo male with PMH of PAF on eliquis, CAD on plavix, HTN, dCFH, BPH, GERD, hearing loss here with c/o shortness of breath that started at 3am he denies chest pain has mild headache he is neuro intact at this time given complaint EKG ordered, CBC, BNP, troponin x 1 would be 5 hour dianelys, lytes, CXR for pneumonia/effusions, CT head given headache and eliquis use. Will monitor his breathing closely and he has no rales or wheezing on exam with breathing technique he stopped doing his loud gasping breath and is not calmed down was recently placed on hydroxyzine for anxiety. Differential Diagnosis Differential Diagnoses: The differential diagnosis associated with the presentation includes CHF, bronchitis, viral syndrome, pneumonia, afib Admission/Observation Consideration of admission/observation: Escalation of care including admission/observation considered Lab Data [facility] Lab Attestation statement: I reviewed the patient's lab results. BNP at recent trend IV lasix ordered 06/13/24 07:50 06/13/24 07:50 Labs: Lab Results 06/13/24 Range/Units 07:50 WBC 9.2 (4.8-10.8) X10*3/uL RBC 4.76 (4.60-5.80) X10*6/uL Hgb 14.6 (14.0-18.0) g/dl Hct 43.4 (42.0-52.0) % MCV 91.2 (80.0-98.0) fL MCH 30.7 (27.0-33.0) pg MCHC 33.6 (31.0-36.0) g/dl RDW 17.9 H (11.0-16.0) % Plt Count 148 L (160-400) X10*3/uL MPV 10.9 (9.4-12.4) fL Immature Gran % (Auto) 0.3 (0.0-0.4) % Neut % (Auto) 73.7 H (45-73) % Lymph % (Auto) 14.6 L (20-40) % Placer % (Auto) 8.4 (2-11) % Eos % (Auto) 2.6 (0-4) % Baso % (Auto) 0.4 (0-2) % Lymph # (Auto) 1.3 (1.2-4.9) X10*3/uL Placer # (Auto) 0.8 (0.1-1.2) X10*3/uL Eos # (Auto) 0.2 (0.0-0.4) X10*3/uL Baso # (Auto) 0.0 (0.0-0.2) X10*3/uL Abs Immat Gran (auto) 0.03 (0.00-0.03) X10*3/uL Absolute Neuts (auto) 6.8 (2.0-8.3) x10*3/uL Absolute Nucleated RBC 0.000 (0.0-0.012) X10*3/uL Nucleated RBC % (auto) 0.0 (0.0-0.2) /100WBC Sodium 142 (135-145) mmol/L Potassium 3.5 (3.3-5.1) mmol/L Chloride 105 (96-108) mmol/L Carbon Dioxide 29 (22-29) mmol/L Anion Gap 12 (12-20) BUN 16 (9-16) mg/dL Creatinine 1.27 (0.5-1.4) mg/dL Estim Creat Clear Calc 40.3 Estimated GFR 54 Random Glucose 89 (60-115) mg/dL Calcium 9.3 (8.4-10.2) mg/dL Magnesium 2.0 (1.6-2.6) mg/dL Total Bilirubin 1.5 H (0.0-1.0) mg/dL Direct Bilirubin 0.5 (0.0-0.5) mg/dL AST 25 (5-37) U/L ALT 26 (0-40) U/L Alkaline Phosphatase 106 (39-117) U/L Troponin I High Sens 15.1 D (<3.5-35.0) ng/L B-Natriuretic Peptide 715 H (<100) pg/mL Total Protein 7.2 (6.5-8.0) g/dL Albumin 4.3 (3.5-5.0) g/dL Lipase 39 (8-78) U/L Influenza Type A (PCR) NEGATIVE (Negative) Influenza Type B (PCR) NEGATIVE (Negative) RSV RNA Qual (PCR) NEGATIVE (Negative) SARS-CoV-2 RNA (RT-PCR) NEGATIVE (Negative) Independent Interpretation I performed an independent interpretation of an: EKG, Plain X-Ray (no pneumonia/edema) and CT Scan (no ICH) Interpretation: Rate: 90 Rhythm: aflutter [place]: normal Normal QRS complex. ST T wave : no [place], flat t waves aVL qTC: 467 prior studies: no sig change hx of same in past The study has been interpreted contemporaneously by me. . Radiology Impression Discussion of test interpretation with radiology: I have reviewed the radiologist's reading. Independent Historian Clinical information obtained from an independent historian. History obtained from or confirmed by: Spouse External Record Review External record reviewed: Inpatient record and Office record Discharge Plan Discharge Clinical Impression: Breath shortness, Chronic CHF, Chronic hypertension Patient Disposition: Home, Self-Care Instructions: Chronic Hypertension (ED), Heart Failure (ED), Shortness of Breath (ED) Additional Instructions: take all medications as prescribed today return for worsening pain, confusion, trouble breathing, fevers, vomiting, dizziness or any other concerns. Prescriptions: No Action atorvastatin 40 mg tablet 1 tab PO BEDTIME cetirizine 10 mg tablet 1 tab PO QAM PRN (Reason: allergies) clopidogrel 75 mg tablet 1 tab PO BEDTIME famotidine 20 mg tablet 1 tab PO BEDTIME pantoprazole 40 mg tablet,delayed release (DR/EC) 1 tab PO DAILY@0630 docusate sodium 100 mg capsule 1 cap PO DAILY PRN (Reason: Constipation) Eliquis 2.5 mg Tablet 2.5 mg PO BID Qty: 60 0RF metoprolol succinate 100 mg Tablet Extended Release 24 Hr 100 mg PO QAM guaifenesin [Alberta-Tussin] 100 mg/5 mL liquid 200 mg PO Q4H PRN (Reason: cough) mirtazapine 30 mg tablet 30 mg PO BEDTIME valsartan 320 mg tablet 320 mg PO DAILY ibuprofen 600 mg tablet 600 mg PO Q8H PRN (Reason: mild pain) melatonin 3 mg tablet 6 mg PO BEDTIME PRN (Reason: Sleep) furosemide 20 mg tablet 20 mg PO QAM omeprazole 20 mg Capsule,Delayed Release(Dr/Ec) 20 mg PO DAILY@0630 Qty: 90 0RF potassium chloride [Klor-Con] 20 mEq packet 40 meq PO DAILY Qty: 180 0RF dextromethorphan-guaifenesin 10-100 mg/5 mL liquid 10 ml PO Q4-6H PRN (Reason: cough) 30 Days Qty: 500 1RF Print Language: Urdu
[2024-06-13 07:56] LABS: MANUAL DIFF FLAG NO
[2024-06-13 07:57] LABS: Basophils Percent Auto 0.4 % (0-2); Eosinophils Absolute Auto 0.2 X10*3/uL (0.0-0.4); Eosinophils Percent Auto 2.6 % (0-4); Hematocrit 43.4 % (42.0-52.0); Hemoglobin 14.6 g/dl (14.0-18.0); Imm Gran Abs Auto 0.03 X10*3/uL (0.00-0.03); Imm Gran Pct Auto 0.3 % (0.0-0.4); Lymphocytes Absolute Auto 1.3 X10*3/uL (1.2-4.9); Lymphocytes Percent Auto 14.6 % (20-40); Mean Corpuscular HGB Conc 33.6 g/dl (31.0-36.0); Mean Corpuscular Hemoglobin 30.7 pg (27.0-33.0); Mean Corpuscular Volume 91.2 fL (80.0-98.0); Mean Platelet Volume 10.9 fL (9.4-12.4); Monocytes Absolute Auto 0.8 X10*3/uL (0.1-1.2); Monocytes Percent Auto 8.4 % (2-11); Neutrophils Absolute Auto 6.8 x10*3/uL (2.0-8.3); Neutrophils Percent Auto 73.7 % (45-73); Platelet Count 148 X10*3/uL (160-400); Red Blood Count 4.76 X10*6/uL (4.60-5.80); Red Cell Distribution Width 17.9 % (11.0-16.0); White Blood Count 9.2 X10*3/uL (4.8-10.8)
[2024-06-13 08:17] LABS: Alanine Aminotransferase 26 U/L (0-40); Albumin Level 4.3 g/dL (3.5-5.0); Alkaline Phosphatase 106 U/L (39-117); Anion Gap 12 (12-20); Aspartate Amino Transferase 25 U/L (5-37); Bilirubin Direct 0.5 mg/dL (0.0-0.5); Bilirubin Total 1.5 mg/dL (0.0-1.0); Blood Urea Nitrogen 16 mg/dL (9-16); Calcium 9.3 mg/dL (8.4-10.2); Carbon Dioxide 29 mmol/L (22-29); Chloride 105 mmol/L (96-108); Creatinine Clr Calc Pharmacy 40.3; Estimated Glomerular Filt Rate 54; Glucose Random 89 mg/dL (60-115); Lipase 39 U/L (8-78); Potassium 3.5 mmol/L (3.3-5.1); Sodium 142 mmol/L (135-145); Total Protein 7.2 g/dL (6.5-8.0)
[2024-06-13 08:20] LABS: B Type Natriuretic Peptide 715 pg/mL (<100)
[2024-06-13 08:24] LABS: Troponin-I High Sensitivity 15.1 ng/L (<3.5-35.0)
[2024-06-13 08:32] LABS: Influenza A PCR NEGATIVE (Negative); Influenza B PCR NEGATIVE (Negative); Resp Syncy Virus RNA Qual PCR NEGATIVE (Negative); SARS COV2 PCR INHOUSE NEGATIVE (Negative)
[2024-06-13 08:37] VITALS: BP 173/108
[2024-06-13] MEDS: Furosemide 40 MG/4 ML VIAL IVPUSH (08:37)
[2024-06-13 10:00] VITALS: BP 162/106; PULSE 91; RESP 19
[2024-06-13] MEDS: hydrALAZINE HCl 20 MG/ML VIAL 10 MG IVPUSH (10:16)
[2024-06-13 10:34] VITALS: BP 154/104; PULSE 112; RESP 14; O2SAT 93
--- NOTE | 2024-06-13 11:51 | PC.NURSE ---
pt walked well with stanby assist, no trouble breathing while walking. HR increased to 130s. MD notified of this spike in HR. When resting HR returned to 90-100
[2024-06-13 11:58] VITALS: BP 143/96; PULSE 93; RESP 21; TEMP 36.5; O2SAT 94
== END 2024-06-13 11:59 | disposition home or self-care (01) ==
PROVIDERS: Emergency Provider Emergency Medicine; PCP Internal Medicine
DX: R06.02 Shortness of breath (principal); I25.10 Atherosclerotic heart disease of native coronary artery without angina pectoris; I10 Essential (primary) hypertension; R09.81 Nasal congestion; I48.92 Unspecified atrial flutter; R51.9 Headache, unspecified; Z03.818 Encounter for observation for suspected exposure to other biological agents ruled out; Z79.01 Long term (current) use of anticoagulants; Z79.899 Other long term (current) drug therapy; Z87.891 Personal history of nicotine dependence
CPT/HCPCS: 0241U; 36415; 70450; 71045; 80048; 80076; 83690; 83735; 83880; 84484; 85025; 93005; 96374; 96375; 99284; 99285; J0360; J1940

== ENCOUNTER → 2024-06-13 07:35 | Outpatient (BNV) | payer OTHER, SELFPAY | PROVIDERS: Emergency Provider Emergency Medicine; PCP Internal Medicine; Visit Provider Internal Medicine Cardiovascular Disease | DX: R06.00 Dyspnea, unspecified (principal) | CPT/HCPCS: 93010 ==

== ENCOUNTER 2024-08-04 08:38 | Outpatient (REF) | payer OTHER, SELFPAY ==
[2024-08-04 11:12] LABS: Appearance Urine Clear; Color Urine Yellow; Glucose Urine UA Negative (Negative); Leukocyte Esterase Urine Negative (Negative); Nitrite Urine Negative (Negative); PH 5.5 (5.0-9.0); UMIC TRIGGER UACC YES; Urine Blood Negative (Negative); Urine Ketones Negative (Negative); Urine Protein 30 (1+) mg/dL (Neg-Trace)
[2024-08-04 11:41] LABS: Syphilis Screen Reactive (Nonreactive)
[2024-08-04 11:46] LABS: Alanine Aminotransferase 12 U/L (0-40); Albumin Level 4.1 g/dL (3.5-5.0); Alkaline Phosphatase 94 U/L (39-117); Anion Gap 12 (12-20); Aspartate Amino Transferase 23 U/L (5-37); Bilirubin Total 1.1 mg/dL (0.0-1.0); Blood Urea Nitrogen 16 mg/dL (9-16); Calcium 9.6 mg/dL (8.4-10.2); Carbon Dioxide 30 mmol/L (22-29); Chloride 107 mmol/L (96-108); Cholesterol 96 mg/dL (<200); Estimated Glomerular Filt Rate 51; Glucose Random 97 mg/dL (60-115); HDL Cholesterol 35 mg/dL (>40); LDL Cholesterol Calculated 49 mg/dL (<100); Magnesium 2.1 mg/dL (1.6-2.6); Potassium 3.5 mmol/L (3.3-5.1); Sodium 145 mmol/L (135-145); TSH reflex Free T4 1.25 uIU/mL (0.32-4.0); Total Protein 7.1 g/dL (6.5-8.0); Triglycerides 64 mg/dL (<150)
[2024-08-04 11:53] LABS: Bacteria Urine None Seen (None Seen); RBC Urine 0-2 /HPF (0-2); Squamous Epithelial Cell Urine 0-2 /HPF (0-2); WBC Urine 0-5 /HPF (0-5)
[2024-08-04 11:55] LABS: Folate 11.8 ng/mL (> or = 4.0); Vitamin B12 289 pg/mL (200-900)
[2024-08-13 15:30] LABS: RPR Quantitative Non-Reactive (Nonreactive)
[2024-08-13 15:31] LABS: T.Pallidum Particle Agg Test Non-Reactive (Nonreactive)
== END 2024-08-04 08:39 | disposition home or self-care (01) ==
LOC: HO.HHCL 08:38
PROVIDERS: Referring Provider Pediatrics; Visit Provider Internal Medicine
DX: E78.5 Hyperlipidemia, unspecified (principal); I10 Essential (primary) hypertension; R41.3 Other amnesia
CPT/HCPCS: 36415; 80053; 80061; 81001; 82607; 82746; 83735; 84443; 86592; 86780

== ENCOUNTER 2025-02-15 09:18 | Outpatient (AMB) | payer OTHER, SELFPAY ==
--- NOTE | 2025-02-15 09:21 | A.OFFVIS_ITS ---
Vital Signs 02/15/25 09:29 Height 6 ft 5 in Weight 182 lb BMI 21.6 BP 123/68 Blood Pressure Location Rt brachial Position Sitting Pulse 61 Intake Visit Reasons: sebaceous cyst back Intake Note: Patient referred by pcp Dr. Shazia Dela Cruz for sebaceous cyst on mid upper back. Present for 1m. Reports improvement since scheduling apt. 2nd concern: growth Rt ant scalp along hairline X1m. Painful to touch. No hx of skin CA. Gas Plant Technician Required: No Accompanied by: spouse Miley Rivas Allergies No Known Allergies [No Known Allergies*] Allergy (Verified 02/15/25 09:28) HPI Comments Details: Patient presents with a significant other. He has 2 sebaceous cysts, 1 involving the posterior neck which was infected and since resolved with the cyst persists and is symptomatic. Patient also has a right forehead sebaceous cyst which has also been present for several days which she would like to have addressed for him as well. Not had issues with cyst in the past. Patient was is currently on Eliquis among other meds. Chart was reviewed and patient evaluated [facility] Medical History Cough CAD (coronary artery disease) PAF (paroxysmal atrial fibrillation) Gastroesophageal reflux disease with esophagitis Burning with urination Abscess Urinary frequency Colon cancer screening Weight loss, abnormal GERD (gastroesophageal reflux disease) Chronic idiopathic constipation HTN (hypertension) Surgical History History of surgery Hx of colonoscopy Family History Father Stroke Mother No problems noted. Social History Household Members: Spouse and Children Housing: House Do you presently have visiting nurse or other home services: No Alcohol intake: never Patient Tobacco Use Status: Former Tobacco user Tobacco use type: Cigarette Second Hand Smoke Exposure: No Advance Directives Date on File: 03/20/24 service: No Current occupational status: disabled Physical Exam Vital Signs: Last Vital Signs Pulse 61 02/15/25 09:29 BP 123/68 02/15/25 09:29 BMI result Body Mass Index 21.6 HEENT Other: Right forehead demonstrates a proximally 3 x 2 cm inflamed sebaceous cyst. No cervical adenopathy. Patient was a upper back/lower neck 3 x 2 cm resolved infected sebaceous cyst. Assessment & Plan Assessment & Plan (1) Sebaceous cyst: Code(s): L72.3 - Sebaceous cyst Category: Surgical Plan At present, patient will be treated conservatively regarding the posterior neck cyst until the infective process of the right forehead cyst has resolved. Once these are both healthy and clean, excision can be entertained with the Eliquis held appropriately. In the meantime, patient will be given antibiotics, warm compresses to the area of the right forward and will see me in 1 week's time for follow-up. All questions answered. Coding Level of Care Code New Pt Level 4 (10716) Diagnoses Sebaceous cyst L72.3
[2025-02-15 09:29] VITALS: BP 123/68; PULSE 61; BMI 21.6
--- OUTSIDE RECORDS SUMMARY | 2025-02-15 10:13 | XMS_ITS | Encounter Summary ---
Author Organization [employer] Address [address] [place] [address] Care Team Providers Care Lumber Loader Name Role Phone Nasim Wilkinson MD Primary Care Prov ider Reason for Visit * Reason Comments Med Refill Encounter Details Date Type Department Care Team ([facility] st Contact Info) Description 05/31/2024 Refill [facility] MED & PEDS [address] [place] [address] Nasim Wilkinson MD [address] [place] [address] Social History Tobacco Use Types Packs/Day Years Used Date Smoking Tobacco: Former Cigarettes Passive Smoke Exposure: Never Smokeless Tobacco: Never Depression Answer Date Recorded Patient Health Questionnaire-9 Score 11 12/18/2023 Patient Health Questionnaire-9 Score 11 12/18/2023 Last PHQ-9: Questionnaire Data Not on file 0 12/18/2023 Housing Stability Answer Date Recorded What is your housing situation today? I have reji chavis 08/26/[address] you li ve. Do you have problems with any of the following? None of the above 08/26/2023 Food Insecurity Answer Date Recorded Within the past 12 months, y ou worried that your food would run out before you got money to buy more: Never True 08/26/2023 Within the past 12 months,th e food you bought just didn't last and you didn't have enough money to get more: Never True Transportation Answer Date Recorded In the past 12 months, has l ack of transportation kept you from medical appts, meetings, work or from getting things needed for daily living? No 08/26/2023 Utilities Answer Date Recorded In the past 12 months, has t he electric, gas, oil or water company threatened to shut off services in your home? No 08/26/2023 Depression Answer Date Recorded Patient Health Questionnaire-2 Score 6 12/18/2023 Sex and Gender Information Value Date Recorded Sex Assigned at Male 09/02/2022 10:30 AM EDT Legal Sex Male 10:30 AM EDT Gender Identity Male 09/02/2022 10:30 AM EDT Sexual Orientation Straight 09/02/2022 10 :30 AM EDT documented as of this encounter Plan of Treatment Upcoming Encounters Date Type Department Care Team ([facility] st Contact Info) Description 02/22/2025 10:15 AM EDT Office Visit [facility] MED & PEDS [address] [place] [address] Nasim Wilkinson MD [address] [place] [address] documented as of this encounter Visit Diagnoses Not on filedocumented in this encounter Additional Health Concerns Assessment Noted Time PHQ-9 Depression Total Score: 11 024 1:39 PM EST documented as of this encounter Care Teams Lumber Loader Relationship Specialty Start Date End Date Nasim Wilkinson MD [address] [place] [address] PCP - General Internal Medicine 04/02/20 documented as of this encounter
--- OUTSIDE RECORDS SUMMARY | 2025-02-15 10:13 | XMS_ITS | Encounter Summary ---
Author Organization [employer] Address [address] [facility] [address] [place] [address] Care Team Providers Care Blocking Machine Tender Name Role Phone Nasim Wilkinson MD Primary Care Prov ider Reason for Visit * Reason Onset Date Comments Hospital Follow-up 03/24/2024 Encounter Details Date Type Department Care Team (Late st Contact Info) Description 03/24/2024 Telephone [facility] [address] [facility] [place] [address] Nasim Wilkinson MD [address] [place] [address] Hospital Follow-up Social History Tobacco Use Types Packs/Day Years [...] AM EDT documented as of this encounter Miscellaneous Notes * Telephone Encounter - Franky Taylor - 03/24/2024 1:49 PM EDT Tc from pt requesting a HDF appt. Hospital: [facility] Date of admission: 03/19 Discharge date: 03/24 Diagnosed: Low Potassium documented in this encounter Plan of Treatment Upcoming Encounters Date Type Department Care Team (Late st Contact Info) Description 02/22/2025 10:15 AM EDT Office Visit [facility] MED & PEDS [address] [place] [address] Nasim Wilkinson MD [address] [place] [address] documented as of this encounter Visit Diagnoses Not on filedocumented in this encounter Additional Health Concerns Assessment Noted Time PHQ-9 Depression Total Score: 11 024 1:39 PM EST documented as of this encounter Care Teams Blocking Machine Tender Relationship Specialty Start Date End Date Nasim Wilkinson MD [address] [place] [address] PCP - General Internal Medicine 04/02/20 documented as of this encounter
--- OUTSIDE RECORDS SUMMARY | 2025-02-15 10:13 | XMS_ITS | Encounter Summary ---
Author Organization [employer] Address [address] [place] [address] Care Team Providers Care Economic Forecaster Name Role Phone Nasim Wilkinson MD Primary Care Prov ider Encounter Details Date Type Department Care Team (Late st Contact Info) Description 04/26/2024 Telephone [facility] [address] [place] [address] Roxanna Noel, DDS [address] [place] [address] Social History Tobacco Use Types Packs/Day Years [...] encounter Miscellaneous Notes * Telephone Encounter - Guerda Corbin - 04/26/2024 11:45 AM EDT Patient is still waiting for dentures since February they have called several times documented in this encounter Plan of Treatment Upcoming Encounters Date Type Department Care Team (Late st Contact Info) Description 02/22/2025 10:15 AM EDT Office Visit [facility] MED & PEDS [address] [place] [address] Nasim Wilkinson MD [address] [place] [address] documented as of this encounter Visit Diagnoses Not on filedocumented in this encounter Additional Health Concerns Assessment Noted Time PHQ-9 Depression Total Score: 11 024 1:39 PM EST documented as of this encounter Care Teams Economic Forecaster Relationship Specialty Start Date End Date Nasim Wilkinson MD [address] [place] [address] PCP - General Internal Medicine 04/02/20 documented as of this encounter
--- OUTSIDE RECORDS SUMMARY | 2025-02-15 10:13 | XMS_ITS | Encounter Summary ---
Author Organization [employer] Address [address] [facility] [address] [place] [address] Care Team Providers Care Pet Caretaker Name Role Phone Nasim Wilkinson MD Primary Care Prov ider Reason for Visit * Reason Onset Date Comments Nurse Triage 01/19/2025 Encounter Details Date Type Department Care Team (Late st Contact Info) Description 01/19/2025 Telephone [facility] MEDICINE [address] [place] [address] Nasim Wilkinson MD [address] [place] [address] Nurse Triage Social History Tobacco Use Types Packs/Day Years Used Date Smoking Tobacco: Former Cigarettes Passive Smoke Exposure: Never Smokeless Tobacco: Never Depression Answer Date Recorded Patient Health Questionnaire-9 Score 17 07/12/2024 Patient Health Questionnaire-9 Score 17 07/12/2024 Last PHQ-9: Questionnaire Data Not on file 0 07/12/2024 Housing Stability Answer Date Recorded What is [...] Date Recorded Patient Health Questionnaire-2 Score 6 07/12/2024 Sex and Gender Information Value Date Recorded Sex Assigned at Male 09/02/2022 10:30 AM EDT Legal Sex Male 10:30 AM EDT Gender Identity Male 09/02/2022 10:30 AM EDT Sexual Orientation Straight 09/02/2022 10 :30 AM EDT documented as of this encounter Miscellaneous Notes * Telephone Encounter - Rebecca Snyder RN - 01/19/2025 4:02 PM EDT Triage call [place] [id number]. Pt spouse is requesting to speak for Pt since Pt hearing is very, very poor. Pt is sitting by spouse. Pt is having increased left hip pain which is of chronic nature. Spouse has given a medication from [facility] which is comparison to tylenol possibly. Spouse is asked to not give that at this time and agrees. Pt is ambulating but with a pronounced limp and much noted pain. Pt is advised to come to [facility] today to be seen by provider and spouse agrees with this disposition. Insurance is verified as active. Protocol Used: Hip Pain (Adult) Protocol-Based Disposition: See in Office or Video Visit Today or Tomorrow Video visit not offered Positive Triage Question: * Patient wants to be seen * All higher-acuity triage questions were negative Care Advice Discussed: * Reassurance and Education - Hip Pain * Pain Medicines * Pain Medicines - Extra Notes and Warnings * Rest Your Hip for the Next Couple Days * Reasons To Call Back - Moderate pain (such as limping) lasts more than 3 days - Mild pain lasts more than 7 days - Signs of infection occur (such as spreading redness, warmth, fever) - You become worse * Use a Cold Pack for Pain * Use Heat After 48 Hours for Pain * Telephone Encounter - Binh Vergara - 01/19/2025 3:25 PM EDT Symptom: Hip Pain - Not From Injury Outcome: Schedule an urgent appointment (within 1 hour) or talk to a nurse or provider soon Reason: Severe pain now The caller accepted this outcome. ( Syriac speaking) Duration 3 days documented in this encounter Plan of Treatment Upcoming Encounters Date Type Department Care Team ([facility] st Contact Info) Description 02/22/2025 10:15 AM EDT Office Visit [facility] MED & PEDS [address] [place] [address] Nasim Wilkinson MD [address] [place] [address] documented as of this encounter Visit Diagnoses Not on filedocumented in this encounter Additional Health Concerns Assessment Noted Time PHQ-9 Depression Total Score: 17 024 9:23 AM EDT documented as of this encounter Care Teams Pet Caretaker Relationship Specialty Start Date End Date Nasim Wilkinson MD [address] [place] [address] PCP - General Internal Medicine 04/02/20 documented as of this encounter
--- OUTSIDE RECORDS SUMMARY | 2025-02-15 10:13 | XMS_ITS | Encounter Summary ---
Author Organization [employer] Address [address] [facility] [address] 7[address] [place] [address] Care Team Providers Care Export Coordinator Name Role Phone Nasim Wilkinson MD Primary Care Prov ider Encounter Details Date Type Department Care Team (Late st Contact Info) Description 08/08/[address] [facility] ADULT DENTAL [address] [place] [address] Baltazar Chen, DDS [address] [place] [address] Social History Tobacco Use Types Packs/Day Years Used Date Smoking Tobacco: Former Cigarettes Passive Smoke Exposure: Never Smokeless Tobacco: Never Depression Answer Date Recorded Patient Health Questionnaire-9 Score 2 11/05/2022 Housing Stability Answer Date Recorded What is your housing situation today? I have rejiadina chavis 08/12/[address] you li ve. Do you have problems with any of the following? None of the above 08/12/2023 Food Insecurity Answer Date Recorded Within the past 12 months, y ou worried that your food would run out before you got money to buy more: Never True 08/12/2023 Within the past 12 months,th e food you bought just didn't last and you didn't have enough money to get more: Never True 08/2023 Transportation Answer Date Recorded In the past 12 months, has l ack of transportation kept you from medical appts, meetings, work or from getting things needed for daily living? No 08/12/2023 Utilities Answer Date Recorded In the past 12 months, has t he electric, gas, oil or water company threatened to shut off services in your home? No 08/12/2023 Depression Answer Date Recorded Patient Health Questionnaire-2 Score 2 11/05/2022 Sex and Gender Information Value Date Recorded Sex Assigned at Male 09/02/2022 10:30 AM EDT Legal Sex Male 10:30 AM EDT Gender Identity Male 09/02/2022 10:30 AM EDT Sexual Orientation Straight 09/02/2022 10 :30 AM EDT documented as of this encounter Plan of Treatment Upcoming Encounters Date Type Department Care Team (Late st Contact Info) Description 02/22/2025 10:15 AM EDT Office Visit [facility] MED & PEDS [address] [place] [address] Nasim Wilkinson MD [address] [place] [address] documented as of this encounter Visit Diagnoses Not on filedocumented in this encounter Additional Health Concerns Assessment Noted Time PHQ-9 Depression Total Score: 2 11/05/19 23 10:30 AM EST documented as of this encounter Care Teams Export Coordinator Relationship Specialty Start Date End Date Nasim Wilkinson MD [address] [place] [address] PCP - General Internal Medicine 04/02/20 documented as of this encounter
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
--- OUTSIDE RECORDS SUMMARY | 2025-02-15 10:13 | XMS_ITS | Encounter Summary ---
Author Organization [employer] Address [address] [place] [address] Care Team Providers Care Hardboard Coating Machine Operator Name Role Phone Nasim Wilkinson MD Primary Care Prov ider Encounter Details Date Type Department Care Team (Late st Contact Info) Description 04/07/2024 Telephone [facility] ADULT DENTAL [address] [place] [address] Roxanna Noel, DDS [address] [place] [address] Social History Tobacco Use Types Packs/Day Years [...] * Telephone Encounter - Guerda Corbin - 04/07/2024 10:19 AM EDT Patient looking for his dentures when calling please speak in indonesian thank u documented in this encounter Plan of Treatment Upcoming Encounters Date Type Department Care Team (Late st Contact Info) Description 02/22/2025 10:15 AM EDT Office Visit [facility] MED & PEDS [address] [place] [address] Nasim Wilkinson MD [address] [place] [address] documented as of this encounter Visit Diagnoses Not on filedocumented in this encounter Additional Health Concerns Assessment Noted Time PHQ-9 Depression Total Score: 11 024 1:39 PM EST documented as of this encounter Care Teams Hardboard Coating Machine Operator Relationship Specialty Start Date End Date Nasim Wilkinson MD [address] [place] [address] PCP - General Internal Medicine 04/02/20 documented as of this encounter
--- OUTSIDE RECORDS SUMMARY | 2025-02-15 10:13 | XMS_ITS | Encounter Summary ---
Author Organization [employer] Address [address] [facility] 7t [place] [address] Care Team Providers Care Pump Assembler Name Role Phone Nasim Wilkinson MD Primary Care Prov ider Encounter Details Date Type Department Care Team (Late st Contact Info) Description 02/25/2024 Orders Only [facility] MED & PEDS [address] [place], [place] [phone] Sonia Young MD [address] [place] [address] Primary hypertension (Primary Dx) Social History Tobacco Use Types Packs/Day Years [...] Description 02/22/2025 10:15 AM EDT Office Visit [facility] MED & PEDS [address] [place], [place] [phone] Nasim Wilkinson MD [address] [place], [place] [phone] documented as of this encounter Procedures Procedure Name Priority Date/Time Associated Diagnosis Comments BASIC METABOLIC PANEL Routine 02/25/2024 11:17 AM EDT Primary hypertension documented in this encounter Results * (ABNORMAL) Basic Metabolic Panel (02/25/2024 11:17 AM EDT) Sodium 141 135 - 145 mmol/L [facility] Potassium 2.7(LL) 3.3 - 5.1 mmol/L [facility] Comment:Critical value for t est(K): Results called to and readback by DR. KENA ANAYA: Person calling: HELIO Date:02/25/24 Time: 1720 Chloride 103 96 - 108 mmol/L [facility] Carbon Dioxide 32(H) 22 - 29 mmol/L [facility] Anion Gap 9(L) 12 - 20 [facility] Urea Nitrogen (BUN) 17(H) 9 - 16 mg/dL [facility] Creatinine, Serum 1.23 0.5 - 1.4 mg/dL [facility] Estimated Glomerular Filt Rate 56 [facility] Comment:NOTE: For -Am erican individuals, multiply the result by 1.210.Chronic Kidney Disease: Estimated GFR < 60 mL/min/1.89p5Auwxzf Kidney Disease: Estimated GFR < 15 mL/min/1.73m2 Glucose 117(H) 60 - 115 mg/dL [facility] Calcium 9.3 8.4 - 10.2 mg/dL [facility] 02/25/2024 11:1 7 AM EDT 02/25/2024 2:49 PM EDT us Generic External Data Provider LAB BLOOD ORDERAB LES Final Result [facility] [address] [place] [address] [phone] documented in this encounter Visit Diagnoses Diagnosis Primary hypertension- Primary Unspecified essential hypertension documented in this encounter Additional Health Concerns Assessment Noted Time PHQ-9 Depression Total Score: 11 12/18/2 024 1:39 PM EST documented as of this encounter Care Teams Pump Assembler Relationship Specialty Start Date End Date Nasim Wilkinson MD [address] [place] [address] PCP - General Internal Medicine 04/02/20 documented as of this encounter
--- OUTSIDE RECORDS SUMMARY | 2025-02-15 10:13 | XMS_ITS | Encounter Summary ---
Author Organization [employer] Address [address] [facility] 7t [place] [address] Care Team Providers Care Assistance Specialist Name Role Phone Nasim Wilkinson MD Primary Care Prov ider Reason for Visit * Reason Onset Date Comments Nurse Triage 02/10/2024 Encounter Details Date Type Department Care Team (Late st Contact Info) Description 02/10/2024 Telephone [facility] MEDICINE [address] [place] [address] Nasim Wilkinson MD [address] [place] [address] Nurse Triage Social History Tobacco Use Types [...] encounter Miscellaneous Notes * Telephone Encounter - Ning Hoang RN - 02/10/2024 3:34 PM EDT Called back pt. via [employer] supervisor hydrochloric area Opcv [phone]. Pt. Will come in to Medical visit on 02/13/24 at 920am in [facility] to check lungs due to chronic cough. * Telephone Encounter - Ning Hoang RN - 02/10/2024 2:34 PM EDT Called pt. Via [employer] supervisor hydrochloric area [phone] Roxy. Fashion Design Professor states that someone answered phone dinorah hung up. Fashion Design Professor called back x 2. The call went to voice mail and supervisor hydrochloric area left messagefor pt. To call back [facility] nurses at [phone]. Called back [phone] and Miely answered phone. Pt. Came on phone and gave interpreterpermission to speak. Pt. Has a chronic cough with white phlegm. Cough is hacky and keeping pt. Up at night. Pt. Looking for a liquid cough suppressant syrup that states pt. Has gotten in the past. I do not see any liquid cough syrup in EPIC. Pt. Is currently taking his Ceterizine daily in am. No fever. No other sx. I did look in NEXGEN and found Guifenisin 100mg/5ml- Instructions give 10ml every 4 hours for cough. Will sernd request to PCP. Pt. Appt. Made for 02/11/24- but will call pt. Back because he is unsure of transportation. Protocol Used: Cough (Adult) Protocol-Based Disposition: See in Office or Video Visit Today or Tomorrow Video visit not offered Positive Triage Question: * Continuous (nonstop) coughing interferes with work or school and no improvement using cough treatment per Care Advice * All higher-acuity triage questions were negative Care Advice Discussed: * Cough Medicines * Coughing Spells * Prevent Dehydration * Avoid Tobacco Smoke * Humidifier * Telephone Encounter - Jorge Mariee Stephens - 02/10/2024 2:31 PM EDT Symptom: Cough Outcome: Schedule an urgent appointment (within 1 hour) or talk to a nurse or provider soon Reason: Wheezing (high-pitched whistling sound) The caller accepted this outcome Please contact pt @ [phone] Turkmen Speaker documented in this encounter Plan of Treatment Upcoming Encounters Date Type Department Care Team ([facility] st Contact Info) Description 02/22/2025 10:15 AM EDT Office Visit [facility] CH[facility] MED & PEDS [address] [place] [address] Nasim Wilkinson MD [address] [place] [address] documented as of this encounter Visit Diagnoses Not on filedocumented in this encounter Additional Health Concerns Assessment Noted Time PHQ-9 Depression Total Score: 11 12/18/ 024 1:39 PM EST documented as of this encounter Care Teams Assistance Specialist Relationship Specialty Start Date End Date Nasim Wilkinson MD [address] [place] [address] PCP - General Internal Medicine 04/02/20 documented as of this encounter
--- OUTSIDE RECORDS SUMMARY | 2025-02-15 10:13 | XMS_ITS | Encounter Summary ---
Author Organization [employer] Address 75 [facility] 7 [place] [address] Care Team Providers Care Franchise Development Manager Name Role Phone Nasim Wilkinson MD Primary Care Prov ider Reason for Visit * Reason Comments Med Refill Encounter Details Date Type Department Care Team (Late Contact Info) Description 07/17/2023 Refill [facility] MED & PEDS [address] [place] [address] Sonia Young MD [address] [place] [address] Social History Tobacco Use Types Packs/Day Years Used Date Smoking Tobacco: Former Cigarettes Passive Smoke Exposure: Never Smokeless Tobacco: Never Depression Answer Date Recorded Patient Health Questionnaire-9 Score 2 11/05/2022 Depression Answer Date Recorded Patient Health Questionnaire-2 Score 2 11/05/2022 Sex and Gender Information Value Date Recorded Sex Assigned at Male 09/02/2022 10:30 AM EDT Legal Sex Male 10:30 AM EDT Gender Identity Male 09/02/2022 10:30 AM EDT Sexual Orientation Straight 09/02/2022 10 :30 AM EDT documented as of this encounter Plan of Treatment Upcoming Encounters Date Type Department Care Team (Late Contact Info) Description 02/22/2025 10:15 AM EDT Office Visit [facility] CHC MED & PEDS [address] [place], [place] [phone] Nasim Wilkinson MD [address] [place], [place] [phone] documented as of this encounter Visit Diagnoses Not on filedocumented in this encounter Additional Health Concerns Assessment Noted Time PHQ-9 Depression Total Score: 2 11/05/19 23 10:30 AM EST documented as of this encounter Care Teams Franchise Development Manager Relationship Specialty Start Date End Date Nasim Wilkinson MD [address] [place] [phone] PCP - General Internal Medicine 04/02/20 documented as of this encounter
--- OUTSIDE RECORDS SUMMARY | 2025-02-15 10:13 | XMS_ITS | Encounter Summary ---
Author Organization [employer] Address [address] [facility] 7t [place] [address] Care Team Providers Care Covered Button Maker Name Role Phone Nasim Wilkinson MD Primary Care Prov ider Encounter Details Date Type Department Care Team (Late st Contact Info) Description 12/09/2022 Orders Only [facility] MEDICINE [address] [place], [place] [phone] Nasim Wilkinson MD [address] [place] [address] Primary hypertension Social History Tobacco Use Types Packs/Day Years Used Date Smoking Tobacco: Never Assessed Depression Answer Date Recorded Patient Health Questionnaire-9 [...] Description 02/22/2025 10:15 AM EDT Office Visit [facility] CHC MED & PEDS [address] [place], [place] [phone] Nasim Wilkinson MD [address] [place], [place] [phone] documented as of this encounter Procedures Procedure Name Priority Date/Time Associated Diagnosis Comments COMPREHENSIVE METABOLIC PANEL, FASTING Routine 06/10/2023 2:23 PM EDT Primary hypertension POCT CARBON MONOXIDE Routine 12/13/2022 11:22 AM EST Primary hypertension HIGH SENSITIVITY TROPONIN I Routine 12/13/2022 11:12 AM EST Primary hypertension CBC WITH AUTO DIFFERENTIAL Routine 12/13/2022 11:12 AM EST Primary hypertension LACTIC ACID Routine 12/13/2022 11:12 AM EST Primary hypertension COMPREHENSIVE METABOLIC PANEL Routine 12/13/2022 11:12 AM EST Primary hypertension documented in this encounter Results * (ABNORMAL) Comprehensive Metabolic Panel, Fasting (06/10/2023 2:23 PM EDT) Sodium 143 135 - 145 mmol/L [facility] Potassium 2.8(L) 3.3 - 5.1 mmol/L [facility] Chloride 102 96 - 108 mmol/L [facility] Carbon Dioxide 29 22 - 29 mmol/L [facility] Anion Gap 15 12 - 20 [facility] Urea Nitrogen (BUN) 29(H) 9 - 16 mg/dL [facility] Creatinine, Serum 1.72(H) 0.5 - 1.4 mg/dL [facility] Estimated Glomerular Filt Rate 38 [facility] Comment:NOTE: For -Am erican individuals, multiply the result by 1.210.Chronic Kidney Disease: Estimated GFR < 60 mL/min/1.61x2Cihvln Kidney Disease: Estimated GFR < 15 mL/min/1.73m2 Glucose Fasting 57(LL) 60 - 99 mg/dL [facility] Comment:Critical value for t est(s): FBS Results called to and readback by: YASMINE IVAN Person calling: CHITRAMINCDate:06/10/23 Time: 1910 Calcium 10.1 8.4 - 10.2 mg/dL [facility] Bilirubin, Total 0.8 0.0 - 1.0 mg/dL [facility] Aspartate Amino Transferase 15 5 - 37 U/L [facility] Alanine Aminotransferase 9 0 - 40 U/L [facility] Total Protein 8.0 6.5 - 8.0 g/dL [facility] Albumin Level 4.5 3.5 - 5.0 g/dL [facility] Alkaline Phosphatase 79 39 - 117 U/L [facility] 06/10/2023 2:23 PM EDT 06/10/2023 5:49 PM EDT Nasim Dela Cruz MD LAB BLOOD ORDERABL ES Final Result Performing Organization Address [facility] Co de Phone Number [facility] [address] [place] [phone] * POCT Carbon Monoxide (12/13/2022 11:22 AM EST) Carbon Monoxide POC 3.3 % [facility] Comment:METER #: [id number] additional_comment: Long crosbsCARBON MONOXIDE REFERENCE RANGE: NON SMOKERS: LESS THAN 2.0% SMOKERS: 2.0 - 9.0%Note:Therapeutic levels of Hydroxocobalamin (1 mg/mL and 2 mg/mL)may interfere with carboxyhemoglobin causing lower thanexpected values. A negative interference withcarboxyhemoglobin has the potential to alter the medicalassessment of the patient and may withhold necessaryfollow-up treatment in response to elevatedcarboxyhemoglobin levels. 12/13/2022 11:2 2 AM EST 12/13/2022 11:29 AM EST [facility] Exter nal Provider LAB POINT OF CARE TEST DOCKED DEVICE ORDERABLES Final Result Performing Organization Address [facility] Co de Phone Number [facility] [address] [place] [phone] * (ABNORMAL) Lactic Acid (12/13/2022 11:12 AM EST) Pathologist [facility] Lactic Acid 2.4(HH) 0.5 - 2.0 mmol/L [facility] Comment:Critical value for L ACTIC: Results called to and read matheus SANTAMARIA Person calling: SAMANTHAJefryMIKKI Date: 12/13/22 Time: 1154 12/13/2022 11:1 2 AM EST 12/13/2022 11:23 AM EST [facility] External Provider LAB BLO OD ORDERABLES Final Result Performing Organization Address [facility] Co de Phone Number [facility] [address] [place] [phone] * HIGH SENSITIVITY TROPONIN I (12/13/2022 11:12 AM EST) [facility] TROPONIN I HIGH SENSITIVITY 7.8 <3.5 - 35.0 ng/L [facility] Comment:The Serrano high sens itivity Troponin-I results should beused in conjunction with other diagnostic information suchas ECG, clinical observations and information, and patientsymptoms to aid in the diagnosis of MS. 12/13/2022 11:1 2 AM EST 12/13/2022 11:27 AM EST [facility] External Provider LAB BLO OD ORDERABLES Final Result Performing Organization Address [facility] de Phone Number [facility] [address] [place] [phone] * (ABNORMAL) Comprehensive Metabolic Panel (12/13/2022 11:12 AM EST) [facility] Sodium 141 135 - 145 mmol/L [facility] Potassium 2.8(L) 3.3 - 5.1 mmol/L [facility] Chloride 102 96 - 108 mmol/L [facility] Carbon Dioxide 26 22 - 29 mmol/L [facility] Anion Gap 16 12 - 20 [facility] Urea Nitrogen (BUN) 24(H) 9 - 16 mg/dL [facility] Creatinine, Serum 1.72(H) 0.5 - 1.4 mg/dL [facility] Creatinine Clr Calc Pharmacy 33.4 [facility] Comment:eGFR (calculated fro m the MDRD study equation) and eCrCl(calculated from the Cockcroft-Gault equation) are based ondifferent parameters and may not yield comparable results.If eCrCl result is absurd, please check patient'sheight/weight. Estimated Glomerular Filt Rate 38 [facility] Comment:NOTE: For -Am erican individuals, multiply the result by 1.210.Chronic Kidney Disease: Estimated GFR < 60 mL/min/1.23u1Qdoxzy Kidney Disease: Estimated GFR < 15 mL/min/1.73m2 Glucose 106 60 - 115 mg/dL [facility] Calcium 9.3 8.4 - 10.2 mg/dL [facility] Bilirubin, Total 1.1(H) 0.0 - 1.0 mg/dL [facility] Aspartate Amino Transferase 16 5 - 37 U/L [facility] Alanine Aminotransferase 10 0 - 40 U/L [facility] Total Protein 6.9 6.5 - 8.0 g/dL [facility] Albumin Level 4.2 3.5 - 5.0 g/dL [facility] Alkaline Phosphatase 77 39 - 117 U/L [facility] 12/13/2022 11:1 2 AM EST 12/13/2022 11:23 AM EST us [facility] External Provider LAB BLO OD ORDERABLES Final Result [facility] [address] [place] [address] [phone] * (ABNORMAL) CBC auto differential (12/13/2022 11:12 AM EST) White Blood Count 8.5 4.8 - 10.8 X10*3/uL [facility] Red Blood Count 3.96(L) 4.60 - 5.80 X10*6/uL [facility] Hemoglobin 12.4(L) 14.0 - 18.0 g/dl [facility] Hematocrit 35.2(L) 42.0 - 52.0 % [facility] Mean Corpuscular Volume 88.9 80.0 - 98.0 fL [facility] Mean Corpuscular Hemoglobin 31.3 27.0 - 33.0 pg [facility] Mean Corpuscular HGB Conc 35.2 31.0 - 36.0 g/dl [facility] Red Cell Distribution Width 14.4 11.0 - 16.0 % [facility] Platelet Count 171 160 - 400 X10*3/uL [facility] Mean Platelet Volume 11.9 9.4 - 12.4 fL [facility] Neutrophils Percent Auto 75.7(H) 45 - 73 % [facility] Imm Gran Pct Auto 0.6(H) 0.0 - 0.4 % [facility] Lymphocytes Percent Auto 14.2(L) 20 - 40 % [facility] Monocytes Percent Auto 7.5 2 - 11 % [facility] Eosinophils Percent Auto 1.4 0 - 4 % [facility] Basophils Percent Auto 0.6 0 - 2 % [facility] NRBC Pct Auto 0.0 0.0 - 0.2 /100WBC [facility] Neutrophils Absolute Auto 6.5 2.0 - 8.3 x10*3/uL [facility] Imm Gran Abs Auto 0.05(H) 0.00 - 0.03 X10*3/uL [facility] Lymphocytes Absolute Auto 1.2 1.2 - 4.9 X10*3/uL [facility] Monocytes Absolute Auto 0.6 0.1 - 1.2 X10*3/uL [facility] Eosinophils Absolute Auto 0.1 0.0 - 0.4 X10*3/uL [facility] Basophils Absolute Auto 0.1 0.0 - 0.2 X10*3/uL [facility] NRBC Abs Auto 0.000 0.0 - 0.012 X10*3/uL [facility] 12/13/2022 11:1 2 AM EST 12/13/2022 11:23 AM EST us [facility] External Provider LAB BLO OD ORDERABLES Final Result [facility] [address] [place] [address] [phone] documented in this encounter Visit Diagnoses Diagnosis Primary hypertension Unspecified essential hypertension documented in this encounter Additional Health Concerns Assessment Noted Time PHQ-9 Depression Total Score: 2 11/05/19 23 10:30 AM EST documented as of this encounter Care Teams Covered Button Maker Relationship Specialty Start Date End Date Nasim Wilkinson MD [address] [place] [phone] PCP - General Internal Medicine 04/02/20 documented as of this encounter
== END 2025-02-15 10:05 | disposition home or self-care (01) ==
PROVIDERS: PCP Internal Medicine; Visit Provider Surgery
DX: L72.3 Sebaceous cyst (principal)
CPT/HCPCS: 99204

== ENCOUNTER → 2025-02-15 09:18 | Outpatient (BNVA) | payer OTHER, SELFPAY | PROVIDERS: PCP Internal Medicine; Visit Provider Surgery | DX: L72.3 Sebaceous cyst (principal) | CPT/HCPCS: 99202 ==

== ENCOUNTER 2025-03-01 11:00 | Outpatient (AMB) | payer OTHER, SELFPAY ==
[2025-03-01 11:01] VITALS: BP 161/91; PULSE 83; BMI 21.9
--- NOTE | 2025-03-01 11:01 | A.OFFVIS_ITS ---
Vital Signs 03/01/25 11:01 Height 6 ft 5 in Weight 185 lb BMI 21.9 BP 161/91 H Blood Pressure Location Rt brachial Position Sitting Pulse 83 Intake Visit Reasons: bleeding cyst Intake Note: Patient walked into office C/o: bleeding growth on forehead. On Eliquis. Patient finished Cephalexin course. Compressed Yeast Supervisor Required: No Accompanied by: Spouse Allergies No Known Allergies [No Known Allergies*] Allergy (Verified 03/01/25 11:02) PFS Medical History Cough CAD (coronary artery disease) PAF (paroxysmal atrial fibrillation) Gastroesophageal reflux disease with esophagitis Burning with urination Abscess Urinary frequency Colon cancer screening Weight loss, abnormal GERD (gastroesophageal reflux disease) Chronic idiopathic constipation HTN (hypertension) Surgical History History of surgery Hx of colonoscopy Family History Father Stroke Mother No problems noted. Social History Household Members: Spouse and Children Housing: House Do you presently have visiting nurse or other home services: No Alcohol intake: never Patient Tobacco Use Status: Former Tobacco user Tobacco use type: Cigarette Second Hand Smoke Exposure: No Advance Directives Date on File: 03/20/24 service: No Current occupational status: disabled Physical Exam Vital Signs: Last Vital Signs Pulse 83 03/01/25 11:01 BP 161/91 H 03/01/25 11:01 BMI result Body Mass Index 21.9 Const Other: very hard of hearing General: comfortable, no acute distress and alert Orientation/consciousness: patient oriented x3 Skin Other: 2cm round cystic lesion of right anterior scalp with erythema, small amount of scabbing which was bluntly removed with 2x2- cyst with small opening and sebum draining, no surrounding fluctuance or purulence expressed, erythema improved following, area nontender Neuro General: patient oriented x3 Assessment & Plan Assessment & Plan (1) Sebaceous cyst: Code(s): L72.3 - Sebaceous cyst Category: Surgical Plan Infected sebaceous cyst of right anterior scalp, now open and draining with improvement in erythema. No suggestion of abscess, given it is now draining will hold off on opening up further. Will prescribe course of doxycycline with return in 1 week to reassess. It was discussed about scheduling surgical excision of the scalp and upper back/neck cyst once he has resolution of the infection. Instructed on local daily wound care. Medications: New doxycycline hyclate 100 mg PO BID 10 caps 0RF Coding Level of Care Code Est Pt Level 3 (13325) Diagnoses Sebaceous cyst L72.3
--- OUTSIDE RECORDS SUMMARY | 2025-03-01 12:46 | XMS_ITS | Encounter Summary ---
Author Organization [employer] Address [address] [facility] 7t [place] [address] Care Team Providers Care Content Director Name Role Phone Nasim Wilkinson MD Primary Care Prov ider Reason for Visit * Reason Onset Date Comments Nurse Triage 02/10/2024 Encounter Details Date Type Department Care Team (Late st Contact Info) Description 02/10/2024 Telephone [facility] MEDICINE [address] [place] [address] Nasim Wilkinson MD [address] [place] [address] Nurse Triage Social History Tobacco Use Types [...] 3:34 PM EDT Called back pt. via [employer] metal punch press operator Kwud [phone]. Pt. Will come in to Medical visit on 02/13/24 at 920am in [facility] to check lungs due to chronic cough. * Telephone Encounter - Ning Hoang RN - 02/10/2024 2:34 PM EDT Called pt. Via [employer] metal punch press operator [phone] Roxy. Fabric Lay Out Worker states that someone answered phone dinorah hung up. Fabric Lay Out Worker called back x 2. The call went to voice mail and metal punch press operator left messagefor pt. To call back [facility] nurses at [phone]. Called back [phone] and Miley answered phone. Pt. Came on phone and [...] * Humidifier * Telephone Encounter - Jorge Setphens - 02/10/2024 2:31 PM EDT Symptom: Cough Outcome: Schedule an urgent appointment (within 1 hour) or talk to a nurse or provider soon Reason: Wheezing (high-pitched whistling sound) The caller accepted this outcome Please contact pt @ [phone] Mongolian Speaker documented in this encounter Plan of Treatment Upcoming Encounters Date Type Department Care Team (Late st Contact Info) Description 05/30/2025 1:30 PM EDT Telemedicine [facility] MED & PEDS [address] [place] [address] Nasim Wilkinson MD [address] [place] [address] documented as of this encounter Visit Diagnoses Not on filedocumented in this encounter Additional Health Concerns Assessment Noted Time PHQ-9 Depression Total Score: 11 12/18/ 024 1:39 PM EST documented as of this encounter Care Teams Content Director Relationship Specialty Start Date End Date Nasim Wilkinson MD [address] [place] [address] PCP - General Internal Medicine 04/02/20 documented as of this encounter
--- OUTSIDE RECORDS SUMMARY | 2025-03-01 12:47 | XMS_ITS | Encounter Summary ---
Author Organization [employer] Address [address] [facility] 7t [place] [address] Care Team Providers Care Lace Cutter Name Role Phone Nasim Wilkinson MD Primary Care Prov ider Encounter Details Date Type Department Care Team (Late st Contact Info) Description 02/25/2024 Orders Only [facility] MED & PEDS [address] [place], [place] [phone] Sonia Young MD [address] [place] [address] Primary hypertension (Primary Dx) Social History Tobacco [...] Info) Description 05/30/2025 1:30 PM EDT Telemedicine [facility] MED & PEDS [address] [place], [place] [phone] Nasim Wilkinson MD [address] [place], [place] [phone] documented as of this encounter Procedures Procedure Name Priority Date/Time Associated Diagnosis Comments BASIC METABOLIC PANEL Routine 02/25/2024 11:17 AM EDT Primary hypertension documented in this encounter Results * (ABNORMAL) Basic Metabolic Panel (02/25/2024 11:17 AM EDT) Sodium 141 135 - 145 mmol/L [facility] Potassium 2.7(LL) 3.3 - 5.1 mmol/L [facility] Comment:Critical value for t est(K): Results called to and readback by DR. KENA ANAYA: Person calling: HELIO Date:02/25/24 Time: 1720 Chloride 103 96 - 108 mmol/L [facility] Carbon Dioxide 32(H) 22 - 29 mmol/L [facility] Anion Gap 9(L) 12 - 20 [facility] Urea Nitrogen (BUN) 17(H) 9 - 16 mg/dL [facility] Creatinine, Serum 1.23 0.5 - 1.4 mg/dL [facility] Estimated Glomerular Filt Rate 56 [facility] Comment:NOTE: For -Am erican individuals, multiply the result by 1.210.Chronic Kidney Disease: Estimated GFR < 60 mL/min/1.37x5Nixwse Kidney Disease: Estimated GFR < 15 mL/min/1.73m2 Glucose 117(H) 60 - 115 mg/dL [facility] Calcium 9.3 8.4 - 10.2 mg/dL [facility] 02/25/2024 11:1 7 AM EDT 02/25/2024 2:49 PM EDT us Generic External Data Provider LAB BLOOD ORDERAB LES Final Result [facility] [address] [place] [address] [phone] documented in this encounter Visit Diagnoses Diagnosis Primary hypertension- Primary Unspecified essential hypertension documented in this encounter Additional Health Concerns Assessment Noted Time PHQ-9 Depression Total Score: 11 12/18/ 024 1:39 PM EST documented as of this encounter Care Teams Lace Cutter Relationship Specialty Start Date End Date Nasim Wilkinson MD [address] [place] [address] PCP - General Internal Medicine 04/02/20 documented as of this encounter
--- OUTSIDE RECORDS SUMMARY | 2025-03-01 12:47 | XMS_ITS | Encounter Summary ---
Author Organization [employer] Address [address] [facility] [address] [facility] [address] 7[address] [place] [address] Care Team Providers Care Cat Wagon Operator Name Role Phone Nasim Wilkinson MD Primary Care Prov ider Encounter Details Date Type Department Care Team (Late st Contact Info) Description 04/07/2024 Telephone [facility] ADULT DENTAL [address] [place] [address] Roxanna Noel, DDS [address] [place] [address] Social History Tobacco Use Types Packs/Day Years [...] his dentures when calling please speak in armenian thank u documented in this encounter Plan of Treatment Upcoming Encounters Date Type Department Care Team (Late st Contact Info) Description 05/30/2025 1:30 PM EDT Telemedicine [facility] MED & PEDS [address] [place] [address] Nasim Wilkinson MD [address] [place] [address] documented as of this encounter Visit Diagnoses Not on filedocumented in this encounter Additional Health Concerns Assessment Noted Time PHQ-9 Depression Total Score: 11 024 1:39 PM EST documented as of this encounter Care Teams Cat Wagon Operator Relationship Specialty Start Date End Date Nasim Wilkinson MD [address] [place] [address] PCP - General Internal Medicine 04/02/20 documented as of this encounter
--- OUTSIDE RECORDS SUMMARY | 2025-03-01 12:47 | XMS_ITS | Clinical Summary ---
Author Organization [employer] Address [address] [facility] [address] [place] [address] Care Team Providers Care Corporate Strategy Analyst Name Role Phone Nasim Wilkinson MD Primary [...] times daily. 180 tablet 3 04/30/20 24 2024 Active pantoprazole (ProtoNix) 40 MG EC tablet [...] (two) times a week. 240 mL 2 02/25/20 25 Active valsartan (Diovan) 320 MG tabletIndications :Primary hypertension Take 1 tablet (320 mg) by mouth Once per day. 30 tablet 11 02/25/20 24 2024 Discontinued ketoconazole (NIZOral) 2 % shampoo Apply topically 2 (two) times a week. 240 mL 2 02/08/20 25 2024 Discontinued(R eorder (will not trigger notification to Pharmacy)) Active Problems Problem Noted Date Diagnosed Date [...] neurologic deficit, will refer to rheumatology for [facility] discharge follow-up 08/05/2023 Assessment & Plan (04/06/2024 [...] restart previous therapy, and follow up with [facility]. 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 MED & PEDS [address] [place] [address] Nasim Wilkinson MD Primary hypertension (Primary Dx); Seborrheic dermatitis; Skin cyst 02/22/2025 Travel 02/07/2025 1:00 PM EDT Telemedicine [facility] MED & PEDS [address] [place] [address] Nasim Wilkinson MD Primary hypertension (Primary Dx) 02/07/2025 Travel 02/05/[address] [facility] MED & PEDS [address] [place] [address] Sonia Young MD Primary hypertension 01/19/2025 Telephone [facility] [address] [place] [address] Nasim Wilkinson MD Nurse Triage 01/05/2025 Refill [facility] [address] [place] [address] Nasim Wilkinson MD Mixed hyperlipidemia 12/16/2024 Refill [facility] [address] [place] [address] Nasim Wilkinson MD 12/08/2024 6:00 PM EST Office Visit [facility] [address] [place] [address] Nasim Wilkinson MD Sebaceous cyst (Primary Dx) [...] housing situation today? I have rejiadina chavis 08/26/[address] you [...] Sign Reading Time Taken Comments Blood Pressure 140/80 02/22/2025 9:47 AM EDT Pulse 72 02/22/2025 9:47 AM EDT Temperature 36.6 ??C (97.8 ??F) 02/22/2025 9:47 AM ED T Respiratory Rate 18 02/22/2025 9:47 AM EDT Oxygen Saturation 97% 02/22/2025 9:47 AM EDT Inhaled Oxygen Concentration - - Weight 84 kg (185 lb 3.2 oz) 02/22/2025 9:47 AM EDT Height 182 cm (5' 11.65 ) 02/22/2025 9:47 AM EDT Body Mass Index 25.36 02/22/2025 9:47 AM EDT Plan of Treatment Upcoming Encounters Date Type Department Care Team (Late st Contact Info) Description 05/30/2025 1:30 PM EDT Telemedicine [facility] MED & PEDS [address] [place] [address] Nasim Wilkinson MD 505 [place] [address] Health Maintenance Due Date Last Done Comments Dental Prophylaxis 1935 Dental X-Ray: Bitewings 1937 Alcohol/Substance Use Screening 1949 RSV Patients and Patients Aged 60 years or older (1 - 1-dose 75+ series) 2012 Dental Oral Exam 01/02/2024 07/01/2023, 08/02/2016 COVID-19 Vaccine ( season) 2024 01/16/2021, 12/19/2020 SDOH Screening 03/24/2025 03/24/2024 Depression Screening 07/12/2025 07/12/2024, 07/12/20 24 Tobacco Screening 08/26/2025 08/26/2024 Dental X-Ray: Full Mouth 07/02/2026 07/01/2023, 07/06 DTaP/Tdap/Td Vaccines (2 - Td or Tdap) 04/08/2029 04/08/2019 Lipid Panel 08/04/2029 08/04/2024, 0305/2024, 06/10/2023, Additional history exists Pneumococcal Vaccine: 50+ [...] 8:41 AM EDT) Triglycerides 64 <150 mg/dL [facility] Comment:Desirable Triglyceri de: less than 150 mg/dLBorderline High Triglyceride 150-199 mg/dLHigh Triglyceride: 200-499 mg/dLVery High Triglyceride: greater than or equal to 5OO mg/dL Cholesterol 96 <200 mg/dL [facility] Comment:Desirable Cholestero l: less than 200 mg/dLBorderline High Cholesterol: 200-239 mg/dLHigh Cholesterol: greater than 239 mg/dL LDL Cholesterol Calculated 49 <100 mg/dL [facility] Comment:Desirable LDL: less than 100 mg/dLNear Optimal/Above Optimal LDL: 110- 129 mg/dLBorderline High LDL: 130-159 mg/dLHigh LDL: 160-189 mg/dLVery High LDL: greater than or equal to 190 mg/dL HDL Cholesterol 35(L) >40 mg/dL [facility] Comment:Desirable HDL: great er than 40 mg/dL Note: This HDL assay may give artificially low results in patients with liver disease. Blood Venous blood specimen / Unknown 08/04/2024 8:41 AM EDT 08/04/2024 11:02 AM EDT Nasim Dela Cruz MD LAB BLOOD ORDERABL ES Final Result [facility] [address] [facility] [place] [address] [phone] from Last 3 Months or Most Recently Relevant to Health Maintenance Insurance [facility] [employer] (O D-SNP) ZEHRA LEON [id number] [facility] Care Teams Corporate Strategy Analyst Relationship Specialty Start Date End Date Nasim Wilkinson MD [address] [place] [phone] PCP - General Internal Medicine 04/02/20
--- OUTSIDE RECORDS SUMMARY | 2025-03-01 12:47 | XMS_ITS | Encounter Summary ---
Author Organization [employer] Address [address] [facility] 7t [place] [address] Care Team Providers Care Automobile Repossessor Name Role Phone Nasim Wilkinson MD Primary Care Prov ider Reason for Visit * Reason Onset Date Comments Nurse Triage 01/19/2025 Encounter Details Date Type Department Care Team (Late st Contact Info) Description 01/19/2025 Telephone [facility] MEDICINE [address] [place] [address] Nasim Wilkinson MD [address] [place] [address] Nurse Triage Social History Tobacco Use Types [...] 4:02 PM EDT [place] [id number]. Pt spouse is requesting to speak for Pt since Pt hearing is very, very poor. Pt is sitting by spouse. Pt is having increased left hip pain which is of chronic nature. Spouse has given a medication from [facility] which is comparison to tylenol possibly. Spouse is asked to not give that at this time and agrees. Pt is ambulating but with a pronounced limp and much noted pain. Pt is advised to come to [facility] today to be seen by provider and [...] now The caller accepted this outcome. ( Sami speaking) Duration 3 days documented in this encounter Plan of Treatment Upcoming Encounters Date Type Department Care Team ([facility] st Contact Info) Description 05/30/2025 1:30 PM EDT Telemedicine [facility] MED & PEDS [address] [place] [address] Nasim Wilkinson MD [address] [place] [address] documented as of this encounter Visit Diagnoses Not on filedocumented in this encounter Additional Health Concerns Assessment Noted Time PHQ-9 Depression Total Score: 17 024 9:23 AM EDT documented as of this encounter Care Teams Automobile Repossessor Relationship Specialty Start Date End Date Nasim Wilkinson MD [address] [place] [address] PCP - General Internal Medicine 04/02/20 documented as of this encounter
--- OUTSIDE RECORDS SUMMARY | 2025-03-01 12:47 | XMS_ITS | Encounter Summary ---
Author Organization [employer] Address [address] [facility] [address] [place] [address] Care Team Providers Care Director Patient Financial Services Name Role Phone Nasim Wilkinson MD Primary Care Prov ider Reason for Visit * Reason Onset Date Comments Hospital Follow-up 03/24/2024 Encounter Details Date Type Department Care Team (Late st Contact Info) Description 03/24/2024 Telephone [facility] MEDICINE [address] [place] [address] Nasim Wilkinson MD [address] [place] [address] Hospital Follow-up Social History Tobacco Use Types [...] from pt requesting a HDF appt. Hospital: [facility] Date of admission: 03/19 Discharge date: 03/24 Diagnosed: Low Potassium documented in this encounter Plan of Treatment Upcoming Encounters Date Type Department Care Team (Late st Contact Info) Description 05/30/2025 1:30 PM EDT Telemedicine [facility] MED & PEDS [address] [place] [address] Nasim Wilkinson MD [address] [place] [address] documented as of this encounter Visit Diagnoses Not on filedocumented in this encounter Additional Health Concerns Assessment Noted Time PHQ-9 Depression Total Score: 11 12/18/ 024 1:39 PM EST documented as of this encounter Care Teams Director Patient Financial Services Relationship Specialty Start Date End Date Nasim Wilkinson MD [address] [place] [address] PCP - General Internal Medicine 04/02/20 documented as of this encounter
--- OUTSIDE RECORDS SUMMARY | 2025-03-01 12:47 | XMS_ITS | Encounter Summary ---
Author Organization [employer] Address [address] [facility] [address]t [place] [address] Care Team Providers Care Kiln Car Unloader Name Role Phone Nasim Wilkinson MD Primary Care Prov ider Encounter Details Date Type Department Care Team (Late st Contact Info) Description 12/09/2022 Orders Only [facility] MEDICINE [address] [place], [place] [phone] Nasim Wilkinson MD [address] [place] [address] Primary hypertension Social History Tobacco Use Types [...] Info) Description 05/30/2025 1:30 PM EDT Telemedicine [facility] MED & PEDS [address] [place], [place] [phone] Nasim Wilkinson MD [address] [place], [place] [phone] documented as of this encounter Procedures Procedure [...] EDT) Sodium 143 135 - 145 mmol/L [facility] Potassium 2.8(L) 3.3 - 5.1 mmol/L [facility] Chloride 102 96 - 108 mmol/L [facility] Carbon Dioxide 29 22 - 29 mmol/L [facility] Anion Gap 15 12 - 20 [facility] Urea Nitrogen (BUN) 29(H) 9 - 16 mg/dL [facility] Creatinine, Serum 1.72(H) 0.5 - 1.4 mg/dL [facility] Estimated Glomerular Filt Rate 38 [facility] Comment:NOTE: For -Am erican individuals, multiply the result by 1.210.Chronic Kidney Disease: Estimated GFR < 60 mL/min/1.06v5Pillca Kidney Disease: Estimated GFR < 15 mL/min/1.73m2 Glucose Fasting 57(LL) 60 - 99 mg/dL [facility] Comment:Critical value for t est(s): FBS Results called to and readback by: YASMINE IVAN Person calling: CHITRAMINCDate:06/10/23 Time: 1910 Calcium 10.1 8.4 - 10.2 mg/dL [facility] Bilirubin, Total 0.8 0.0 - 1.0 mg/dL [facility] Aspartate Amino Transferase 15 5 - 37 U/L [facility] Alanine Aminotransferase 9 0 - 40 U/L [facility] Total Protein 8.0 6.5 - 8.0 g/dL [facility] Albumin Level 4.5 3.5 - 5.0 g/dL [facility] Alkaline Phosphatase 79 39 - 117 U/L [facility] 06/10/2023 2:23 PM EDT 06/10/2023 5:49 PM EDT Nasim Dela Cruz MD LAB BLOOD ORDERABL ES Final Result Performing Organization Address [facility] [[email or web address]] Co de Phone Number [facility] [address] [place] [phone] * POCT Carbon Monoxide (12/13/2022 11:22 AM EST) Carbon Monoxide POC 3.3 % [facility] Comment:METER #: [id number] additional_comment: Long crosbsCARBON MONOXIDE REFERENCE RANGE: NON SMOKERS: LESS THAN 2.0% SMOKERS: 2.0 - 9.0%Note:Therapeutic levels of Hydroxocobalamin (1 mg/mL and 2 mg/mL)may interfere with carboxyhemoglobin causing lower thanexpected values. A negative interference withcarboxyhemoglobin has the potential to alter the medicalassessment of the patient and may withhold necessaryfollow-up treatment in response to elevatedcarboxyhemoglobin levels. 12/13/2022 11:2 2 AM EST 12/13/2022 11:29 AM EST [facility] Exter nal Provider LAB POINT OF CARE TEST DOCKED DEVICE ORDERABLES Final Result Performing Organization Address [facility] [[email or web address]] Co de Phone Number [facility] [address] [place] [phone] * (ABNORMAL) Lactic Acid (12/13/2022 11:12 AM EST) Pathologist [facility] Lactic Acid 2.4(HH) 0.5 - 2.0 mmol/L [facility] Comment:Critical value for L ACTIC: Results called to and read matheus SANTAMARIA Person calling: JOSE Date: 12/13/22 Time: 1154 12/13/2022 11:1 2 AM EST 12/13/2022 11:23 AM EST [facility] External Provider LAB BLO OD ORDERABLES Final Result Performing Organization Address [facility] [[email or web address]] Co de Phone Number [facility] [address] [place] [phone] * HIGH SENSITIVITY TROPONIN I (12/13/2022 11:12 AM EST) [facility] TROPONIN I HIGH SENSITIVITY 7.8 <3.5 - 35.0 ng/L [facility] Comment:The [place] high sens itivity Troponin-I results should beused in conjunction with other diagnostic information suchas ECG, clinical observations and information, and patientsymptoms to aid in the diagnosis of [place]. 12/13/2022 11:1 2 AM EST 12/13/2022 11:27 AM EST [facility] External Provider LAB BLO OD ORDERABLES Final Result Performing Organization Address [facility] de Phone Number [facility] [address] [place] [phone] * (ABNORMAL) Comprehensive Metabolic Panel (12/13/2022 11:12 AM EST) [facility] Sodium 141 135 - 145 mmol/L [facility] Potassium 2.8(L) 3.3 - 5.1 mmol/L [facility] Chloride 102 96 - 108 mmol/L [facility] Carbon Dioxide 26 22 - 29 mmol/L [facility] Anion Gap 16 12 - 20 [facility] Urea Nitrogen (BUN) 24(H) 9 - 16 mg/dL [facility] Creatinine, Serum 1.72(H) 0.5 - 1.4 mg/dL [facility] Creatinine Clr Calc Pharmacy 33.4 [facility] Comment:eGFR (calculated fro m the MDRD study equation) and eCrCl(calculated from the Cockcroft-Gault equation) are based ondifferent parameters and may not yield comparable results.If eCrCl result is absurd, please check patient'sheight/weight. Estimated Glomerular Filt Rate 38 [facility] Comment:NOTE: For -Am erican individuals, multiply the result by 1.210.Chronic Kidney Disease: Estimated GFR < 60 mL/min/1.42z2Iyvpjm Kidney Disease: Estimated GFR < 15 mL/min/1.73m2 Glucose 106 60 - 115 mg/dL [facility] Calcium 9.3 8.4 - 10.2 mg/dL [facility] Bilirubin, Total 1.1(H) 0.0 - 1.0 mg/dL [facility] Aspartate Amino Transferase 16 5 - 37 U/L [facility] Alanine Aminotransferase 10 0 - 40 U/L [facility] Total Protein 6.9 6.5 - 8.0 g/dL [facility] Albumin Level 4.2 3.5 - 5.0 g/dL [facility] Alkaline Phosphatase 77 39 - 117 U/L [facility] 12/13/2022 11:1 2 AM EST 12/13/2022 11:23 AM EST us [facility] External Provider LAB BLO OD ORDERABLES Final Result [facility] [address] [place] [address] [phone] * (ABNORMAL) CBC auto differential (12/13/2022 11:12 AM EST) White Blood Count 8.5 4.8 - 10.8 X10*3/uL [facility] Red Blood Count 3.96(L) 4.60 - 5.80 X10*6/uL [facility] Hemoglobin 12.4(L) 14.0 - 18.0 g/dl [facility] Hematocrit 35.2(L) 42.0 - 52.0 % [facility] Mean Corpuscular Volume 88.9 80.0 - 98.0 fL [facility] Mean Corpuscular Hemoglobin 31.3 27.0 - 33.0 pg [facility] Mean Corpuscular HGB Conc 35.2 31.0 - 36.0 g/dl [facility] Red Cell Distribution Width 14.4 11.0 - 16.0 % [facility] Platelet Count 171 160 - 400 X10*3/uL [facility] Mean Platelet Volume 11.9 9.4 - 12.4 fL [facility] Neutrophils Percent Auto 75.7(H) 45 - 73 % [facility] Imm Gran Pct Auto 0.6(H) 0.0 - 0.4 % [facility] Lymphocytes Percent Auto 14.2(L) 20 - 40 % [facility] Monocytes Percent Auto 7.5 2 - 11 % [facility] Eosinophils Percent Auto 1.4 0 - 4 % [facility] Basophils Percent Auto 0.6 0 - 2 % [facility] NRBC Pct Auto 0.0 0.0 - 0.2 /100WBC [facility] Neutrophils Absolute Auto 6.5 2.0 - 8.3 x10*3/uL [facility] Imm Gran Abs Auto 0.05(H) 0.00 - 0.03 X10*3/uL [facility] Lymphocytes Absolute Auto 1.2 1.2 - 4.9 X10*3/uL [facility] Monocytes Absolute Auto 0.6 0.1 - 1.2 X10*3/uL [facility] Eosinophils Absolute Auto 0.1 0.0 - 0.4 X10*3/uL [facility] Basophils Absolute Auto 0.1 0.0 - 0.2 X10*3/uL [facility] NRBC Abs Auto 0.000 0.0 - 0.012 X10*3/uL [facility] 12/13/2022 11:1 2 AM EST 12/13/2022 11:23 AM EST us [facility] External Provider LAB BLO OD ORDERABLES Final Result [facility] [address] [place] [address] [phone] documented in this encounter Visit Diagnoses Diagnosis Primary hypertension Unspecified essential hypertension documented in this encounter Additional Health Concerns Assessment Noted Time PHQ-9 Depression Total Score: 2 11/05/19 23 10:30 AM EST documented as of this encounter Care Teams Kiln Car Unloader Relationship Specialty Start Date End Date Nasim Wilkinson MD [address] [place] [phone] PCP - General Internal Medicine 04/02/20 documented as of this encounter
--- OUTSIDE RECORDS SUMMARY | 2025-03-01 12:47 | XMS_ITS | Encounter Summary ---
Author Organization [employer] Address [address] [facility] [address] [facility] [address] [place] [address] Care Team Providers Care Oil Derrick Operator Name Role Phone Nasim Wilkinson MD Primary Care Prov ider Encounter Details Date Type Department Care Team (Late st Contact Info) Description 08/08/2023 Abstract [facility] AD[facility] [address] [place] [address] Baltazar Chen, DDS [address] [place] [address] Social History Tobacco Use Types Packs/Day Years [...] Info) Description 05/30/2025 1:30 PM EDT Telemedicine [facility] MED & PEDS [address] [place] [address] Nasim Wilkinson MD [address] [place] [address] documented as of this encounter Visit Diagnoses Not on filedocumented in this encounter Additional Health Concerns Assessment Noted Time PHQ-9 Depression Total Score: 2 11/05/19 23 10:30 AM EST documented as of this encounter Care Teams Oil Derrick Operator Relationship Specialty Start Date End Date Nasim Wilkinson MD [address] [place] [address] PCP - General Internal Medicine 04/02/20 documented as of this encounter
--- OUTSIDE RECORDS SUMMARY | 2025-03-01 12:47 | XMS_ITS | Encounter Summary ---
Author Organization [employer] Address [address] [facility] 7t [place] [address] Care Team Providers Care River Rafting Guide Name Role Phone Nasim Wilkinson MD Primary Care Prov ider Reason for Visit * Reason Comments Med Refill Encounter Details Date Type Department Care Team ([facility] st Contact Info) Description 05/31/2024 Refill [facility] CHC MED & PEDS [address] [place] [address] Nasim Wilkinson MD [address] [place] [address] Social History Tobacco Use Types Packs/Day Years [...] Info) Description 05/30/2025 1:30 PM EDT Telemedicine [facility] MED & PEDS [address] [place] [address] Nasim Wilkinson MD [address] [place] [address] documented as of this encounter Visit Diagnoses Not on filedocumented in this encounter Additional Health Concerns Assessment Noted Time PHQ-9 Depression Total Score: 11 024 1:39 PM EST documented as of this encounter Care Teams River Rafting Guide Relationship Specialty Start Date End Date Nasim Wilkinson MD [address] [place] [address] PCP - General Internal Medicine 04/02/20 documented as of this encounter
--- OUTSIDE RECORDS SUMMARY | 2025-03-01 12:47 | XMS_ITS | Encounter Summary ---
Author Organization [employer] Address [address] [facility] 7t [place] [address] Care Team Providers Care Tunnel Worker Name Role Phone Nasim Wilkinson MD Primary Care Prov ider Reason for Visit * Reason Comments Med Refill Encounter Details Date Type Department Care Team (Late Contact Info) Description 07/17/2023 Refill [facility] CH[facility] MED & PEDS [address] [place] [address] Sonia Young MD 505 [place], [place] [phone] Social History Tobacco Use Types Packs/Day Years [...] Department Care Team (Late Contact Info) Description 05/30/2025 1:30 PM EDT Telemedicine [facility] CHC MED & PEDS [address] [place], [place] [phone] Nasim Wilkinson MD 505 [place], [place] [phone] documented as of this encounter Visit Diagnoses Not on filedocumented in this encounter Additional Health Concerns Assessment Noted Time PHQ-9 Depression Total Score: 2 11/05/19 23 10:30 AM EST documented as of this encounter Care Teams Tunnel Worker Relationship Specialty Start Date End Date Nasim Wilkinson MD [address] [place] [address] PCP - General Internal Medicine 04/02/20 documented as of this encounter
--- OUTSIDE RECORDS SUMMARY | 2025-03-01 12:47 | XMS_ITS | Encounter Summary ---
Author Organization [employer] Address [address] [facility] [address] 7[address] [place] [address] Care Team Providers Care Beater Dumper Name Role Phone Nasim Wilkinson MD Primary Care Prov ider Encounter Details Date Type Department Care Team (Late st Contact Info) Description 04/26/2024 Telephone C [facility] ADULT DENTAL [address] [place] [address] Roxanna Noel, DDS [address] [place] [address] Social History Tobacco Use Types Packs/Day Years [...] Info) Description 05/30/2025 1:30 PM EDT Telemedicine [facility] MED & PEDS [address] [place] [address] Nasim Wilkinson MD [address] [place] [address] documented as of this encounter Visit Diagnoses Not on filedocumented in this encounter Additional Health Concerns Assessment Noted Time PHQ-9 Depression Total Score: 11 024 1:39 PM EST documented as of this encounter Care Teams Beater Dumper Relationship Specialty Start Date End Date Nasim Wilkinson MD [address] [place] [address] PCP - General Internal Medicine 04/02/20 documented as of this encounter
== END 2025-03-01 11:29 | disposition home or self-care (01) ==
LOC: HO.HGS 11:00
PROVIDERS: PCP Internal Medicine; Visit Provider Physician Assistant Surgical
DX: L72.3 Sebaceous cyst (principal)
CPT/HCPCS: 99213

== ENCOUNTER → 2025-03-01 11:00 | Outpatient (BNVA) | payer OTHER, SELFPAY | PROVIDERS: PCP Internal Medicine; Visit Provider Physician Assistant Surgical | DX: L72.3 Sebaceous cyst (principal) | CPT/HCPCS: 99212 ==

== ENCOUNTER 2025-03-08 10:33 | Outpatient (AMB) | payer OTHER, SELFPAY ==
--- NOTE | 2025-03-08 10:41 | A.OFFVIS_ITS ---
Vital Signs 03/08/25 10:47 Height 6 ft 5 in Weight 186 lb BMI 22.1 BP 190/84 H Blood Pressure Location Rt brachial Position Sitting Pulse 62 Intake Visit Reasons: 1WK FUV bleeding cyst Intake Note: Patient here 1wk follow up bleeding cyst on Rt anterior scalp. Completed Doxycyline 100mg X5d. Patient c/o: crust around lesion. Denies bleeding, oozing. Of note: Blood pressure was rechecked Rt arm 160/80. Pt stated feeling anxious about today's visit. Sed Special Education Teacher Required: Yes Sed Special Education Teacher Name: Samara CHEEK Accompanied by: spouse Miley Allergies No Known Allergies [No Known Allergies*] Allergy (Verified 03/08/25 10:47) HPI Comments Details: Seen with ADIA Pascual who assists as mrb engineer. Patient presents here with for follow up regarding his scalp cyst. His reports its improved and less painful and red. There has been no drainage or further bleeding. Denies fever, chills. She reports that it frequently becomes inflamed and is bothersome to him. Also has cyst of posterior neck that is tender. He would like both of these removed. He is on eliquis for PAF and plavix. [facility] Medical History Cough CAD (coronary artery disease) PAF (paroxysmal atrial fibrillation) Gastroesophageal reflux disease with esophagitis Burning with urination Abscess Urinary frequency Colon cancer screening Weight loss, abnormal GERD (gastroesophageal reflux disease) Chronic idiopathic constipation HTN (hypertension) Surgical History History of surgery Hx of colonoscopy Family History Father Stroke Mother No problems noted. Social History Household Members: Spouse and Children Housing: House Do you presently have visiting nurse or other home services: No Alcohol intake: never Patient Tobacco Use Status: Former Tobacco user Tobacco use type: Cigarette Second Hand Smoke Exposure: No Advance Directives Date on File: 03/20/24 service: No Current occupational status: disabled Review of Systems Const Denies chills and Denies fever(s) Card Denies chest pain and Denies dyspnea Resp Denies dyspnea Skin/Breast Reports as per HPI Physical Exam Vital Signs: Last Vital Signs Pulse 62 03/08/25 10:47 BP 190/84 H 03/08/25 10:47 BMI result Body Mass Index 22.1 Const General: comfortable, no acute distress and alert Orientation/consciousness: patient oriented x3 Resp Effort & Inspection: normal respiratory effort and able to speak in complete sentences Skin Other: 1cm x 1cm round, mobile cystic lesion of right anterior scalp, small wound opening with sebum present, erythema improved, no purulence 0.5cm round, mobile lesion with punctum of posterior midline neck at base, no erythema, mildly tender Neuro General: patient oriented x3 and moves all extremities Assessment & Plan Assessment & Plan (1) Epidermal inclusion cyst: Code(s): L72.0 - Epidermal cyst Category: Medical Plan Epidermal inclusion cyst of anterior right scalp and posterior neck. Infection appears resolved. He reports these are bothersome and would like these removed. He will be scheduled for excision of the anterior scalp and posterior neck epidermal inclusion cysts in minor surgery with Dr. Reyes at his convenience. Discussed with Dr. Reyes, no need to hold eliquis or plavix for procedure. Coding Level of Care Code Est Pt Level 3 (87769) Diagnoses Epidermal inclusion cyst L72.0
[2025-03-08 10:47] VITALS: BP 190/84; PULSE 62; BMI 22.1
== END 2025-03-08 11:01 | disposition home or self-care (01) ==
LOC: HO.HGS 10:34
PROVIDERS: PCP Internal Medicine; Visit Provider Physician Assistant Surgical
DX: L72.0 Epidermal cyst (principal)
CPT/HCPCS: 99213

== ENCOUNTER → 2025-03-08 10:33 | Outpatient (BNVA) | payer OTHER, SELFPAY | PROVIDERS: PCP Internal Medicine; Visit Provider Physician Assistant Surgical | DX: L72.0 Epidermal cyst (principal) | CPT/HCPCS: 99212 ==

== ENCOUNTER 2025-03-18 12:04 | Outpatient (REF) | payer OTHER, SELFPAY ==
--- NOTE | ~2025-03-18 | XR_ITS ---
EXAMINATION: XR HIP, RIGHT CLINICAL INFORMATION: right hip pain COMPARISON: None available. TECHNIQUE: Two views of the right hip. FINDINGS: No fracture. Alignment is anatomic. Hip joint space is maintained. Mild degenerative lipping of the superolateral acetabulum. Soft tissues are unremarkable. XR/XR hip RT min 2V IMPRESSION: Mild degenerative changes right hip. Electronically signed by: Dre Walls MD 03/18/2025 02:18 PM EDT
--- OUTSIDE RECORDS SUMMARY | 2025-03-18 12:08 | XMS_ITS | Encounter Summary ---
Author Organization [employer] Address [address] [facility] [address] 7[address] [place] [address] Care Team Providers Care Assistant Program Manager Name Role Phone Nasim Wilkinson MD Primary Care Prov ider Encounter Details Date Type Department Care Team (Late st Contact Info) Description 04/26/2024 Telephone C [facility] ADULT DENTAL [address] [place] [address] Roxanna Noel, DDS [address] [place] [address] Social History Tobacco Use Types Packs/Day Years [...] Info) Description 05/30/2025 1:30 PM EDT Telemedicine [facility] MED & PEDS [address] [place] [address] Nasim Wilkinson MD [address] [place] [address] documented as of this encounter Visit Diagnoses Not on filedocumented in this encounter Additional Health Concerns Assessment Noted Time PHQ-9 Depression Total Score: 11 024 1:39 PM EST documented as of this encounter Care Teams Assistant Program Manager Relationship Specialty Start Date End Date Nasim Wilkinson MD [address] [place] [address] PCP - General Internal Medicine 04/02/20 documented as of this encounter
--- OUTSIDE RECORDS SUMMARY | 2025-03-18 12:08 | XMS_ITS | Encounter Summary ---
Author Organization [employer] Address [address] [facility] 7t [place] [address] Care Team Providers Care Eye Clinic Manager Name Role Phone Nasim Wilkinson MD Primary Care Prov ider Encounter Details Date Type Department Care Team (Late st Contact Info) Description 02/25/2024 Orders Only [facility] CHC MED & PEDS [address] [place], [place] [phone] Sonia Young MD 505 [place] [address] Primary hypertension (Primary Dx) Social History Tobacco [...] Info) Description 05/30/2025 1:30 PM EDT Telemedicine [facility] MED & PEDS [address] [place], [place] [phone] Nasim Wilkinson MD [address] [place], [place] [phone] documented as of this encounter Procedures Procedure Name Priority Date/Time Associated Diagnosis Comments BASIC METABOLIC PANEL Routine 02/25/2024 11:17 AM EDT Primary hypertension documented in this encounter Results * (ABNORMAL) Basic Metabolic Panel (02/25/2024 11:17 AM EDT) Sodium 141 135 - 145 mmol/L [facility] Potassium 2.7(LL) 3.3 - 5.1 mmol/L [facility] Comment:Critical value for t est(K): Results called to and readback by DR. KENA ANAYA: Person calling: HELIO Date:02/25/24 Time: 1720 Chloride 103 96 - 108 mmol/L [facility] Carbon Dioxide 32(H) 22 - 29 mmol/L [facility] Anion Gap 9(L) 12 - 20 [facility] Urea Nitrogen (BUN) 17(H) 9 - 16 mg/dL [facility] Creatinine, Serum 1.23 0.5 - 1.4 mg/dL [facility] Estimated Glomerular Filt Rate 56 [facility] Comment:NOTE: For -Am erican individuals, multiply the result by 1.210.Chronic Kidney Disease: Estimated GFR < 60 mL/min/1.66m7Zpfmou Kidney Disease: Estimated GFR < 15 mL/min/1.73m2 Glucose 117(H) 60 - 115 mg/dL [facility] Calcium 9.3 8.4 - 10.2 mg/dL [facility] 02/25/2024 11:1 7 AM EDT 02/25/2024 2:49 PM EDT us Generic External Data Provider LAB BLOOD ORDERAB LES Final Result [facility] [address] [place] [address] [phone] documented in this encounter Visit Diagnoses Diagnosis Primary hypertension- Primary Unspecified essential hypertension documented in this encounter Additional Health Concerns Assessment Noted Time PHQ-9 Depression Total Score: 11 12/18/ 024 1:39 PM EST documented as of this encounter Care Teams Eye Clinic Manager Relationship Specialty Start Date End Date Nasim Wilkinson MD [address] [place] [address] PCP - General Internal Medicine 04/02/20 documented as of this encounter
--- OUTSIDE RECORDS SUMMARY | 2025-03-18 12:08 | XMS_ITS | Encounter Summary ---
Author Organization [employer] Address [address] [facility] 7t [place] [address] Care Team Providers Care Research Instrumentation Technician Name Role Phone Nasim Wilkinson MD Primary Care Prov ider Reason for Visit * Reason Onset Date Comments Nurse Triage 01/19/2025 Encounter Details Date Type Department Care Team (Late st Contact Info) Description 01/19/2025 Telephone [facility] MEDICINE [address] [facility] [place] [address] Nasim Wiklinson MD 505 [place] [address] Nurse Triage Social History Tobacco Use Types [...] 4:02 PM EDT [place] [id number]. Pt spouse is requesting to speak for Pt since Pt hearing is very, very poor. Pt is sitting by spouse. Pt is having increased left hip pain which is of chronic nature. Spouse has given a medication from [facility] which is comparison to tylenol possibly. Spouse is asked to not give that at this time and agrees. Pt is ambulating but with a pronounced limp and much noted pain. Pt is advised to come to [facility] today to be seen by provider and [...] now The caller accepted this outcome. ( [place] speaking) Duration 3 days documented in this encounter Plan of Treatment Upcoming Encounters Date Type Department Care Team (Late st Contact Info) Description 05/30/2025 1:30 PM EDT Telemedicine [facility] MED & PEDS [address] [place] [address] Nasim Wilkinson MD [address] [place] [address] documented as of this encounter Visit Diagnoses Not on filedocumented in this encounter Additional Health Concerns Assessment Noted Time PHQ-9 Depression Total Score: 17 024 9:23 AM EDT documented as of this encounter Care Teams Research Instrumentation Technician Relationship Specialty Start Date End Date Nasim Wilkinson MD [address] [place] [address] PCP - General Internal Medicine 04/02/20 documented as of this encounter
--- OUTSIDE RECORDS SUMMARY | 2025-03-18 12:08 | XMS_ITS | Encounter Summary ---
Author Organization [employer] Address [address] [facility] [address] 7t [place] [address] Care Team Providers Care Transcribing Machine Mechanic Name Role Phone Nasim Wilkinson MD Primary Care Prov ider Encounter Details Date Type Department Care Team (Late st Contact Info) Description 04/07/2024 Telephone C ADULT DENTAL [address] [place] [address] Roxanna Noel, DDS [address] [place] [address] Social History Tobacco Use Types Packs/Day Years [...] his dentures when calling please speak in tamazight thank u documented in this encounter Plan of Treatment Upcoming Encounters Date Type Department Care Team (Late st Contact Info) Description 05/30/2025 1:30 PM EDT Telemedicine [facility] MED & PEDS [address] [place] [address] Nasim Wilkinson MD 505 [place] [address] documented as of this encounter Visit Diagnoses Not on filedocumented in this encounter Additional Health Concerns Assessment Noted Time PHQ-9 Depression Total Score: 11 024 1:39 PM EST documented as of this encounter Care Teams Transcribing Machine Mechanic Relationship Specialty Start Date End Date Nasim Wilkinson MD [address] [place] [address] PCP - General Internal Medicine 04/02/20 documented as of this encounter
--- OUTSIDE RECORDS SUMMARY | 2025-03-18 12:08 | XMS_ITS | Clinical Summary ---
Author Organization [employer] Address [address] [facility] [address] [place] [address] Care Team Providers Care Corporate Travel Counselor Name Role Phone Nasim Wilkinson MD Primary [...] mg) by mouth at bedtime. 30 tablet 11 04/30/20 24 Active cetirizine (ZyrTEC) 10 MG tablet [...] week. 240 mL 2 02/25/20 25 Active ketoconazole (NIZOral) 2 % shampoo [...] neurologic deficit, will refer to rheumatology for eval Hospital discharge follow-up 08/05/2023 Assessment & Plan [...] restart previous therapy, and follow up with plate mill mill hand. 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 Essential [...] 02/22/2025 10:15 AM EDT Office Visit [facility] MED & PEDS [address] [place] [address] Nasim Wilkinson MD Primary hypertension (Primary Dx); Seborrheic dermatitis; Skin cyst 02/22/2025 Travel 02/07/2025 1:00 PM EDT Telemedicine [facility] MED & PEDS [address] [place] [address] Nasim Wilkinson MD Primary hypertension (Primary Dx) 02/07/2025 Travel 02/05/2025 Refill [facility] MED & PEDS [address] [place] [address] Sonia Young MD Primary hypertension 01/19/2025 Telephone [facility] MEDICINE [address] [place], [place] [phone] Nasim Wilkinson MD Nurse Triage 01/05/2025 Refill [facility] [address] [place], [place] [phone] Nasim Wilkinson MD Mixed hyperlipidemia from Last 3 Months Immunizations Immunization Administration Dates Next Due Influenza High-dose Quadriva [...] [facility] MED & PEDS [address] [place], [place] [phone] Nasim Wilkinson MD 505 [place], [place] [phone] Health Maintenance Due Date Last Done Comments Dental Prophylaxis 1937 Dental X-Ray: Bitewings 1937 Alcohol/Substance Use Screening 1949 RSV Patients and Patients Aged 60 years or older (1 - 1-dose 75+ series) 2012 Dental Oral Exam 01/02/2024 07/01/2023, 08/02/2016 COVID-19 Vaccine ( season) 2024 01/16/2021, 12/19/2020 SDOH Screening 03/24/2025 03/24/2024 Depression Screening 07/12/2025 07/12/2024, 07/12/20 Tobacco Screening 08/26/2025 08/26/2024 Dental X-Ray: Full Mouth 07/02/2026 07/01/2023, 07/06 DTaP/Tdap/Td Vaccines (2 - Td or Tdap) 04/08/2029 04/08/2019 Lipid Panel 08/04/2029 08/04/2024, 030 05/2024, 06/10/2023, Additional history exists Pneumococcal Vaccine: [...] patient's age to complete this topic Meningococcal B Vaccine Aged Out No l onger eligible based on patient's age to complete [...] 8:41 AM EDT) Triglycerides 64 <150 mg/dL [facility] Comment:Desirable Triglyceri de: less than 150 mg/dLBorderline High Triglyceride 150-199 mg/dLHigh Triglyceride: 200-499 mg/dLVery High Triglyceride: greater than or equal to 5OO mg/dL Cholesterol 96 <200 mg/dL [facility] Comment:Desirable Cholestero l: less than 200 mg/dLBorderline High Cholesterol: 200-239 mg/dLHigh Cholesterol: greater than 239 mg/dL LDL Cholesterol Calculated 49 <100 mg/dL [facility] Comment:Desirable LDL: less than 100 mg/dLNear Optimal/Above Optimal LDL: 110- 129 mg/dLBorderline High LDL: 130-159 mg/dLHigh LDL: 160-189 mg/dLVery High LDL: greater than or equal to 190 mg/dL HDL Cholesterol 35(L) >40 mg/dL [facility] Comment:Desirable HDL: great er than 40 mg/dL Note: This HDL assay may give artificially low results in patients with liver disease. Blood Venous blood specimen / Unknown 08/04/2024 8:41 AM EDT 08/04/2024 11:02 AM EDT us Nasim Dela Cruz MD LAB BLOOD ORDERABL ES Final Result [facility] [address] [place] [phone] from Last 3 Months or Most Recently Relevant to Health Maintenance Insurance [facility] OPT[facility] (HMO D-SNP) DENTAL [facility] Care Teams Corporate Travel Counselor Relationship Specialty Start Date End Date Nasim Wilkinson MD [address] [place] [address] [place] [address] PCP - General Internal Medicine 04/02/20
--- OUTSIDE RECORDS SUMMARY | 2025-03-18 12:08 | XMS_ITS | Encounter Summary ---
Author Organization [employer] Address [address] [facility] 7t [place] [address] Care Team Providers Care User Experience Team Lead Name Role Phone Nasim Wilkinson MD Primary Care Prov ider Reason for Visit * Reason Onset Date Comments Nurse Triage 02/10/2024 Encounter Details Date Type Department Care Team (Late st Contact Info) Description 02/10/2024 Telephone [facility] MEDICINE [address] [facility] [place] [address] Nasim Wilkinson MD [address] [place] [address] Nurse Triage Social History Tobacco Use Types [...] 3:34 PM EDT Called back pt. via [employer] taper printed circuit layout [id number] [id number]. Pt. Will come in to Medical visit on 02/13/24 at 920am in [facility] to check lungs due to chronic cough. * Telephone Encounter - Ning Hoang RN - 02/10/2024 2:34 PM EDT Called pt. Via [employer] taper printed circuit layout [id number] Roxy. Bass Mechanism Maker states that someone answered phone kristahen hung up. Bass Mechanism Maker called back x 2. The call went to voice mail and taper printed circuit layout left messagefor pt. To call back [facility] nurses at [phone]. Called back [phone] and Miley answered phone. Pt. Came on [...] accepted this outcome Please contact pt @ [phone] [place]ian Speaker documented in this encounter Plan of Treatment Upcoming Encounters Date Type Department Care Team (Late st Contact Info) Description 05/30/2025 1:30 PM EDT Telemedicine [facility] MED & PEDS [address] [place] [address] Nasim Wilkinson MD [address] [place] [address] documented as of this encounter Visit Diagnoses Not on filedocumented in this encounter Additional Health Concerns Assessment Noted Time PHQ-9 Depression Total Score: 11 12/18/2 024 1:39 PM EST documented as of this encounter Care Teams User Experience Team Lead Relationship Specialty Start Date End Date Nasim Wilkinson MD [address] [place] [address] PCP - General Internal Medicine 04/02/20 documented as of this encounter
--- OUTSIDE RECORDS SUMMARY | 2025-03-18 12:08 | XMS_ITS | Encounter Summary ---
Author Organization [employer] Address [address] [facility] 7t [place] [address] Care Team Providers Care Perforator Typist Name Role Phone Nasim Wilkinson MD Primary Care Prov ider Reason for Visit * Reason Comments Med Refill Encounter Details Date Type Department Care Team (Late Contact Info) Description 07/17/2023 Refill [facility] CHC MED & PEDS [address] [place] [address] Sonia Young MD [address] [place] [address] Social History Tobacco Use Types Packs/Day Years [...] Info) Description 05/30/2025 1:30 PM EDT Telemedicine [facility] CHC MED & PEDS [address] [place], [place] [phone] Nasim Wilkinson MD [address] [place], [place] [phone] documented as of this encounter Visit Diagnoses Not on filedocumented in this encounter Additional Health Concerns Assessment Noted Time PHQ-9 Depression Total Score: 2 11/05/19 23 10:30 AM EST documented as of this encounter Care Teams Perforator Typist Relationship Specialty Start Date End Date Nasim Wilkinson MD [address] [place] [address] PCP - General Internal Medicine 04/02/20 documented as of this encounter
--- OUTSIDE RECORDS SUMMARY | 2025-03-18 12:08 | XMS_ITS | Encounter Summary ---
Author Organization [employer] Address [address] [facility] [address] [place] [address] Care Team Providers Care Plate Corrector Name Role Phone Nasim Wilkinson MD Primary Care Prov ider Encounter Details Date Type Department Care Team (Late st Contact Info) Description 08/08/2023 Abstract [facility] ADULT DENTAL [address] [place] [address] Baltazar Chen, DDS [address] [place] [address] Social History Tobacco Use Types Packs/Day Years Used Date Smoking Tobacco: Former Cigarettes Passive Smoke Exposure: Never Smokeless Tobacco: Never Depression Answer Date Recorded Patient Health Questionnaire-9 Score 2 11/05/2022 Housing Stability Answer Date Recorded What is your housing situation today? I have reji chavis 08/12/[address] you [...] Info) Description 05/30/2025 1:30 PM EDT Telemedicine [facility] MED & PEDS [address] [place] [address] Nasim Wilkinson MD [address] [place] [address] documented as of this encounter Visit Diagnoses Not on filedocumented in this encounter Additional Health Concerns Assessment Noted Time PHQ-9 Depression Total Score: 2 11/05/19 23 10:30 AM EST documented as of this encounter Care Teams Plate Corrector Relationship Specialty Start Date End Date Nasim Wilkinson MD [address] [place] [address] PCP - General Internal Medicine 04/02/20 documented as of this encounter
--- OUTSIDE RECORDS SUMMARY | 2025-03-18 12:08 | XMS_ITS | Encounter Summary ---
Author Organization [employer] Address [address] [facility] 7 [place] [address] Care Team Providers Care Stretch Box Tender Name Role Phone Nasim Wilkinson MD Primary Care Prov ider Encounter Details Date Type Department Care Team (Late st Contact Info) Description 12/09/2022 Orders Only [facility] MEDICINE [address] [facility] [place] [address] Nasim Wilkinson MD [address] [place] [address] Primary hypertension Social History Tobacco Use Types [...] Info) Description 05/30/2025 1:30 PM EDT Telemedicine [facility] CHC MED & PEDS [address] [place], [place] [phone] Nasim Wilkinson MD [address] [place], [place] [phone] documented as of this encounter Procedures Procedure [...] EDT) Sodium 143 135 - 145 mmol/L [facility] Potassium 2.8(L) 3.3 - 5.1 mmol/L [facility] Chloride 102 96 - 108 mmol/L [facility] Carbon Dioxide 29 22 - 29 mmol/L [facility] Anion Gap 15 12 - 20 [facility] Urea Nitrogen (BUN) 29(H) 9 - 16 mg/dL [facility] Creatinine, Serum 1.72(H) 0.5 - 1.4 mg/dL [facility] Estimated Glomerular Filt Rate 38 [facility] Comment:NOTE: For -Am erican individuals, multiply the result by 1.210.Chronic Kidney Disease: Estimated GFR < 60 mL/min/1.07l3Ysmxto Kidney Disease: Estimated GFR < 15 mL/min/1.73m2 Glucose Fasting 57(LL) 60 - 99 mg/dL [facility] Comment:Critical value for t est(s): FBS Results called to and readback by: YASMINE IVAN Person calling: JOHANCDate:06/10/23 Time: 1910 Calcium 10.1 8.4 - 10.2 mg/dL [facility] Bilirubin, Total 0.8 0.0 - 1.0 mg/dL [facility] Aspartate Amino Transferase 15 5 - 37 U/L [facility] Alanine Aminotransferase 9 0 - 40 U/L [facility] Total Protein 8.0 6.5 - 8.0 g/dL [facility] Albumin Level 4.5 3.5 - 5.0 g/dL [facility] Alkaline Phosphatase 79 39 - 117 U/L [facility] 06/10/2023 2:23 PM EDT 06/10/2023 5:49 PM EDT Nasim Dela Cruz MD LAB BLOOD ORDERABL ES Final Result Performing Organization Address [facility] Co de Phone Number [facility] [address] [place] [phone] * POCT Carbon Monoxide (12/13/2022 11:22 AM EST) Carbon Monoxide POC 3.3 % [facility] Comment:METER #: [id number] additional_comment: Long crosbsCARBON MONOXIDE REFERENCE RANGE: NON SMOKERS: LESS THAN 2.0% SMOKERS: 2.0 - 9.0%Note:Therapeutic levels of Hydroxocobalamin (1 mg/mL and 2 mg/mL)may interfere with carboxyhemoglobin causing lower thanexpected values. A negative interference withcarboxyhemoglobin has the potential to alter the medicalassessment of the patient and may withhold necessaryfollow-up treatment in response to elevatedcarboxyhemoglobin levels. 12/13/2022 11:2 2 AM EST 12/13/2022 11:29 AM EST [facility] Exter nal Provider LAB POINT OF CARE TEST DOCKED DEVICE ORDERABLES Final Result Performing Organization Address [facility] de Phone Number [facility] [address] [place] [phone] * (ABNORMAL) Lactic Acid (12/13/2022 11:12 AM EST) Pathologist [facility] Lactic Acid 2.4(HH) 0.5 - 2.0 mmol/L [facility] Comment:Critical value for L ACTIC: Results called to and read matheus SANTAMARIA Person calling: JOSE Date: 12/13/22 Time: 1154 12/13/2022 11:1 2 AM EST 12/13/2022 11:23 AM EST [facility] External Provider LAB BLO OD ORDERABLES Final Result Performing Organization Address [facility] [address]/[facility] Co de Phone Number [facility] [address] [place] [phone] * HIGH SENSITIVITY TROPONIN I (12/13/2022 11:12 AM EST) [facility] TROPONIN I HIGH SENSITIVITY 7.8 <3.5 - 35.0 ng/L [facility] Comment:The Serrano high sens itivity Troponin-I results should beused in conjunction with other diagnostic information suchas ECG, clinical observations and information, and patientsymptoms to aid in the diagnosis of ID. 12/13/2022 11:1 2 AM EST 12/13/2022 11:27 AM EST [facility] External Provider LAB BLO OD ORDERABLES Final Result Performing Organization Address [facility] Co mt Phone Number [facility] [address] [place] [phone] * (ABNORMAL) Comprehensive Metabolic Panel (12/13/2022 11:12 AM EST) [facility] Sodium 141 135 - 145 mmol/L [facility] Potassium 2.8(L) 3.3 - 5.1 mmol/L [facility] Chloride 102 96 - 108 mmol/L [facility] Carbon Dioxide 26 22 - 29 mmol/L [facility] Anion Gap 16 12 - 20 [facility] Urea Nitrogen (BUN) 24(H) 9 - 16 mg/dL [facility] Creatinine, Serum 1.72(H) 0.5 - 1.4 mg/dL [facility] Creatinine Clr Calc Pharmacy 33.4 [facility] Comment:eGFR (calculated fro m the MDRD study equation) and eCrCl(calculated from the Cockcroft-Gault equation) are based ondifferent parameters and may not yield comparable results.If eCrCl result is absurd, please check patient'sheight/weight. Estimated Glomerular Filt Rate 38 [facility] Comment:NOTE: For -Am erican individuals, multiply the result by 1.210.Chronic Kidney Disease: Estimated GFR < 60 mL/min/1.50y0Iktqam Kidney Disease: Estimated GFR < 15 mL/min/1.73m2 Glucose 106 60 - 115 mg/dL [facility] Calcium 9.3 8.4 - 10.2 mg/dL [facility] Bilirubin, Total 1.1(H) 0.0 - 1.0 mg/dL [facility] Aspartate Amino Transferase 16 5 - 37 U/L [facility] Alanine Aminotransferase 10 0 - 40 U/L [facility] Total Protein 6.9 6.5 - 8.0 g/dL [facility] Albumin Level 4.2 3.5 - 5.0 g/dL [facility] Alkaline Phosphatase 77 39 - 117 U/L [facility] 12/13/2022 11:1 2 AM EST 12/13/2022 11:23 AM EST us [facility] External Provider LAB BLO OD ORDERABLES Final Result [facility] [address] [place], [place] [phone] * (ABNORMAL) CBC auto differential (12/13/2022 11:12 AM EST) White Blood Count 8.5 4.8 - 10.8 X10*3/uL [facility] Red Blood Count 3.96(L) 4.60 - 5.80 X10*6/uL [facility] Hemoglobin 12.4(L) 14.0 - 18.0 g/dl [facility] Hematocrit 35.2(L) 42.0 - 52.0 % [facility] Mean Corpuscular Volume 88.9 80.0 - 98.0 fL [facility] Mean Corpuscular Hemoglobin 31.3 27.0 - 33.0 pg [facility] Mean Corpuscular HGB Conc 35.2 31.0 - 36.0 g/dl [facility] Red Cell Distribution Width 14.4 11.0 - 16.0 % [facility] Platelet Count 171 160 - 400 X10*3/uL [facility] Mean Platelet Volume 11.9 9.4 - 12.4 fL [facility] Neutrophils Percent Auto 75.7(H) 45 - 73 % [facility] Imm Gran Pct Auto 0.6(H) 0.0 - 0.4 % [facility] Lymphocytes Percent Auto 14.2(L) 20 - 40 % [facility] Monocytes Percent Auto 7.5 2 - 11 % [facility] Eosinophils Percent Auto 1.4 0 - 4 % [facility] Basophils Percent Auto 0.6 0 - 2 % [facility] NRBC Pct Auto 0.0 0.0 - 0.2 /100WBC [facility] Neutrophils Absolute Auto 6.5 2.0 - 8.3 x10*3/uL [facility] Imm Gran Abs Auto 0.05(H) 0.00 - 0.03 X10*3/uL [facility] Lymphocytes Absolute Auto 1.2 1.2 - 4.9 X10*3/uL [facility] Monocytes Absolute Auto 0.6 0.1 - 1.2 X10*3/uL [facility] Eosinophils Absolute Auto 0.1 0.0 - 0.4 X10*3/uL [facility] Basophils Absolute Auto 0.1 0.0 - 0.2 X10*3/uL [facility] NRBC Abs Auto 0.000 0.0 - 0.012 X10*3/uL [facility] 12/13/2022 11:1 2 AM EST 12/13/2022 11:23 AM EST us [facility] External Provider LAB BLO OD ORDERABLES Final Result [facility] [address] [place] [phone] documented in this encounter Visit Diagnoses Diagnosis Primary hypertension Unspecified essential hypertension documented in this encounter Additional Health Concerns Assessment Noted Time PHQ-9 Depression Total Score: 2 11/05/19 23 10:30 AM EST documented as of this encounter Care Teams Stretch Box Tender Relationship Specialty Start Date End Date Nasim Wilkinson MD [address] [place] [phone] PCP - General Internal Medicine 04/02/20 documented as of this encounter
--- OUTSIDE RECORDS SUMMARY | 2025-03-18 12:08 | XMS_ITS | Encounter Summary ---
Author Organization [employer] Address 75 [facility] 7t [place] [address] Care Team Providers Care Geochemist Name Role Phone Nasim Wilkinson MD Primary Care Prov ider Reason for Visit * Reason Comments Med Refill Encounter Details Date Type Department Care Team ([facility] st Contact Info) Description 05/31/2024 Refill [facility] CHC MED & PEDS [address] [place] [address] Nasim Wilkinson MD [address] [place] [address] Social History Tobacco Use Types Packs/Day Years [...] Info) Description 05/30/2025 1:30 PM EDT Telemedicine [facility] MED & PEDS [address] [place] [address] Nasim Wilkinson MD [address] [place] [address] documented as of this encounter Visit Diagnoses Not on filedocumented in this encounter Additional Health Concerns Assessment Noted Time PHQ-9 Depression Total Score: 11 024 1:39 PM EST documented as of this encounter Care Teams Geochemist Relationship Specialty Start Date End Date Nasim Wilkinson MD [address] [place] [address] PCP - General Internal Medicine 04/02/20 documented as of this encounter
--- OUTSIDE RECORDS SUMMARY | 2025-03-18 12:08 | XMS_ITS | Encounter Summary ---
Author Organization [employer] Address [address] [facility] 7t [place] [address] Care Team Providers Care Toolsmith Name Role Phone Nasim Wilkinson MD Primary Care Prov ider Reason for Visit * Reason Onset Date Comments Hospital Follow-up 03/24/2024 Encounter Details Date Type Department Care Team (Late st Contact Info) Description 03/24/2024 Telephone [facility] MEDICINE [address] [facility] [place] [address] Nasim Wilkinson MD [address] [place] [address] Hospital Follow-up Social History Tobacco Use Types [...] from pt requesting a HDF appt. Hospital: [facility] Date of admission: 03/19 Discharge date: 03/24 Diagnosed: Low Potassium documented in this encounter Plan of Treatment Upcoming Encounters Date Type Department Care Team (Late st Contact Info) Description 05/30/2025 1:30 PM EDT Telemedicine [facility] MED [facility] PEDS [address] [place] [address] Nasim Wilkinson MD [address] [place] [address] documented as of this encounter Visit Diagnoses Not on filedocumented in this encounter Additional Health Concerns Assessment Noted Time PHQ-9 Depression Total Score: 11 024 1:39 PM EST documented as of this encounter Care Teams Toolsmith Relationship Specialty Start Date End Date Nasim Wilkinson MD [address] [place] [address] PCP - General Internal Medicine 04/02/20 documented as of this encounter
== END 2025-03-18 12:05 | disposition home or self-care (01) ==
LOC: HO.HHCX 12:04
PROVIDERS: PCP Internal Medicine; Visit Provider Internal Medicine
DX: M25.551 Pain in right hip (principal)
CPT/HCPCS: 73502

== ENCOUNTER → 2025-03-18 12:06 | Outpatient (BNV) | payer OTHER, SELFPAY | PROVIDERS: PCP Internal Medicine; Visit Provider Radiology Diagnostic Radiology | DX: M25.551 Pain in right hip (principal) | CPT/HCPCS: 73502 ==

== ENCOUNTER 2025-03-30 12:28 | Outpatient (AMB) | payer OTHER, SELFPAY ==
--- OUTSIDE RECORDS SUMMARY | 2025-03-30 13:10 | XMS_ITS | Encounter Summary ---
Author Organization [employer] Address [address] [facility] 7t [place] [address] Care Team Providers Care Systems Software Specialist Name Role Phone Nasim Wilkinson MD Primary Care Prov ider Reason for Visit * Reason Onset Date Comments Nurse Triage 02/10/2024 Encounter Details Date Type Department Care Team (Late st Contact Info) Description 02/10/2024 Telephone [facility] MEDICINE [address] [facility] [place] [address] Nasim Wilkinson MD [address] [place] [address] Nurse Triage Social History Tobacco Use Types [...] 3:34 PM EDT Called back pt. via [employer] deaf interpreter Lkud [phone]. Pt. Will come in to Medical visit on 02/13/24 at 920am in [facility] to check lungs due to chronic cough. * Telephone Encounter - Ning Hoang RN - 02/10/2024 2:34 PM EDT Called pt. Via [employer] deaf interpreter [phone] Roxy. Co Founder And Chief Strategy Officer states that someone answered phone kristahen hung up. Co Founder And Chief Strategy Officer called back x 2. The call went to voice mail and deaf interpreter left messagefor pt. To call back [facility] nurses at [phone]. Called back [phone] and Miley answered phone. Pt. Came on [...] accepted this outcome Please contact pt @ [phone] Faroese Speaker documented in this encounter Plan of Treatment Upcoming Encounters Date Type Department Care Team (Late st Contact Info) Description 05/30/2025 1:30 PM EDT Telemedicine [facility] MED & PEDS [address] [place] [address] Nasim Wilkinson MD [address] [place] [address] documented as of this encounter Visit Diagnoses Not on filedocumented in this encounter Additional Health Concerns Assessment Noted Time PHQ-9 Depression Total Score: 11 12/18/2 024 1:39 PM EST documented as of this encounter Care Teams Systems Software Specialist Relationship Specialty Start Date End Date Nasim Wilkinson MD [address] [place] [address] PCP - General Internal Medicine 04/02/20 documented as of this encounter
--- NOTE | 2025-03-30 13:20 | MHC.OFFVIS ---
Vital Signs 03/30/25 13:28 Height 6 ft 5 in Weight 183 lb BMI 21.7 BP 140/69 H Blood Pressure Location Rt brachial Position Sitting Pulse 67 Intake Visit Reasons: WLE X2 A. Rt ant scalp B. Mid post neck Intake Note: Patient here for cyst excision Rt anterior scalp. Reports cyst on mid post neck has completely healed and declines excision. Buttonhole Facer Required: No Accompanied by: Spouse Allergies No Known Allergies [No Known Allergies*] Allergy (Verified 03/30/25 13:30) HPI HPI WLE X2 A. Rt ant scalp B. Mid post neck: Details: He is here for excision of a scalp cyst on the right frontal area. He had a cyst on the posterior neck when he was 1st seen in the office by the PA but he says that this has resolved and he did not want this excised. [facility] Medical History (Updated 03/30/25 @ 14:00 by Lj Reyes MD) Scalp cyst Cough CAD (coronary artery disease) PAF (paroxysmal atrial fibrillation) Gastroesophageal reflux disease with esophagitis Burning with urination Abscess Urinary frequency Colon cancer screening Weight loss, abnormal GERD (gastroesophageal reflux disease) Chronic idiopathic constipation HTN (hypertension) Surgical History (Updated 02/15/25 @ 09:55 by Eusebio Robledo MD) History of surgery Hx of colonoscopy Family History Father Stroke Mother No problems noted. Social History Household Members: Spouse and Children Housing: House Do you presently have visiting nurse or other home services: No Alcohol intake: never Patient Tobacco Use Status: Former Tobacco user Tobacco use type: Cigarette Second Hand Smoke Exposure: No Advance Directives Date on File: 03/20/24 service: No Current occupational status: disabled Physical Exam Vital Signs: Last Vital Signs Pulse 67 03/30/25 13:28 BP 140/69 H 03/30/25 13:28 BMI result Body Mass Index 21.7 Office Procedures Excision Details: He was in supine position. The area of the cyst on the right scalp at the frontal aspect was prepped and draped. Lidocaine 1% was used for local anesthesia. I made an elliptical incision on the skin surrounding this cyst with a blade 15. This was carried down through the full-thickness of the skin and subcutaneous fat to excise this entire cyst. This was sent as specimen. The cyst was about 2 cm in diameter. I closed the incision with full-thickness nylon 3-0 simple interrupted sutures. Dressings were applied. He tolerated procedure well. There were no immediate complications. [id number] scalp/neck/hands/feet/genitalia 1.1cm-2cm Procedure code (CPT) selection complete Assessment & Plan Assessment & Plan (1) Scalp cyst: Code(s): L72.9 - Follicular cyst of the skin and subcutaneous tissue, unspecified Category: Medical Plan: Excision was done under local anesthesia. He tolerated procedure well. He was given wound care instructions. I will see him in the office for removal of sutures in about 2 weeks. Orders: Orders Surgical Today L72.0 - Epidermal cyst Coding Level of Care Code Procedure Only Diagnoses Scalp cyst L72.9 CPT Codes Scalp/Neck/Hands/Feet/Genetalia - CPT: 77952-Taziccud scalp/neck/hands/feet/genitalia 1.1cm-2cm ([id number])
[2025-03-30 13:28] VITALS: BP 140/69; PULSE 67; BMI 21.7
== END 2025-03-30 14:06 | disposition home or self-care (01) ==
LOC: HO.HGS 12:29
PROVIDERS: PCP Internal Medicine; Visit Provider Surgery
DX: D23.4 Other benign neoplasm of skin of scalp and neck (principal)
CPT/HCPCS: 11423

== ENCOUNTER 2025-03-30 12:28 | Outpatient (REF) | payer OTHER, SELFPAY | END 2025-03-30 12:29 | disposition home or self-care (01) | LOC: HO.LNP 12:28 | PROVIDERS: PCP Internal Medicine; Visit Provider Surgery | DX: L72.9 Follicular cyst of the skin and subcutaneous tissue, unspecified (principal) | CPT/HCPCS: 11423; 88304; 88305 ==

== ENCOUNTER 2025-04-13 09:29 | Outpatient (AMB) | payer OTHER, SELFPAY ==
--- NOTE | 2025-04-13 09:36 | A.OFFVIS_ITS ---
Vital Signs 04/13/25 09:56 Height 6 ft 5 in Weight 184 lb 2 oz BMI 21.8 BP 148/76 H Blood Pressure Location Lt brachial Position Sitting Pulse 58 Intake Visit Reasons: s/p WLE X2 A. Rt ant scalp B. Mid post neck Intake Note: Patient is seen in office for post op assessment post excision of right anterior scalp lesion. Pt c/o: denies any concerns Boring And Filling Machine Operator Required: Yes Boring And Filling Machine Operator Language: Switch Crew Supervisor Services: Boring And Filling Machine Operator Present Boring And Filling Machine Operator Name: Denia CHEEK Information Interpreted: non-clinical & clinical Accompanied by: Family/Other Allergies No Known Allergies [No Known Allergies*] Allergy (Verified 04/13/25 09:43) HPI HPI s/p WLE X2 A. Rt ant scalp B. Mid post neck: Details: floor person used for this interaction. Patient reports he is doing well. He returns for suture removal. He denies any pain, fever, chills. [facility] Medical History (Updated 03/30/25 @ 14:00 by Lj Reyes MD) Scalp cyst Cough CAD (coronary artery disease) PAF (paroxysmal atrial fibrillation) Gastroesophageal reflux disease with esophagitis Burning with urination Abscess Urinary frequency Colon cancer screening Weight loss, abnormal GERD (gastroesophageal reflux disease) Chronic idiopathic constipation HTN (hypertension) Surgical History (Updated 02/15/25 @ 09:55 by Eusebio Robledo MD) History of surgery Hx of colonoscopy Family History Father Stroke Mother No problems noted. Social History Household Members: Spouse and Children Housing: House Do you presently have visiting nurse or other home services: No Alcohol intake: never Patient Tobacco Use Status: Former Tobacco user Tobacco use type: Cigarette Second Hand Smoke Exposure: No Advance Directives Date on File: 03/20/24 service: No Current occupational status: disabled Physical Exam Const General: comfortable and no acute distress Orientation/consciousness: patient oriented x3 Resp Effort & Inspection: normal respiratory effort and able to speak in complete sentences Skin Other: Right scalp excision site: Sutures in place. Moderate amounts of dry skin and scabbing in the area. Excision site is intact no surrounding erythema or discharge. Neuro General: patient oriented x3 Assessment & Plan Assessment & Plan (1) Scalp cyst: Code(s): L72.9 - Follicular cyst of the skin and subcutaneous tissue, unspecified Category: Medical Plan 89-year-old male presents for follow-up and suture removal after a cyst excision on the right anterior scalp on 03/30/2025. Patient is doing well, he is not have any pain. He denies fever or chills. Sutures were removed in the office without complication. Patient tolerated this well. 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 No further follow-up indicated. Patient can return as needed for future concerns. Coding Level of Care Code Est Pt Level 2 (47142) Diagnoses Scalp cyst L72.9 Time Spent (min) 28 Comment Time spent includes reviewing charts, surgical pathology results suture removal and eval
[2025-04-13 09:56] VITALS: BP 148/76; PULSE 58; BMI 21.8
--- OUTSIDE RECORDS SUMMARY | 2025-04-13 10:21 | XMS_ITS | Data Portability ---
Author Organization [place] - [facility], Allergy Address [address] [address] Assessment Encounter Date Assessment Date Assessment LastModified by Organization Details LastModified Time 06/22/2024 06/22/2024 Differential diagnosis of asymmetric hearing loss was reviewed with family, who understand. Given age, family elected not to pursue MRI or other testing. Recommend amplification on the left only or a Bi-Cros system; rationale and benefits reviewed and patient understands. Copy of audiogram provided to patient along with a medical clearance form and a list of providers who accept their insurance. Recommend annual audiometric testing, sooner with perceived change in hearing. All questions were answered. [email or web address] Not available 06/22/2024 11:01:15 Plan of Treatment Reminders Order Date Submit Date Provider Last Modified By Organization Details Last Modified Time Details Appointments None record ed. Lab None record ed. Referral None record ed. Procedures None record ed. Surgeries None record ed. Imaging None record ed. Medication Orders None record ed. Patient TargetsNo targets recorded. Patient InstructionsNo instructions recorded. Reason for Referral None Reported. Results Created Date Observation Date Name Description Value Unit Range Abnormal Flag Note LastModifiedBy Organization Detail LastModifiedTime 06/22/20 audio gram No observ ation record ed. BARCODE Not Available 2023 14:36:03 06/22/20 24 11/10/2020 imagi ng/di agnos tic resul t No observ ation record ed. [email or web address] Not Available 22:48:06 06/22/20 24 07/20/2020 imagi ng/di agnos tic resul t No observ ation record ed. [email or web address] Not Available 22:48:30 08/20/08/29/2020 imagi ng/di agnos tic resul t No observ ation record ed. [email or web address] Not Available 22:48:31 06/22/20 24 10/18/2020 imagi ng/di agnos tic resul t No observ ation record ed. [email or web address] Not Available 22:48:40 06/22/20 24 10/18/2020 imagi ng/di agnos tic resul t No observ ation record ed. [email or web address] Not Available 22:48:41 06/22/20 24 10/18/2020 audio gram No observ ation record ed. [email or web address] Not Available 22:49:25 Result Notes None recorded. 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, unspecifie d; Note: Date Diagnosed: 08/01/2020 10:40 AM (J38.00) Not Available [facility] 4 03:07:26 Chronic maxillary sinusitis 48026440 Active 2019 Chronic maxillary sinusitis; Note: Date Diagnosed: 10/18/2020 10:19 AM (J32.0) Not Available [facility] 4 03:07:26 Gastroeso phageal reflux disease without esophagit is 774304381 Active 2019 Gastro-eso phageal reflux disease without esophagiti s; Note: Date Diagnosed: 02/15/2020 1:47 PM (K21.9) Not Available [facility] 4 03:07:27 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 Procedures Surgical History Date Name Laterality Status Provider Name and Address Organization Details Recorded Time 06/22/2024 [employer] - 49888 completed ADALBERTO SWAIN [place], [facility]-[address],[place] [address], [place], [address], [place] - [facility] 06/22/2024 09:55:07 Imaging Results None recorded. Procedure Notes None recorded. Medical Equipment None Reported. Medications Name Sig Start Date Stop Date Status Note LastModified by Organization Details LastModified Time medbox status USE DIRECTED active Not Available Not Available No t Available furosemid e 40 mg tablet 2019 active Medicati on ID: [id number] D uration Value: 30 Brand Name: furosemi de Send Method: E-Prescr ibed Sub s Allowed: subs OK Speci al Instruct ion: TAKE ONE TABLET TWICE DAILY Me dication GenericN sagar: furosemi de Not Available Not Available Not Available atorvasta tin 40 mg tablet TAKE 1 TABLET BY MOUTH AT BEDTIME active Not Available Not Available No t Available hydralazi ne 10 mg tablet active Medicati on ID: [id number] B rand Name: hydralaz ine Send Method: E-Prescr ibed Sub s Allowed: subs OK Medic ationGen ericName : hydralaz ine Not Available Not Available Not Available acetamino phen 325 mg tablet TAKE 2 TABLETS (650 MG) ORALLY EVERY 6 HOURS NEEDED FOR PAIN active Not Available Not Available No t Available cetirizin e 10 mg tablet TAKE 1 TABLET BY MOUTH EVERY MORNING NEEDED FOR ALLERGY active Not Available Not Available No t Available atorvasta tin 10 mg tablet 08/01 completed Medicati on ID: [id number] D uration Value: 30 Brand Name: atorvast atin Sen d Method: E-Prescr ibed Sub s Allowed: subs OK Medic ationGen ericName : atorvast atin Not Available Not Available Not Available amiodaron e 200 mg tablet 2019 active Medicati on ID: [id number] D uration Value: 30 Brand Name: amiodaro ne Send Method: E-Prescr ibed Sub s Allowed: subs OK Speci al Instruct ion: TAKE ONE TABLET BY MOUTH EVERY DAY Medi cationGe nericNam e: amiodaro ne Not Available Not Available Not Available senna 8.6 mg tablet 2019 active Medicati on ID: [id number] D uration Value: 30 Brand Name: senna Se nd Method: E-Prescr ibed Sub s Allowed: subs OK Speci al Instruct ion: TAKE TWO TABLETS AT BEDTIME NEEDED M edicatio nGeneric Name: senna Not Available Not Available Not Available metoprolo l succinate ER 100 mg tablet,ex tended release 24 hr TAKE 1 TABLET BY MOUTH EVERY MORNING active Not Available Not Available No t Available meclizine 12.5 mg tablet 2019 active Medicati on ID: [id number] D uration Value: 4 Brand Name: meclizin e Send Method: E-Prescr ibed Sub s Allowed: subs OK Medic ationGen ericName : meclizin e Not Available Not Available Not Available clopidogr el 75 mg tablet TAKE 1 TABLET BY MOUTH AT BEDTIME active Not Available Not Available No t Available omeprazol e 40 mg capsule,d elayed release 02/14 completed Medicati on ID: [id number] D uration Value: 30 Brand Name: omeprazo le Send Method: E-Prescr ibed Sub s Allowed: subs OK Speci al Instruct ion: TAKE ONE CAPSULE AT BEDTIME Medicati onGeneri cName: omeprazo le Not Available Not Available Not Available aspirin 81 mg tablet,de layed release 2019 active Medicati on ID: [id number] D uration Value: 30 Brand Name: aspirin Send Method: E-Prescr ibed Sub s Allowed: subs OK Speci al Instruct ion: TAKE ONE TABLET BY MOUTH EVERY DAY Medi cationGe nericNam e: aspirin Not Available Not Available Not Available pantopraz ole 20 mg tablet,de layed release 08/01 completed Medicati on ID: [id number] D uration Value: 30 Brand Name: pantopra zolluisa Sen d Method: E-Prescr ibed Sub s Allowed: subs OK Speci al Instruct ion: TAKE ONE TABLET BY MOUTH EVERY DAY Medi cationGe nericNam e: pantopra zole Not Available Not Available Not Available potassium chloride 20 mEq oral packet DISSOLVE 2 PACKETS IN WATER AND DRINK DAILY active Not Available Not Available No t Available potassium chloride ER 20 mEq tablet,ex tended release(p art/cryst ) TAKE 1 TABLET BY MOUTH EVERY MORNING FOR 5 DAYS. DO NOT BREAK, CRUSH, DISSOLVE OR CHEW active Not Available Not Available No t Available famotidin e 20 mg tablet TAKE 1 TABLET BY MOUTH AT BEDTIME active Not Available Not Available No t Available amlodipin e 10 mg tablet 2019 active Medicati on ID: [id number] D uration Value: 30 Brand Name: amlodipi ne Send Method: E-Prescr ibed Sub s Allowed: subs LALITA Carty al Instruct ion: TAKE ONE TABLET BY MOUTH EVERY DAY Medi cationGe nericNam e: amlodipi ne Not Available Not Available Not Available pantopraz ole 40 mg tablet,de layed release TAKE 1 TABLET BY MOUTH EVERY MORNING active Not Available Not Available No t Available mirtazapi ne 30 mg tablet TAKE 1 TABLET BY MOUTH AT BEDTIME active Not Available Not Available No t Available lisinopri l 10 mg tablet active Medicati on ID: [id number] B rand Name: lisinopr il Send Method: E-Prescr ibed Sub s Allowed: subs OK Medic ationGen ericName : lisinopr il Not Available Not Available Not Available valsartan 320 mg tablet TAKE 1 TABLET BY MOUTH EVERY MORNING active Not Available Not Available No t Available docusate sodium 100 mg capsule 2019 active Medicati on ID: [id number] D uration Value: 30 Brand Name: docusate sodium S end Method: E-Prescr ibed Sub s Allowed: subs OK Speci al Instruct ion: TAKE ONE CAPSULE TWICE DAILY Me dication GenericN sagar: docusate sodium Not Available Not Available Not Available omeprazol e 20 mg capsule,d elayed release 1 capsule by mouth 2019 active Medicati on ID: [id number] D uration Value: 30 Prescri bed By Name: Solo mendoza MD Brand Name: omeprazo le Send Method: E-Prescr ibed Sub s Allowed: subs OK Medic ationGen ericName : omeprazo le Not Available Not Available Not Available hydralazi ne 50 mg tablet TAKE 1 TABLET BY MOUTH TWICE DAILY IN THE MORNING AND IN THE EVENING active Not Available Not Available No t Available furosemid e 20 mg tablet TAKE 1 TABLET BY MOUTH EVERY MORNING active Not Available Not Available No t Available mirtazapi ne 15 mg tablet 08/01 completed Medicati on ID: [id number] D uration Value: 20 Brand Name: mirtazap ine Send Method: E-Prescr ibed Sub s Allowed: subs OK Speci al Instruct ion: TAKE ONE TABLET BY MOUTH EVERY DAY BEFORE BEDTIME. MAY INCREASE UP TO THREE TABLETS Medicati onGeneri cName: mirtazap ine Not Available Not Available Not Available ibuprofen 600 mg tablet TAKE 1 TABLET BY MOUTH EVERY 8 HOURS NEEDED FOR MILD PAIN FOR UP TO 7 DAYS active Not Available Not Available No t Available risperido ne 1 mg tablet 2019 active Medicati on ID: [id number] D uration Value: 30 Brand Name: risperid one Send Method: E-Prescr ibed Sub s Allowed: subs OK Speci al Instruct ion: TAKE ONE TABLET BY MOUTH AT BEDTIME Medicati onGeneri cName: risperid one Not Available Not Available Not Available valsartan 320 mg-hydroc hlorothia zide 25 mg tablet TAKE 1 TABLET BY MOUTH EVERY MORNING active Not Available Not Available No t Available Fiber Laxative (methylce llulose) 500 mg tablet 2019 active Medicati on ID: [id number] D uration Value: 30 Brand Name: Fiber Laxative (methylc ellulo) Send Method: E-Prescr ibed Sub s Allowed: subs OK Speci al Instruct ion: TAKE TWO TABLETS TWICE DAILY NEEDED M edicatio nGeneric Name: Fiber Laxative (methylc ellulo) Not Available Not Available Not Available [place]-Tuss in 100 mg/5 mL oral liquid TAKE 10 ML BY MOUTH EVERY 4 HOURS NEEDED FOR COUGH. active Not Available Not Available No t Available Eliquis 2.5 mg tablet TAKE 1 TABLET BY MOUTH TWICE DAILY IN THE MORNING AND IN THE EVENING active Not Available Not Available No t Available Flonase Allergy Relief 50 mcg/actua tion nasal spray,toro pension 2 puff into both nostrils 2019 active Medicati on ID: [id number] D uration Value: 30 Prescri bed By Name: KD Andujar nd Name: Flonase Allergy Relief S end Method: E-Prescr ibed Sub s Allowed: subs OK Medic ationGen ericName : Flonase Allergy Relief Not Available Not Available Not Available Shingrix (PF) 50 mcg/0.5 mL intramusc ular suspensio n, kit 2019 active Medicati on ID: [id number] D uration Value: 1 Brand Name: Shingrix (PF) Sen d Method: E-Prescr ibed Sub s Allowed: subs OK Medic ationGen ericName : Shingrix (PF) Not Available Not Available Not Available [place]-Tuss in DM 10 mg-100 mg/5 mL oral liquid TAKE 10 ML BY MOUTH EVERY 4 TO 6 HOURS NEEDED NEEDED FOR COUGH active Not Available Not Available No t Available Vitals Date Recorded Body height Body mass index (BMI) Body weight Provider Name and Address Organization Details Last Updated DateTime 06/22/2024 187.96 cm 20.8 kg/m2 93716.96 g Radha Bhat [place] - [facility] 06/22/2024 10:04:14 Social History None recorded. Functional Status None recorded. Mental Status None recorded. Family History Nothing Reported. Medical History No medical history recorded. Past Encounters Encounter ID Performer Location Encounter Start Date Encounter Closed Date Diagnosis/Indication Diagnosis SNOMED-CT Code Diagnosis ICD10 Code Diagnosis Note [id number] FIORELLA MUKHERJEE PA-C [facility] [address] [place] [address] 06/22/2024 08:56:30 06/22/2024 10:27:13 Sensorineural hearing loss of bilateral ears [id number] H90.3 Audiologic al evaluation results: Right ear: Normal Nor mal through 2 kHz Mild M oderate Mo derately-s evere Fanny re Profoun d No measurable hearing Left ear: Normal Nor mal through 2 kHz Mild M oderate Mo derately-s evere Fanny re Profoun d NormalMo derate/ severe hearing sl oping to a mild slopi ng to a moderate s loping to moderately severe slo ping to severe slo ping to profound f lat high frequency low frequency mid frequency cookie bite aceves curve To profound SNHL Tympanomet ry: Right Ear:Type A Left Ear:Type A Health Concerns Section Related Observation LastModified by Organization Detai ls LastModified Time None Recorded Concern Status LastModified by Organization Details LastModified Time None Recorded Advance Directives Directive None Recorded Payers Insurance Date Sequence Insurance Name Policy Number Policy Abernathy Covered Member ID Abernathy Member ID Guarantor Name 06/22/2024 1 [employer] - [facility] [place]/AD VANTAGE - HMO) Alvaro Rivas [id number] Alvaro Rivas 06/22/2024 1 [facility] [place] - DOS ON OR AFTER 2023 - [employer] AND [employer] (MEDICARE REPLACEMENT/AD VANTAGE - PPO) Alvaro Rivas [id number] Alvaro Rivas 06/22/2024 2 [place] [facility] Alvaro Rivas [id number] Alvaro Rivas Notes Date Note Type Note Provider Name and Address Organization Details Recorded Time 06/22/2024 text/html 88 year old male presents with spouse for evaluation of ears and hearing. History taken from spouse with use of brokerage branch manager. Reports he has been losing hearing for many years and seems to have lost all of the hearing on the right and much of the hearing on the left. It has been a gradual decrease on both sides. He used to wear hearing aids about 7 years ago and stopped using them because they stopped working well and he chose not to repair them. History of tinnitus in the left ear. Patient does not complain of otalgia and has never noted any otorrhea. CHRIS HAWKINS MD [address] [place] [address], [place], [address], [facility] - [facility] 06/22/2024 11:55:34
== END 2025-04-13 09:54 | disposition home or self-care (01) ==
LOC: HO.HGS 09:30
PROVIDERS: PCP Internal Medicine
DX: L72.9 Follicular cyst of the skin and subcutaneous tissue, unspecified (principal)
CPT/HCPCS: 99212

== ENCOUNTER → 2025-04-13 09:29 | Outpatient (BNVA) | payer OTHER, SELFPAY | PROVIDERS: PCP Internal Medicine | DX: L72.0 Epidermal cyst (principal); L72.9 Follicular cyst of the skin and subcutaneous tissue, unspecified | CPT/HCPCS: 99212 ==

== ENCOUNTER 2025-09-20 11:34 | Outpatient (REF) | payer OTHER, SELFPAY ==
[2025-09-20 14:25] LABS: MANUAL DIFF FLAG NO
[2025-09-20 14:45] LABS: Hematocrit 40.6 % (42.0-52.0); Hemoglobin 13.3 g/dl (14.0-18.0); Imm Gran Abs Auto 0.02 X10*3/uL (0.00-0.03); Imm Gran Pct Auto 0.3 % (0.0-0.4); Lymphocytes Absolute Auto 1.3 X10*3/uL (1.2-4.9); Mean Corpuscular HGB Conc 32.8 g/dl (31.0-36.0); Mean Corpuscular Hemoglobin 30.1 pg (27.0-33.0); Mean Corpuscular Volume 91.9 fL (80.0-98.0); NRBC Abs Auto 0.000 X10*3/uL (0.0-0.012); NRBC Pct Auto 0.0 /100WBC (0.0-0.2); Platelet Count 181 X10*3/uL (160-400); Red Blood Count 4.42 X10*6/uL (4.60-5.80); White Blood Count 6.2 X10*3/uL (4.8-10.8)
[2025-09-20 15:00] LABS: Anion Gap 8 (12-20); Blood Urea Nitrogen 14 mg/dL (9-16); Calcium 9.3 mg/dL (8.4-10.2); Carbon Dioxide 27 mmol/L (22-29); Chloride 108 mmol/L (96-108); Estimated Glomerular Filt Rate 56; Potassium 3.3 mmol/L (3.3-5.1); Sodium 140 mmol/L (135-145)
--- OUTSIDE RECORDS SUMMARY | 2025-09-21 02:38 | XMS_ITS | Encounter Summary ---
Author Organization [facility] Address [address] [place] [address] Phone Care Team Providers Care Agricultural Research Director Name Role Phone Unavailable Primary Care Provider Unavailabl e Encounter Details Date Type Department Care Team (Late st Contact Info) Description 06/11/2019 Ancillary Orders [facility] [address] [place] [address] [place] [address] Riaz Mckinney MD [address] [place] [phone] [email or web address] Palpitations Social History Tobacco Use Types Packs/Day Years Used Date Smoking Tobacco: Never Assessed Sex and Gender Information Value Date Recorded Sex Assigned at Not on file Legal Sex Male 11:01 AM EDT Gender Identity Not on file Sexual Orientation Not on file documented as of this encounter Plan of Treatment Not on file documented as of this encounter Results * Holter Monitor 48 Hours (06/11/2019 3:46 PM EDT) Anatomical Region Laterality Modality Heart Other Narrative 06/11/2019 4:44 PM EDT 48-hour monitor: Baseline rhythm is sinus with a minimum heart rate of 46, maximum 108, average 60 bpm. Longest pause 2.0 seconds, due to a blocked PAC at 7:30 AM. Rare PACs present and a single 4 beat run of atrial tachycardia present. Minor increase in frequency of PVCs, about 750 per 24-hour period. There are periods of ventricular bigeminy, some lasting 2 minutes. There is no diary returned. There are no patient event markers. Impression: Abnormal 24-hour monitor due to minor increase in frequency of PVCs and occasional ventricular bigeminy. No diary returned. No patient event markers present. Procedure Note Blayne Ortiz MD - 06/11/2019 48-hour monitor: Baseline rhythm is sinus with a minimum heart rate of 46,maximum 108, average 60 bpm. Longest pause 2.0 seconds, due to a blockedPAC at 7:30 AM. Rare PACs present and a single 4 beat run of atrialtachycardia present. Minor increase in frequency of PVCs, about 750 [id number] period. There are periods of ventricular bigeminy, some lasting 2minutes. There is no diary returned. There are no patient eventmarkers. Impression: Abnormal 24-hour monitor due to minor increase in frequency ofPVCs and occasional ventricular bigeminy. No diary returned. No patientevent markers present. Riaz Mckinney MD [facility] Final Result documented in this encounter Visit Diagnoses Diagnosis Palpitations Palpitations documented in this encounter Additional Source Comments The information contained in this document represents components of the legal health record. It is not the complete legal health record.[facility]
--- OUTSIDE RECORDS SUMMARY | 2025-09-21 02:38 | XMS_ITS | Data Portability ---
Author Organization [employer] [facility] Address [address] [place] [phone] Care Team Providers Care Motor Winder Name Role Phone HIM CCA OTHER Unavailable OTHER Assessment No assessment recorded. Plan of Treatment Reminders Order Date Submit Date Provider Last Modified By Organization Details Last Modified Time Details Appointments None recorded. Lab rapid SARS CoV 2 Ag, QL IA, respiratory specimen 2023 [facility], [address] [place] [address], [id number] 4 19:28:17 rapid flu (A+B) 2023 [facility], [address] [place] [address], [id number] 4 19:28:16 rapid strep group A, throat 2023 [facility], [address] [place] [address], [id number] 4 19:28:17 Referral None recorded. Procedures None recorded. Surgeries None recorded. Imaging None recorded. Medication Orders benzonatate 100 mg capsule 2023 [facility] #[id number], [address] [place], [phone], 4 19:28:19 ipratropium 0.5 mg-albutero l 3 mg (2.5 mg base)/3 mL nebulizatio n soln 2023 [facility], [address] [place] [address], [id number], 4 19:28:17 Ventolin HFA 90 mcg/actuati on aerosol inhaler 2023 024 [facility] #[id number], [address] [facility], [place], [address], 19:28:18 Patient TargetsNo targets recorded. Patient InstructionsNo instructions recorded. Reason for Referral None Reported. Results Created Date Observation Date Name Description Value Unit Range Abnormal Flag Note LastModifiedBy Organization Detail LastModifiedTime 10/29/20 24 10/29/2024 rapid strep group A, throa t Strep negati ve Not Available [facility] ed [address] [place] [address], [id number] 10/29/2024 19:24:29 10/29/20 24 10/29/2024 rapid flu (A+B) Flu negati ve Not Available [facility] ed [address] [place] [address], [id number] 10/29/2024 19:24:22 10/29/20 24 10/29/2024 rapid SARS CoV 2 Ag, QL IA, respi rator y speci men rapid SARS CoV 2 Ag, QL IA, respiratory specimen negati ve Not Available [facility] ed [address] [place] [address], [phone] 10/29/2024 19:24:15 Result Notes None recorded. Medical Equipment None Reported. Allergies No known drug allergies Medications Name Sig Start Date Stop Date Status Note LastModified by Organization Details LastModified Time medbox status USE DIRECTED active Not Available Not Available No t Available atorvastatin 40 mg tablet TAKE 1 TABLET BY MOUTH AT BEDTIME active Not Available Not Available No t Available acetaminophe n 325 mg tablet TAKE 2 TABLETS (650 MG) ORALLY EVERY 6 HOURS NEEDED FOR PAIN active Not Available Not Available No t Available ipratropium 0.5 mg-albuterol 3 mg (2.5 mg base)/3 mL nebulization soln Inhale 3 mL by nebulizatio n route for 1 day. 2023 active Not Available Not Available Not Avai lable cetirizine 10 mg tablet TAKE 1 TABLET BY MOUTH EVERY MORNING NEEDED FOR ALLERGY active Not Available Not Available No t Available metoprolol succinate ER 100 mg tablet,exten ded release 24 hr TAKE 1 TABLET BY MOUTH EVERY MORNING active Not Available Not Available No t Available clopidogrel 75 mg tablet TAKE 1 TABLET BY MOUTH AT BEDTIME active Not Available Not Available No t Available triamcinolon e acetonide 0.1 % topical cream APPLY A THIN LAYER TO AFFECTED AREA(S) TWICE DAILY active Not Available Not Available Not Available potassium chloride 20 mEq oral packet DISSOLVE 2 PACKETS IN WATER AND DRINK DAILY active Not Available Not Available Not Available potassium chloride ER 20 mEq tablet,exten ded release(part /cryst) TAKE 1 TABLET BY MOUTH EVERY MORNING FOR 5 DAYS. DO NOT BREAK, CRUSH, DISSOLVE OR CHEW active Not Available Not Available No t Available famotidine 20 mg tablet TAKE 1 TABLET BY MOUTH AT BEDTIME active Not Available Not Available No t Available benzonatate 100 mg capsule Take 1 capsule 3 times a day by oral route for 5 days. 2023 active Not Available Not Available Not Avai lable pantoprazole 40 mg tablet,delay ed release TAKE 1 TABLET BY MOUTH EVERY MORNING active Not Available Not Available No t Available mirtazapine 30 mg tablet TAKE 1 TABLET BY MOUTH AT BEDTIME active Not Available Not Available No t Available valsartan 320 mg tablet TAKE 1 TABLET BY MOUTH EVERY MORNING active Not Available Not Available No t Available hydralazine 50 mg tablet TAKE 1 TABLET BY MOUTH THREE TIMES DAILY IN THE MORNING, EVENING, AND BEDTIME active Not Available Not Available Not Available furosemide 20 mg tablet TAKE 1 TABLET BY MOUTH EVERY MORNING active Not Available Not Available No t Available ibuprofen 600 mg tablet TAKE 1 TABLET BY MOUTH EVERY 8 HOURS NEEDED FOR MILD PAIN FOR UP TO 7 DAYS active Not Available Not Available No t Available Ventolin HFA 90 mcg/actuatio n aerosol inhaler Inhale 2 puffs every 4 hours by inhalation route. 2023 active Not Available Not Available Not Avai lable valsartan 320 mg-hydrochlo rothiazide 25 mg tablet TAKE 1 TABLET BY MOUTH EVERY MORNING active Not Available Not Available No t Available blood pressure test kit-large cuff USE DIRECTED ONCE DAILY active Not Available Not Available N ot Available Alberta-Tussin 100 mg/5 mL oral liquid TAKE 10 ML BY MOUTH EVERY 4 HOURS NEEDED FOR COUGH. active Not Available Not Available No t Available Eliquis 2.5 mg tablet TAKE 1 TABLET BY MOUTH TWICE DAILY IN THE MORNING AND IN THE EVENING active Not Available Not Available No t Available Alberta-Tussin DM 10 mg-100 mg/5 mL oral liquid TAKE 10 ML BY MOUTH EVERY 4 TO 6 HOURS NEEDED NEEDED FOR COUGH active Not Available Not Available No t Available Vitals Date Recorded Oxygen saturation Oxygen saturation in Arterial blood by Pulse oximetry Body weight Body temperature Respiratory rate Heart rate Systolic And Diastolic Provider Name and Address Organization Details Last Updated DateTime 4 96 % 96 % 76602.4 g 98.6 [degF] 18 /min 75 /min 153/74 mm[Hg] Not Available [facility] - production 4 19:12:08 Social History None recorded. Functional Status None recorded. Mental Status None recorded. Family History Nothing Reported. Medical History No medical history recorded. Past Encounters Encounter ID Performer Location Encounter Start Date Encounter Closed Date Diagnosis/Indication Diagnosis SNOMED-CT Code Diagnosis ICD10 Code Diagnosis IMO Codes Diagnosis Note [id number] Libby Jenkins MD [facility] [address] [place] [phone] 10/29/2024 19:01:23 11/02/2024 19:46:08 Viral upper respiratory tract infection 831717562 J06.9 Evaluation in the field was performed by my wharf builder colleague, as noted above, I provided real-time direction and supervisio n for this visit. The evaluation revealed an 89-year-ol d male with a medical history significan t for arrhythmia s , hyperlipid emia, hypertensi on, congestive heart failure, and chronic kidney disease, presenting with complaints of headache, non-produc tive cough, chest pain associated with coughing, and shortness of breath , primarily exacerbate d by coughing. The patient reports that the SOB has worsened over the past two days. He denies dizziness, nausea, vomiting, diarrhea, abdominal pain, or fever. Pt denies orthopnea .The patient is able to tolerate oral intake. Family members have experience d similar symptoms a few days prior, and both the patient and his are now symptomati c. VS stable, with mildly elevated BP.Lung sounds: mild bilateral rhonchi/wh eezing.Abd omen: soft, non-tender , no distention .Left ankle/foot edema noted, chronic in nature as per family.Flu , COVID, and rapid strep tests negative.A llergies reviewed. Impression :Upper respirator y tract infection, most likely viral in nature. Plan:-Leona ramirez was administer ed, resulting in improvemen t of symptoms.- A prescripti on for albuterol with a spacer was sent to the patient's pharmacy, and the patient was advised to use it every 4-6 hours while awake to help with symptoms.- A prescripti on for Tessalon pearls was also sent to the pharmacy.- The patient was encouraged to continue supportive measures such as tea with honey, Vicks rub, and Tylenol for pain and fever relief.-Re d flags were discussed with the family. Primary care, consider__ _ Dispositio n: We discussed the diagnostic uncertaint y of home visits and the risk associated with this. In this case, the patient and I felt this to be an acceptable and reasonable amount of risk given the benefit of avoiding an ED visit. We discussed the need to seek care urgently/e mergently in the setting of any new or worsening serious symptoms, particular ly fever, chills, headache, CP, SOB, worsening cough, nausea, vomiting, decreased PO intake, altered mental status or any other concerns Health Concerns Section Related Observation LastModified by Organization Detai ls LastModified Time None Recorded Concern Status LastModified by Organization Details LastModified Time None Recorded Advance Directives Directive None Recorded Payers Insurance Date Sequence Insurance Name Policy Number Policy Abernathy Covered Member ID Abernathy Member ID Guarantor Name 10/29/2024 1 [facility] - DOS ON OR AFTER 2023 - DUAL ELIGIBLE - GROUP HOME OPTIONS AND ONE CARE (MEDICARE REPLACEMENT/ADV ANTAGE - HMO) Alvaro Rivas [id number] Alvaro Rivas Notes Date Note Type Note Provider Name and Address Organization Details Recorded Time 10/29/2024 text/html ROS as noted in the HPI [facility] Nurse Triage Notes (Sabrina Ceja - RN): Reason For Request: Chest congestion, nose is running, minor short of breath. Denies: Increased work of breathing/labored with or without fever Unable to speak in full sentences without distress Discoloration of skin -cyanosis Needs to sleep sitting up, can t catch breath Shortness of breath in setting of confusion Chief Complaints: Common cold symptoms, Cough PMH: Arrhythmias (e.g., Atrial Fibrillation), Hyperlipidemia, Hypertension, Congestive Heart Failure, Chronic Kidney Disease Comments: Nurse from [facility] calling in to place a referral, identified via name and . Patient with a 4 day history of productive cough with yellow phlegm, chest and nasal congestion. Denies shortness of breath, no chest pain, no headache or dizziness, no fever/chills, no n/v/d. He would like to be evaluated. 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 Address: [address] [place] [id number], Staff Mechanical Engineer: Joselito GAUTHIER No.: [id number] Elementary [employer] Counselor POC Test Results from [facility] Rapid COVID antigen (19:12:45) COVID: - Rapid influenza antigen (19:12:46) Flu: - Rapid strep test (19:12:47) Strep: - .................. .................. .................. .................. .................. .................. .................. ............... Elementary School Counselor Note From [facility]: Sent to a call for a pt complaining of URI symptoms. [facility] arrives on scene, pt is alert and oriented, airway is patent. Pt had family members recently sick with similar symptoms. Pt has no known allergies. Pt complains of headache, non-productive cough, chest pain with cough, and sob mostly when coughing. Sob has been worse over the past two days. Pt denies dizziness, n/v/d, abd pain, fever, or loc. BP:153/74, P:75, RR:18, SpO2:96% RA, T:98.5; Head: unremarkable; Lung sounds: bilateral rhonchi/wheezing; Abdomen: soft, non-tender, no distention; Back: unremarkable; Extremities: Left ankle/foot edema (baseline); Skin: pink, warm ,dry; Rapid covid/flu test: neg; Rapid strep test: neg; Head: unremarkable; Lung sounds: bilateral rhonchi/wheezing; [facility] consulted and orders Duo Neb treatment. [facility] sends script to pt's pharmacy for another albuterol inhaler with spacer and cough medicine. Pt advised to use inhaler every 4hrs while awake. Pt advised cough may continue for more than one week. Duo neb administered. Pt reports improvement; Red flags discussed. Pt/family has no further questions. .................. .................. .................. .................. .................. .................. .................. ............... [facility] Consulted: Arnulfo Richards .................. .................. .................. .................. .................. .................. .................. ............... Disposition: Joni RICHARDS MD [address] [place] [address],[address], [place], [phone], [employer] 10/29/2024 23:24:11
--- OUTSIDE RECORDS SUMMARY | 2025-09-21 02:38 | XMS_ITS | Clinical Summary ---
Author Organization [facility] Address [address] [address] Phone Care Team Providers Care General Surgeon Name Role Phone Unavailable Primary Care Provider Unavailabl e Social History Tobacco Use Types Packs/Day Years Used Date Smoking Tobacco: Never Assessed Education Answer Date Recorded Are you interested in more education? Not on shantanu e 02/28/2023 Are you concerned about learning? Not on file 02/28/2023 No 02/28/2023 No 02/28/2023 Digital Access Answer Date Recorded No 03/29/2023 No 03/29/2023 No 03/29/2023 Reliable internet access at home? Not on file 03/29/2023 Device with a working camera? Not on file Sex and Gender Information Value Date Recorded Sex Assigned at Not on file Legal Sex Male 11:01 AM EDT Gender Identity Not on file Sexual Orientation Not on file Plan of Treatment Health Maintenance Due Date Last Done Comments DEPRESSION SCREENING 1947 PNEUMOCOCCAL VACCINES (50+ years) (1 of 1 - PCV) 1987 RSV VACCINE (1 - 1-dose 75+ series) 2012 INFLUENZA VACCINE (#1) 2025 0, 12/16/2019 COVID-19 VACCINE (2 - 2024-2 6 season) 2025 12/19/2020 Adult Td,Tdap Booster 04/08/2029 04/08/2019 ZOSTER VACCINES Completed 07/13/2020, 01/10/2020 HEPATITIS A VACCINES Aged Out No long er eligible based on patient's age to complete this topic HIB VACCINES Aged Out No longer eligi ble based on patient's age to complete this topic IPV VACCINES Aged Out No longer eligi ble based on patient's age to complete this topic MENINGOCOCCAL VACCINES (ACWY) Aged Out No longer eligible based on patient's age to complete this topic MENINGOCOCCAL VACCINES (B) Aged Out N o longer eligible based on patient's age to complete this topic Medical Devices Not on file Insurance MEDICARE REPLACEMENT MEDICARE REPLACEMENT MEDICARE [place] [address] [address] [place] [address] [address] [place] [address] MEDICARE REPLACEMENT Additional Source Comments The information contained in this document represents components of the legal health record. It is not the complete legal health record.[facility]
--- OUTSIDE RECORDS SUMMARY | 2025-09-21 02:38 | XMS_ITS | Encounter Summary ---
Author Organization [facility] Address [address] [facility] [address] [place] [address] Phone Care Team Providers Care Managing Director Atlas Name Role Phone Unavailable Primary Care Provider Unavailabl e Encounter Details Date Type Department Care Team (Late st Contact Info) Description 06/11/2019 Ancillary Orders [facility] [address] [facility] [address] [place] [address] Riaz Mckinney MD [address] [place] [address] [email or web address] Social History Tobacco Use Types Packs/Day Years Used Date Smoking Tobacco: Never Assessed Sex and Gender Information Value Date Recorded Sex Assigned at Not on file Legal Sex Male 11:01 AM EDT Gender Identity Not on file Sexual Orientation Not on file documented as of this encounter Plan of Treatment Not on file documented as of this encounter Visit Diagnoses Not on filedocumented in this encounter Additional Source Comments The information contained in this document represents components of the legal health record. It is not the complete legal health record.[facility]
== END 2025-09-20 11:35 | disposition home or self-care (01) ==
LOC: HO.CHCLDS 11:34
PROVIDERS: Visit Provider Internal Medicine
DX: I87.2 Venous insufficiency (chronic) (peripheral) (principal)
CPT/HCPCS: 36415; 80048; 85025